=== PATIENT | female | born 1945 | race Hispanic/Latino ===

== ENCOUNTER 2017-10-29 15:15 | Outpatient (CLI) | payer OTHER ==
--- NOTE | 2017-10-29 18:57 | ULT ---
CAROTID ARTERIAL DOPPLER ULTRASOUND: Date: 10-29-17 Comparison: None. History: Disorder of carotid artery. Assess for carotid artery stenosis. Technique: Multiplanar grayscale sonographic imaging of the arterial structures of the neck obtained with color flow and spectral analysis. FINDINGS: There is essentric plaque within the distal right CCA. There is antegrade blood flow within the carot id and vertebral system on the right. There is essentric plaque within the proximal mid and distal left common carotid artery. There is ant egrade blood flow within the carotid and vertebral system on the left. There is partially calcified p laque within the proximal and mid left internal carotid artery as well as the proximal left external carotid artery. Incidental note is made of a heterogeneously hypoechoic nodule within the right lobe of the thyroid g land measuring 1.2 cm. VESSEL PSV (cm/sec) EDV (cm/sec) Right CCA 79 20 Right ICA 85 23 Right ECA 95 7 Left CCA 106 22 Left ICA 90 21 Left ECA 98 8 ICA/CCA ratio is 1.1 on the right and 0.9 on the left. IMPRESSION: 1. Bilateral atherosclerotic plaque within the carotid system, left greater than right. No hemodynami muriel significant stenosis on the basis of sonographic velocity criteria. 2. Hypodense nodule within the right thyroid lobe, incompletely assessed on this exam. Recommend dedi cated thyroid ultrasound. POS: [facility]
== END 2017-10-29 15:16 | disposition home or self-care (01) ==
LOC: ULT 15:15
PROVIDERS: ATTEND Family Medicine
DX: I77.9 Disorder of arteries and arterioles, unspecified (principal); I65.23 Occlusion and stenosis of bilateral carotid arteries; E04.1 Nontoxic single thyroid nodule
CPT/HCPCS: 93880

== ENCOUNTER 2017-12-20 16:58 | Inpatient (IN) | payer OTHER, SELFPAY ==
[2017-12-20 17:50] LABS: Bilirubin Negative (Negative); Blood, Urine Large (Negative); Clarity TURBID (Clear); Glucose, Urine (Dipstick) Negative (Negative); Leukocyte Large (Negative); Nitrite Negative (Negative); Protein, Urine (Dipstick) 100 mg/dL (Neg-Trace); Specific Gravity, Urine 1.016 (1.002-1.036); Urobilinogen 0.2 mg/dL (0.2-1.0); pH, Urine 5.5 (5.0-9.0)
[2017-12-20 17:52] LABS: Bacteria/HPF 4+ HPF (None Seen); RBC/HPF 21-50 HPF (0-3)
[2017-12-20 17:52] LABS: #Lymphocytes 0.6 thou/uL (1.20-3.40); #Monocytes 0.7 thou/uL (0.11-0.59); #Neutrophils 14.6 thou/uL (1.40-6.50); %Eosinophils 0.2 % (0.0-10.0); %Lymphocytes 3.6 % (21.0-51.0); %Monocytes 4.4 % (0.0-10.0); %Neutrophils 91.8 % (42.0-75.0); Hemoglobin 8.9 g/dL (12.0-16.0); Mean Corpuscular HGB CONC 34.3 g/dL (32.0-36.0); Mean Corpuscular Hemoglobin 35.8 pg (27.0-31.0); Mean Platelet Volume 6.1 fL (7.4-10.4); Platelet Count 267 thou/uL (130-400); RBC Distribution Width 10.8 % (11.5-14.5); Red Blood Cell (RBC) Count 2.48 mill/uL (4.20-5.40)
[2017-12-20 17:53] LABS: Pathc Cast-AUWi Flag 117.51 (0-2.49)
[2017-12-20 18:00] LABS: Hyaline Casts/LPF NONE SEEN LPF (0-3 Hyaline); Other Casts/LPF None Seen LPF (0-3 Hyaline)
[2017-12-20 18:07] LABS: ALT (SGPT) 49 U/L (8-55); AST (SGOT) 38 U/L (5-34); Albumin 3.1 g/dL (3.4-4.8); Alkaline Phosphatase 348 U/L (40-150); Anion Gap 17 mmol/L (10-20); BUN (Urea Nitrogen) 69 mg/dL (9.8-20.1); Bilirubin, Total 0.6 mg/dL (0.2-1.2); Calc. Creatinine Clearance 0 mL/min (70-130); Calcium 8.7 mg/dL (7.8-10.44); Carbon Dioxide 14 mmol/L (23-31); Chloride 93 mmol/L (98-107); Estimated GFR-MDRD 16; Glucose 227 mg/dL (80-115); Potassium 4.9 mmol/L (3.5-5.1); Protein, Total 7.1 g/dL (6.0-8.3)
[2017-12-20 18:11] LABS: Sodium 119 mmol/L (136-145)
[2017-12-20] MEDS ORDERED: Ondansetron HCl/PF 4 MG/2 ML Vial ONE (18:54)
[2017-12-20] MEDS ORDERED: cefTRIAXone\\ROCEPHIN 2 GM in Sodium Chloride 0.9% 100 ML IVPB SCH (19:00)
--- NOTE | 2017-12-20 19:06 | RAD ---
PORTABLE CHEST: 12/20/17 HISTORY: Mental status change. Fever. The lungs are well aerated. Interstitial markings are prominent in the right upper lung, probably ch ronic. No evidence of vascular congestion, effusion or focal infiltrate. IMPRESSION: No focal infiltrate identified. POS: [facility]
--- NOTE | 2017-12-20 19:44 | RAD ---
RIGHT HIP: 12/20/17 Two views. HISTORY: Fall with injury to right hip. Hip pain. FINDINGS/IMPRESSION: There is a right hip prosthesis in place with an intramedullary component in the proximal femur. The mid femur has been previously fixated with plate and screws. Components appear in adequate position and alignment. No acute fracture identified. POS: [facility]
--- NOTE | 2017-12-20 19:46 | RAD ---
RIGHT ANKLE: 12/20/17 Three views. HISTORY: Fall with injury to ankle with pain. Bones are osteopenic. There is a fracture of the distal tibia along its medial cortex just above the medial malleolus. No s ignificant displacement. Distal fibula and lateral malleolus appear intact. IMPRESSION: Fracture distal tibia. POS: [facility]
[2017-12-20] MEDS ORDERED: Ondansetron ODT 4 MG TAB PO PRN (22:59)
[2017-12-20] MEDS ORDERED: Dextrose 50% Abboject 50 ML SYRINGE SLOW IVP PRN (22:59)
[2017-12-20] MEDS ORDERED: Dextrose 5% in Water 1,000 ML IV PRN (22:59)
[2017-12-20 23:15] LABS: Osmolality, Urine 287 mOsm/kg (300-900)
[2017-12-20] MEDS ORDERED: Polyethylene Glycol 3350 17 GM Packet PO PRN (23:18)
[2017-12-20] MEDS ORDERED: Bisacodyl 10 MG SUPP PR PRN (23:18)
[2017-12-20 23:27] LABS: Sodium, Urine 32 mmol/L (Not Available)
[2017-12-20] MEDS ORDERED: Polyethylene Glycol 3350 17 GM Packet PO SCH (23:30)
[2017-12-21] MEDS: Sodium Chloride 0.9% 1,000 ML IV SCH ×3 (00:11→23:27)
[2017-12-21] MEDS: Acetaminophen 325 MG TAB PO PRN ×2 (02:29→21:46)
--- NOTE | 2017-12-21 04:21 | HP-2 ---
CODE STATUS: FULL. PRIMARY CARE PHYSICIAN: Dr. Vigil at [facility]. ATTENDING: Pravin Carpio M.D. RESIDENT: Jarrett Paiz M.D. CHIEF COMPLAINT: Fever. HISTORY OF PRESENT ILLNESS: A 72-year-old female presents with 4-day history of nausea, vomiting, fe geoff, poor oral intake and poor urine output. She states she has not had any sick contacts recently. Her family states that she does not drink very much water at baseline, but it has been noticeably wo rse over the last 4 days. The patient's family also states she has been more weak as of recent and h ad a fall this week most recently 2 days ago at her eye doctor's appointment. The patient denies any abdominal pain or any chest pain. The patient also denies any cough or congestion or shortness of b reath. She does not feel well and she feels weak. She also notes that she has not had a bowel movem ent in roughly 4 days as well. PAST MEDICAL HISTORY: Diabetes mellitus type 2, hypertension, chronic kidney disease 3. PAST SURGICAL HISTORY: She has had a hip replacement, knee and shoulder surgery. ALLERGIES: No known drug allergies. MEDICATIONS: 1. She takes lisinopril/hydrochlorothiazide 20/25 mg b.i.d. 2. Atorvastatin 40 mg at bedtime. 3. Aspirin 81 mg daily. FAMILY HISTORY: Noncontributory. SOCIAL HISTORY: No tobacco, alcohol or drug use. REVIEW OF SYSTEMS: Twelve-point review of systems was otherwise negative unless stated above in the HPI. PHYSICAL EXAMINATION: VITAL SIGNS: Blood pressure was 153/59, pulse 78, respiration 16, temperature max 98.8, pulse ox 100 % on room air, and current weight is 73 kilos. GENERAL: Alert and oriented x4. Appropriately interactive. 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 ENT: Tympanic membranes pearly gee without bulging or erythema. Nasal mucosa and oropharynx within normal limits, but she does have poor dentition present on exam. NECK: Supple, no lymphadenopathy, no thyromegaly. CARDIOVASCULAR: Regular rate and rhythm, 4/6 systolic murmur present on exam. Radial and pedal puls es equal bilaterally. RESPIRATORY: Normal effort, no retractions. Lungs clear to auscultation bilaterally. SKIN: Warm and dry. ABDOMEN: Soft, nontender to palpation. Bowel sounds present x4. No mass or distention. EXTREMITIES: No clubbing, cyanosis or edema. MUSCULOSKELETAL: Structure, tone, muscle strength and range of motion within normal limits. NEUROLOGIC: No focal neurologic deficits. Sensation within normal limits. Cranial nerves II-XII gr ossly intact. GCS of 15. PSYCHIATRIC: Appropriate. LABORATORY DATA: White blood cell count 16.0, platelet count 267, hemoglobin 8.9, hematocrit 25.9, M CV was 104.0, percent neutrophils 91.8. Had a sodium of 119, corrected to 122; potassium 4.9; chlori de 93; bicarbonate 14; BUN 69; creatinine 2.89; glucose was 227. Calcium was 8.7, total protein 7.1, albumin 3.1, total bilirubin 0.6, AST 38, ALT 49, alkaline phosphatase 348, lactate was 1.5. Her ur inalysis showed a large amount of blood, 100% of protein, large amount of leukocyte esterase, 21 to 5 0 rbc's, too numerous to count white blood cells and 4+ urine bacteria. ASSESSMENT AND PLAN: A 72-year-old female. 1. Hyponatremia, likely hypovolemic. We will give her IV fluids and track for the BMP. 2. Urinary tract infection. We will give her antibiotics and IV fluids to help with that. 3. Acute on chronic kidney injury. IV fluids. Track for the BMP. 4. Hyperglycemia and diabetes mellitus type 2, is currently untreated at home. She obviously needs to be put her on insulin or some sort of a diabetic regimen as an outpatient, but for now we will giv e her insulin and Accu-Cheks. 5. Leukocytosis, likely secondary to urinary tract infection. 6. Elevated alkaline phosphatase secondary to the fracture to her newly found fracture. 7. Medial malleolus fracture is nondisplaced. A splint is in place. We will give PT and OT evaluat ion and treatment to determine if she will be safe for placement or she needs to go to a rehab facili ty. 8. Microcytic anemia. We will get B12 and folate studies are pending to work that up further. DISPOSITION AND LENGTH OF HOSPITAL STAY: Will be inpatient in 2. Symptomatic medication will be provided. History and physical exam as well as management have been discussed with Dr. Carpio.
[2017-12-21 04:49] LABS: Anion Gap 15 mmol/L (10-20); BUN (Urea Nitrogen) 64 mg/dL (9.8-20.1); Calc. Creatinine Clearance 0 mL/min (70-130); Calcium 8.5 mg/dL (7.8-10.44); Carbon Dioxide 13 mmol/L (23-31); Chloride 99 mmol/L (98-107); Estimated GFR-MDRD 19; Glucose 185 mg/dL (80-115); Potassium 5.3 mmol/L (3.5-5.1); Sodium 122 mmol/L (136-145)
[2017-12-21 05:11] LABS: Band 6 % (5-11); Hemoglobin 8.6 g/dL (12.0-16.0); Lymphocytes 8 % (21-51); MDiff Complete? YES; Macrocytosis SLIGHT = 6-15 cells (100X) (0-5/hpf); Mean Corpuscular HGB CONC 34.7 g/dL (32.0-36.0); Mean Corpuscular Hemoglobin 36.3 pg (27.0-31.0); Mean Platelet Volume 6.9 fL (7.4-10.4); Monocytes 2 % (0-10); Neutrophil 84 % (42-75); PLT Morphology Comment Appears Adequate; Platelet Count 233 thou/uL (130-400); RBC Distribution Width 10.9 % (11.5-14.5); Red Blood Cell (RBC) Count 2.38 mill/uL (4.20-5.40)
[2017-12-21 06:26] VITALS: BMI 25.7
[2017-12-21 07:53] LABS: HBSAB Concentration 1.04 mIU/mL; HBSAg Index 0.28 S/CO (0-0.99); Hep B Surf AB Non-Reactive (NonReactive); Hep B Surf Ag Non-Reactive S/CO (NonReactive)
--- NOTE | 2017-12-21 08:04 | PDOC.FM ---
- Subjective Subjective: Patient doing well this AM. Denies any pain. Endorses several day history of pain with urination. No significant overnight events. Patient has not had a bowel movement in 4 days, although she does state that she has not eaten much since then due to N/V. Patient lives at home with daughter. She has been ill since Sunday, but is otherwise healthy. Patient denies any history of liver problems. - Objective MAR Reviewed: Yes Vital Signs & Weight: Vital Signs (12 hours) Temp Pulse Resp BP Pulse Ox 12/21/17 04:04 99.8 F H 12/21/17 02:55 98.4 F 93 18 96 12/21/17 02:35 101.1 F H 109 H 18 158/79 H 98 12/20/17 22:25 98.4 F 93 18 120/62 96 Weight Weight 63.866 kg I&O: 12/20/17 12/21/17 12/22/17 06:59 06:59 06:59 Intake Total 1500 Output Total 1200 Balance 300 Result Diagrams: 12/21/17 03:05 12/21/17 03:05 EKG Reviewed by me: Yes Radiology Reviewed by me: Yes <Melonie Fong - Last Filed: 12/21/17 09:15> - Objective Vital Signs & Weight: Vital Signs (12 hours) Temp Pulse Resp BP Pulse Ox 12/21/17 08:21 98.5 F 88 16 133/79 100 12/21/17 08:00 98.5 F 88 16 97 12/21/17 04:04 99.8 F H 12/21/17 02:55 98.4 F 93 18 96 12/21/17 02:35 101.1 F H 109 H 18 158/79 H 98 Weight Admit Weight 63.866 kg Weight 63.866 kg I&O: 12/20/17 12/21/17 12/22/17 06:59 06:59 06:59 Intake Total 1500 240 Output Total 1200 Balance 300 240 Result Diagrams: 12/21/17 03:05 12/21/17 10:12 <Magnus Tubbs - Last Filed: 12/21/17 11:32> Phys Exam - Physical Examination Constitutional: NAD HEENT: moist MMs Neck: supple Respiratory: no wheezing, clear to auscultation bilateral Cardiovascular: RRR 3/6 systolic murmur Gastrointestinal: soft, no distention, positive bowel sounds Musculoskeletal: no edema, pulses present Neurological: non-focal Psychiatric: A&O x 3 Deviation from normal: Ecchymosis on UE's <Melonie Fong - Last Filed: 12/21/17 09:15> Dx/Plan (1) Hyponatremia Code(s): E87.1 - HYPO-OSMOLALITY AND HYPONATREMIA Status: Acute (2) Urinary tract infection Status: Acute (3) Hyperglycemia Code(s): R73.9 - HYPERGLYCEMIA, UNSPECIFIED Status: Acute (4) Right tibial fracture Code(s): S82.201A - UNSP FRACTURE OF SHAFT OF RIGHT TIBIA, INIT FOR CLOS FX Status: Acute QualifierTitle: Encounter type: subsequent encounter (5) Macrocytic anemia Code(s): D53.9 - NUTRITIONAL ANEMIA, UNSPECIFIED Status: Chronic (6) Elevated alkaline phosphatase level Status: Acute - Plan Plan: 1. Hypovolemic hyponatremia - 119 on admission; improved to 122 this AM - NS @ 100 ml/hr - Continue to trend BMP - Likely 2/2 N/V, decreased PO intake over last several days - Salt tablets PRN - Stop HCTZ as potential cause of hyponatremia - Does not appear to be SIADH based on urine studies - Q4H BMP; do not want Na to go up by more than 12 mEq in 24 hours 2. UTI - LE's with 4+ bacteria - Treatment with rocephin - Fever to 101.1 last night; may be source of fever - Endorses dysuria 3. Hyperglycemia - Had a diagnosis of DM II previously - Is not currently on any medications - Repeat HgA1c - Mild SSI - ACHS accuchecks 4. Elevated alkaline phosphatase - Elevated to 348 - Likely intrahepatic as GGT was 245 - Right upper quadrant U/S pending at this time - Hep A, B, C pending 5. Medial tibial fracture - Stable - Diagnosed 2 days ago and currently in splint 6. Macrocytic anemia - Chronic - RBC folate pending - B12 >1999 7. Fever - Blood cultures pending - Blood cx right arm grew gram negative rods <Melonie Fong - Last Filed: 12/21/17 09:15> Attending Addendum - Attending Addendum I personally evaluated the patient and discussed the management with Dr. Zhao. I agree with the History, Examination, Assessment and Plan documented above with any addition or exceptions noted below. Received initial blood culture results of e.coli 1/2 cultures. Plan to continue rocephin and increase fluid resuscitation. Noted UTI on arrival. Also noted elevated alk phos and GGT, pending Hep panel and RUQ u/s. Hyponatremia is correctly slowly, continue BMP checks. Hctz will need to be discontinued on discharge, have held here. Regarding macrocytic anemia, folate pending, B12 high, colonoscopy in 2016 was normal recommended 10 yr follow up. Medial malleolar fracture splinted--Ortho consult. <Magnus Tubbs - Last Filed: 12/21/17 11:32>
[2017-12-21] MEDS: Lisinopril 20 MG TAB PO SCH (08:33)
[2017-12-21] MEDS: Heparin 5,000 UNITS/ML VIAL SC SCH ×3 (08:34→21:46)
[2017-12-21] MEDS: Atorvastatin Calcium 40 MG TAB PO SCH (08:34)
[2017-12-21] MEDS ORDERED: Aspirin 81 mg Enteric Coated Tablet PO SCH (09:00)
[2017-12-21] MEDS ORDERED: Lisinopril/Hydrochlorothiazide 20/25 mg Tablet PO SCH (09:00)
--- NOTE | 2017-12-21 09:07 | RAD ---
ABDOMEN 1 VIEW: Date: 12/21/17 HISTORY: Abdominal pain. FINDINGS: Gas and stool are apparent throughout the colon and rectum, somewhat increased. There are no differen tial air fluid levels or evidence of free subdiaphragmatic gas. There is calcification over the arter ial structures. Right hip prosthesis is partially visualized. IMPRESSION: 1. Constipation. 2. Atherosclerosis. POS: [facility]
--- NOTE | 2017-12-21 09:32 | ULT ---
RIGHT UPPER QUADRANT ULTRASOUND: Date: 12/21/17 HISTORY: Elevated alkaline phosphatase, abnormal LFTs. FINDINGS: The liver demonstrates homogeneous echotexture without focal mass or intrahepatic ductal dilatation. Multiple mobile shadowing gallstones are present with gallbladder wall measuring about 3.0 mm in thic kness. No pericholecystic fluid is seen. The common duct measures 5.0 mm in diameter. Gallbladder is distended. The pancreas is not well visualized due to overlying bowel gas. The right kidney is unrema rkable. No free fluid is seen in Morison's pouch. IMPRESSION: Cholelithiasis with distended gallbladder. POS: [facility]
[2017-12-21 09:36] LABS: Hemoglobin A1c 5.7 % (4.0-6.0)
[2017-12-21 10:52] LABS: Anion Gap 13 mmol/L (10-20); BUN (Urea Nitrogen) 62 mg/dL (9.8-20.1); Calc. Creatinine Clearance 20 mL/min (70-130); Calcium 8.3 mg/dL (7.8-10.44); Carbon Dioxide 14 mmol/L (23-31); Chloride 103 mmol/L (98-107); Estimated GFR-MDRD 18; Glucose 186 mg/dL (80-115); Potassium 4.5 mmol/L (3.5-5.1); Sodium 125 mmol/L (136-145)
[2017-12-21 14:27] LABS: INR-International Normal Ratio 1.3; PTT 43.8 SEC (22.9-36.1)
[2017-12-21 14:45] LABS: Anion Gap 17 mmol/L (10-20); BUN (Urea Nitrogen) 60 mg/dL (9.8-20.1); Calc. Creatinine Clearance 21 mL/min (70-130); Calcium 7.5 mg/dL (7.8-10.44); Carbon Dioxide 13 mmol/L (23-31); Chloride 102 mmol/L (98-107); Estimated GFR-MDRD 19; Glucose 223 mg/dL (80-115); Potassium 4.6 mmol/L (3.5-5.1); Sodium 127 mmol/L (136-145)
[2017-12-21] MEDS: HumaLOG 300 UNITS/3 ML VIAL SC PRN (16:53)
[2017-12-21] MEDS ORDERED: cefTRIAXone\\ROCEPHIN 1 GM in Syringe 10 ML SLOW IVP SCH (20:00)
[2017-12-21] MEDS: Aspirin 81 mg Enteric Coated Tablet PO SCH (21:46)
[2017-12-22 06:15] LABS: Hepatitis A IgM ABS Negative (Negative); Hepatitis A Total ABS Positive (Negative)
[2017-12-22 06:33] LABS: Anion Gap 12 mmol/L (10-20); BUN (Urea Nitrogen) 57 mg/dL (9.8-20.1); Calc. Creatinine Clearance 23 mL/min (70-130); Calcium 7.9 mg/dL (7.8-10.44); Carbon Dioxide 17 mmol/L (23-31); Chloride 105 mmol/L (98-107); Estimated GFR-MDRD 21; Glucose 127 mg/dL (80-115); Potassium 3.8 mmol/L (3.5-5.1); Sodium 130 mmol/L (136-145)
--- NOTE | 2017-12-22 09:16 | PDOC.FM ---
- Subjective Subjective: Patient doing well this AM. No significant overnight events. Patient has no complaints at this time. It was explained that she has bacteremia secondary to E. coli UTI. She will need to be on IV antibiotics for a few more days. She was transitioned from rocephin to zosyn due to resistance. Will transition to oral abx in a few days. - Objective MAR Reviewed: Yes Vital Signs & Weight: Vital Signs (12 hours) Temp Pulse Resp BP Pulse Ox 12/22/17 08:56 98.6 F 92 16 165/67 H 97 12/22/17 04:00 98.3 F 12/21/17 23:45 98.5 F Weight Admit Weight 63.866 kg Weight 63.866 kg I&O: 12/21/17 12/22/17 12/23/17 06:59 06:59 06:59 Intake Total 8910 621 9725 Output Total 1200 2200 Balance 300 -1480 1200 Result Diagrams: 12/21/17 03:05 12/22/17 04:48 EKG Reviewed by me: Yes Radiology Reviewed by me: Yes <Melonie Fong - Last Filed: 12/22/17 12:00> - Objective Vital Signs & Weight: Vital Signs (12 hours) Temp Pulse Pulse Resp BP BP Pulse Ox 12/22/17 20:00 99.0 F 90 16 150/69 H 95 12/22/17 16:00 98.4 F 12/22/17 11:00 92 156/72 H Weight Admit Weight 63.866 kg Weight 63.866 kg I&O: 12/21/17 12/22/17 12/23/17 06:59 06:59 06:59 Intake Total 7750 808 4787 Output Total 1200 2200 1450 Balance 300 -1480 1852 Result Diagrams: 12/21/17 03:05 12/22/17 04:48 <Theresa Mcrae - Last Filed: 12/22/17 22:27> Phys Exam - Physical Examination Constitutional: NAD HEENT: moist MMs, sclera anicteric Neck: supple Respiratory: no wheezing, clear to auscultation bilateral Cardiovascular: RRR 3/6 systolic murmur Gastrointestinal: soft, non-tender, no distention, positive bowel sounds Musculoskeletal: no edema, pulses present Right leg in splint Neurological: non-focal Psychiatric: A&O x 3 Skin: no rash, cap refill <2 seconds <Melonie Fong - Last Filed: 12/22/17 12:00> Dx/Plan (1) Hyponatremia Code(s): E87.1 - HYPO-OSMOLALITY AND HYPONATREMIA Status: Acute (2) Urinary tract infection Status: Acute (3) Hyperglycemia Code(s): R73.9 - HYPERGLYCEMIA, UNSPECIFIED Status: Acute (4) Right tibial fracture Code(s): S82.201A - UNSP FRACTURE OF SHAFT OF RIGHT TIBIA, INIT FOR CLOS FX Status: Acute QualifierTitle: Encounter type: subsequent encounter (5) Macrocytic anemia Code(s): D53.9 - NUTRITIONAL ANEMIA, UNSPECIFIED Status: Chronic (6) Elevated alkaline phosphatase level Status: Acute - Plan Plan: 1. Hypovolemic hyponatremia - 119 on admission; improved to 130 - NS @ 100 ml/hr; consider d/c'ing today - Continue to trend BMP - Likely 2/2 N/V, decreased PO intake over last several days - Stop HCTZ as potential cause of hyponatremia 2. UTI - LE's with 4+ bacteria - E. coli resistant to rocephin, will switch to zosyn 3. Hyperglycemia - Had a diagnosis of DM II previously - Is not currently on any medications - Repeat HgA1c - Mild SSI - ACHS accuchecks 4. Elevated alkaline phosphatase - Elevated to 348 - Likely intrahepatic as GGT was 245 - Right upper quadrant U/S pending at this time - Hep B, C negative - History of Hep A 5. Medial tibial fracture - Stable - Splinted - Ortho consulted; appreciate recs - Non-weight bearing x2 weeks 6. Macrocytic anemia - Chronic - RBC folate pending - B12 >1999 7. E. coli bacteremia - Blood cultures positive - Resistant to rocephin - Patient started on zosyn 8. Cholelithiasis with distended gallbladder - Not symptomatic - Observe at this time Dispo: Stable. Continue on IV antibiotics today. Will reevaluate tomorrow. <Melonie Fong - Last Filed: 12/22/17 12:00> Attending Addendum - Attending Addendum I personally evaluated the patient and discussed the management with Dr. Fong at 1045. I agree with the History, Examination, Assessment and Plan documented above with any addition or exceptions noted below. E coli UTI and bacteremia- on Zosyn. Continue IV abx. Acute on CKD- renal u/s ordered. Continue IVF and daily bmp. T2DM- cont ssi. <Theresa Mcrae - Last Filed: 12/22/17 22:27>
[2017-12-22] MEDS: Atorvastatin Calcium 40 MG TAB PO SCH (09:20)
[2017-12-22] MEDS: Lisinopril 20 MG TAB PO SCH (09:20)
[2017-12-22] MEDS: Piperacillin/Tazobactam 2.25 GM in Sodium Chloride 0.9% 100 ML IVPB SCH ×3 (09:21→21:54)
[2017-12-22] MEDS: Heparin 5,000 UNITS/ML VIAL SC SCH ×3 (09:23→21:54)
[2017-12-22] MEDS: Sodium Chloride 0.9% 1,000 ML IV SCH ×2 (09:29→21:54)
[2017-12-22] MEDS: HumaLOG 300 UNITS/3 ML VIAL SC PRN (12:12)
--- NOTE | 2017-12-22 16:20 | ULT ---
RENAL SONOGRAM 12/22/17 HISTORY: Worsening chronic kidney disease, bacteremia. FINDINGS: Right kidney is asymmetrically smaller in size compared to the left kidney measuring 7.9 cm x 4.2 cm, and left kidney measures 9.6 cm x 4.5 cm. There is an echogenic focus seen in the central portion of the right kidney measuring 0.8 cm. This does not demonstrate shadowing and may represent either a pr ominent vessel or nonshadowing calculus. There are areas of mild cortical thinning involving the righ t kidney compared to the left. No mass or hydronephrosis is seen bilaterally. A 0.7 cm echogenic focus is seen within the inferior p ole left kidney with question of posterior shadowing, this may represent a renal calculus. IMPRESSION: 1. Small size of the right kidney with areas of cortical thinning. There is no hydronephrosis. 2. Suggestion of nonobstructing bilateral renal calculi. POS: [facility]
[2017-12-22] MEDS: Aspirin 81 mg Enteric Coated Tablet PO SCH (21:54)
[2017-12-23] MEDS: Piperacillin/Tazobactam 2.25 GM in Sodium Chloride 0.9% 100 ML IVPB SCH ×4 (03:34→20:32)
[2017-12-23 06:00] LABS: #Eosinphils 0.2 thou/uL (0.0-0.7); #Lymphocytes 1.4 thou/uL (1.20-3.40); #Neutrophils 6.9 thou/uL (1.40-6.50); %Basophils 0.2 % (0.0-1.0); %Eosinophils 2.4 % (0.0-10.0); %Lymphocytes 14.6 % (21.0-51.0); %Monocytes 10.4 % (0.0-10.0); %Neutrophils 72.4 % (42.0-75.0); Hemoglobin 6.5 g/dL (12.0-16.0); Mean Corpuscular HGB CONC 33.6 g/dL (32.0-36.0); Mean Corpuscular Hemoglobin 35.3 pg (27.0-31.0); Mean Platelet Volume 6.5 fL (7.4-10.4); Platelet Count 197 thou/uL (130-400); RBC Distribution Width 11.1 % (11.5-14.5); Red Blood Cell (RBC) Count 1.83 mill/uL (4.20-5.40); White Blood Cell (WBC) Count 9.5 thou/uL (4.8-10.8)
[2017-12-23 06:24] LABS: ALT (SGPT) 27 U/L (8-55); AST (SGOT) 27 U/L (5-34); Albumin 2.1 g/dL (3.4-4.8); Alkaline Phosphatase 294 U/L (40-150); Anion Gap 12 mmol/L (10-20); BUN (Urea Nitrogen) 50 mg/dL (9.8-20.1); Bilirubin, Total 0.4 mg/dL (0.2-1.2); Calc. Creatinine Clearance 24 mL/min (70-130); Calcium 7.7 mg/dL (7.8-10.44); Carbon Dioxide 16 mmol/L (23-31); Chloride 108 mmol/L (98-107); Estimated GFR-MDRD 23; Globulin 3.2 g/dL (2.4-3.5); Glucose 118 mg/dL (80-115); Potassium 3.5 mmol/L (3.5-5.1); Protein, Total 5.3 g/dL (6.0-8.3); Sodium 132 mmol/L (136-145)
[2017-12-23] MEDS: Sodium Chloride 0.9% 1,000 ML IV SCH (07:08)
--- NOTE | 2017-12-23 07:18 | PDOC.FM ---
- Subjective Subjective: Patient doing well this AM. No significant overnight events. No complaints at this time. Will continue IV medications. - Objective MAR Reviewed: Yes Vital Signs & Weight: Vital Signs (12 hours) Temp Pulse Resp BP Pulse Ox 12/23/17 00:00 98.2 F 12/22/17 20:00 99.0 F 90 16 150/69 H 95 Weight Admit Weight 63.866 kg Weight 63.866 kg I&O: 12/22/17 12/23/17 12/24/17 06:59 06:59 06:59 Intake Total 720 3302 Output Total 2200 1450 Balance -1480 1852 Result Diagrams: 12/23/17 04:41 12/23/17 04:41 EKG Reviewed by me: Yes Radiology Reviewed by me: Yes <Melonie Fong - Last Filed: 12/23/17 08:03> - Objective Vital Signs & Weight: Vital Signs (12 hours) Temp 12/23/17 00:00 98.2 F Weight Admit Weight 63.866 kg Weight 63.866 kg I&O: 12/22/17 12/23/17 12/24/17 06:59 06:59 06:59 Intake Total 720 3302 Output Total 2200 1450 Balance -1480 1852 Result Diagrams: 12/23/17 04:41 12/23/17 04:41 <Magnus Tubbs - Last Filed: 12/23/17 08:43> Phys Exam - Physical Examination Constitutional: NAD HEENT: moist MMs Neck: supple Respiratory: no wheezing, clear to auscultation bilateral Cardiovascular: RRR 3/6 systolic murmur Gastrointestinal: soft, non-tender, positive bowel sounds Musculoskeletal: no edema, pulses present Neurological: non-focal, moves all 4 limbs Psychiatric: A&O x 3 Skin: no rash, cap refill <2 seconds <Melonie Fong - Last Filed: 12/23/17 08:03> Dx/Plan (1) Hyponatremia Code(s): E87.1 - HYPO-OSMOLALITY AND HYPONATREMIA Status: Acute (2) Urinary tract infection Status: Acute (3) Hyperglycemia Code(s): R73.9 - HYPERGLYCEMIA, UNSPECIFIED Status: Acute (4) Right tibial fracture Code(s): S82.201A - UNSP FRACTURE OF SHAFT OF RIGHT TIBIA, INIT FOR CLOS FX Status: Acute QualifierTitle: Encounter type: subsequent encounter (5) Macrocytic anemia Code(s): D53.9 - NUTRITIONAL ANEMIA, UNSPECIFIED Status: Chronic (6) Elevated alkaline phosphatase level Status: Acute - Plan Plan: 1. Hypovolemic hyponatremia - 119 on admission; improved to 132 - NS @ 100 ml/hr; consider d/c'ing today - Continue to trend BMP - Likely 2/2 N/V, decreased PO intake over last several days - Stop HCTZ as potential cause of hyponatremia 2. UTI - LE's with 4+ bacteria - E. coli resistant to rocephin, will switch to zosyn 3. Hyperglycemia - Had a diagnosis of DM II previously - Is not currently on any medications - Repeat HgA1c - Mild SSI - ACHS accuchecks 4. Elevated alkaline phosphatase - Elevated to 348, down to 294 - Likely intrahepatic as GGT was 245 - Right upper quadrant U/S shows cholelithiasis with distended gallbladder; patient asymptomatic - Hep B, C negative - History of Hep A 5. Medial tibial fracture - Stable - Splinted - Ortho consulted; appreciate recs - Non-weight bearing x2 weeks 6. Macrocytic anemia - Chronic - RBC folate pending - B12 >2000 - Hg this AM 6.5; likely dilutional, but will consider transfusing unit of pRBC 7. E. coli bacteremia - Blood cultures positive - Resistant to rocephin - Patient started on zosyn 8. Cholelithiasis with distended gallbladder - Not symptomatic - Observe at this time 9. LUIS on CKD - Cr improved to 2.16 this AM - Baseline Cr 1.6 - Renal u/s showed small right kidney with cortical thinning and possible bilateral nonobstructing renal calculi Dispo: Stable. Continue on IV antibiotics today. Will reevaluate tomorrow. <Melonie Fong - Last Filed: 12/23/17 08:03> Attending Addendum - Attending Addendum I personally evaluated the patient and discussed the management with Dr. Fong. I agree with the History, Examination, Assessment and Plan documented above with any addition or exceptions noted below. Will check orthostatic vitals and plan for transfusion of 1 u pRBC if symptomatic. Continue Zosyn. <Tubbs,Magnus A - Last Filed: 12/23/17 08:43>
[2017-12-23] MEDS: Lisinopril 20 MG TAB PO SCH (08:55)
[2017-12-23] MEDS: Atorvastatin Calcium 40 MG TAB PO SCH (08:55)
[2017-12-23] MEDS: Heparin 5,000 UNITS/ML VIAL SC SCH ×3 (08:56→20:32)
[2017-12-23] MEDS ORDERED: Docusate 100 MG CAP PO PRN (11:44)
[2017-12-23] MEDS: HumaLOG 300 UNITS/3 ML VIAL SC PRN ×2 (12:59→18:24)
[2017-12-23 14:33] LABS: Iron 49 ug/dL (50-170); Iron Binding Capacity, Total 91 mcg/dL (265-497)
[2017-12-23] MEDS: Aspirin 81 mg Enteric Coated Tablet PO SCH (20:32)
[2017-12-24] MEDS: Piperacillin/Tazobactam 2.25 GM in Sodium Chloride 0.9% 100 ML IVPB SCH ×4 (02:34→20:22)
[2017-12-24 04:56] LABS: Platelet Count 200 thou/uL (130-400)
--- NOTE | 2017-12-24 07:00 | PDOC.FM ---
- Subjective Subjective: No acute events overnight. Pt does endorse dysuria with urination. Denies other symptoms. - Objective MAR Reviewed: Yes Vital Signs & Weight: Vital Signs (12 hours) Temp Pulse Pulse Resp BP BP Pulse Ox 12/24/17 04:58 98.1 F 76 17 168/71 H 97 12/24/17 00:55 98.8 F 72 18 179/80 H 12/23/17 21:44 98.1 F 73 18 175/71 H 12/23/17 20:30 98.1 F 73 18 98 12/23/17 20:10 98.1 F 73 73 17 175/85 H 175/85 H 98 Weight Admit Weight 63.866 kg Weight 63.866 kg I&O: 12/22/17 12/23/17 12/24/17 06:59 06:59 06:59 Intake Total 720 3302 2900 Output Total 2200 1450 1600 Balance -1480 1852 1300 Result Diagrams: 12/24/17 04:49 12/24/17 04:49 <Allison Cano - Last Filed: 12/24/17 09:11> - Objective Vital Signs & Weight: Vital Signs (12 hours) Temp Pulse Pulse Resp BP BP BP 12/24/17 09:33 191/91 H 12/24/17 04:58 98.1 F 76 17 168/71 H 12/24/17 00:55 98.8 F 72 18 179/80 H Pulse Ox 12/24/17 09:33 12/24/17 04:58 97 12/24/17 00:55 Weight Admit Weight 63.866 kg Weight 63.866 kg I&O: 12/23/17 12/24/17 12/25/17 06:59 06:59 06:59 Intake Total 3302 3650 Output Total 1450 2800 Balance 1852 850 Result Diagrams: 12/24/17 04:49 12/24/17 04:49 <Kd Balbuena - Last Filed: 12/24/17 13:00> Phys Exam - Physical Examination HEENT: PERRLA dry mm Respiratory: no wheezing, no rales Cardiovascular: RRR 2/6 systolic ejection murmur Gastrointestinal: soft, non-tender Musculoskeletal: no edema Neurological: non-focal Psychiatric: normal affect, A&O x 3 Skin: no rash Deviation from normal: increased capillary refill <JeromeAllison - Last Filed: 12/24/17 09:11> Dx/Plan (1) Bacteremia Code(s): R78.81 - BACTEREMIA Status: Acute (2) Urinary tract infection Status: Acute (3) Elevated alkaline phosphatase level Status: Acute (4) Hyperglycemia Code(s): R73.9 - HYPERGLYCEMIA, UNSPECIFIED Status: Acute (5) Hyponatremia Code(s): E87.1 - HYPO-OSMOLALITY AND HYPONATREMIA Status: Acute (6) Right tibial fracture Code(s): S82.201A - UNSP FRACTURE OF SHAFT OF RIGHT TIBIA, INIT FOR CLOS FX Status: Acute QualifierTitle: Encounter type: subsequent encounter (7) Macrocytic anemia Code(s): D53.9 - NUTRITIONAL ANEMIA, UNSPECIFIED Status: Chronic - Plan Plan: Plan: 1. E. coli bacteremia 2/2 UTI - Blood cultures positive - Resistant to rocephin - Patient started on zosyn -Transistion to Bactrim today -Possible DC today 2. UTI - LE's with 4+ bacteria - Transition to Bactrim today 3. Hyperglycemia - Had a diagnosis of DM II previously - Is not currently on any medications - Repeat HgA1c -will restart metformen 1000mg BID - Mild SSI - ACHS accuchecks 4. Elevated alkaline phosphatase - Elevated to 348, down to 294 - Likely intrahepatic as GGT was 245 - Right upper quadrant U/S shows cholelithiasis with distended gallbladder; patient asymptomatic - Hep B, C negative - History of Hep A 1. Hypovolemic hyponatremia- patient appears dry - 119 on admission; improved to 132 - NS @ 100 ml/hr-continue today - Continue to trend BMP - Likely 2/2 N/V, decreased PO intake over last several days - Stop HCTZ as potential cause of hyponatremia 6. Anemia, mixed - Anemia chronic disease - RBC folate pending - B12 >1999 5. Medial tibial fracture - Stable - Splinted - Ortho consulted; appreciate recs - Non-weight bearing x2 weeks 8. Cholelithiasis with distended gallbladder - Not symptomatic - Observe at this time 9. LUIS on CKD - Cr improved to 2.16 this AM - Baseline Cr 1.6 - Renal u/s showed small right kidney with cortical thinning and possible bilateral nonobstructing renal calculi -continue fluids Dispo: Stable. Continue on antibiotics today. Consider DC this afternoon. <Allison Cano - Last Filed: 12/24/17 09:11> Attending Addendum - Attending Addendum I personally evaluated the patient and discussed the management with Dr. Keisha Monzon. I agree with the History, Examination, Assessment and Plan documented above with any addition or exceptions noted below. Patient here with 4 active issues. The first is her UTI and bacteremia with a moderately resistant E.coli. Sensitivities show sensitivity to Zosyn which she has now been on for 2 days. There are no good oral alternatives at this time for bacteremia. Consultation with Pharmacy reveals she will likely have issues clearing this infection due to the presence of non obstructing renal stones that likely have biofilm. Will continue Zosyn at this time and consult ID for senior living abx suggestions. She has a macrocytic anemia that has been stable after transfusion of 2U PRBCs. Will continue to trend. Overall stable, and seems to point to anemia of chronic disease. Her BP are elevated and will need augmentation of medical therapy to get BP under better control. Finally, she has had decline in renal function that is somewhat improved, with a coexisting hyperchloremic metabolic acidosis. Corrected AG is 17.5, so she likely has a gap non gap acidosis. Likely suspect would be RTA at this time, and will obtain UA for cast evaluation as well as VBG to evaluate acid/base status. Starting on PO bicarb and will consult Nephrology as she has CKD as has never been evaluated by them. <Kd Balbuena - Last Filed: 12/24/17 13:00>
[2017-12-24 07:35] LABS: ALT (SGPT) 26 U/L (8-55); AST (SGOT) 25 U/L (5-34); Albumin 2.3 g/dL (3.4-4.8); Alkaline Phosphatase 274 U/L (40-150); Anion Gap 16 mmol/L (10-20); BUN (Urea Nitrogen) 47 mg/dL (9.8-20.1); Bilirubin, Total 0.7 mg/dL (0.2-1.2); Calc. Creatinine Clearance 25 mL/min (70-130); Calcium 8.2 mg/dL (7.8-10.44); Carbon Dioxide 12 mmol/L (23-31); Chloride 110 mmol/L (98-107); Estimated GFR-MDRD 24; Globulin 3.5 g/dL (2.4-3.5); Glucose 65 mg/dL (80-115); Potassium 4.3 mmol/L (3.5-5.1); Protein, Total 5.8 g/dL (6.0-8.3); Sodium 134 mmol/L (136-145)
[2017-12-24] MEDS: Lisinopril 20 MG TAB PO SCH (09:33)
[2017-12-24] MEDS: Atorvastatin Calcium 40 MG TAB PO SCH (09:36)
[2017-12-24] MEDS: Heparin 5,000 UNITS/ML VIAL SC SCH ×3 (09:37→20:30)
[2017-12-24] MEDS: Sodium Chloride 0.9% 1,000 ML IV SCH ×2 (09:39→20:27)
[2017-12-24 09:56] LABS: Hemoglobin A1c 5.8 % (4.0-6.0)
--- NOTE | 2017-12-24 10:05 | PQF ---
CLINICAL DOCUMENTATION IMPROVEMENT CLARIFICATION FORM: ICD-10 Updated PLEASE DO AN ADDENDUM TO THE PROGRESS NOTE WITH ANY DOCUMENTATION UPDATES OR ADDITIONS AND CARRY THROUGH TO DC SUMMARY. THANK YOU. DATE: 12/24 ATTN: DR. YAKELIN EISENBERG/ DR. MASSIEL GORDON Please exercise your independent, professional judgment in responding to the clarification form. Clinical indicators are provided on the bottom of this form for your review. Please check appropriate box(es): [ x ] Sepsis due to: (Pna, UTI, gangrenous gall bladder, etc.) ESBL Bacteremia [ ] Severe sepsis with acute organ dysfunction of: (Examples: respiratory failure, encephalopathy, acute kidney failure, other) [ ] Localized infection without sepsis [ ] Other diagnosis [ ] Unable to determine For continuity of documentation, please document condition throughout progress notes and discharge summary. Thank You. CLINICAL INDICATORS - SIGNS / SYMPTOMS / LABS ER PHYSICIAN DOCUMENTATION 12/20: FAMILY STATES FEVER X1 WEEK, CHILLS, LETHARGY , REPORTS WEAKNESS WBC: 16.0 ADMIT VS: T: 101.1 HR: 109 POSITIVE BLOOD CULTURES 2 OF 2: E COLI; POSITIVE URINE CX: E COLI, KLEBSIELLA SPECIES ATTENDING PN DATED 12/22 & 11: PLAN: 7. E COLI BACTEREMIA; BLOOD CULTURES POSITIVE ATTENDING PN DATED 12/24: PLAN: 1. E COLI BACTEREMIA; BLOOD CULTURES POSITIVE RISK FACTORS: ACUTE KIDNEY INJURY UTI (E COLI, KLEBSIELLA SPECIES) FEVER (101.1) POSITIVE BLOOD CULTURES 2 OF 2 (E COLI) TREATMENTS: IV ANTIBIOTICS (ZOSYN 12/22 - PRESENT; ROCEPHIN 12/20 -) IVF (NS 12/20 - PRESENT) BLOOD CULTURES URINE CULTURE THANK YOU! Leila (This form is maintained as a part of the permanent medical record) 2014 [employer]. All Rights Reserved Leila Anaya RN, BSN [email or web address] Office: [phone] [facility]
[2017-12-24 10:09] LABS: Lactic Acid 1.1 mmol/L (0.5-2.2)
[2017-12-24] MEDS ORDERED: Amlodipine 5 MG TAB PO SCH (12:30)
--- NOTE | 2017-12-24 12:40 | CON ---
DATE OF CONSULTATION: 12/24/2017 REASON FOR CONSULTATION: Elevated creatinine and metabolic acidosis. HISTORY OF PRESENT ILLNESS: This is a 72-year-old female who presented to the hospital with a 4-day history of nausea, vomiting, and diarrhea, and poor p.o. intake with poor urine output. Her creatinine had increased to 2.6 after hydration and has decreased to 2.0. The patient denies nausea , vomiting or chest pain. She is having bowel movements at this time. PAST MEDICAL HISTORY: Diabetes mellitus type 2, hypertension, chronic kidney disease. PAST SURGICAL HISTORY: History of hip replacement, knee and shoulder surgery. ALLERGIES: Reviewed. HOME MEDICATIONS: List reviewed. REVIEW OF SYSTEMS: A 15-point review of systems was performed and negative except positives noted ab ove. GENERAL: Weakness-. HEAD: Headache-. NECK: No swelling or lumps. NOSE: No epistaxis or discharge. EYES: No diplopia or pain. RESPIRATORY: Dyspnea-. CARDIOVASCULAR: Chest pain-. GASTROINTESTINAL: Nausea-. /PRIVATE CLIENT ADVISOR: Hematuria-. MUSCULOSKELETAL: No joint pain. NEUROPSYCHIATIC SYSTEMS: No suicidal ideation. No ideation. SKIN: Denies any rash or ulcer. CONSTITUTIONAL: No fever or chills. PHYSICAL EXAMINATION: GENERAL: Patient is awake, alert. VITAL SIGNS: Afebrile, pulse 73, breathing at 16, blood pressure was 190/80. GENERAL APPEARANCE AND MENTAL STATUS: Fair. HEAD/NECK: Normocephalic, atraumatic. EYES: EOMI. No deformity. EARS: Clear. No ulcers. NOSE: Intact. No lesions. MOUTH: Clear. No discharge. THROAT: Clear. No exudate. LUNGS: Clear. No crackles. CARDIAC: S1, S2. No rub. ABDOMEN: Benign. BS+. GENITALIA/RECTUM: Eason absent. BACK/EXTREMITIES: Edema 0+ Ulcer-. NEUROLOGICAL: Alert and motor intact. SKIN: Rash- Bruise- LYMPHATICS: Edema- Ulcer- ASSESSMENT AND RECOMMENDATIONS: 1. Acute kidney injury with chronic kidney disease, most likely due to decreased effective arterial blood volume. Renal function is improved. Patient is nonoliguric. Renal failure is causing metabol ic acidosis. I agree with the sodium bicarbonate replacement. 2. Hypertension. Stop lisinopril and change it to amlodipine, also start low dose Coreg 3.125 q.12 hours. 3. Anemia, stable. 4. Medications based on glomerular filtration rate are appropriate. No urgent indication for renal replacement therapy at this time. I will order renal imaging to look at renal shape, size, and symme try. All the above findings were discussed with the patient and all questions were answered.
[2017-12-24 13:25] LABS: White Blood Cell (WBC) Count 8.7 thou/uL (4.8-10.8)
[2017-12-24] MEDS: Sodium Bicarbonate Tab 325 MG TAB PO SCH ×2 (14:20→20:22)
[2017-12-24 14:31] LABS: #Eosinphils 0.2 thou/uL (0.0-0.7); #Lymphocytes 1.2 thou/uL (1.20-3.40); #Monocytes 0.8 thou/uL (0.11-0.59); #Neutrophils 6.5 thou/uL (1.40-6.50); %Basophils 0.4 % (0.0-1.0); %Eosinophils 1.9 % (0.0-10.0); %Lymphocytes 13.6 % (21.0-51.0); %Monocytes 9.1 % (0.0-10.0); %Neutrophils 74.9 % (42.0-75.0); Hemoglobin 10.9 g/dL (12.0-16.0); Mean Corpuscular HGB CONC 33.8 g/dL (32.0-36.0); Mean Platelet Volume 6.2 fL (7.4-10.4); Platelet Count 226 thou/uL (130-400); RBC Distribution Width 13.2 % (11.5-14.5); Red Blood Cell (RBC) Count 3.19 mill/uL (4.20-5.40); White Blood Cell (WBC) Count 8.7 thou/uL (4.8-10.8)
[2017-12-24 15:08] LABS: Actual Bicarbonate (HCO3v) 14 mEq/L (22-26); Base Excess -10.3 mEq/L (0 (+/- 2.5)); Hematocrit-VBG 32.7 % (35-47); pH (venous) 7.35 (7.35-7.45)
[2017-12-24 15:09] LABS: Calcium, Ionized 1.12 mmol/L (1.16-1.32); Chloride (ABG LAB) 103 mmol/L (98-106); Hemoglobin (Hb) 10.3 g/dL (11.7-16.1); Potassium - ABG Lab 3.9 mmol/L (3.70-5.30); Sodium 134.9 mmol/L (133-146)
--- NOTE | 2017-12-24 16:47 | CON ---
DATE OF CONSULTATION: 12/24/2017 REASON FOR CONSULTATION: Bacteremia. HISTORY OF PRESENT ILLNESS: A 72-year-old patient with history of type 2 diabetes mellitus, hypertension, renal insufficiency stage 3, who for the past week has suffered from chills and fever, decreased oral intake, some vomiting. No headaches, no change in visual symptoms. No sore throat, odynophagia, or dysphagia. No respiratory symptoms. No abdominal pain. She denies repeatedly any urinary tract symptoms. She has had a fracture with hip replacement on the right side and anyway she was brought in finally on 12/20/2017 and initial findings with a blood pressure 150/59, pulse 78, respirations 16, temperature 98.8, pulse ox 100. Neck was supple. She had regular rate and rhythm with a loud systolic murmur at precordial region. Abdomen is soft and nontender. White cell count 16,000, platelets 267 with a hemoglobin 8.9 and 91% neutrophils. Sodium 119, bicarbonate 14, creatinine 2.89. Had 2 sets of blood cultures positive for E. coli with ESBL phenotype except for susceptibility to trimethoprim sulfamethoxazole. Currently, she is awake and appears in no distress. Nausea has improved. REVIEW OF SYSTEMS: A 10-point review of systems as above and again she denies any urinary symptoms. PAST MEDICAL HISTORY: Type 2 diabetes, hypertension, and renal insufficiency 3. PAST SURGICAL HISTORY: Right hip replacement. ALLERGIES: None. MEDICATIONS: Lisinopril/hydrochlorothiazide, atorvastatin, and aspirin. FAMILY HISTORY: Noncontributory. SOCIAL HISTORY: Never a smoker. She lives in town with family. PHYSICAL EXAMINATION: VITAL SIGNS: T-max 100. She has been afebrile since. BP 190/82, pulse 81, respirations 16, O2 sat 97%. SKIN: No areas of skin breakdown. Voiding spontaneously. No lymphadenopathy. HEENT: Ocular movements are conjugate. Oral cavity with numerous teeth in marked decay and gum disease. NECK: Supple. LUNGS: Symmetric. Clear breath sounds and loud 2-3/6 murmur at precordial area to the left of the sternal border. No S3. ABDOMEN: Soft, not distended or tender. No ascites. No bladder distention. EXTREMITIES: She is able to move her extremities. She has a splint in the right leg which was not placed here in the hospital, was placed somewhere else. There are no notes in reference to this except for the x-ray which shows nondisplaced fracture in the right ankle area. LABORATORY DATA: White cell count is down from 16 to 8.7, hemoglobin stable at 8.9 up to 10.9, MCV 101, platelets 226 which is stable, and differential shows 91% neutrophils on arrival and now down to 74. INR 1.3. Venous gas with pH 7.35, pCO2 of 25, pO2 of 64. Glucose 173, creatinine is down to 2.8 with a GFR of 24 estimated, carbon dioxide 12, ALT 26, alkaline phosphatase 274, albumin 2.3. Urinalysis with greater than 50 wbc's and had 2/2 sets of blood cultures positive for an ESBL E. coli as noted above. ASSESSMENT: Chronic renal insufficiency, diabetes mellitus type 2, and urinary infection with invasive features of bacteremia. She also has cholelithiasis with a distended gallbladder, but no clinical findings otherwise to suggest acute cholecystitis. She did have vomiting, but that is probably secondary to the bacteremia from urinary tract infection. We will need to do post-void residual, check if it has not been done yet. PICC line placement and treat with Invanz for another 12 days. The patient will need a C. difficile stool test in view of diarrhea. If she has an elevated post-void residual, then we will have to address that. ANA
[2017-12-24 17:12] LABS: Folate,Hemolysate 427.1 ng/mL (Not Estab.); Hematocrit 20.2 % (34.0-46.6); RBC Folate Test Component 2114 ng/mL (>498)
[2017-12-24] MEDS: Meropenem 500 MG, Admixture Fee 1 EACH in Sterile Water 10 ML SLOW IVP SCH (17:56)
[2017-12-24] MEDS: Carvedilol 3.125 MG TAB PO SCH (17:57)
[2017-12-24 18:37] LABS: Bilirubin Negative (Negative); Blood, Urine Trace (Negative); Clarity CLEAR (Clear); Glucose, Urine (Dipstick) Negative (Negative); Leukocyte Small (Negative); Nitrite Negative (Negative); Protein, Urine (Dipstick) 100 mg/dL (Neg-Trace)
[2017-12-24 18:39] LABS: Bacteria/HPF None Seen HPF (None Seen); Hyaline Casts/LPF 4-6 HYALINE CAST LPF (0-3 Hyaline); Pathc Cast-AUWi Flag 1.35 (0-2.49); Squamous Epithelial 0-3 HPF (0-3)
[2017-12-24] MEDS: Aspirin 81 mg Enteric Coated Tablet PO SCH (20:22)
[2017-12-25] MEDS: Piperacillin/Tazobactam 2.25 GM in Sodium Chloride 0.9% 100 ML IVPB SCH ×2 (02:55→10:50)
[2017-12-25] MEDS: Meropenem 500 MG, Admixture Fee 1 EACH in Sterile Water 10 ML SLOW IVP SCH ×2 (05:35→18:30)
[2017-12-25 07:23] LABS: #Eosinphils 0.4 thou/uL (0.0-0.7); #Lymphocytes 1.4 thou/uL (1.20-3.40); #Monocytes 0.9 thou/uL (0.11-0.59); #Neutrophils 6.4 thou/uL (1.40-6.50); %Basophils 0.5 % (0.0-1.0); %Eosinophils 3.9 % (0.0-10.0); %Lymphocytes 15.4 % (21.0-51.0); %Monocytes 10.1 % (0.0-10.0); %Neutrophils 70.2 % (42.0-75.0); Mean Corpuscular Hemoglobin 33.8 pg (27.0-31.0); Mean Corpuscular Volume 99.3 fl (81.0-99.0); Mean Platelet Volume 5.9 fL (7.4-10.4); Platelet Count 201 thou/uL (130-400); RBC Distribution Width 13.2 % (11.5-14.5); Red Blood Cell (RBC) Count 2.97 mill/uL (4.20-5.40); White Blood Cell (WBC) Count 9.2 thou/uL (4.8-10.8)
[2017-12-25 07:49] LABS: ALT (SGPT) 21 U/L (8-55); AST (SGOT) 18 U/L (5-34); Albumin 2.2 g/dL (3.4-4.8); Alkaline Phosphatase 233 U/L (40-150); Anion Gap 11 mmol/L (10-20); BUN (Urea Nitrogen) 40 mg/dL (9.8-20.1); Bilirubin, Total 0.6 mg/dL (0.2-1.2); Calc. Creatinine Clearance 25 mL/min (70-130); Carbon Dioxide 16 mmol/L (23-31); Chloride 110 mmol/L (98-107); Estimated GFR-MDRD 23; Globulin 3.4 g/dL (2.4-3.5); Glucose 117 mg/dL (80-115); Potassium 3.9 mmol/L (3.5-5.1); Protein, Total 5.6 g/dL (6.0-8.3); Sodium 133 mmol/L (136-145)
[2017-12-25] MEDS ORDERED: Amlodipine 5 MG TAB PO SCH (09:00)
--- NOTE | 2017-12-25 09:32 | PDOC.FM ---
- Subjective Subjective: No complaints this am. No acute events overnight other than slightly elevated bp this am of 161/71. - Objective MAR Reviewed: Yes Vital Signs & Weight: Vital Signs (12 hours) Temp Pulse Resp BP BP Pulse Ox 12/25/17 07:34 98.4 F 76 16 164/76 H 97 12/25/17 05:15 98.2 F 73 16 161/71 H 95 12/25/17 00:35 98.5 F 78 17 155/73 H 96 Weight Admit Weight 63.866 kg Weight 63.866 kg I&O: 12/24/17 12/25/17 12/26/17 06:59 06:59 06:59 Intake Total 3650 1380 Output Total 2800 900 Balance 850 480 Result Diagrams: 12/25/17 07:12 12/25/17 07:12 <Allison Cano - Last Filed: 12/25/17 12:20> - Objective Vital Signs & Weight: Vital Signs (12 hours) Temp Pulse Resp BP BP BP Pulse Ox 12/25/17 10:45 76 164/76 H 12/25/17 08:00 98.4 F 76 16 97 12/25/17 07:34 98.4 F 76 16 164/76 H 97 12/25/17 05:15 98.2 F 73 16 161/71 H 95 12/25/17 00:35 98.5 F 78 17 155/73 H 96 Weight Admit Weight 63.866 kg Weight 63.866 kg I&O: 12/24/17 12/25/17 12/26/17 06:59 06:59 06:59 Intake Total 3650 1380 Output Total 2800 900 Balance 850 480 Result Diagrams: 12/25/17 07:12 12/25/17 07:12 <Kd Balbuena - Last Filed: 12/25/17 12:33> Phys Exam - Physical Examination Constitutional: NAD HEENT: PERRLA, moist MMs Respiratory: no wheezing, no rales, clear to auscultation bilateral 2/6 sytolic ejection murmur Gastrointestinal: soft, non-tender, no distention Musculoskeletal: no edema Neurological: non-focal Psychiatric: normal affect, A&O x 3 Skin: no rash <Allison Cano - Last Filed: 02/13/18 12:20> Dx/Plan (1) Bacteremia Code(s): R78.81 - BACTEREMIA Status: Acute (2) Urinary tract infection Status: Acute (3) Elevated alkaline phosphatase level Status: Acute (4) Hyperglycemia Code(s): R73.9 - HYPERGLYCEMIA, UNSPECIFIED Status: Acute (5) Hyponatremia Code(s): E87.1 - HYPO-OSMOLALITY AND HYPONATREMIA Status: Acute (6) Right tibial fracture Code(s): S82.201A - UNSP FRACTURE OF SHAFT OF RIGHT TIBIA, INIT FOR CLOS FX Status: Acute QualifierTitle: Encounter type: subsequent encounter (7) Macrocytic anemia Code(s): D53.9 - NUTRITIONAL ANEMIA, UNSPECIFIED Status: Chronic - Plan Plan: 72 yo f who initially presented with fever, n/v/d found to have E. coli bacteremia. Plan: 1. Sepsis 2/2 to E. coli bacteremia likely d/t UTI, improved. - Blood cultures positive - Resistant to rocephin - Patient switched to meropenem per Dr. Gogo kyle - Will dc zosyn today 2. Anion vs non anion gap metabolic acidosis-gap corrected for albumin ~15 today. Started on bicarb TID yesterday. Consulted Dr. Lyons yesterday who recommended bicarb TID, the renal US, and a 24 hr urine citrate and calcium. Will continue bicarb at this time and recheck a bmp in the am. Renal US showed nonobstructing bilateral renal calculi. 3. LUIS on CKD - Cr improved to 2.12 this AM - Baseline Cr 1.6 - Renal u/s showed small right kidney with cortical thinning and possible bilateral nonobstructing renal calculi; pt is currently doing a 24 hour urine calcium and citrate -continue fluids 4. Hypertension, improved. -started on coreg yesterday -will add amlodipine today for additional control. 4. Hyperglycemia, improved - Holding metformin at this time - Mild SSI - ACHS accuchecks 5. Hypovolemic hyponatremia- patient appears dry - 119 on admission; improved to 135 - NS @ 75ml/hr-continue today - Continue to trend BMP - Likely 2/2 N/V, decreased PO intake over last several days 6. Elevated alkaline phosphatase - Elevated to 348, down to 294 - Likely intrahepatic as GGT was 245 - Right upper quadrant U/S shows cholelithiasis with distended gallbladder; patient asymptomatic - Hep B, C negative - History of Hep A 6. Anemia, mixed - Anemia chronic disease and macrocytic - RBC folate pending - B12 >1999 5. Medial tibial fracture - Stable - Splinted - Ortho consulted; appreciate recs - Non-weight bearing x2 weeks -tylenol, morphine prn pain Dispo: Stable. Continue on antibiotics today. Consider DC this afternoon. <Allison Cano - Last Filed: 12/25/17 12:20> Attending Addendum - Attending Addendum I personally evaluated the patient and discussed the management with Dr. Keisha Monzon. I agree with the History, Examination, Assessment and Plan documented above with any addition or exceptions noted below. Patient is back from PICC line placement where she will continue on Meropenem for her near ESBL E. coli bacteremia. She has heart murmur and we will obtain Echo to further characterize. Her WBC is stable and has been afebrile. Her postvoid residual was negative for urinary retention. Renal function stable, and bicarb increased. Continue bicarb PO therapy for possible RTA. Continues to make adequate urine. <Kd Balbuena - Last Filed: 12/25/17 12:33>
[2017-12-25] MEDS: Atorvastatin Calcium 40 MG TAB PO SCH (10:49)
[2017-12-25] MEDS: Carvedilol 3.125 MG TAB PO SCH ×2 (10:50→16:47)
[2017-12-25] MEDS: Sodium Bicarbonate Tab 325 MG TAB PO SCH ×3 (10:50→22:18)
[2017-12-25] MEDS: Heparin 5,000 UNITS/ML VIAL SC SCH ×3 (10:51→22:19)
[2017-12-25] MEDS: Sodium Chloride 0.9% 1,000 ML IV SCH (10:53)
--- NOTE | 2017-12-25 12:15 | SPC ---
FLUOROSCOPIC AND ULTRASOUND GUIDED PICC PLACEMENT: COMPARISON: None. TECHNIQUE: The patient was brought to the fluoroscopy suite. All questions were answered. The patient's left arm was prepped and draped in the normal sterile fashion. The basilic vein was ac cess with a micropuncture set. Over a wire and through a peel-away sheath, a 45 cm PICC was placed, with the tip in the inferior SVC, in good position. The patient tolerated the procedure well without complication. IMPRESSION: Technically successful fluoroscopic and ultrasound guided single lumen peripherally inserted central catheter placement. FLUOROSCOPIC TIME: 0.3 minutes. DOSE: 1972 mGy per cm2. POS: [facility]
[2017-12-25] MEDS: hydrALAZINE 20 MG/ML VIAL SLOW IVP PRN (16:45)
--- NOTE | 2017-12-25 20:01 | PRG ---
DATE OF SERVICE: 12/25/2017 SUBJECTIVE: This is a 72-year-old female being seen for acute kidney injury. The patient denies any nausea, vomiting, or chest pain. PHYSICAL EXAMINATION: GENERAL: The patient is awake, alert. VITAL SIGNS: Afebrile, pulse 72, breathing at 16, blood pressure 183/70. HEAD/NECK: Normocephalic. Atraumatic. EYES: EOMI. No deformity. EARS: Clear. No ulcers. NOSE: Intact. No lesions. MOUTH: Clear. No discharge. THROAT: Clear. No exudate. LUNGS: Clear. No crackles. CARDIAC: S1, S2. No rub. ABDOMEN: Benign. BS+. GENITALIA/RECTUM: Eason absent. BACK/EXTREMITIES: Edema 0+ Ulcer- NEUROLOGICAL: Alert and motor intact. SKIN: Rash- Bruise- LYMPHATICS: Edema- Ulcer- LABORATORY DATA: Show hemoglobin 10, creatinine 2.1. ASSESSMENT AND RECOMMENDATIONS: 1. Chronic kidney disease stage 4, stable. 2. Hypertension. Would recommend increasing amlodipine to 5 mg. 3. Anemia, stable. 4. Medications based on glomerular filtration rate are appropriate. 5. Metabolic acidosis. Continue sodium bicarbonate. We will follow renal function closely. No ind ication for dialysis. The patient likely has chronic kidney disease which appears to be progressive. 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
[2017-12-25] MEDS: Aspirin 81 mg Enteric Coated Tablet PO SCH (22:19)
[2017-12-26 02:29] LABS: Collection Duration 24 hrs; Urine Total Volume 1400 mL (250-2400)
[2017-12-26] MEDS: Sodium Chloride 0.9% 1,000 ML IV SCH ×2 (03:30→14:31)
[2017-12-26] MEDS: Meropenem 500 MG, Admixture Fee 1 EACH in Sterile Water 10 ML SLOW IVP SCH ×2 (06:44→18:07)
[2017-12-26 07:28] LABS: #Basophils 0.1 thou/uL (0.0-0.2); #Eosinphils 0.4 thou/uL (0.0-0.7); #Lymphocytes 1.3 thou/uL (1.20-3.40); #Monocytes 0.8 thou/uL (0.11-0.59); #Neutrophils 5.8 thou/uL (1.40-6.50); %Basophils 0.7 % (0.0-1.0); %Eosinophils 4.5 % (0.0-10.0); %Lymphocytes 15.4 % (21.0-51.0); %Neutrophils 70.4 % (42.0-75.0); Hemoglobin 10.3 g/dL (12.0-16.0); Mean Corpuscular HGB CONC 33.9 g/dL (32.0-36.0); Mean Corpuscular Hemoglobin 34.3 pg (27.0-31.0); Platelet Count 248 thou/uL (130-400); RBC Distribution Width 13.3 % (11.5-14.5); White Blood Cell (WBC) Count 8.3 thou/uL (4.8-10.8)
[2017-12-26 07:59] LABS: Anion Gap 13 mmol/L (10-20); BUN (Urea Nitrogen) 34 mg/dL (9.8-20.1); Calc. Creatinine Clearance 25 mL/min (70-130); Carbon Dioxide 13 mmol/L (23-31); Chloride 111 mmol/L (98-107); Estimated GFR-MDRD 23; Glucose 98 mg/dL (80-115); Potassium 4.1 mmol/L (3.5-5.1); Sodium 133 mmol/L (136-145)
[2017-12-26] MEDS: Atorvastatin Calcium 40 MG TAB PO SCH (08:06)
[2017-12-26] MEDS: Carvedilol 3.125 MG TAB PO SCH (08:06)
[2017-12-26] MEDS: Heparin 5,000 UNITS/ML VIAL SC SCH ×3 (08:07→22:43)
[2017-12-26] MEDS: Sodium Bicarbonate Tab 325 MG TAB PO SCH ×4 (08:07→22:43)
[2017-12-26] MEDS ORDERED: Amlodipine 5 MG TAB PO SCH (09:00)
--- NOTE | 2017-12-26 10:41 | PRG ---
DATE OF SERVICE: 12/26/2017 SUBJECTIVE: This is a 72-year-old female being seen for acute kidney injury. The patient denies any nausea, vomiting, or chest pain. PHYSICAL EXAMINATION: GENERAL: Patient is awake, alert. VITAL SIGNS: Afebrile, pulse 75, respirations 16, blood pressure 186/80. OBJECTIVE: See above. Awake, alert, in no acute distress. GENERAL APPEARANCE AND MENTAL STATUS: Fair. HEAD/NECK: Normocephalic. Atraumatic. EYES: EOMI. No deformity. EARS: Clear. No ulcers. NOSE: Intact. No lesions. MOUTH: Clear. No discharge. THROAT: Clear. No exudate. LUNGS: Clear. No crackles. CARDIAC: S1, S2. No rub. ABDOMEN: Benign. BS+. GENITALIA/RECTUM: Eason absent. BACK/EXTREMITIES: Edema 0+ Ulcer- NEUROLOGICAL: Alert and motor intact. SKIN: Rash- Bruise- LYMPHATICS: Edema- Ulcer- LABORATORY: Hemoglobin 10.3, creatinine 2.8. ASSESSMENT AND RECOMMENDATIONS: 1. Acute kidney injury with chronic kidney disease stage 4. Creatinine has plateaued, that is her b aseline. 2. Metabolic acidosis. Increase sodium bicarbonate to 975 t.i.d. 3. Hypertension. Would recommend increasing the Coreg to 6.25 b.i.d. The patient can be discharged and followed up in the CKD Clinic within 1-2 weeks.
--- NOTE | 2017-12-26 12:03 | PDOC.FM ---
- Objective Vital Signs & Weight: Vital Signs (12 hours) Temp Pulse Resp BP BP BP BP 12/26/17 10:49 98.2 F 71 18 163/72 H 12/26/17 10:07 173/81 H 12/26/17 08:06 82 186/80 H 12/26/17 08:00 98.5 F 82 18 12/26/17 07:49 98.5 F 82 18 186/80 H Pulse Ox 12/26/17 10:49 97 12/26/17 10:07 12/26/17 08:06 12/26/17 08:00 98 12/26/17 07:49 98 Weight Admit Weight 63.866 kg Weight 63.866 kg I&O: 12/25/17 12/26/17 12/27/17 06:59 06:59 06:59 Intake Total 1380 1190 Output Total 900 776 Balance 480 414 Result Diagrams: 12/26/17 07:16 12/26/17 07:16 <Allison Cano - Last Filed: 12/26/17 11:54> - Objective Vital Signs & Weight: Vital Signs (12 hours) Temp Pulse Resp BP BP BP BP 12/26/17 10:49 98.2 F 71 18 163/72 H 12/26/17 10:07 173/81 H 12/26/17 08:06 82 186/80 H 12/26/17 08:00 98.5 F 82 18 12/26/17 07:49 98.5 F 82 18 186/80 H Pulse Ox 12/26/17 10:49 97 12/26/17 10:07 12/26/17 08:06 12/26/17 08:00 98 12/26/17 07:49 98 Weight Admit Weight 63.866 kg Weight 63.866 kg I&O: 12/25/17 12/26/17 12/27/17 06:59 06:59 06:59 Intake Total 1380 1190 Output Total 900 776 Balance 480 414 Result Diagrams: 12/26/17 07:16 12/26/17 07:16 <Kd Balbuena - Last Filed: 12/26/17 13:02> Dx/Plan (1) Bacteremia Code(s): R78.81 - BACTEREMIA Status: Acute (2) Urinary tract infection Status: Acute (3) Elevated alkaline phosphatase level Status: Acute (4) Hyperglycemia Code(s): R73.9 - HYPERGLYCEMIA, UNSPECIFIED Status: Acute (5) Hyponatremia Code(s): E87.1 - HYPO-OSMOLALITY AND HYPONATREMIA Status: Acute (6) Right tibial fracture Code(s): S82.201A - UNSP FRACTURE OF SHAFT OF RIGHT TIBIA, INIT FOR CLOS FX Status: Acute QualifierTitle: Encounter type: subsequent encounter (7) Macrocytic anemia Code(s): D53.9 - NUTRITIONAL ANEMIA, UNSPECIFIED Status: Chronic - Plan Plan: 72 yo f who initially presented with fever, n/v/d found to have E. coli bacteremia. Plan: 1. Sepsis 12/14 to E. coli bacteremia likely d/t UTI, improved. - Blood cultures positive - Resistant to rocephin - Patient switched per Dr. Bowens recs to Invanse 500mg IV daily until 01/07 2. Non anion gap metabolic acidosis. -Gap 9. Started on bicarb TID yesterday, which was increased today d/t a decrease in patient's bicarb. -Will continue bicarb at this time and recheck a bmp in the am. Renal US showed nonobstructing bilateral renal calculi. -Pt will need follow-up with Dr. Davis within a week to further assess for RTA. 3. LUIS on CKD - Cr improved this AM - Baseline Cr 1.6 - Renal u/s showed small right kidney with cortical thinning and possible bilateral nonobstructing renal calculi - Continue fluids 4. Hypertension, improved but still uncontrolled. -Increased amlodipine and coreg -d/c'd fluids 4. Hyperglycemia, improved - Holding metformin at this time - Mild SSI - ACHS accuchecks 5. Hypovolemic hyponatremia- resolved. -pt tolerating po. 6. Elevated alkaline phosphatase - Elevated to 348, down to 294 - Likely intrahepatic as GGT was 245 - Right upper quadrant U/S shows cholelithiasis with distended gallbladder; patient asymptomatic - Hep B, C negative - History of Hep A -recommend outpatient general surgery apt to further assess. 6. Anemia, mixed - Anemia chronic disease and macrocytic - RBC folate wnl - B12 >2000 5. Medial tibial fracture - Stable - Splinted - Ortho consulted; appreciate recs -pt will need outpatient follow up with ortho - Non-weight bearing x2 weeks -tylenol, morphine prn pain Dispo: Stable. Continue on antibiotics today. Consider DC this afternoon. <Allison Cano - Last Filed: 12/26/17 11:54> Attending Addendum - Attending Addendum I personally evaluated the patient and discussed the management with Dr. Keisha Monzon. I agree with the History, Examination, Assessment and Plan documented above with any addition or exceptions noted below. Patient feeling well today. Denies complaints. She has been set up for outpatient Invanz therapy that she will need daily. Her renal function is stable and has been cleared by Nephro for discharge on oral Bicarb therapy with outpatient follow up. Will work to discharge today. <Kd Balbuena - Last Filed: 12/26/17 13:02>
[2017-12-26] MEDS: Carvedilol 6.25 MG TAB PO SCH (18:02)
[2017-12-26] MEDS: Aspirin 81 mg Enteric Coated Tablet PO SCH (22:43)
[2017-12-27] MEDS: Sodium Chloride 0.9% 1,000 ML IV SCH ×3 (02:07→21:33)
[2017-12-27] MEDS: hydrALAZINE 20 MG/ML VIAL SLOW IVP PRN (03:41)
[2017-12-27] MEDS: Meropenem 500 MG, Admixture Fee 1 EACH in Sterile Water 10 ML SLOW IVP SCH (06:04)
--- NOTE | 2017-12-27 06:30 | PDOC.FM ---
- Subjective Subjective: No acute events overnight. No complaints this am. - Objective MAR Reviewed: Yes Vital Signs & Weight: Vital Signs (12 hours) Temp Pulse Resp BP BP BP Pulse Ox 12/27/17 03:41 70 184/82 H 12/27/17 03:35 98.1 F 70 18 184/82 H 97 12/26/17 20:00 98.3 F 67 18 155/72 H 98 Weight Admit Weight 63.866 kg Weight 63.866 kg I&O: 12/25/17 12/26/17 12/27/17 06:59 06:59 06:59 Intake Total 1380 1190 300 Output Total 900 776 500 Balance 480 414 -200 Result Diagrams: 12/27/17 07:03 12/27/17 07:03 <Allison Cano - Last Filed: 12/27/17 09:15> - Objective Vital Signs & Weight: Vital Signs (12 hours) Temp Pulse Resp BP BP Pulse Ox 12/27/17 09:26 83 12/27/17 08:00 98.2 F 83 18 153/71 H 96 12/27/17 03:41 70 184/82 H 12/27/17 03:35 98.1 F 70 18 184/82 H 97 Weight Admit Weight 63.866 kg Weight 63.866 kg I&O: 12/26/17 12/27/17 12/28/17 06:59 06:59 06:59 Intake Total 1190 300 240 Output Total 776 500 300 Balance 414 -200 -60 Result Diagrams: 12/27/17 07:03 12/27/17 07:03 <Kd Balbuena - Last Filed: 12/27/17 11:53> Phys Exam - Physical Examination Constitutional: NAD HEENT: PERRLA, moist MMs Respiratory: no wheezing, no rales, clear to auscultation bilateral 3/6 systolic ejection murmur Gastrointestinal: soft, non-tender Musculoskeletal: no edema Neurological: non-focal, normal sensation Psychiatric: normal affect, A&O x 3 Skin: no rash <Allison Cano - Last Filed: 12/27/17 09:15> Dx/Plan (1) Bacteremia Code(s): R78.81 - BACTEREMIA Status: Acute (2) Urinary tract infection Status: Acute (3) Elevated alkaline phosphatase level Status: Acute (4) Hyperglycemia Code(s): R73.9 - HYPERGLYCEMIA, UNSPECIFIED Status: Acute (5) Hyponatremia Code(s): E87.1 - HYPO-OSMOLALITY AND HYPONATREMIA Status: Acute (6) Right tibial fracture Code(s): S82.201A - UNSP FRACTURE OF SHAFT OF RIGHT TIBIA, INIT FOR CLOS FX Status: Acute QualifierTitle: Encounter type: subsequent encounter (7) Macrocytic anemia Code(s): D53.9 - NUTRITIONAL ANEMIA, UNSPECIFIED Status: Chronic - Plan Plan: 72 yo f who initially presented with fever, n/v/d found to have E. coli bacteremia. Plan: 1. Sepsis 12/14 to E. coli bacteremia likely d/t UTI, improved. - Patient is currently on meropenem in the hospital but will be switched per Dr. Gogo kyle to Invanse 500mg IV daily until 01/07 upon discharge. 2. Systolic ejection murmur 01/15-echo completed yesterday, found to have severe aortic stenosis with possible vegetations. Will consult cards today for a SAUYMA. 3. Non anion gap metabolic acidosis. -Will continue bicarb at this time and recheck a bmp in the am. 4. LUIS on CKD 5. Hypertension, improved but still uncontrolled. -Increased amlodipine today to 10mg daily. 6. Hyperglycemia, improved - Holding metformin at this time - Mild SSI - ACHS accuchecks 7. Elevated alkaline phosphatase - Elevated to 348, down to 294 - Likely intrahepatic as GGT was 245 - Right upper quadrant U/S shows cholelithiasis with distended gallbladder; patient asymptomatic - Hep B, C negative - History of Hep A -recommend outpatient general surgery apt to further assess. 8. Anemia, mixed - Anemia chronic disease and macrocytic - RBC folate wnl - B12 >2000 9. Medial tibial fracture - Stable - Splinted - Ortho consulted; appreciate recs -pt will need outpatient follow up with ortho - Non-weight bearing x2 weeks -tylenol, morphine prn pain 10. Hypovolemic hyponatremia- resolved. -pt tolerating po. Dispo: Stable. Continue on antibiotics today. Consider dc if echo is clear of vegetations. <Allison Cano - Last Filed: 12/27/17 09:15> Attending Addendum - Attending Addendum I personally evaluated the patient and discussed the management with Dr. Keisha Monzon. I agree with the History, Examination, Assessment and Plan documented above with any addition or exceptions noted below. Patient feels well. Her echo showed possible vegetations that in the setting of bacteremia could represent endocarditis. She continues on Meropenem for her bacteremia. Will discuss case with ID to see if patient needs SAUMYA based on echo report of if we should just treat empirically. Her renal function is stable and she is to follow outpatient for that issue. <Kd Balbuena - Last Filed: 12/27/17 11:53>
[2017-12-27 07:35] LABS: ALT (SGPT) 19 U/L (8-55); AST (SGOT) 18 U/L (5-34); Albumin 2.4 g/dL (3.4-4.8); Alkaline Phosphatase 208 U/L (40-150); Anion Gap 12 mmol/L (10-20); BUN (Urea Nitrogen) 33 mg/dL (9.8-20.1); Bilirubin, Total 0.5 mg/dL (0.2-1.2); Calc. Creatinine Clearance 27 mL/min (70-130); Calcium 8.3 mg/dL (7.8-10.44); Carbon Dioxide 16 mmol/L (23-31); Chloride 109 mmol/L (98-107); Estimated GFR-MDRD 26; Globulin 3.5 g/dL (2.4-3.5); Glucose 83 mg/dL (80-115); Potassium 4.1 mmol/L (3.5-5.1); Protein, Total 5.9 g/dL (6.0-8.3); Sodium 133 mmol/L (136-145)
[2017-12-27 07:38] LABS: #Eosinphils 0.4 thou/uL (0.0-0.7); #Lymphocytes 1.4 thou/uL (1.20-3.40); #Monocytes 0.6 thou/uL (0.11-0.59); #Neutrophils 6.1 thou/uL (1.40-6.50); %Basophils 0.5 % (0.0-1.0); %Eosinophils 4.4 % (0.0-10.0); %Lymphocytes 16.8 % (21.0-51.0); %Monocytes 7.4 % (0.0-10.0); %Neutrophils 70.9 % (42.0-75.0); Hemoglobin 10.2 g/dL (12.0-16.0); Mean Corpuscular HGB CONC 33.8 g/dL (32.0-36.0); Mean Corpuscular Hemoglobin 33.9 pg (27.0-31.0); Mean Platelet Volume 6.5 fL (7.4-10.4); Platelet Count 259 thou/uL (130-400); Red Blood Cell (RBC) Count 2.99 mill/uL (4.20-5.40); White Blood Cell (WBC) Count 8.6 thou/uL (4.8-10.8)
[2017-12-27] MEDS: Sodium Bicarbonate Tab 325 MG TAB PO SCH ×3 (09:24→21:34)
[2017-12-27] MEDS: Atorvastatin Calcium 40 MG TAB PO SCH (09:24)
[2017-12-27] MEDS: Heparin 5,000 UNITS/ML VIAL SC SCH ×3 (09:25→21:39)
[2017-12-27] MEDS: Amlodipine 10 MG TAB PO SCH (09:26)
[2017-12-27] MEDS: Carvedilol 6.25 MG TAB PO SCH ×2 (10:08→16:03)
[2017-12-27] MEDS ORDERED: Meropenem 1 GM in Sterile Water 20 ML SLOW IVP SCH (18:00)
[2017-12-27] MEDS: Meropenem 1 GM in Sterile Water 20 ML SLOW IVP SCH (19:34)
[2017-12-27] MEDS ORDERED: Meropenem 1 GM in Sodium Chloride 0.9% 100 ML IVPB SCH (21:00)
[2017-12-27] MEDS: Aspirin 81 mg Enteric Coated Tablet PO SCH (21:35)
--- NOTE | 2017-12-27 21:53 | PRG ---
DATE OF SERVICE: 12/27/2017 SUBJECTIVE: This is a 72-year-old female being seen for acute kidney injury. The patient denies any nausea, vomiting, or chest pain. PHYSICAL EXAMINATION: GENERAL: Patient is awake, alert. VITAL SIGNS: Afebrile, pulse 96, breathing at 60, blood pressure 119/63. HEAD/NECK: Normocephalic. Atraumatic. EYES: EOMI. No deformity. EARS: Clear. No ulcers. NOSE: Intact. No lesions. MOUTH: Clear. No discharge. THROAT: Clear. No exudate. LUNGS: Clear. No crackles. CARDIAC: S1, S2. No rub. ABDOMEN: Benign. BS+. GENITALIA/RECTUM: Eason absent. BACK/EXTREMITIES: Edema 0+ Ulcer- NEUROLOGICAL: Alert and motor intact. SKIN: Rash- Bruise- LYMPHATICS: Edema- Ulcer- LABORATORY DATA: Hemoglobin 10.2, potassium 4.1, creatinine . ASSESSMENT AND PLAN: 1. Chronic kidney disease, stage 4, stable. 2. Hypertension, stable. 3. Anemia, stable. 4. Medications based on glomerular filtration rate are appropriate.
--- NOTE | 2017-12-28 06:07 | PDOC.FM ---
- Subjective Subjective: No acute events overnight. Feels good this am. VSS. - Objective MAR Reviewed: Yes Vital Signs & Weight: Vital Signs (12 hours) Temp Pulse Resp BP Pulse Ox 12/28/17 08:52 74 12/28/17 08:00 97.4 F L 74 18 145/77 H 96 Weight Admit Weight 63.866 kg Weight 63.866 kg I&O: 12/27/17 12/28/17 12/29/17 06:59 06:59 06:59 Intake Total 300 1520 Output Total 500 600 Balance -200 920 Result Diagrams: 12/28/17 07:17 12/28/17 07:17 <Avinash Pérez - Last Filed: 12/28/17 10:39> - Subjective Subjective: No acute events overnight. Feels good this am. VSS. - Objective MAR Reviewed: Yes Vital Signs & Weight: Vital Signs (12 hours) Temp Pulse Resp BP Pulse Ox 12/27/17 20:00 98.3 F 69 20 116/64 96 Weight Admit Weight 63.866 kg Weight 63.866 kg I&O: 12/26/17 12/27/17 12/28/17 06:59 06:59 06:59 Intake Total 1190 300 600 Output Total 776 500 600 Balance 414 -200 0 Result Diagrams: 12/28/17 07:17 12/28/17 07:17 <Allison Cano - Last Filed: 12/28/17 10:56> - Objective Vital Signs & Weight: Vital Signs (12 hours) Temp Pulse Resp BP BP Pulse Ox 12/28/17 17:04 98.6 F 86 16 177/86 H 99 12/28/17 16:44 177/85 H 12/28/17 11:01 119/63 Weight Admit Weight 63.866 kg Weight 63.866 kg I&O: 12/27/17 12/28/17 12/29/17 06:59 06:59 06:59 Intake Total 300 1520 Output Total 500 600 Balance -200 920 Result Diagrams: 12/28/17 07:17 12/28/17 07:17 <Lizette Contreras - Last Filed: 12/28/17 22:58> Phys Exam - Physical Examination Constitutional: NAD HEENT: PERRLA, moist MMs Respiratory: no wheezing, no rales, clear to auscultation bilateral 3/6 systolic ejection murmur Gastrointestinal: soft, non-tender, no distention Musculoskeletal: no edema, pulses present Neurological: non-focal Psychiatric: normal affect, A&O x 3 Skin: no rash <Avinash Pérez - Last Filed: 12/28/17 10:39> - Physical Examination Constitutional: NAD HEENT: PERRLA, moist MMs Respiratory: no wheezing, no rales, clear to auscultation bilateral 3/6 syst ejection murmur Gastrointestinal: soft, non-tender, no distention Musculoskeletal: no edema, pulses present <Allison aCno - Last Filed: 12/28/17 10:56> Dx/Plan (1) Bacteremia Code(s): R78.81 - BACTEREMIA Status: Acute (2) Urinary tract infection Status: Acute (3) Elevated alkaline phosphatase level Status: Acute (4) Hyperglycemia Code(s): R73.9 - HYPERGLYCEMIA, UNSPECIFIED Status: Acute (5) Hyponatremia Code(s): E87.1 - HYPO-OSMOLALITY AND HYPONATREMIA Status: Acute (6) Right tibial fracture Code(s): S82.201A - UNSP FRACTURE OF SHAFT OF RIGHT TIBIA, INIT FOR CLOS FX Status: Acute QualifierTitle: Encounter type: subsequent encounter (7) Macrocytic anemia Code(s): D53.9 - NUTRITIONAL ANEMIA, UNSPECIFIED Status: Chronic - Plan Plan: 72 yo f who initially presented with fever, n/v/d found to have E. coli bacteremia. 1. Sepsis 2/2 to E. coli bacteremia likely d/t UTI, improved. - Improved. afebrile. VSS. - Patient is currently on meropenem in the hospital but will be switched per Dr. Bowens recs to Invanse 500mg IV daily until 01/07 upon discharge. 2. Systolic ejection murmur /-echo completed yesterday, found to have severe aortic stenosis with possible vegetations. Planning for SAUMYA today. If no vegetations pt can go home today. 3. Non anion gap metabolic acidosis. -Will continue bicarb at this time and recheck a bmp in the am. 4. LUIS on CKD stage 4-LUIS resolving. Dr. Lyons consulted. Appreciate recs. Continue amlodipine 10mg daily for hypertension and sodium bicarb TID for NAGMA. 5. Hypertension, improved but still uncontrolled. -Continue amlodipine 10mg daily. 6. DM, type 2 controlled. - Holding metformin at this time - Mild SSI - ACHS accuchecks 7. Elevated alkaline phosphatase - Elevated to 348, down to 294 - Likely intrahepatic as GGT was 245 - Right upper quadrant U/S shows cholelithiasis with distended gallbladder; patient asymptomatic - Hep B, C negative - History of Hep A -recommend outpatient general surgery apt to further assess. 8. Anemia, mixed - Anemia chronic disease and macrocytic - RBC folate wnl - B12 >1999 9. Medial tibial fracture - Stable - Splinted - Ortho consulted; appreciate recs -pt will need outpatient follow up with ortho - Non-weight bearing x2 weeks -tylenol, morphine prn pain 10. Hypovolemic hyponatremia- resolved. -pt tolerating po. Dispo: Stable. Continue on antibiotics today. Consider dc if echo is clear of vegetations. <Allison Cano - Last Filed: 12/28/17 10:56> Attending Addendum - Attending Addendum I personally evaluated the patient and discussed the management with Dr. Monzon. I agree with the History, Examination, Assessment and Plan documented above with any addition or exceptions noted below.- Pateint without complaints. Denies any pain and tolerating diet. Afebrile VSS A/P: 1) E. coli bacteremia and UTI- SAUMYA negative; no vegetations; will need IV abx till 01/07. Arrangements via case management; plan to d/c home today. 2) DM- stable; continue current meds. <Lizette Contreras - Last Filed: 12/28/17 22:58>
[2017-12-28 07:54] LABS: Hemoglobin 9.8 g/dL (12.0-16.0); Mean Corpuscular HGB CONC 34.2 g/dL (32.0-36.0); Mean Corpuscular Hemoglobin 34.5 pg (27.0-31.0); Mean Platelet Volume 6.6 fL (7.4-10.4); Platelet Count 263 thou/uL (130-400); Red Blood Cell (RBC) Count 2.83 mill/uL (4.20-5.40); White Blood Cell (WBC) Count 6.9 thou/uL (4.8-10.8)
[2017-12-28 07:55] LABS: #Eosinphils 0.3 thou/uL (0.0-0.7); #Lymphocytes 1.3 thou/uL (1.20-3.40); #Monocytes 0.7 thou/uL (0.11-0.59); #Neutrophils 4.6 thou/uL (1.40-6.50); %Basophils 0.6 % (0.0-1.0); %Eosinophils 4.3 % (0.0-10.0); %Lymphocytes 18.6 % (21.0-51.0); %Monocytes 10.5 % (0.0-10.0); %Neutrophils 65.9 % (42.0-75.0)
[2017-12-28 08:10] LABS: Anion Gap 11 mmol/L (10-20); BUN (Urea Nitrogen) 32 mg/dL (9.8-20.1); Calc. Creatinine Clearance 29 mL/min (70-130); Calcium 7.9 mg/dL (7.8-10.44); Carbon Dioxide 16 mmol/L (23-31); Chloride 108 mmol/L (98-107); Estimated GFR-MDRD 27; Glucose 90 mg/dL (80-115); Sodium 131 mmol/L (136-145)
[2017-12-28] MEDS: Sodium Chloride 0.9% 1,000 ML IV SCH (08:26)
[2017-12-28] MEDS: Heparin 5,000 UNITS/ML VIAL SC SCH ×2 (08:52→14:19)
[2017-12-28] MEDS: Sodium Bicarbonate Tab 325 MG TAB PO SCH ×2 (08:52→14:20)
[2017-12-28] MEDS: Amlodipine 10 MG TAB PO SCH (08:52)
[2017-12-28] MEDS: Atorvastatin Calcium 40 MG TAB PO SCH (08:52)
--- NOTE | 2017-12-28 09:48 | PRG ---
DATE OF SERVICE: 12/28/2017 SUBJECTIVE: This is a 72-year-old female being seen for acute kidney injury. The patient denies any nausea, vomiting, or chest pain. OBJECTIVE: GENERAL: Patient is awake, alert. VITAL SIGNS: Afebrile, pulse 75, breathing 16, blood pressure 145/77. GENERAL APPEARANCE AND MENTAL STATUS: Fair. HEAD/NECK: Normocephalic. Atraumatic. EYES: EOMI. No deformity. EARS: Clear. No ulcers. NOSE: Intact. No lesions. MOUTH: Clear. No discharge. THROAT: Clear. No exudate. LUNGS: Clear. No crackles. CARDIAC: S1, S2. No rub. ABDOMEN: Benign. BS+. GENITALIA/RECTUM: Eason absent. BACK/EXTREMITIES: Edema 0+ Ulcer- NEUROLOGICAL: Alert and motor intact. SKIN: Rash- Bruise- LYMPHATICS: Edema- Ulcer- LABORATORY: Lab show hemoglobin 9.8, creatinine 1.8. RECOMMENDATIONS: 1. Chronic kidney disease stage 4, stable. 2. Hypertension, stable. 3. Anemia, stable. 4. Metabolic acidosis, stable.
[2017-12-28] MEDS: Carvedilol 6.25 MG TAB PO SCH ×2 (11:01→16:44)
[2017-12-28] MEDS: Meropenem 1 GM in Sterile Water 20 ML SLOW IVP SCH (11:01)
--- NOTE | 2017-12-28 15:23 | ECHO ---
TRANSESOPHAGEAL ECHOCARDIOGRAM: DATE OF PROCEDURE: 12/28/17 INDICATION: 72-year-old woman with sepsis. DESCRIPTION OF PROCEDURE: The patient was taken to the PACU. The patient was sedated by anesthesiology. A transesophageal probe was placed in the distal esophagus and stomach. Echocardiographic images were obtained. The transesophageal probe was removed. FINDINGS: 1. Aortic valve leaflets are heavily calcified with reduced leaflet excursion. 2. Moderate aortic stenosis. 3. Mild aortic regurgitation. 4. Normal mitral valve. 5. Mild mitral regurgitation. 6. Mild tricuspid regurgitation. 7. No vegetations were noted on aortic, mitral, or tricuspid valves. 8. Atherosclerotic debris in the descending aorta. IMPRESSION: Thickened aortic valve leaflets with moderate aortic stenosis and no vegetations noted on the cardiac valves.
[2017-12-28] MEDS ORDERED: Lidocaine 1% PF 5 ML VIAL ONE (16:41)
[2017-12-28] MEDS ORDERED: PROPOFOL 200 MG/20 ML VIAL ONE (16:41)
[2017-12-28 17:05] VITALS: BP 177/86; TEMP 98.6
[2017-12-29 01:11] LABS: Citric Acid-Ur 15 mg/L (Undefined)
[2017-12-29] MEDS ORDERED: Tamsulosin HCl 0.4 MG CAP PO SCH (09:00)
--- NOTE | 2018-01-01 12:02 | DIS-2 ---
DATE OF ADMISSION: 12/20/2017 DATE OF DISCHARGE: 12/28/2017 ADMITTING RESIDENT: Jarrett Paiz M.D. ADMITTING ATTENDING: Pravin Carpio M.D. DISCHARGE RESIDENT: Allison Monzon M.D. DISCHARGE ATTENDING: Kd Balbuena M.D. CONSULTATIONS: 1. Cardiology, Dr. Miranda. 2. Dr. Delong, Infectious Disease. 3. Nephrology, Dr. Lyons. PROCEDURES: 1. Chest x-ray no focal infiltrate identified. 2. Ankle x-ray fracture of the distal tibia of the right leg. 3. Hip x-ray, there is a right hip prosthesis in place with an intramedullary component in the proximal femur of the mid femur has been previously fixated with plate and screws. Components appear in adequate position and alignment. No acute fracture identified. 4. Echocardiogram, showed ejection fraction of 60-65%, normal right ventricular size and function, left atrium normal size, normal right atrium and size, mild mitral regurgitation, mitral annular calcification, aortic valve leaflets somewhat thickened and calcified, mild to moderate aortic regurgitation , difficult to clearly see the leaflets and to rule out small vegetation, severe aortic stenosis, mild tricuspid regurgitation, mild pulmonic regurgitation. 5. Abdominal ultrasound cholelithiasis with distended gallbladder. 6. Abdominal x-ray, constipation, atherosclerosis. 7. SAUMYA: a. Aortic valve leaflets heavily calcified with reduced leaflet excursion. b. Moderate aortic stenosis. c. Mild aortic regurgitation. d. Normal mitral valve. e. Mild mitral regurgitation. f. Mild tricuspid regurgitation. g. No vegetations were noted on aortic, mitral or tricuspid valve. h. Atherosclerotic debris in the descending aorta. i. Impression: Thickened aortic valve leaflets with moderate aortic stenosis and no vegetations noted on the cardiac valve. DIAGNOSES: 1. Sepsis secondary to Escherichia coli bacteremia. 2. Escherichia coli bacteremia secondary to urinary tract infection. 3. Urinary tract infection. 4. Moderate aortic stenosis. 5. Non-anion gap metabolic acidosis. 6. Acute kidney injury on chronic kidney disease stage 4. 7. Hypertension. 8. Diabetes type 2. 9. Elevated alkaline phosphatase. 10. Anemia of chronic disease. 11. Macrocytic anemia. 12. Medial tibial fracture. 13. Hypovolemic hyponatremia. DISCHARGE MEDICATIONS: 1. Carvedilol 6.25 mg oral twice daily. 2. Sodium bicarbonate 975 orally 3 times a day. 3. Amlodipine 10 mg oral daily. 4. Lipitor 40 mg oral at bedtime. 5. Aspirin 81 mg oral at bedtime. DISCONTINUED MEDICATIONS: Lisinopril/HCTZ 20/25 mg oral at bedtime. HISTORY OF PRESENT ILLNESS AND HOSPITAL COURSE: This is a pleasant 72-year-old female, who initially presented with a 4-day history of nausea, vomiting, fever , poor oral intake and poor urine output. On admission, she had an elevated blood pressure 152/59. Pulse, respirations, temperature, and pulse ox were all normal. Her cardiovascular exam revealed a 4-6 systolic murmur. Lungs are clear to auscultation bilaterally. Abdomen was soft, nontender to palpation. Her labs on admission total leukocytosis of 16, anemia with hemoglobin of 8.9, hematocrit 25.9 with an MCV of 104. She had 91.8% neutrophils. She was hyponatremic at 119, which was corrected to 122, chloride was 93, bicarbonate 14 , BUN 69, creatinine is 2.89, glucose was 227, elevated alkaline phosphatase, AST and ALT. AST and ALT were 38 and 49. Alkaline phosphatase was 348. Her UA showed a large amount of blood, large amount of leukocyte esterase, 21-50 RBCs, too numerous to count white blood cells and 4+ bacteria. She was admitted for sepsis secondary to urinary tract infection as well as hyponatremia , likely hypovolemic etiology. She also had an acute kidney injury and chronic kidney disease stage 4 and was found to have medial malleolus fracture. 1. Sepsis secondary to Escherichia coli bacteremia likely due to urinary tract infection. The patient actually remained afebrile throughout her hospital course with stable vital signs. She had blood and urine cultures completed, which urine culture grew out E. coli and then the blood culture also was found to have E. coli. She initially before the blood cultures were back was placed on Rocephin and then E. coli in the urine was found to be resistant to Rocephin and so she was switched to Zosyn. Then once the blood culture grew out E. coli, she was placed on meropenem. Dr. Delong was consulted and he recommended that upon discharge, she will be switched to Invanz and be set up in his clinic to receive treatment until 01/07/2018. In regard to her systolic ejection murmur heard on exam. The TTE was done which suggested severe aortic stenosis and it could not rule out vegetations, so then a SAUMYA was completed after we had consulted Dr. Miranda with Cardiology, who did the SAUMYA and stated that she had moderate aortic stenosis, but no signs of vegetation. It was recommended that she repeat the echo in 1 year. He did not recommend any acute intervention since she was asymptomatic and did not have endocarditis. The recommended duration of treatment was by Dr. Delong was to receive Invanz until 01/07/2018 through a PICC line daily at his clinic at the hospital. 2. Aortic stenosis. As mentioned above, the patient was found to have moderate to severe aortic stenosis. Cardiology was consulted and performed TTE first and SAUMYA and since she is asymptomatic, no acute interventions were recommended. A repeat echo was recommended in 1 year. 3. Non-anion gap metabolic acidosis. Dr. Lyons was consulted who recommended bicarbonate daily. There was some concern for renal tubular acidosis. He recommended further outpatient workup. Her non-anion gap metabolic acidosis was improving upon discharge. 4. Acute kidney injury on chronic kidney disease stage 4 with fluids. Her HCTZ and lisinopril since she had an acute kidney injury were stopped and she was started on amlodipine 10 mg daily for hypertension. LUIS resolved. 5. Hypertension. She was switched from HCTZ, lisinopril combination pill to amlodipine 10 mg daily, and blood pressures were controlled during her the hospitalization. 6. Diabetes type 2. Metformin was held during her hospitalization. She was provided with mild SSRI and before meal at bedtime Accu-Chek. Blood sugars were controlled. Hemoglobin A1c was 5.8. 7. Hypovolemic hyponatremia. This resolved during hospitalization with low repletion of maintenance fluids and normal saline. 8. Elevated alkaline phosphatase, which was elevated in the mid 300s, it did downtrend. Her GGT was also elevated. A right upper quadrant revealed cholelithiasis with a distended gallbladder, but she is asymptomatic. Hepatitis B and C were negative, did have a history of hepatitis A. We recommended that she follow with outpatient General Surgery for further assessment. 9. Anemia of chronic disease, likely due to her kidney disease. 10. Macrocytic anemia. Her RBC folate was normal. A B12 was elevated, but her MCV was over 100. 11. Medial tibial fracture. She was found to have fracture on initial admission. Ortho was consulted. States that she would need outpatient followup and will be needed to be nonweightbearing for 2 weeks. We provided Tylenol and morphine p.r.n. for pain. Pain was well controlled upon discharge. DISPOSITION: Stable. DISCHARGE INSTRUCTIONS: 1. Location: Home. We discussed with the patient placement as she has many medical conditions requiring multiple followup appointments; however, she refused. States that she lives with her daughter and the daughter will be able to bring her to appointments after work. The daughter runs a daycare and usually gets home from work around 3-4. 2. Diet: Heart healthy and diabetic diet. ACTIVITY: As tolerated. FOLLOWUP: It is recommended that she follow up with her primary care physician within 1 week. Also, recommend that she follow up with Ortho within 1-2 weeks for her fracture. It is recommended that she follow up with General Surgery for further evaluation of cholelithiasis and we recommend that she follow up with Cardiology as the patient has moderate to severe aortic stenosis, currently asymptomatic, but will likely need a valve replacement at a later date. It is recommended that she follow with Dr. Delong daily for Invanz daily treatments for her E. coli bacteremia until 01/07/2018. ANA
== END 2017-12-28 17:21 | disposition home or self-care (01) | DRG 872 ==
LOC: ERS 16:58 → T4-B 21:10
PROVIDERS: ADMIT Family Medicine; ATTEND Family Medicine
PROC: 30233N1 Transfusion of Nonautologous Red Blood Cells into Peripheral Vein, Percutaneous Approach (ICD-10-PCS; 2017-12-23)
PROC: 02HV33Z Insertion of Infusion Device into Superior Vena Cava, Percutaneous Approach (ICD-10-PCS; principal; 2017-12-25)
DX: A41.51 Sepsis due to Escherichia coli [E. coli] (principal); E87.2 Acidosis; N17.9 Acute kidney failure, unspecified; N18.4 Chronic kidney disease, stage 4 (severe); E11.22 Type 2 diabetes mellitus with diabetic chronic kidney disease; E87.1 Hypo-osmolality and hyponatremia; E11.65 Type 2 diabetes mellitus with hyperglycemia; D53.9 Nutritional anemia, unspecified; S82.54XA Nondisplaced fracture of medial malleolus of right tibia, initial encounter for closed fracture; N39.0 Urinary tract infection, site not specified; I12.9 Hypertensive chronic kidney disease with stage 1 through stage 4 chronic kidney disease, or unspecified chronic kidney disease; K80.20 Calculus of gallbladder without cholecystitis without obstruction; I35.0 Nonrheumatic aortic (valve) stenosis; B96.1 Klebsiella pneumoniae [K. pneumoniae] as the cause of diseases classified elsewhere; Z79.82 Long term (current) use of aspirin; Z79.899 Other long term (current) drug therapy; Z96.641 Presence of right artificial hip joint; W19.XXXA Unspecified fall, initial encounter
CPT/HCPCS: 29515; 36415; 36416; 36430; 36569; 71045; 74018; 76705; 76770; 80048; 80053; 81001; 81003; 81015; 82274; 82340; 82507; 82570; 82607; 82728; 82746; 82747; 82805; 82977; 83036; 83540; 83550; 83605; 83930; 83935; 83970; 84134; 84156; 84300; 84550; 85025; 85048; 85610; 85730; 86706; 86709; 86850; 86900; 86901; 87040; 87077; 87086; 87149; 87186; 87324; 87340; 87449; 87521; 87804; 93306; 93312; 96361; 96365; 96375; A4216; C1751; G8978-GP-CM; G8979-GP-CJ; G8987-GO-CM; G8988-GO-CJ; J0360; J0696; J1644; J2001; J2185; J2270; J2405; J2543; J2704; J7050; P9016

== ENCOUNTER 2018-01-01 15:16 | Emergency (ER) | payer OTHER, SELFPAY ==
[2018-01-01 16:14] LABS: #Eosinphils 0.2 thou/uL (0.0-0.7); #Lymphocytes 1.4 thou/uL (1.20-3.40); #Monocytes 0.6 thou/uL (0.11-0.59); #Neutrophils 3.7 thou/uL (1.40-6.50); %Basophils 0.6 % (0.0-1.0); %Eosinophils 4.1 % (0.0-10.0); %Lymphocytes 23.4 % (21.0-51.0); %Monocytes 10.5 % (0.0-10.0); %Neutrophils 61.5 % (42.0-75.0); Mean Corpuscular HGB CONC 33.3 g/dL (32.0-36.0); Mean Platelet Volume 6.5 fL (7.4-10.4); Platelet Count 313 thou/uL (130-400); RBC Distribution Width 13.1 % (11.5-14.5); Red Blood Cell (RBC) Count 2.94 mill/uL (4.20-5.40); White Blood Cell (WBC) Count 6.1 thou/uL (4.8-10.8)
[2018-01-01 16:36] LABS: ALT (SGPT) 14 U/L (8-55); AST (SGOT) 26 U/L (5-34); Albumin 2.8 g/dL (3.4-4.8); Alkaline Phosphatase 195 U/L (40-150); Anion Gap 12 mmol/L (10-20); BUN (Urea Nitrogen) 32 mg/dL (9.8-20.1); Bilirubin, Total 0.4 mg/dL (0.2-1.2); Calc. Creatinine Clearance 0 mL/min (70-130); Carbon Dioxide 16 mmol/L (23-31); Chloride 100 mmol/L (98-107); Estimated GFR-MDRD 25; Globulin 3.9 g/dL (2.4-3.5); Glucose 140 mg/dL (80-115); Potassium 4.4 mmol/L (3.5-5.1); Protein, Total 6.7 g/dL (6.0-8.3); Sodium 124 mmol/L (136-145)
--- NOTE | 2018-01-01 17:22 | ULT ---
RIGHT UPPER EXTREMITY VENOUS DOPPLER ULTRASOUND 01/01/18 COMPARISON: None. HISTORY: Edema, swelling and pain, assess for DVT. TECHNIQUE: Multiplanar gee scale sonographic imaging of the venous structures of the right upper extremity obta ined with color flow and spectral analysis. FINDINGS: Right internal jugular vein, subclavian vein, axillary vein, cephalic vein, basilic vein, brachial ve in, radial vein, and ulnar vein demonstrate patency. There is normal blood flow, augmentation and com pression within the deep venous system of the right upper extremity with no evidence for right upper extremity DVT. IMPRESSION: No evidence for right upper extremity DVT. POS: [facility]
== END 2018-01-01 18:52 | disposition home or self-care (01) ==
LOC: ERS 15:16
DX: R60.0 Localized edema (principal); E11.9 Type 2 diabetes mellitus without complications; I10 Essential (primary) hypertension
CPT/HCPCS: 36416; 80053; 83880; 85025

== ENCOUNTER 2018-01-10 08:15 | Inpatient (IN) | payer OTHER, SELFPAY ==
[2018-01-10 08:58] LABS: #Eosinphils 0.4 thou/uL (0.0-0.7); #Lymphocytes 1.7 thou/uL (1.20-3.40); #Monocytes 0.6 thou/uL (0.11-0.59); #Neutrophils 3.2 thou/uL (1.40-6.50); %Basophils 0.6 % (0.0-1.0); %Eosinophils 7.1 % (0.0-10.0); %Lymphocytes 28.3 % (21.0-51.0); %Monocytes 10.6 % (0.0-10.0); %Neutrophils 53.5 % (42.0-75.0); Hemoglobin 9.3 g/dL (12.0-16.0); Mean Corpuscular HGB CONC 34.5 g/dL (32.0-36.0); Mean Corpuscular Hemoglobin 34.2 pg (27.0-31.0); Mean Corpuscular Volume 99.4 fl (81.0-99.0); Mean Platelet Volume 6.8 fL (7.4-10.4); Platelet Count 271 thou/uL (130-400); RBC Distribution Width 13.5 % (11.5-14.5)
[2018-01-10 09:21] LABS: ALT (SGPT) 9 U/L (8-55); AST (SGOT) 23 U/L (5-34); Albumin 3.1 g/dL (3.4-4.8); Alkaline Phosphatase 198 U/L (40-150); Anion Gap 16 mmol/L (10-20); BUN (Urea Nitrogen) 48 mg/dL (9.8-20.1); Bilirubin, Total 0.4 mg/dL (0.2-1.2); CK (CPK) 57 U/L (29-168); Calc. Creatinine Clearance 0 mL/min (70-130); Calcium 8.3 mg/dL (7.8-10.44); Carbon Dioxide 16 mmol/L (23-31); Chloride 94 mmol/L (98-107); Estimated GFR-MDRD 23; Globulin 3.8 g/dL (2.4-3.5); Glucose 66 mg/dL (80-115); Potassium 5.5 mmol/L (3.5-5.1); Protein, Total 6.9 g/dL (6.0-8.3); Sodium 120 mmol/L (136-145)
[2018-01-10 09:25] LABS: CKMB 2.8 ng/mL (0-6.6); Troponin I Less than 0.010 ng/mL (< 0.028)
--- NOTE | 2018-01-10 09:57 | RAD ---
FRONTAL VIEW CHEST: Comparison: 12-20-17 FINDINGS: There is prominence of the right perihilar region. Bilateral perihilar patchy and interstitial opacit ies are seen. Mild hazy density at the inferior hemithoraces may relate to overlying body wall soft t issues and/or component of mild pleural fluid. There is vascular congestion. Cardiac silhouette is ac centuated by portable technique. IMPRESSION: Findings which favor decompensated CHF. Recommend follow up with dedicated two view chest to confirm resolution. POS: [facility]
--- NOTE | 2018-01-10 10:31 | ULT ---
ULTRASOUND WITH DOPPLER DUPLEX VENOUS LOWER EXTREMITY BILATERAL CPT: 41547 ICD-10-PCS: B54D HISTORY: Edema. TECHNIQUE: Color flow Doppler, spectral waveform analysis of pulsed Doppler, and gee-scale imaging with jae neelam and augmentation, were used to evaluate the bilateral common femoral, femoral, popliteal, sales performance analyst ior tibial, and superficial femoral, veins; and the proximal portions of the profunda femoral and gre ater saphenous, veins. FINDINGS: Appropriate compressibility and flow within the imaged deep venous system of each lower extremity. IMPRESSION: 1. No DVT. 2. Soft tissue edema. Correlate clinically. POS: [facility]
[2018-01-10 11:17] LABS: Bilirubin Negative (Negative); Blood, Urine Small (Negative); Clarity TURBID (Clear); Glucose, Urine (Dipstick) Negative (Negative); Leukocyte Large (Negative); Nitrite Negative (Negative); Protein, Urine (Dipstick) 30 mg/dL (Neg-Trace); Specific Gravity, Urine 1.012 (1.002-1.036); Urobilinogen 0.2 mg/dL (0.2-1.0)
[2018-01-10] MEDS ORDERED: Furosemide 40 MG/4 ML VIAL ONE (11:18)
[2018-01-10 11:23] LABS: Hyaline Casts/LPF 0-3 HYALINE CAST LPF (0-3 Hyaline); Pathc Cast-AUWi Flag 0.27 (0-2.49); Squamous Epithelial 0-3 HPF (0-3)
[2018-01-10 11:41] LABS: Bacteria/HPF 3+ HPF (None Seen)
[2018-01-10 12:24] LABS: Troponin I 0.011 ng/mL (< 0.028)
--- NOTE | 2018-01-10 13:21 | PDOC.FPRHP ---
- History of Present Illness Chief Complaint: Swelling, shortness of breath History of Present Illness: This 72 yo F with 2 admissions in the last month returns to the ED because of worsening shortness of breath for the last 4 days. She denies cough. She states her legs have been swelling much more than usual and this is of concern to her. She denies fevers or sweats. She does endorse occasional chills. She says she does get more short of breath when she lays down. She states she has not been walking since she broke her ankle one month ago. She denies any issues with urination. No diarrhea, constipation, or blood in the stool. Upper level addendum: 72 year old female presents for swelling x 3 days and orthopnea for 1 day. She was discharged from this hospital earlier this month after being treated for an ESBL E. coli UTI. She finished a course of ertapenem on Sunday. She reports diffuse swelling including her legs, abdomen, and arms. She reports associated chills, PND, orthopnea, polyuria, headache. Denies fever, cough, dysuria, nausea, vomiting, and diarrhea. ED Course: Seen by Dr. Cooper. Given 40 mg Lasix iv and a DuoNeb treatment - Allergies/Adverse Reactions Allergies Allergy/AdvReac Type Severity Reaction Status Date / Time No Known Allergies Allergy Unverified 06/18/17 14:04 - Home Medications Medication Instructions Recorded Confirmed Type Atorvastatin Calcium [Lipitor] 40 mg PO HS 06/18/17 12/20/17 History Aspirin [Ecotrin Low Strength] 81 mg PO HS 12/20/17 12/20/17 History Carvedilol [Coreg] 6.25 mg PO BID-WM #60 tab 12/26/17 01/10/18 Rx Sodium Bicarbonate [Bicarbonate, 975 mg PO TID #90 tab 12/26/17 Rx Sodium] Amlodipine [Norvasc] 10 mg PO DAILY #30 tab 12/28/17 01/10/18 Rx - History PMHx: venous stasis ulcer, , bacteremia, CKD IV, ESBL infection, HTN, DM2 PSHx: hip replacement, knee and shoulder surgeries FHx: non-contributory Social: denies alcohol, tobacco, or drug use - Review of Systems General: reports: fever/chills (Chills, no fever). denies: night sweats, fatigue Eyes: denies: eye pain, vision changes ENT: denies: nasal congestion, rhinorrhea Respiratory: reports: shortness of breath. denies: cough Cardiovascular: reports: edema, paroxysmal nocturnal dyspnea, orthopnea. denies : chest pain, palpitation Gastrointestinal: denies: nausea, vomiting, diarrhea, constipation, abdominal pain, GI bleeding Genitourinary: reports: polyuria. denies: dysuria Skin: reports: rashes (Right arm red) Musculoskeletal: reports: swelling. denies: pain, tenderness, stiffness Neurological: denies: numbness, syncope, seizure, weakness Psychological: denies: anxiety, depression - Vital signs BP: 86/68 (114/45 on arrival) HR: 73 RR: 18 Tmax: 97.6 Pox: 96 % on Room air Wt : 90.7 kg - Physical Exam Constitutional: NAD, awake, alert and oriented, well developed HEENT: normocephalic and atraumatic, PERRLA, EOMI, no scleral icterus, grossly normal vision, TM's clear and intact, grossly normal hearing, MMM, oropharynx clear Neck: supple, FROM, trachea midline, no LAD, no JVD, no thyromegaly, no bruits Chest: no-tender to palpation, no lesions Heart: RRR, other (Grade 3/6 systolic murmur at right 2nd intercostal space) Lungs: no respiratory distress, good air movement, no wheezing, no retractions, other (Faint bibasilar rales) Abdomen: soft, non-tender, bowel sounds present, no masses/distention, no hernias Musculoskeletal: normal tone, ROM grossly normal -Musculoskeletal: Left first great toe amputated. Right leg wrapped in dressing. Right arm markedly swollen with red discoloration Neurological: no focal deficit, CN II-XII intact, normal sensation, DTRs 2+ Skin: good turgor, capillary refill <2 seconds, no jaundice Heme/Lymphatic: no purpura, no petechia -Heme/Lymphatic: Blood filled bulla on left lateral calf Psychiatric: normal mood and affect, intact recent and remote memory FMR H&P: Results - Labs Result Diagrams: 01/10/18 08:37 01/10/18 08:37 Lab results: WBC 6.0 thou/uL (4.8-10.8) 01/10/18 08:37 Hgb 9.3 g/dL (12.0-16.0) L 01/10/18 08:37 Hct 26.9 % (36.0-47.0) L 01/10/18 08:37 MCV 99.4 fl (81.0-99.0) H 01/10/18 08:37 Plt Count 271 thou/uL (130-400) 01/10/18 08:37 Neutrophils % 53.5 % (42.0-75.0) 01/10/18 08:37 Sodium 120 mmol/L (136-145) L 01/10/18 08:37 Potassium 5.5 mmol/L (3.5-5.1) H 01/10/18 08:37 Chloride 94 mmol/L (98-107) L 01/10/18 08:37 Carbon Dioxide 16 mmol/L (23-31) L 01/10/18 08:37 BUN 48 mg/dL (9.8-20.1) H 01/10/18 08:37 Creatinine 2.11 mg/dL (0.6-1.1) H 01/10/18 08:37 Glucose 66 mg/dL (80-115) L 01/10/18 08:37 Lactic Acid 0.6 mmol/L (0.5-2.2) 01/10/18 08:37 Calcium 8.3 mg/dL (7.8-10.44) 01/10/18 08:37 Total Bilirubin 0.4 mg/dL (0.2-1.2) 01/10/18 08:37 AST 23 U/L (5-34) 01/10/18 08:37 ALT 9 U/L (8-55) 01/10/18 08:37 Alkaline Phosphatase 198 U/L (40-150) H 01/10/18 08:37 Creatine Kinase 57 U/L (29-168) 01/10/18 08:37 CK-MB (CK-2) 2.8 ng/mL (0-6.6) 01/10/18 08:37 B-Natriuretic Peptide 973.3 pg/mL (0-100) H 01/10/18 08:37 Serum Total Protein 6.9 g/dL (6.0-8.3) 01/10/18 08:37 Albumin 3.1 g/dL (3.4-4.8) L 01/10/18 08:37 Urine Ketones Negative mg/dL (Negative) 01/10/18 10:46 Urine Blood Small (Negative) H 01/10/18 10:46 Urine Nitrite Negative (Negative) 01/10/18 10:46 Ur Leukocyte Esterase Large (Negative) H 01/10/18 10:46 Urine RBC 4-6 HPF (0-3) 01/10/18 10:46 Urine WBC Greater Than 50-TNTC HPF (0-3) H 01/10/18 10:46 Ur Squamous Epith Cells 0-3 HPF (0-3) 01/10/18 10:46 Urine Bacteria 3+ HPF (None Seen) H 01/10/18 10:46 - EKG Interpretation EKG: NSR. No ischemic changes FMR H&P: A/P - Problem List (1) Acute CHF Current Visit: Yes Status: Acute Code(s): I50.9 - HEART FAILURE, UNSPECIFIED (2) Hyperkalemia Current Visit: Yes Status: Acute Code(s): E87.5 - HYPERKALEMIA (3) Hyponatremia Current Visit: No Status: Acute Code(s): E87.1 - HYPO-OSMOLALITY AND HYPONATREMIA (4) Urinary tract infection Current Visit: No Status: Acute (5) Macrocytic anemia Current Visit: Yes Status: Acute Code(s): D53.9 - NUTRITIONAL ANEMIA, UNSPECIFIED (6) HTN (hypertension) Current Visit: Yes Status: Acute Code(s): I10 - ESSENTIAL (PRIMARY) HYPERTENSION (7) DM2 (diabetes mellitus, type 2) Current Visit: Yes Status: Acute (8) Aortic stenosis Current Visit: Yes Status: Acute Code(s): I35.0 - NONRHEUMATIC AORTIC (VALVE ) STENOSIS (9) Fracture of distal end of tibia Current Visit: Yes Status: Acute Code(s): S82.309A - UNSP FRACTURE OF LOWER END OF UNSP TIBIA, INIT FOR CLOS FX - Plan # CHF exacerbation - Lasix 40mg BID oral - gentle diuresis 2/2 CKD, , hypotension - re-check echo - re-check BMP tonight - Fluid restriction - BNP # Asymptomatic pyuria - urine culture # Hyponatremia - fluid restriction, recheck BMP # Hyperkalemia - lasix, monitor # DM2 - SSI # HTN - hold meds for now 2/2 hypotension in the ED # Recent ESBL infection - afebrile - will monitor closely for signs of infection - blood culture # R forearm skin lesion - US to r/o DVT # Aortic Stenosis - monitor BP closley # Fractured rt distal tibia - manage pain appropriately FMR H&P: Upper Level - Pertinent history 72 year old female presents for swelling x 3 days and orthopnea for 1 day. She was discharged from this hospital earlier this month after being treated for an ESBL E. coli UTI. She finished a course of ertapenem on Sunday. She reports diffuse swelling including her legs, abdomen, and arms. She reports associated chills, PND, orthopnea, polyuria, headache. Denies fever, cough, dysuria, nausea, vomiting, and diarrhea. [facility] was originally contacted about admission but I was notified by Dr. Godinez at approximately 12:30 p.m. that this patient was our patient and we accepted the admission. I spoke with Dr. Robles to get checkout on patient shortly thereafter. - Pertinent findings Pertinent exam findings include - Plan Date/Time: 01/10/18 4118 I, [], have evaluated this patient and agree with findings/plan as outlined by paid internship resident. Pertinent changes/additions are listed here.
[2018-01-10] MEDS ORDERED: Ondansetron ODT 4 MG TAB PO PRN (14:30)
[2018-01-10] MEDS ORDERED: Dextrose 50% Abboject 50 ML SYRINGE SLOW IVP PRN (14:30)
[2018-01-10] MEDS ORDERED: Dextrose 5% in Water 1,000 ML IV PRN (14:30)
[2018-01-10] MEDS ORDERED: Enoxaparin Sodium 30 MG/0.3 ML SYRINGE SC SCH (15:15)
[2018-01-10 15:39] LABS: Anion Gap 14 mmol/L (10-20); BUN (Urea Nitrogen) 48 mg/dL (9.8-20.1); Calc. Creatinine Clearance 0 mL/min (70-130); Calcium 8.4 mg/dL (7.8-10.44); Carbon Dioxide 18 mmol/L (23-31); Chloride 94 mmol/L (98-107); Estimated GFR-MDRD 23; Glucose 103 mg/dL (80-115); Potassium 5.4 mmol/L (3.5-5.1); Sodium 121 mmol/L (136-145)
--- NOTE | 2018-01-10 17:05 | RAD ---
THREE VIEW RIGHT ANKLE SERIES: 01/10/18 INDICATION: Fracture, followup. COMPARISON: 12/20/17 FINDINGS: Redemonstration of focal cortical irregularity at the proximal aspect of the medial malleolus. There is overlying casting material which does limit assessment. Osseous structures are demineralized. IMPRESSION: Casted distal tibial fracture. Suggestion of slight interval callus formation. Fracture lucency does persist. Continued followup is recommended. POS: [facility]
--- NOTE | 2018-01-10 17:38 | ULT ---
VENOUS DUPLEX SONOGRAM RIGHT UPPER EXTREMITY 01/10/18 HISTORY: Right arm pain and edema. FINDINGS: The right internal jugular and subclavian veins are evaluated along with the axillary, brachial, ceph alic, and basilic veins. Good color and spectral doppler flow and compression are apparent. IMPRESSION: No sonographic evidence of DVT within the right upper extremity. POS: [facility]
[2018-01-10] MEDS: Docusate 100 MG CAP PO SCH (20:57)
[2018-01-10] MEDS ORDERED: Carvedilol 6.25 MG TAB PO SCH (21:00)
--- NOTE | 2018-01-10 23:46 | PDOC.EVN ---
Event Note - Event Note Event Note: Attending note. Agree with H&P, A&P as described in residents note. I repeated the H&P. NAD, resting in bed RRR, prominent RYAN, pitting edema Crackles bilateral bases, audible wheezes BS+, NTTP Right LE in splint, CR < 3 s, BLE edema Erythema of entire RUE, NTTP, no change in warmth or induration, mild pitting Ecchymosis over left lower leg Labs and imaging reviewed 1. Acute heart failure exacerbation -lasix for diuresis, strict I&Os, Na/fluid restriction, continue home meds -negative TnI, no suspicion for ACS, 2. Wheezing -trial of nebs, possible cardiac etiology 3. CKD -monitor 4. Erythema RUE -negative doppler, will monitor 5. Fracture -may discuss with ortho in AM 6. Heel pain -will get Xray if not already performed DVT ppx with lovenox
[2018-01-11 05:47] LABS: Anion Gap 12 mmol/L (10-20); BUN (Urea Nitrogen) 52 mg/dL (9.8-20.1); Calc. Creatinine Clearance 28 mL/min (70-130); Calcium 8.2 mg/dL (7.8-10.44); Carbon Dioxide 19 mmol/L (23-31); Chloride 94 mmol/L (98-107); Estimated GFR-MDRD 22; Potassium 5.4 mmol/L (3.5-5.1); Sodium 120 mmol/L (136-145)
[2018-01-11 05:51] LABS: #Basophils 0.1 thou/uL (0.0-0.2); #Eosinphils 0.3 thou/uL (0.0-0.7); #Lymphocytes 1.5 thou/uL (1.20-3.40); #Monocytes 0.7 thou/uL (0.11-0.59); #Neutrophils 2.7 thou/uL (1.40-6.50); %Eosinophils 6.3 % (0.0-10.0); %Monocytes 13.1 % (0.0-10.0); %Neutrophils 51.6 % (42.0-75.0); Glucose 57 mg/dL (80-115); Hemoglobin 8.4 g/dL (12.0-16.0); Mean Corpuscular HGB CONC 34.2 g/dL (32.0-36.0); Mean Corpuscular Hemoglobin 33.8 pg (27.0-31.0); Mean Corpuscular Volume 98.9 fl (81.0-99.0); Mean Platelet Volume 7.2 fL (7.4-10.4); Platelet Count 241 thou/uL (130-400); RBC Distribution Width 13.3 % (11.5-14.5); Red Blood Cell (RBC) Count 2.48 mill/uL (4.20-5.40); White Blood Cell (WBC) Count 5.3 thou/uL (4.8-10.8)
[2018-01-11] MEDS ORDERED: Furosemide 40 MG/4 ML VIAL SLOW IVP SCH (06:00)
--- NOTE | 2018-01-11 08:14 | RAD ---
THREE VIEWS OF THE LEFT FOOT: DATE: 01/11/18. COMPARISON: None. HISTORY: Heel pain. FINDINGS: The bones are demineralized. There is prominent enthesophyte formation at the origin of the plantar aponeurosis. There is atherosclerotic calcification within the distal calf and foot. Old fractures of the 4th and 3rd metatarsals noted distally. The patient is status post amputation o f the first digit at the level of the first metatarsal phalangeal joint. No acute fracture or disloc ation. IMPRESSION: Osteopenia. Prominent calcaneal spurring. No fracture or dislocation. POS: [facility]
[2018-01-11] MEDS: Aspirin 325 MG TAB PO SCH (08:37)
[2018-01-11] MEDS: Docusate 100 MG CAP PO SCH ×2 (08:37→20:54)
[2018-01-11] MEDS: Amlodipine 10 MG TAB PO SCH (08:38)
[2018-01-11] MEDS ORDERED: Spironolactone 25 MG TAB PO SCH (09:00)
[2018-01-11] MEDS ORDERED: Furosemide 40 MG TAB PO SCH (09:00)
[2018-01-11] MEDS ORDERED: Prevnar 13-Val Conj/PF 0.5 ML SYRINGE IM ONE (09:00)
--- NOTE | 2018-01-11 11:37 | PDOC.FM ---
- Subjective Subjective: Pt seen at bedside in NAD. PORTILLO overnight. Pt notes she feels well, denies CP, SOB, abd pain, NVD. - Objective MAR Reviewed: Yes Vital Signs & Weight: Vital Signs (12 hours) Temp Pulse Pulse Pulse Resp BP BP 01/11/18 10:30 73 18 01/11/18 10:27 75 80 127/58 L 138/63 01/11/18 10:22 135/66 01/11/18 08:38 75 01/11/18 08:00 97.9 F 75 16 01/11/18 03:41 98.3 F 78 20 01/11/18 02:13 77 16 01/11/18 00:00 98.4 F 77 18 BP Pulse Ox Pulse Ox Pulse Ox 01/11/18 10:30 9 L 01/11/18 10:27 96 96 01/11/18 10:22 01/11/18 08:38 01/11/18 08:00 127/60 94 L 01/11/18 03:41 116/56 L 95 01/11/18 02:13 93 L 01/11/18 00:00 130/63 95 Weight Admit Weight 74.298 kg Weight 74.843 kg I&O: 01/10/18 01/11/18 01/12/18 06:59 06:59 06:59 Intake Total 120 260 Balance 120 260 Result Diagrams: 01/11/18 04:55 01/11/18 04:55 <Poli Vigil - Last Filed: 01/11/18 11:34> - Objective Vital Signs & Weight: Vital Signs (12 hours) Temp Pulse Pulse Pulse Resp BP BP 01/11/18 14:23 70 18 01/11/18 12:00 97.7 F 78 16 01/11/18 10:35 72 18 01/11/18 10:27 75 80 127/58 L 138/63 01/11/18 10:22 135/66 01/11/18 08:38 75 01/11/18 08:00 97.9 F 75 16 BP Pulse Ox Pulse Ox Pulse Ox 01/11/18 14:23 96 01/11/18 12:00 121/57 L 96 01/11/18 10:35 96 01/11/18 10:27 96 96 01/11/18 10:22 01/11/18 08:38 03/02/18 08:00 127/60 94 L Weight Admit Weight 74.298 kg Weight 74.843 kg I&O: 01/10/18 01/11/18 01/12/18 06:59 06:59 06:59 Intake Total 120 260 Balance 120 260 Result Diagrams: 01/11/18 04:55 01/11/18 04:55 <Theresa Mcrae - Last Filed: 01/11/18 15:47> Phys Exam - Physical Examination Constitutional: NAD HEENT: sclera anicteric Respiratory: no wheezing mild crackles at bases Cardiovascular: RRR 3/6 holosystolic murmur Gastrointestinal: soft, non-tender Musculoskeletal: pulses present trace to 1+ edema in all extremities, greatly improved Neurological: moves all 4 limbs Psychiatric: normal affect, A&O x 3 Skin: cap refill <2 seconds Deviation from normal: right arm shows well demarcated erythematous rash resembling erysipelas <Poli Vigil - Last Filed: 01/11/18 11:34> Dx/Plan (1) Acute CHF Code(s): I50.9 - HEART FAILURE, UNSPECIFIED Status: Acute QualifierTitle: Heart failure type: unspecified Qualified Code(s): I50.9 - Heart failure, unspecified Plan: -pt presented with signs/symptoms of decompensated CHF -repeat TTE ordered -IV lasix -continue to monitor on telemetry (2) Hyperkalemia Code(s): E87.5 - HYPERKALEMIA Status: Acute Plan: -continue to monitor with lasix (3) Aortic stenosis Code(s): I35.0 - NONRHEUMATIC AORTIC (VALVE) STENOSIS Status: Acute QualifierTitle: Cardiac valve disease etiology: etiology unspecified Qualified Code(s): I35.0 - Nonrheumatic aortic (valve) stenosis (4) Fracture of distal end of tibia Code(s): S82.309A - UNSP FRACTURE OF LOWER END OF UNSP TIBIA, INIT FOR CLOS FX Status: Acute QualifierTitle: Encounter type: subsequent encounter Fracture type: closed Fracture alignment: nondisplaced Laterality: right Plan: -f/u with ortho outpatient (5) HTN (hypertension) Code(s): I10 - ESSENTIAL (PRIMARY) HYPERTENSION Status: Acute QualifierTitle: Hypertension type: unspecified Qualified Code(s): I10 - Essential (primary) hypertension Plan: -continue to monitor (6) Hyponatremia Code(s): E87.1 - HYPO-OSMOLALITY AND HYPONATREMIA Status: Chronic - Plan Plan: disposition: Pt stable. Await TTE results and continue with gentle diuresis. Pt has hx of recent ESBL bacteremia and recently completed course of Ertapenem. Pt' s right arm appears to be erysipelas, will investigate need for abx treatment. Wound care and PT assistance greatly appreciated. <Poli Vigil - Last Filed: 01/11/18 11:34> Attending Addendum - Attending Addendum Date/Time: 01/11/18 1010 I personally evaluated the patient and discussed the management with Dr. Vigil I agree with the History, Examination, Assessment and Plan documented above with any addition or exceptions noted below. CHF Exac- diuresis, await ECHO results. Fluid restriction Hyponatremia- fluid restricition and trend Group A strep UTI- will need treatment with either clindamycin or pcn. Probable erysiples in RUE- abx as above. Appreciate Dr. Sindi kyle and patient with recent bacteremia and history of EBSL. <Theresa Mcrae - Last Filed: 01/11/18 15:47>
[2018-01-11] MEDS: Furosemide 20 MG/2 ML VIAL SLOW IVP SCH (13:24)
--- NOTE | 2018-01-11 20:28 | CON ---
DATE OF CONSULTATION: 01/11/2018 REASON FOR CONSULTATION: Right upper extremity changes. HISTORY OF PRESENT ILLNESS: A 72-year-old patient with a history of type 2 diabetes mellitus, stage 4 renal insufficiency, hypertension, and cardiomyopathy , who I had seen in 12/24/2007 when she presented with invasive urinary tract infection with ESBL E. coli. The patient had a PICC line inserted in the left upper extremity for the treatment, has completed the treatment a few weeks ago and she is readmitted with clinical findings consistent with congestive heart failure with swelling in the extremities, worsening dyspnea, generalized weakness. No headaches, visual symptoms, sore throat, odynophagia, or dysphagia. No fever or chills. No chest pain. Some cough, but no sputum production. No abdominal pain. Voiding without difficulty. No diarrhea, no bleeding. PAST MEDICAL HISTORY: Hypertension, type 2 diabetes, cardiomyopathy, and stage 3-4 renal insufficiency. PAST SURGICAL HISTORY: Includes right hip, right knee arthroscopy and she had a right shoulder surgery. It is not clear what type, it was done somewhere else in [place]. ALLERGIES: None. CURRENT MEDICATIONS: DuoNeb, Norvasc, aspirin, dextrose, Colace, Lasix, glucagon, Zofran. SOCIAL HISTORY: Never a smoker. Lives in town with family members. FAMILY HISTORY: Diabetes type 2. PHYSICAL EXAMINATION: VITAL SIGNS: T-max 98.4, pulse 70, respirations 18, O2 sat 96% on room air. The patient has a nebulizer in place, peripheral IV access, Eason catheter. There is no lymphadenopathy noted. HEENT: Ocular movements conjugate. Oral cavity with no significant findings. NECK: With positive jugular vein distention. CARDIOVASCULAR: S1, S2 with a soft aortic murmur. [place] impulse is normal. LUNGS: With bibasilar inspiratory crackles with no wheezing. ABDOMEN: Soft. No ascites. No bladder distention. No hepatosplenomegaly. EXTREMITIES: I could not feel the humerus or the right shoulder joint as if it had been resected. There is an incision from the previous shoulder surgery in the past. The right upper extremity is markedly swollen, mostly edematous, pitting edema, very faint erythema. No areas of wound drainage. Olecranon area is normal. 1+ edema in the lower extremities. NEUROLOGIC: Plantar responses were flexor. No clonus. She is awake, oriented , follows commands. A little bit of difficulty with recollection. LABORATORY DATA: Sodium 121. Creatinine 2.16, which is close to her baseline. Transaminases normal, alkaline phosphatase 198. CK 57, albumin 3.1. Urinalysis with 30 protein, greater than 50 wbc's. Two sets of blood cultures negative. Urine culture with alpha-hemolytic streptococcus. Transesophageal echocardiogram from 12/28/2017, which showed a thickened aortic valve leaflet with moderate aortic stenosis, but no vegetations. Ejection fraction 60%. ASSESSMENT: Type 2 diabetes; renal insufficiency, stage 4; cardiomyopathy with volume overload and evidence of congestive heart failure; and the right upper extremity swelling. DISCUSSION: The right upper extremity swelling is due to volume overload. There is no evidence of thrombosis. Sometimes venous duplex ultrasound will miss thrombus in the central veins in the chest. In that case, a venous contrast administration or venogram is necessary, but I believe the technical quality of the duplex ultrasound is such that would not require performance of an additional test to rule out DVT. I think that is effectively ruled out at this point in time. Likely reason for the edema is probably related to fluid shifts associated with volume overload and may be some underlying lymphatic drainage problems, which might be associated with prior right shoulder surgery. It looks like she had a resection of the right shoulder. The imobility of R U extremity might have contributed to the fluid shift to that extremity compared with the L side where mobility is preserved. I would advise against administration of antimicrobial therapy for this finding. Management will include either compression sleeve for the right upper extremity and positional changes, maybe passive elevation of R U extremity if possible. [facility]
[2018-01-12] MEDS: Furosemide 20 MG/2 ML VIAL SLOW IVP SCH (06:13)
--- NOTE | 2018-01-12 06:15 | PDOC.FM ---
- Subjective Subjective: Patient is dozing in and out of conversation this morning and reports this is acute. She also has been more confused at night. She denies any SOB although has audible wheezing and increased work of breathing. Patient's only complaint is feeling very weak. No acute events overnight. - Objective MAR Reviewed: Yes Vital Signs & Weight: Vital Signs (12 hours) Temp Pulse Resp BP Pulse Ox 01/12/18 04:00 98.0 F 76 20 126/56 L 95 01/12/18 01:48 75 16 95 01/11/18 21:41 77 16 96 01/11/18 20:50 98.5 F 79 18 113/56 L 96 01/11/18 18:26 76 16 97 Weight Admit Weight 74.298 kg Weight 74.843 kg I&O: 01/10/18 01/11/18 01/12/18 06:59 06:59 06:59 Intake Total 120 260 Output Total 1150 Balance 120 -890 Result Diagrams: 01/12/18 07:07 01/12/18 07:07 <Janeth Zhao - Last Filed: 01/12/18 10:49> - Objective Vital Signs & Weight: Vital Signs (12 hours) Temp Pulse Resp BP BP Pulse Ox 01/12/18 10:26 75 15 95 01/12/18 09:51 84 129/57 L 01/12/18 08:45 97.5 F L 22 H 99 01/12/18 07:13 78 18 95 01/12/18 04:00 98.0 F 76 20 126/56 L 95 01/12/18 01:48 75 16 95 Weight Admit Weight 74.298 kg Weight 72.802 kg I&O: 01/11/18 01/12/18 01/13/18 06:59 06:59 06:59 Intake Total 120 640 Output Total 1700 Balance 120 -1060 Result Diagrams: 01/12/18 07:07 01/12/18 07:07 <Kd Balbuena - Last Filed: 01/12/18 11:12> Phys Exam - Physical Examination Increased work of breathing HEENT: PERRLA, moist MMs audible wheezing, otherwise clear Cardiovascular: RRR 4/6 systolic murmur Gastrointestinal: soft, non-tender, no distention, positive bowel sounds Musculoskeletal: pulses present RUE edema, no edema in LE or LUE Neurological: non-focal, moves all 4 limbs Deviation from normal: Drifting in and out of conversation but orientatedx3 Skin: cap refill <2 seconds <Janeth Zhao - Last Filed: 01/12/18 10:49> Dx/Plan (1) Acute CHF Code(s): I50.9 - HEART FAILURE, UNSPECIFIED Status: Acute QualifierTitle: Heart failure type: unspecified Qualified Code(s): I50.9 - Heart failure, unspecified (2) Aortic stenosis Code(s): I35.0 - NONRHEUMATIC AORTIC (VALVE) STENOSIS Status: Acute QualifierTitle: Cardiac valve disease etiology: etiology unspecified Qualified Code(s): I35.0 - Nonrheumatic aortic (valve) stenosis (3) DM2 (diabetes mellitus, type 2) Status: Acute (4) Fracture of distal end of tibia Code(s): S82.309A - UNSP FRACTURE OF LOWER END OF UNSP TIBIA, INIT FOR CLOS FX Status: Acute QualifierTitle: Encounter type: subsequent encounter Fracture type: closed Fracture alignment: nondisplaced Laterality: right (5) HTN (hypertension) Code(s): I10 - ESSENTIAL (PRIMARY) HYPERTENSION Status: Acute QualifierTitle: Hypertension type: unspecified Qualified Code(s): I10 - Essential (primary) hypertension (6) Hyperkalemia Code(s): E87.5 - HYPERKALEMIA Status: Acute (7) Hyponatremia Code(s): E87.1 - HYPO-OSMOLALITY AND HYPONATREMIA Status: Chronic - Plan Plan: Hypoglycemia - Likely the cause of somnolence this morning. Improved after orange juice. Encourage good PO intake and continue to monitor. Acute CHF -pt presented with signs/symptoms of decompensated CHF -repeat TTE with EF 55-60% and mod-severe aortic stenosis. Although no comment on diastolic, clinically volume overloaded and likely due to diastolic heart failure, continue diuresing -increase IV lasix to 40 BID to improve diuresis -monitor I&O's Hyperkalemia -Stable, 5.3 today -continue Lasix and monitor Aortic Stenosis -Moderate to severe in nature. Not clinically significant at this point for surgical intervention -Preload dependent, careful diuresis Distal Tibial Fx -f/u with ortho outpatient HTN -no longer hypertensive Hyponatremia - chronic in nature, patient asymptomatic - last hospital stay, baseline was - patient has been given lasix so osmolality would not be accurate in determining cause, but likely due to volume overload - continue diureses and monitor for improvement. - fluid restriction in place Hx of ESBL bacteremia - UA and urine cx pending with new somnolence to rule out possible cause although not likely. disposition: Patient continues to be fluid overloaded. Likely discharge when euvolemic. <Janeth Zhao - Last Filed: 01/12/18 10:49> Attending Addendum - Attending Addendum Date/Time: 01/12/18 1111 I personally evaluated the patient and discussed the management with Dr. Zhao. I agree with the History, Examination, Assessment and Plan documented above with any addition or exceptions noted below. Patient with continued edema in the RUE, now thought to be due to her fluid overload and poor venous drainage. Her sats are well on room air and she has good air movement. Was somnolent this morning but improved currently, likely 2/ 2 hypoglycemia. If she becomes altered again, will consider ABG. We will increase her diuresis for today and monitor I/O. She is still profoundly hyponatremic that I suspect will improve somewhat with continued diuresis. <Kd Balbuena - Last Filed: 01/12/18 11:12>
[2018-01-12 07:20] LABS: #Basophils 0.1 thou/uL (0.0-0.2); #Eosinphils 0.5 thou/uL (0.0-0.7); #Lymphocytes 1.9 thou/uL (1.20-3.40); %Basophils 0.8 % (0.0-1.0); %Eosinophils 6.4 % (0.0-10.0); %Lymphocytes 25.6 % (21.0-51.0); %Monocytes 13.6 % (0.0-10.0); %Neutrophils 53.6 % (42.0-75.0); Hemoglobin 8.3 g/dL (12.0-16.0); Mean Corpuscular HGB CONC 34.4 g/dL (32.0-36.0); Mean Corpuscular Hemoglobin 34.1 pg (27.0-31.0); Mean Corpuscular Volume 99.2 fl (81.0-99.0); Mean Platelet Volume 6.7 fL (7.4-10.4); Platelet Count 226 thou/uL (130-400); RBC Distribution Width 13.2 % (11.5-14.5); Red Blood Cell (RBC) Count 2.43 mill/uL (4.20-5.40); White Blood Cell (WBC) Count 7.4 thou/uL (4.8-10.8)
[2018-01-12 07:46] LABS: Anion Gap 14 mmol/L (10-20); BUN (Urea Nitrogen) 53 mg/dL (9.8-20.1); Calc. Creatinine Clearance 28 mL/min (70-130); Calcium 8.3 mg/dL (7.8-10.44); Carbon Dioxide 18 mmol/L (23-31); Chloride 93 mmol/L (98-107); Estimated GFR-MDRD 22; Potassium 5.3 mmol/L (3.5-5.1); Sodium 120 mmol/L (136-145)
[2018-01-12 08:09] LABS: Actual Bicarbonate (HCO3v) 20 mEq/L (22-26); Calcium, Ionized 1.06 mmol/L (1.16-1.32); Chloride (ABG LAB) 90 mmol/L (98-106); Hematocrit-VBG 31.2 % (35-47); Hemoglobin (Hb) 8.1 g/dL (11.7-16.1); Potassium - ABG Lab 5.1 mmol/L (3.70-5.30); Sodium 121.1 mmol/L (133-146); pH (venous) 7.39 (7.35-7.45)
[2018-01-12 08:10] LABS: Glucose 58 mg/dL (80-115)
[2018-01-12] MEDS: Aspirin 325 MG TAB PO SCH (09:51)
[2018-01-12] MEDS: Amlodipine 10 MG TAB PO SCH (09:51)
[2018-01-12] MEDS: Docusate 100 MG CAP PO SCH ×2 (09:51→22:09)
[2018-01-12 11:18] LABS: Bilirubin Negative (Negative); Blood, Urine Moderate (Negative); Clarity CLEAR (Clear); Glucose, Urine (Dipstick) Negative (Negative); Leukocyte Large (Negative); Nitrite Negative (Negative); Protein, Urine (Dipstick) 30 mg/dL (Neg-Trace); Specific Gravity, Urine 1.009 (1.002-1.036); Urobilinogen 0.2 mg/dL (0.2-1.0)
[2018-01-12 11:23] LABS: Bacteria/HPF None Seen HPF (None Seen); Hyaline Casts/LPF 0-3 HYALINE CAST LPF (0-3 Hyaline); Pathc Cast-AUWi Flag 0.81 (0-2.49); Squamous Epithelial None Seen HPF (0-3); WBC/HPF 21-50 HPF (0-3)
[2018-01-12] MEDS: Furosemide 40 MG/4 ML VIAL SLOW IVP SCH (13:56)
--- NOTE | 2018-01-12 15:48 | RAD ---
RADIOGRAPH CHEST 1 VIEW: Date: 01/12/18. Time: 3:11 p.m. HISTORY: A 72-year-old female with congestive heart failure and abnormal breath sounds; wheezing. COMPARISON: 01/10/18. FINDINGS: The current study is apical lordotic in positioning, making comparison less accurate. There is thick ening of the lower lateral pleural stripes bilaterally, an apparently new finding since the prior simone dy. No cardiomegaly. Ectasia and tortuosity of the thoracic aorta. Diffuse mild bilateral intersti tial densities appear worse than previously, perhaps representing mild interstitial edema. IMPRESSION: 1. Probable small bilateral pleural effusions. 2. Questionable pulmonary interstitial edema. 3. Ectasia and tortuosity of the thoracic aorta. OTTONIEL [] POS: MACO
[2018-01-13 05:38] LABS: #Eosinphils 0.4 thou/uL (0.0-0.7); #Lymphocytes 1.4 thou/uL (1.20-3.40); #Monocytes 0.8 thou/uL (0.11-0.59); #Neutrophils 4.6 thou/uL (1.40-6.50); %Basophils 0.5 % (0.0-1.0); %Lymphocytes 19.8 % (21.0-51.0); %Monocytes 11.5 % (0.0-10.0); %Neutrophils 63.2 % (42.0-75.0); Hemoglobin 8.5 g/dL (12.0-16.0); Mean Corpuscular Hemoglobin 33.7 pg (27.0-31.0); Mean Corpuscular Volume 99.2 fl (81.0-99.0); Platelet Count 227 thou/uL (130-400); RBC Distribution Width 13.4 % (11.5-14.5); Red Blood Cell (RBC) Count 2.51 mill/uL (4.20-5.40); White Blood Cell (WBC) Count 7.3 thou/uL (4.8-10.8)
[2018-01-13 05:50] LABS: Anion Gap 14 mmol/L (10-20); BUN (Urea Nitrogen) 50 mg/dL (9.8-20.1); Calc. Creatinine Clearance 27 mL/min (70-130); Calcium 8.5 mg/dL (7.8-10.44); Carbon Dioxide 18 mmol/L (23-31); Chloride 94 mmol/L (98-107); Estimated GFR-MDRD 22; Glucose 68 mg/dL (80-115); Sodium 121 mmol/L (136-145)
--- NOTE | 2018-01-13 06:03 | PDOC.FM ---
- Objective Vital Signs & Weight: Vital Signs (12 hours) Temp Pulse Resp BP Pulse Ox 01/13/18 06:36 83 16 95 01/13/18 03:32 98.5 F 85 14 123/59 L 93 L 01/13/18 01:13 73 16 93 L 01/12/18 22:37 71 16 93 L Weight Admit Weight 74.298 kg Weight 71.078 kg I&O: 01/12/18 01/13/18 01/14/18 06:59 06:59 06:59 Intake Total 640 1206 Output Total 1700 3094 Balance -1060 -2728 Result Diagrams: 01/13/18 04:10 01/13/18 04:10 <Holly Luis - Last Filed: 01/13/18 09:39> - Subjective Subjective: Patient is reporting she feels well this morning, although family is concerned because she remains confused. Upon further questioning, family reports confusion started about 4 days prior to arrival at the hospital. Patient does endorse dysuria upon further questioning. No acute events overnight. - Objective MAR Reviewed: Yes Vital Signs & Weight: Vital Signs (12 hours) Temp Pulse Resp BP Pulse Ox 01/13/18 03:32 98.5 F 85 14 123/59 L 93 L 01/13/18 01:13 73 16 93 L 01/12/18 22:37 71 16 93 L 01/12/18 21:10 98.6 F 78 18 117/56 L 100 01/12/18 18:40 75 18 95 Weight Admit Weight 74.298 kg Weight 71.078 kg I&O: 01/11/18 01/12/18 01/13/18 06:59 06:59 06:59 Intake Total 120 640 846 Output Total 1700 2244 Balance 120 1060 -6004 Result Diagrams: 01/13/18 04:10 01/13/18 04:10 <Janeth Zhao - Last Filed: 01/13/18 10:43> - Objective Vital Signs & Weight: Vital Signs (12 hours) Temp Pulse Resp BP Pulse Ox 01/13/18 10:36 87 16 96 01/13/18 10:34 83 01/13/18 06:36 83 16 95 01/13/18 03:32 98.5 F 85 14 123/59 L 93 L 01/13/18 01:13 73 16 93 L Weight Admit Weight 74.298 kg Weight 71.078 kg I&O: 01/12/18 01/13/18 01/14/18 06:59 06:59 06:59 Intake Total 640 1206 Output Total 1700 3094 Balance -1250 -2864 Result Diagrams: 01/13/18 04:10 01/13/18 04:10 <Kd Balbuena - Last Filed: 01/13/18 11:14> Phys Exam - Physical Examination Constitutional: NAD HEENT: moist MMs Respiratory: no wheezing, no rales, clear to auscultation bilateral Cardiovascular: RRR 4/6 systolic murmur Gastrointestinal: soft, non-tender, no distention, positive bowel sounds trace edema in RUE Neurological: non-focal, moves all 4 limbs Deviation from normal: Confused, AOx2 Skin: cap refill <2 seconds <Janeth Zhao - Last Filed: 01/13/18 10:43> Dx/Plan (1) Acute CHF Code(s): I50.9 - HEART FAILURE, UNSPECIFIED Status: Acute QualifierTitle: Heart failure type: unspecified Qualified Code(s): I50.9 - Heart failure, unspecified (2) Aortic stenosis Code(s): I35.0 - NONRHEUMATIC AORTIC (VALVE) STENOSIS Status: Acute QualifierTitle: Cardiac valve disease etiology: etiology unspecified Qualified Code(s): I35.0 - Nonrheumatic aortic (valve) stenosis (3) DM2 (diabetes mellitus, type 2) Status: Acute (4) Fracture of distal end of tibia Code(s): S82.309A - UNSP FRACTURE OF LOWER END OF UNSP TIBIA, INIT FOR CLOS FX Status: Acute QualifierTitle: Encounter type: subsequent encounter Fracture type: closed Fracture alignment: nondisplaced Laterality: right (5) HTN (hypertension) Code(s): I10 - ESSENTIAL (PRIMARY) HYPERTENSION Status: Acute QualifierTitle: Hypertension type: unspecified Qualified Code(s): I10 - Essential (primary) hypertension (6) Hyperkalemia Code(s): E87.5 - HYPERKALEMIA Status: Acute (7) Hyponatremia Code(s): E87.1 - HYPO-OSMOLALITY AND HYPONATREMIA Status: Chronic (8) UTI (urinary tract infection) Status: Acute - Plan Plan: Hx of ESBL bacteremia with new UTI - Initially patient denying sx and UA showing possible infection. Was not started on tx because thought to be asymptomatic bacteruria. Today reports sx and family reports worsening confusion. - initial urine cx growing alpha hemolytic strep - Start Rocephin Acute CHF -pt presented with signs/symptoms of decompensated CHF -repeat TTE with EF 55-60% and mod-severe aortic stenosis. Although no comment on diastolic, clinically volume overloaded and likely due to diastolic heart failure, continue diuresing -IV lasix 40 BID with improvement of diuresis, will switch to 40mg PO BID -monitor I&O's Hypoglycemia - Again low this morning, but not critical. Patient asymptomatic. Encourage paper tester breakfast. LUIS -Cr 2.19 today from baseline of 1.88 -Likely due to lasix -Continue to monitor Hyperkalemia -Improved, 5.0 today -continue Lasix and monitor Aortic Stenosis -Moderate to severe in nature. Not clinically significant at this point for surgical intervention -Preload dependent, careful diuresis Distal Tibial Fx -f/u with ortho outpatient HTN -no longer hypertensive Hyponatremia - chronic in nature, improved to 121 today - last hospital stay, baseline was around 126 most recently - patient has been given lasix so osmolality would not be accurate in determining cause, but likely due to volume overload - continue diureses and monitor for improvement. - fluid restriction in place disposition: Patient fluid status improving. Now with UTI. Discharge pending treatment of UTI. <Janeth Zhao - Last Filed: 01/13/18 10:43> Attending Addendum - Attending Addendum Date/Time: 01/13/18 1113 I personally evaluated the patient and discussed the management with Dr. Zhao. I agree with the History, Examination, Assessment and Plan documented above with any addition or exceptions noted below. Patient reports symptomatic improvement. Breathing easier, and edema somewhat improved. Will change diuresis to PO meds but continue with elevated diuresis. Sodium level continues to be profoundly low but somewhat improved and asymptomatic. Her urine culture is growing a-hemolytic strep, will start on Rocephin due to her intermittent confusion. <Kd Balbuena - Last Filed: 01/13/18 11:14>
[2018-01-13] MEDS: Furosemide 40 MG/4 ML VIAL SLOW IVP SCH (06:13)
[2018-01-13] MEDS ORDERED: Vancomycin HCl 750 MG in Sodium Chloride 0.9% 250 ML 250 ML IVPB SCH (09:00)
[2018-01-13] MEDS ORDERED: cefTRIAXone\\ROCEPHIN 1 GM in Sodium Chloride 0.9% 100 ML IVPB SCH (09:30)
[2018-01-13] MEDS ORDERED: CEFAZOLIN 1 GM, Syringe 2.5 ML in Sterile Water 7.5 ML SLOW IVP SCH (10:00)
[2018-01-13] MEDS: Amlodipine 10 MG TAB PO SCH (10:34)
[2018-01-13] MEDS: Furosemide 20 MG TAB PO SCH ×2 (10:34→14:46)
[2018-01-13] MEDS: Aspirin 325 MG TAB PO SCH (10:35)
[2018-01-13] MEDS: Docusate 100 MG CAP PO SCH ×2 (10:35→21:12)
[2018-01-13] MEDS: cefTRIAXone\\ROCEPHIN 1 GM, Syringe 0.4 ML in Sterile Water 9.6 ML SLOW IVP SCH (10:37)
[2018-01-14 05:33] LABS: #Eosinphils 0.4 thou/uL (0.0-0.7); #Lymphocytes 1.1 thou/uL (1.20-3.40); #Monocytes 0.7 thou/uL (0.11-0.59); #Neutrophils 4.5 thou/uL (1.40-6.50); %Basophils 0.5 % (0.0-1.0); %Eosinophils 6.3 % (0.0-10.0); %Lymphocytes 16.1 % (21.0-51.0); %Monocytes 10.4 % (0.0-10.0); %Neutrophils 66.7 % (42.0-75.0); Hemoglobin 8.2 g/dL (12.0-16.0); Mean Corpuscular HGB CONC 33.6 g/dL (32.0-36.0); Mean Corpuscular Hemoglobin 33.3 pg (27.0-31.0); Mean Corpuscular Volume 99.3 fl (81.0-99.0); Mean Platelet Volume 6.8 fL (7.4-10.4); Platelet Count 230 thou/uL (130-400); RBC Distribution Width 13.2 % (11.5-14.5); Red Blood Cell (RBC) Count 2.46 mill/uL (4.20-5.40); White Blood Cell (WBC) Count 6.7 thou/uL (4.8-10.8)
[2018-01-14 06:06] LABS: Anion Gap 13 mmol/L (10-20); BUN (Urea Nitrogen) 46 mg/dL (9.8-20.1); Calc. Creatinine Clearance 26 mL/min (70-130); Calcium 8.2 mg/dL (7.8-10.44); Carbon Dioxide 20 mmol/L (23-31); Chloride 93 mmol/L (98-107); Estimated GFR-MDRD 21; Glucose 62 mg/dL (80-115); Potassium 4.5 mmol/L (3.5-5.1); Sodium 121 mmol/L (136-145)
--- NOTE | 2018-01-14 06:55 | PDOC.FM ---
- Subjective Subjective: Pt seen at bedside in NAD. LINDSEY overnight. Family in room at bedside. Pt notes she has tolerated PO intake well and is glad her swelling has improved. Pt denies CP, SOB, abd pain, NVD. - Objective MAR Reviewed: Yes Vital Signs & Weight: Vital Signs (12 hours) Temp Pulse Resp BP Pulse Ox 01/14/18 03:50 98.4 F 90 17 120/56 L 95 01/14/18 01:52 82 18 98 01/13/18 21:03 77 16 94 L 01/13/18 19:56 98.0 F 80 18 129/60 97 Weight Admit Weight 74.298 kg Weight 71.305 kg I&O: 01/12/18 01/13/18 01/14/18 06:59 06:59 06:59 Intake Total 640 1206 1857 Output Total 1700 3094 3550 [employer]3294 -[phone] -8581 Result Diagrams: 01/14/18 04:47 01/14/18 04:47 <Poli Vigil - Last Filed: 01/14/18 11:06> - Objective Vital Signs & Weight: Vital Signs (12 hours) Temp Pulse Resp BP Pulse Ox 01/14/18 09:15 97.9 F 87 16 118/59 L 93 L 01/14/18 07:40 78 16 96 01/14/18 03:50 98.4 F 90 17 120/56 L 95 01/14/18 01:52 82 18 98 Weight Admit Weight 74.298 kg Weight 71.305 kg I&O: 01/13/18 01/14/18 01/15/18 06:59 06:59 06:59 Intake Total 1206 1857 Output Total 3094 3550 [employer] -0197 -9286 Result Diagrams: 01/14/18 04:47 01/14/18 04:47 <Kd Balbuena - Last Filed: 01/14/18 11:21> Phys Exam - Physical Examination Constitutional: NAD HEENT: moist MMs Respiratory: no wheezing, clear to auscultation bilateral Cardiovascular: RRR 4/6 systolic murmur LSB Gastrointestinal: soft, positive bowel sounds Musculoskeletal: edema present trace edema with some erythema (improved) RUE Neurological: moves all 4 limbs limited ROM right shoulder Psychiatric: normal affect, A&O x 3 <Poli Vigil - Last Filed: 01/14/18 11:06> Dx/Plan (1) Acute CHF Code(s): I50.9 - HEART FAILURE, UNSPECIFIED Status: Acute QualifierTitle: Heart failure type: diastolic Qualified Code(s): I50.31 - Acute diastolic (congestive) heart failure Plan: -pt presented with signs/symptoms of decompensated CHF -repeat TTE shows evidence of some diastolic dysfunction -pt has responded extremely well to lasix and was transitioned to PO lasix -continue to monitor on telemetry (2) VRE (vancomycin-resistant Enterococci) infection Code(s): A49.1 - STREPTOCOCCAL INFECTION, UNSPECIFIED SITE; Z16.21 - RESISTANCE TO VANCOMYCIN Status: Acute Plan: -urine culture has shown VRE x2 -ID already consulted and recommended 3 days of linezolid (3) Hyponatremia Code(s): E87.1 - HYPO-OSMOLALITY AND HYPONATREMIA Status: Chronic Plan: -suspected chronic hypoNa and initial presentation thought to be 2/2 hypervolemia -has not responded to diuresis as expected, 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 -Na 121 this AM, no altered mental status this morning -will consult nephrology, recs greatly appreciated -pt may benefit from vaptan vs hypertonic saline -continue to monitor (4) Hyperkalemia Code(s): E87.5 - HYPERKALEMIA Status: Resolved Plan: -continue to monitor with lasix (5) Aortic stenosis Code(s): I35.0 - NONRHEUMATIC AORTIC (VALVE) STENOSIS Status: Acute QualifierTitle: Cardiac valve disease etiology: etiology unspecified Qualified Code(s): I35.0 - Nonrheumatic aortic (valve) stenosis (6) Fracture of distal end of tibia Code(s): S82.309A - UNSP FRACTURE OF LOWER END OF UNSP TIBIA, INIT FOR CLOS FX Status: Acute QualifierTitle: Encounter type: subsequent encounter Fracture type: closed Fracture alignment: nondisplaced Laterality: right Plan: -f/u with ortho outpatient (7) HTN (hypertension) Code(s): I10 - ESSENTIAL (PRIMARY) HYPERTENSION Status: Acute QualifierTitle: Hypertension type: unspecified Qualified Code(s): I10 - Essential (primary) hypertension Plan: -continue to monitor - Plan Plan: disposition: Pt stable. Swelling has greatly improved with diuresis but hyponatermia continues. Nephrology recs greatly appreciated. Will also consult CM for possibility of placement and discharge planning. Continue to monitor. <Poli Vigil - Last Filed: 01/14/18 11:06> Attending Addendum - Attending Addendum Date/Time: 01/14/18 1118 I personally evaluated the patient and discussed the management with Dr. Vigil. I agree with the History, Examination, Assessment and Plan documented above with any addition or exceptions noted below. Patient with subjective and objective improvement in her fluid balance with continued diuresis. She is not requiring supplemental O2 and has no complaints of dyspnea. Her Hgb is stable. Beginning treatment with Zyvox for VRE UTI per ID recs. Her renal function is overall stable. Will decrease her diuresis to her home regimen. 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 Will discuss with Nephro and see if she is candidate for vaptan medication or other therapeutic. She is asymptomatic from this severe but chronic hyponatremia. Placement is an important factor in this patients future prognosis, but is unfunded. Discuss with CM. <Kd Balbuena - Last Filed: 01/14/18 11:21>
[2018-01-14] MEDS: Furosemide 20 MG TAB PO SCH ×2 (09:20→14:45)
[2018-01-14] MEDS: Docusate 100 MG CAP PO SCH ×2 (09:20→20:45)
[2018-01-14] MEDS: Aspirin 325 MG TAB PO SCH (09:20)
[2018-01-14] MEDS: Amlodipine 10 MG TAB PO SCH (09:20)
[2018-01-14] MEDS: cefTRIAXone\\ROCEPHIN 1 GM, Syringe 0.4 ML in Sterile Water 9.6 ML SLOW IVP SCH (09:20)
[2018-01-14] MEDS ORDERED: Conivaptan 20 MG in Premix Bag 1 BAG IVPB SCH ×2 (17:30→18:00)
[2018-01-14 19:12] LABS: Osmolality, Urine 262 mOsm/kg (300-900)
[2018-01-14 19:13] LABS: Sodium, Urine 42 mmol/L (Not Available)
[2018-01-14] MEDS: Conivaptan 20 MG in Premix Bag 1 BAG IVPB SCH (19:40)
[2018-01-14] MEDS: Linezolid 600 MG TAB PO SCH (20:45)
[2018-01-14] MEDS ORDERED: Linezolid 600 MG TAB PO SCH (21:00)
[2018-01-15 05:25] LABS: #Eosinphils 0.2 thou/uL (0.0-0.7); #Lymphocytes 1.2 thou/uL (1.20-3.40); #Monocytes 0.7 thou/uL (0.11-0.59); #Neutrophils 5.3 thou/uL (1.40-6.50); %Basophils 0.6 % (0.0-1.0); %Eosinophils 2.5 % (0.0-10.0); %Lymphocytes 15.8 % (21.0-51.0); %Monocytes 9.3 % (0.0-10.0); %Neutrophils 71.8 % (42.0-75.0); Hemoglobin 8.5 g/dL (12.0-16.0); Mean Corpuscular HGB CONC 34.3 g/dL (32.0-36.0); Mean Corpuscular Hemoglobin 34.2 pg (27.0-31.0); Mean Corpuscular Volume 99.7 fl (81.0-99.0); Mean Platelet Volume 6.7 fL (7.4-10.4); Platelet Count 221 thou/uL (130-400); RBC Distribution Width 13.1 % (11.5-14.5); Red Blood Cell (RBC) Count 2.47 mill/uL (4.20-5.40); White Blood Cell (WBC) Count 7.4 thou/uL (4.8-10.8)
[2018-01-15 05:49] LABS: Anion Gap 13 mmol/L (10-20); BUN (Urea Nitrogen) 46 mg/dL (9.8-20.1); Calc. Creatinine Clearance 24 mL/min (70-130); Calcium 8.3 mg/dL (7.8-10.44); Carbon Dioxide 20 mmol/L (23-31); Chloride 94 mmol/L (98-107); Estimated GFR-MDRD 20; Glucose 99 mg/dL (80-115); Magnesium 1.9 mg/dL (1.6-2.6); Phosphorus 5.5 mg/dL (2.3-4.7); Potassium 4.3 mmol/L (3.5-5.1); Sodium 123 mmol/L (136-145)
[2018-01-15 06:06] LABS: Thyroid Stimulating Hormone 1.6534 uIU/mL (0.35-4.94)
--- NOTE | 2018-01-15 06:46 | PDOC.FM ---
- Subjective Subjective: Pt seen at bedside in NAD. LINDSEY overnight. Family in room at bedside. Pt notes she has tolerated PO intake well and is glad her swelling has improved. Pt denies CP, SOB, abd pain, NVD. - Objective MAR Reviewed: Yes Vital Signs & Weight: Vital Signs (12 hours) Temp Pulse Resp BP Pulse Ox 01/15/18 04:00 98.0 F 80 16 103/55 L 93 L 01/15/18 01:51 73 16 93 L 01/15/18 00:00 98.9 F 81 20 100/53 L 94 L 01/14/18 22:23 74 16 92 L 01/14/18 20:00 98.7 F 81 20 91/51 L 94 L 01/14/18 18:48 81 16 94 L Weight Admit Weight 74.298 kg Weight 67.177 kg I&O: 01/13/18 01/14/18 01/15/18 06:59 06:59 06:59 Intake Total 1206 1857 842.5 Output Total 3094 3550 3500 Balance -9064 -7562 -8107.5 Result Diagrams: 01/15/18 04:55 01/15/18 04:55 <Poli Vigil - Last Filed: 01/15/18 10:34> - Objective Vital Signs & Weight: Vital Signs (12 hours) Temp Pulse Resp BP Pulse Ox 01/15/18 10:34 80 16 97 01/15/18 09:13 80 01/15/18 09:05 98.2 F 87 16 94 L 01/15/18 08:00 98.2 F 87 94 H 108/53 L 94 L 01/15/18 07:28 80 18 97 01/15/18 04:00 98.0 F 80 16 103/55 L 93 L 01/15/18 01:51 73 16 93 L 01/15/18 00:00 98.9 F 81 20 100/53 L 94 L Weight Admit Weight 74.298 kg Weight 67.177 kg I&O: 01/14/18 01/15/18 01/16/18 06:59 06:59 06:59 Intake Total 1857 842.5 Output Total 3550 3500 Balance -1694 -5877.5 Result Diagrams: 01/15/18 04:55 01/15/18 04:55 <Kd Balbuena - Last Filed: 01/15/18 11:20> Phys Exam - Physical Examination Constitutional: NAD HEENT: moist MMs Respiratory: no wheezing, clear to auscultation bilateral Cardiovascular: RRR 4/6 systolic murmur LSB Gastrointestinal: soft, positive bowel sounds Musculoskeletal: edema present improving RUE limited ROM right shoulder Neurological: moves all 4 limbs Psychiatric: normal affect, A&O x 3 <Poli Vigil - Last Filed: 01/15/18 10:34> Dx/Plan (1) Acute CHF Code(s): I50.9 - HEART FAILURE, UNSPECIFIED Status: Acute QualifierTitle: Heart failure type: diastolic Qualified Code(s): I50.31 - Acute diastolic (congestive) heart failure Plan: -pt presented with signs/symptoms of decompensated CHF -repeat TTE shows evidence of some diastolic dysfunction -pt has responded extremely well to lasix and was transitioned to PO lasix -continue to monitor on telemetry (2) VRE (vancomycin-resistant Enterococci) infection Code(s): A49.1 - STREPTOCOCCAL INFECTION, UNSPECIFIED SITE; Z16.21 - RESISTANCE TO VANCOMYCIN Status: Acute Plan: -urine culture has shown VRE x2 -ID already consulted and recommended 3 days of linezolid (3) Hyponatremia Code(s): E87.1 - HYPO-OSMOLALITY AND HYPONATREMIA Status: Chronic Plan: -suspected chronic hypoNa and initial presentation thought to be 2/2 hypervolemia -has not responded to diuresis as expected, 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 -Na 121 this AM, no altered mental status this morning -will consult nephrology, recs greatly appreciated -pt may benefit from vaptan vs hypertonic saline -recent studies show normal TSH and cortisol, ruling out severe hypothyroidism and glucocorticoid deficiency -supports likely component of SIADH complicating hypervolemic hypoNa -continue to monitor closely with conivaptan (4) Hyperkalemia Code(s): E87.5 - HYPERKALEMIA Status: Resolved Plan: -continue to monitor with lasix (5) Aortic stenosis Code(s): I35.0 - NONRHEUMATIC AORTIC (VALVE) STENOSIS Status: Acute QualifierTitle: Cardiac valve disease etiology: etiology unspecified Qualified Code(s): I35.0 - Nonrheumatic aortic (valve) stenosis (6) Fracture of distal end of tibia Code(s): S82.309A - UNSP FRACTURE OF LOWER END OF UNSP TIBIA, INIT FOR CLOS FX Status: Acute QualifierTitle: Encounter type: subsequent encounter Fracture type: closed Fracture alignment: nondisplaced Laterality: right Plan: -f/u with ortho outpatient (7) HTN (hypertension) Code(s): I10 - ESSENTIAL (PRIMARY) HYPERTENSION Status: Acute QualifierTitle: Hypertension type: unspecified Qualified Code(s): I10 - Essential (primary) hypertension Plan: -continue to monitor - Plan Plan: disposition: Pt stable. Continue to monitor UOP and response to vaptan for hyponatremia. Nephrology recs greatly appreciated. Day 2 of linezolid for VRE UTI. Continue to monitor closely. <Poli Vigil - Last Filed: 01/15/18 10:34> Attending Addendum - Attending Addendum Date/Time: 01/15/18 1118 I personally evaluated the patient and discussed the management with Dr. Vigil. I agree with the History, Examination, Assessment and Plan documented above with any addition or exceptions noted below. Patient doing well. Reports no shortness of breath. Nephro consulted for continued hyponatremia. Placed on vaptan and has some improvement today. Patient with no complaints. Continue abx for VRE UTI. Placement not an option as non funded. <Kd Balbuena - Last Filed: 01/15/18 11:20>
[2018-01-15] MEDS ORDERED: Conivaptan 20 MG in Premix Bag 1 BAG IVPB SCH (09:00)
--- NOTE | 2018-01-15 09:02 | CON ---
DATE OF CONSULTATION: 01/14/2018 REFERRING PHYSICIAN: Dr. Balbuena REASON FOR CONSULTATION: Hyponatremia. REASON FOR ADMISSION: Swelling and weakness. HISTORY OF PRESENT ILLNESS: This is a 72-year-old female with history of diabetes, hyperten neelam, bacteremia who came to the hospital with the above complaints and found to have hyponatremia, n ot correcting with the Lasix. She was initially thought to have CHF exacerbation. Nephrology is cur rently consulted to rule out syndrome of inappropriate antidiuretic hormone secretion. She is not on any medication. No nausea or vomiting. She has been drinking well. PAST MEDICAL HISTORY: Positive for diabetes, hypertension, sepsis, bacteremia. PAST SURGICAL HISTORY: Right knee surgery, hip surgery and toe surgery. HOME MEDICATIONS: Amlodipine, carvedilol, furosemide. ALLERGIES: No known drug allergies. SOCIAL HISTORY: No smoking, alcohol, drugs. FAMILY HISTORY: Noncontributory. REVIEW OF SYSTEMS: The following complete review of systems was negative, unless otherwise mentioned in the HPI or below: Constitutional: Weight loss or gain, ability to conduct usual activities. Skin: Rash, itching. Eyes: Double vision, pain. ENT/Mouth: Nose bleeding, neck stiffness, pain, tenderness. Cardiovascular: Palpitations, dyspnea on exertion, orthopnea. Respiratory: Shortness of breath, wheezing, cough, hemoptysis, fever or night sweats. Gastrointestinal: Poor appetite, abdominal pain, heartburn, nausea, vomiting, constipation, or diarrhea. Genitourinary: Urgency, frequency, dysuria, nocturia. Musculoskeletal: Pain, swelling. Neurologic/Psychiatric: Anxiety, depression. Allergy/Immunologic: Skin rash, bleeding tendency. PHYSICAL EXAMINATION: GENERAL: This is a well-built female in no apparent distress. VITAL SIGNS: Temperature 98.7, pulse 80, respirations 16, blood pressure 99/53. HEENT: Atraumatic, normocephalic. Oral mucosa is moist. NECK: Supple. CARDIOVASCULAR: S1, S2 heard. Rate and rhythm regular. RESPIRATORY: Clear. MUSCULOSKELETAL: 1+ edema. DERMATOLOGIC: No rash. NEUROLOGIC: Alert, awake. PSYCHIATRIC: Mood and affect normal. LABS: Hemoglobin is 8.5. Potassium is 4.3, BUN 46, creatinine is 2.4. ASSESSMENT AND PLAN: 1. Hyponatremia, most likely euvolemic possibly syndrome of inappropriate antidiuretic hormone. We will check urine studies, serum osmolality. We will check TSH and cortisol level in the morning. 2. Hypochloremia. 3. Acidosis, mild. 4. Chronic kidney disease stage 4. We will monitor. 5. Mild hypophosphatemia. Plan is to check cortisol and plan is to start Vaptan for hyponatremia. Limit fluid intake. We will follow. Thank you for the consult.
[2018-01-15] MEDS: Docusate 100 MG CAP PO SCH ×2 (09:12→20:53)
[2018-01-15] MEDS: Aspirin 325 MG TAB PO SCH (09:12)
[2018-01-15] MEDS: Linezolid 600 MG TAB PO SCH ×2 (09:12→20:53)
[2018-01-15] MEDS: Amlodipine 10 MG TAB PO SCH (09:13)
[2018-01-15] MEDS: Furosemide 20 MG TAB PO SCH ×2 (09:13→14:37)
--- NOTE | 2018-01-15 10:58 | PQF ---
DATE: ATTN: DR. ANITA COTO Please exercise your independent, professional judgment in responding to the clarification form. Clinical indicators are provided on the bottom of this form for your review Please check appropriate box(s): [ ] Encephalopathy: Type: [ ] Acute [ ] Subacute [ ] Chronic Etiology: [ ] Metabolic [ ] Toxic [ ] Transient Alteration of Awareness [ ] Other diagnosis [ x ] Unable to determine In addition, please specify: Present on Admission (POA): [ ] Yes [ x ] No [ ] Unable to determine For continuity of documentation, please document condition throughout progress notes and discharge summary. Thank You. CLINICAL INDICATORS - SIGNS / SYMPTOMS / LABS ER DOCUMENTATION: WEAKNESS PROGRESS NOTE 01-12-18: HAS BEEN MORE CONFUSED AT NIGHT. PROGRESS NOTE 01-13-18: PATIENT IS REPORTING SHE FEELS WELL THIS MORNING, ALTHOUGH FAMILY IS CONCERNED BECAUSE SHE REMAINS CONFUSED. UPON FURTHER QUESTIONING , FAMILY REPORTS CONFUSION STARTED ABOUT 4 DAYS PRIOR TO ARRIVAL AT HOSPITAL RISK FACTORS: ER DIAGNOSIS: CHF, HYPONATREMIA/ SIADH PN DR. JETT 01-15-18: ACUTE VRE INFECTION IN URINE CULTURE TREATMENTS: (MAR) LASIX, ZYVOX, VAPRISOL (This form is maintained as a part of the permanent medical record) 2014 [employer] All Rights Reserved TANYA [email or web address] Office: [phone] ANA
[2018-01-15] MEDS ORDERED: Clopidogrel Bisulfate 75 MG TAB ONE (11:14)
[2018-01-15 13:37] LABS: Anion Gap 14 mmol/L (10-20); BUN (Urea Nitrogen) 46 mg/dL (9.8-20.1); Calc. Creatinine Clearance 22 mL/min (70-130); Calcium 8.2 mg/dL (7.8-10.44); Carbon Dioxide 20 mmol/L (23-31); Chloride 95 mmol/L (98-107); Estimated GFR-MDRD 19; Glucose 106 mg/dL (80-115); Potassium 4.1 mmol/L (3.5-5.1); Sodium 125 mmol/L (136-145)
--- NOTE | 2018-01-15 17:16 | PRG ---
DATE OF SERVICE: 01/15/2018 SUBJECTIVE: Patient was seen and examined at bedside and overnight events noted. Patient denies any shortness of breath or chest pain or palpitation. No history of nausea or vomiting or diarrhea or f ever or chills or cramps. OBJECTIVE: GENERAL: This is a well-built female, in no apparent distress. VITAL SIGNS: Temperature 98.1, pulse 87, respirations 16, blood pressure 102/53. HEENT: Atraumatic, normocephalic. Oral mucosa is moist. NECK: Supple. CARDIOVASCULAR: S1, S2 heard. Rate and rhythm regular. RESPIRATORY: Clear to auscultation. GASTROINTESTINAL: Abdomen is soft. MUSCULOSKELETAL: No tenderness, no edema. DERMATOLOGIC: No skin rash. NEUROLOGIC: Alert and awake and oriented x3. No focal neurologic deficits. Moving all the extremit ies. PSYCHIATRIC: Mood and affect normal. LABORATORY DATA: Sodium is 125, potassium is 4.1, BUN is 46, creatinine is 2.5. ASSESSMENT AND PLAN: 1. Hyponatremia, most likely syndrome of inappropriate antidiuretic hormone secretion. She is respo nding to vaptans. Continue fluid restriction. 2. Acute kidney injury on chronic kidney disease stage IV. We will monitor. 3. Edema, controlled. 4. Hypochloremia. 5. TSH and cortisol level is normal. 6. Continue on vaptan for 48 hours. Limit fluid intake. We will monitor sodium. We will follow.
[2018-01-15] MEDS: Conivaptan 20 MG in Premix Bag 1 BAG IVPB SCH (18:30)
[2018-01-16 05:26] LABS: #Eosinphils 0.3 thou/uL (0.0-0.7); #Lymphocytes 1.3 thou/uL (1.20-3.40); #Monocytes 0.7 thou/uL (0.11-0.59); #Neutrophils 4.9 thou/uL (1.40-6.50); %Basophils 0.7 % (0.0-1.0); %Eosinophils 4.4 % (0.0-10.0); %Lymphocytes 18.3 % (21.0-51.0); %Monocytes 9.7 % (0.0-10.0); %Neutrophils 66.9 % (42.0-75.0); Hemoglobin 7.6 g/dL (12.0-16.0); Mean Corpuscular HGB CONC 34.2 g/dL (32.0-36.0); Mean Corpuscular Volume 99.5 fl (81.0-99.0); Mean Platelet Volume 6.6 fL (7.4-10.4); Platelet Count 229 thou/uL (130-400); RBC Distribution Width 13.1 % (11.5-14.5); Red Blood Cell (RBC) Count 2.24 mill/uL (4.20-5.40); White Blood Cell (WBC) Count 7.3 thou/uL (4.8-10.8)
[2018-01-16 05:44] LABS: Anion Gap 14 mmol/L (10-20); BUN (Urea Nitrogen) 46 mg/dL (9.8-20.1); Calc. Creatinine Clearance 22 mL/min (70-130); Calcium 8.2 mg/dL (7.8-10.44); Carbon Dioxide 21 mmol/L (23-31); Chloride 98 mmol/L (98-107); Estimated GFR-MDRD 19; Glucose 103 mg/dL (80-115); Potassium 4.1 mmol/L (3.5-5.1); Sodium 129 mmol/L (136-145)
--- NOTE | 2018-01-16 06:32 | PDOC.FM ---
- Subjective Subjective: Pt seen at bedside in NAD. LINDSEY overnight. Family in room at bedside. Pt denies CP, SOB, abd pain, NVD. - Objective MAR Reviewed: Yes Vital Signs & Weight: Vital Signs (12 hours) Temp Pulse Resp BP Pulse Ox 01/16/18 03:16 98.5 F 92 20 110/54 L 93 L 01/16/18 02:45 86 16 94 L 01/16/18 00:00 98.8 F 89 18 108/55 L 98 01/15/18 22:14 85 16 93 L 01/15/18 20:00 98.5 F 89 20 109/53 L 94 L 01/15/18 18:45 84 16 98 Weight Admit Weight 74.298 kg Weight 65.317 kg I&O: 01/14/18 01/15/18 01/16/18 06:59 06:59 06:59 Intake Total 1857 842.5 1053.9 Output Total 3550 3500 1525 Balance -8543 -4027.5 -471.1 Result Diagrams: 01/16/18 04:19 01/16/18 04:19 <Poli Vigil M - Last Filed: 01/16/18 08:53> - Objective Vital Signs & Weight: Vital Signs (12 hours) Temp Pulse Resp BP Pulse Ox 01/16/18 10:59 88 16 95 01/16/18 08:50 98.8 F 95 18 01/16/18 08:40 98.8 F 95 18 109/53 L 95 01/16/18 07:44 86 16 95 01/16/18 03:16 98.5 F 92 20 110/54 L 93 L 01/16/18 02:45 86 16 94 L Weight Admit Weight 74.298 kg Weight 65.317 kg I&O: 01/15/18 01/16/18 01/17/18 06:59 06:59 06:59 Intake Total 842.5 1053.9 Output Total 3500 1525 Balance -9877.5 -471.1 Result Diagrams: 01/16/18 04:19 01/16/18 04:19 <Kd Balbuena R - Last Filed: 01/16/18 12:29> Phys Exam - Physical Examination Constitutional: NAD HEENT: moist MMs Respiratory: no wheezing, clear to auscultation bilateral Cardiovascular: RRR 4/6 systolic murmur LSB Gastrointestinal: soft, positive bowel sounds Musculoskeletal: edema present trace RUE edema, limited ROM RUE Neurological: moves all 4 limbs Psychiatric: normal affect, A&O x 3 <MusaPoli osborne - Last Filed: 01/16/18 08:53> Dx/Plan (1) Acute CHF Code(s): I50.9 - HEART FAILURE, UNSPECIFIED Status: Acute QualifierTitle: Heart failure type: diastolic Qualified Code(s): I50.31 - Acute diastolic (congestive) heart failure Plan: -pt presented with signs/symptoms of decompensated CHF -repeat TTE shows evidence of some diastolic dysfunction -pt has responded extremely well to lasix and was transitioned to PO lasix (2) VRE (vancomycin-resistant Enterococci) infection Code(s): A49.1 - STREPTOCOCCAL INFECTION, UNSPECIFIED SITE; Z16.21 - RESISTANCE TO VANCOMYCIN Status: Acute Plan: -urine culture has shown VRE x2 -ID already consulted and recommended 3 days of linezolid -pt has had trouble with urinary retention and required replacement of hall -will attempt to remove prior to discharge to limit nidus for infection (3) Hyponatremia Code(s): E87.1 - HYPO-OSMOLALITY AND HYPONATREMIA Status: Chronic Plan: -suspected chronic hypoNa and initial presentation thought to be 2/2 hypervolemia -has not responded to diuresis as expected, 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 -Na improving with vaptan, 48 hrs of vaptan will end tonight -nephrology recs greatly appreciated -recent studies show normal TSH and cortisol, ruling out severe hypothyroidism and glucocorticoid deficiency -supports likely component of SIADH complicating hypervolemic hypoNa -continue to monitor closely with conivaptan (4) Hyperkalemia Code(s): E87.5 - HYPERKALEMIA Status: Resolved Plan: -continue to monitor with lasix (5) Aortic stenosis Code(s): I35.0 - NONRHEUMATIC AORTIC (VALVE) STENOSIS Status: Acute QualifierTitle: Cardiac valve disease etiology: etiology unspecified Qualified Code(s): I35.0 - Nonrheumatic aortic (valve) stenosis (6) Fracture of distal end of tibia Code(s): S82.309A - UNSP FRACTURE OF LOWER END OF UNSP TIBIA, INIT FOR CLOS FX Status: Acute QualifierTitle: Encounter type: subsequent encounter Fracture type: closed Fracture alignment: nondisplaced Laterality: right Plan: -f/u with ortho outpatient (7) HTN (hypertension) Code(s): I10 - ESSENTIAL (PRIMARY) HYPERTENSION Status: Acute QualifierTitle: Hypertension type: unspecified Qualified Code(s): I10 - Essential (primary) hypertension Plan: -continue to monitor - Plan Plan: disposition: Pt stable. Continue to monitor UOP and hyponatremia. Will attempt to d/c hall prior to discharge to prevent nidus for additional infection but pt may need temporary indwelling hall placement and outpt f/u. <Poli Vigil - Last Filed: 01/16/18 08:53> Attending Addendum - Attending Addendum Date/Time: 01/16/18 1227 I personally evaluated the patient and discussed the management with Dr. Vigil. I agree with the History, Examination, Assessment and Plan documented above with any addition or exceptions noted below. Patient denies complaints. Continue conivaptan per Nephro for her SIADH mediated hyponatremia that was not responsive to diuresis. Will back off on diuresis as it has been adequate and patient appears euvolemic with mild bump in baseline Creatinine. She is on day 2/3 of Zyvox for her VRE UTI. Will need one more day of treatment. She continues to have urinary retention and therefore Hall was replaced. 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 <Kd Balbuena - Last Filed: 01/16/18 12:29>
[2018-01-16 08:46] VITALS: BMI 26.3
[2018-01-16] MEDS ORDERED: Tamsulosin HCl 0.4 MG CAP PO SCH (09:00)
[2018-01-16] MEDS: Aspirin 325 MG TAB PO SCH (09:17)
[2018-01-16] MEDS: Furosemide 20 MG TAB PO SCH (09:17)
[2018-01-16] MEDS: Linezolid 600 MG TAB PO SCH ×2 (09:17→20:26)
[2018-01-16] MEDS: Docusate 100 MG CAP PO SCH ×2 (09:18→20:26)
[2018-01-16] MEDS: Amlodipine 10 MG TAB PO SCH (09:18)
--- NOTE | 2018-01-16 09:59 | PRG ---
DATE OF SERVICE: 01/16/2018 SUBJECTIVE: Patient was seen and examined at bedside and overnight events noted. Patient denies any shortness of breath or chest pain or palpitation. No history of nausea or vomiting or diarrhea or f ever or chills or cramps. OBJECTIVE: GENERAL: This is a well-built female in no apparent distress. VITAL SIGNS: Temperature 98.5, pulse 92, respiratory rate 18, blood pressure 110/54. HEENT: Atraumatic, normocephalic. Oral mucosa is moist. NECK: Supple. CARDIOVASCULAR: S1, S2 heard. Rate and rhythm regular. RESPIRATORY: Clear to auscultation. GASTROINTESTINAL: Abdomen is soft. MUSCULOSKELETAL: No tenderness. No edema. DERMATOLOGIC: No skin rash. NEUROLOGIC: Alert and awake and oriented x3. No focal neurologic deficits. Moving all the extremiti es. PSYCHIATRIC: Mood and affect normal. LABORATORY DATA: Potassium is 4.1, sodium is 129, BUN is 46, and creatinine is 2.5. ASSESSMENT AND PLAN: 1. 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 Sodium with good improvement on Vaptan. Continue on Vaptan for continued fluid restric tion. 2. Acute kidney injury on chronic kidney disease stage 4. Creatinine getting elevated with fluid re moval, most likely from dilutional affect or concentration affect. 3. Edema, controlled. 4. Hypochloremia. 5. Continue on fluid restriction. Continue on Vaptan and recommend Lasix at home b.i.d. We will fo renetta.
[2018-01-16 16:22] LABS: Potassium 4.1 mmol/L (3.5-5.1)
[2018-01-16] MEDS ORDERED: Bisacodyl 10 MG SUPP PR PRN (18:33)
[2018-01-16] MEDS ORDERED: Fleet Enema 133 ML BOT PR SCH (19:00)
--- NOTE | 2018-01-16 22:03 | CT ---
CT STONE PROTOCOL ABDOMEN AND PELVIC CT WITHOUT CONTRAST 01/16/18 HISTORY: Urinary tract infections. Pain. COMPARISON: None. FINDINGS: There are large bilateral layering pleural effusions. Small pericardial effusion. Punctate nonobstructing interpolar left renal calculus. Punctate right sided renal calculi. Moderate vascular calcifications of the arcuate renal arteries. No hydronephrosis. There is mild anasarca third spacing. There is a well defined fluid collection along the right hip, l ikely a seroma. There is a right hip arthroplasty in situ. Moderate degenerative disc space narrowing L4-5 with end plate sclerosis. No dilated loops of large o r small bowel. No free intraperitoneal gas or fluid. Mild presacral edema likely due to third spacing . Moderate vascular calcifications of the solid organs. Right sided iliopsoas muscle atrophy likely due to sequela of right hip arthroplasty. Cholelithiasis is present. No definite pericholecystic inflammation. IMPRESSION: 1. Large bilateral layering pleural effusions as well as third spacing and anasarca. 2. Ill-defined fluid collection on the right hip likely postoperative seroma. 3. Atrophy right iliopsoas musculature likely sequela of right hip arthroplasty. 4. Punctate nonobstructive left sided renal calculi. 5. Mild atrophy of the right kidney. 6. Cholelithiasis without evidence of cholecystitis. 7. Atrophy of the right piriformis muscle also likely sequela of patient's arthroplasty. POS: [facility]O
[2018-01-17 05:35] LABS: #Eosinphils 0.4 thou/uL (0.0-0.7); #Lymphocytes 1.3 thou/uL (1.20-3.40); #Monocytes 0.8 thou/uL (0.11-0.59); #Neutrophils 4.2 thou/uL (1.40-6.50); %Basophils 0.7 % (0.0-1.0); %Lymphocytes 19.6 % (21.0-51.0); %Monocytes 11.5 % (0.0-10.0); %Neutrophils 62.3 % (42.0-75.0); Hemoglobin 7.7 g/dL (12.0-16.0); Mean Corpuscular HGB CONC 34.2 g/dL (32.0-36.0); Mean Corpuscular Hemoglobin 34.3 pg (27.0-31.0); Mean Platelet Volume 6.5 fL (7.4-10.4); Platelet Count 228 thou/uL (130-400); Red Blood Cell (RBC) Count 2.24 mill/uL (4.20-5.40); White Blood Cell (WBC) Count 6.7 thou/uL (4.8-10.8)
[2018-01-17 05:50] LABS: Anion Gap 13 mmol/L (10-20); BUN (Urea Nitrogen) 48 mg/dL (9.8-20.1); Calc. Creatinine Clearance 19 mL/min (70-130); Calcium 8.3 mg/dL (7.8-10.44); Carbon Dioxide 22 mmol/L (23-31); Chloride 99 mmol/L (98-107); Estimated GFR-MDRD 17; Glucose 136 mg/dL (80-115); Potassium 4.3 mmol/L (3.5-5.1); Sodium 130 mmol/L (136-145)
[2018-01-17] MEDS: Amlodipine 10 MG TAB PO SCH (08:53)
[2018-01-17] MEDS: Aspirin 325 MG TAB PO SCH (08:53)
[2018-01-17] MEDS: Linezolid 600 MG TAB PO SCH (08:54)
[2018-01-17] MEDS: Docusate 100 MG CAP PO SCH ×2 (08:55→20:35)
--- NOTE | 2018-01-17 08:57 | PDOC.FM ---
- Subjective Subjective: Pt seen at bedside in NAD. LINDSEY overnight. Family in room at bedside. Pt denies CP, SOB, abd pain, NVD. - Objective MAR Reviewed: Yes Vital Signs & Weight: Vital Signs (12 hours) Temp Pulse Resp BP BP Pulse Ox 01/17/18 08:53 89 98/52 L 01/17/18 08:00 97.4 F L 89 19 98/52 L 93 L 01/17/18 07:58 91 16 94 L 01/17/18 04:00 97.8 F 89 18 97/51 L 95 01/17/18 02:21 85 16 96 01/17/18 00:16 98.0 F 95 20 99/53 L 98 01/16/18 22:15 86 14 97 Weight Admit Weight 74.298 kg Weight 66.338 kg I&O: 01/16/18 01/17/18 01/18/18 06:59 06:59 06:59 Intake Total 1053.9 1287 Output Total 1525 1570 Balance -471.1 -283 Result Diagrams: 01/17/18 04:20 01/17/18 04:20 <Poli Vigil M - Last Filed: 01/17/18 08:56> - Objective Vital Signs & Weight: Vital Signs (12 hours) Temp Pulse Resp BP BP Pulse Ox 01/17/18 10:40 95 16 01/17/18 08:53 89 98/52 L 01/17/18 08:00 97.4 F L 89 19 98/52 L 93 L 01/17/18 07:58 91 16 94 L 01/17/18 04:00 97.8 F 89 18 97/51 L 95 01/17/18 02:21 85 16 96 01/17/18 00:16 98.0 F 95 20 99/53 L 98 Weight Admit Weight 74.298 kg Weight 66.338 kg I&O: 01/16/18 01/17/18 01/18/18 06:59 06:59 06:59 Intake Total 1053.9 1287 Output Total 1525 1570 Balance -471.1 -283 Result Diagrams: 01/17/18 04:20 01/17/18 04:20 <Kd Balbuena R - Last Filed: 01/17/18 11:33> Phys Exam - Physical Examination Constitutional: NAD HEENT: moist MMs Respiratory: no wheezing, clear to auscultation bilateral Cardiovascular: RRR 4/6 systolic murmur LSB Gastrointestinal: soft, positive bowel sounds Musculoskeletal: edema present limited ROM RUE Neurological: moves all 4 limbs Psychiatric: normal affect, A&O x 3 <Poli Vigil - Last Filed: 01/17/18 08:56> Dx/Plan (1) Acute CHF Code(s): I50.9 - HEART FAILURE, UNSPECIFIED Status: Acute QualifierTitle: Heart failure type: diastolic Qualified Code(s): I50.31 - Acute diastolic (congestive) heart failure Plan: -pt presented with signs/symptoms of decompensated CHF -repeat TTE shows evidence of some diastolic dysfunction -pt has responded extremely well to lasix and was transitioned to PO lasix (2) VRE (vancomycin-resistant Enterococci) infection Code(s): A49.1 - STREPTOCOCCAL INFECTION, UNSPECIFIED SITE; Z16.21 - RESISTANCE TO VANCOMYCIN Status: Acute Plan: -urine culture has shown VRE x2 -ID already consulted and recommended 3 days of linezolid -pt has had trouble with urinary retention and required replacement of hall -will attempt to remove prior to discharge to limit nidus for infection (3) Hyponatremia Code(s): E87.1 - HYPO-OSMOLALITY AND HYPONATREMIA Status: Chronic Plan: -suspected chronic hypoNa and initial presentation thought to be 2/2 hypervolemia -has not responded to diuresis as expected, 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 -Na improving with vaptan, 48 hrs of vaptan ended 01/16 -nephrology recs greatly appreciated -recent studies show normal TSH and cortisol, ruling out severe hypothyroidism and glucocorticoid deficiency -supports likely component of SIADH complicating hypervolemic hypoNa -continue to monitor closely (4) Urinary retention with incomplete bladder emptying Code(s): R33.9 - RETENTION OF URINE, UNSPECIFIED Status: Acute Plan: -indwelling hall discontinued and pt unable to void despite bladder training -hall replaced -urology consulted to further evaluate, recommendations greatly appreciated (5) Hyperkalemia Code(s): E87.5 - HYPERKALEMIA Status: Resolved Plan: -continue to monitor with lasix (6) Aortic stenosis Code(s): I35.0 - NONRHEUMATIC AORTIC (VALVE) STENOSIS Status: Acute QualifierTitle: Cardiac valve disease etiology: etiology unspecified Qualified Code(s): I35.0 - Nonrheumatic aortic (valve) stenosis (7) Fracture of distal end of tibia Code(s): S82.309A - UNSP FRACTURE OF LOWER END OF UNSP TIBIA, INIT FOR CLOS FX Status: Acute QualifierTitle: Encounter type: subsequent encounter Fracture type: closed Fracture alignment: nondisplaced Laterality: right Plan: -f/u with ortho outpatient (8) HTN (hypertension) Code(s): I10 - ESSENTIAL (PRIMARY) HYPERTENSION Status: Acute QualifierTitle: Hypertension type: unspecified Qualified Code(s): I10 - Essential (primary) hypertension Plan: -continue to monitor - Plan Plan: disposition: Pt stable. Hyponatremia greatly improved, nephrology recs greatly appreciated. Urology consulted for further evaluation of urinary retention, will attempt to coordinate care. <Poli Vigil - Last Filed: 01/17/18 08:56> Attending Addendum - Attending Addendum Date/Time: 01/17/18 1131 I personally evaluated the patient and discussed the management with Dr. Vigil. I agree with the History, Examination, Assessment and Plan documented above with any addition or exceptions noted below. Patient denies complaints. Fluid status improved and have backed off her diuresis. Cr trending up but Nephro on board and aware. Sodium greatly improved with vaptan therapy. Await further renal recs but likely stable for discharge from fluid balance, hyponatremia, and renal standpoint. Awaiting recs from Urology regarding outpatient mgmt of her urinary retention, CT did not show evidence of obstruction. Her UTI has been sufficiently treated with Zyvox per ID. Possible discharge today. <Kd Balbuena - Last Filed: 01/17/18 11:33>
[2018-01-17] MEDS ORDERED: Furosemide 20 MG TAB PO SCH (09:00)
[2018-01-17] MEDS ORDERED: Tamsulosin HCl 0.4 MG CAP PO SCH (09:00)
[2018-01-17] MEDS: Furosemide 20 MG TAB PO SCH ×2 (09:25→20:35)
--- NOTE | 2018-01-17 09:49 | PRG ---
Patient Name: GOLD ASHTON Date of service: 01/17/2018 Subjective: Patient was seen and examined at bedside and overnight events noted. Patient denies any shortness of breath or chest pain or palpitation. No history of nausea or vomiting or diarrhea or fever or chills or cramps. Objective: General: This is a well-built female in no apparent distress. Vital signs: Temperature 98.7, pulse 80, respirations 19, blood pressure 98/52. HEENT: Atraumatic, normocephalic. Oral mucosa is moist. Neck: Supple. Cardiovascular: S1 S2 heard. Rate and rhythm regular. Respiratory: Clear to auscultation. Gastrointestinal: Abdomen is soft. Musculoskeletal: No tenderness. No edema. Dermatologic: No skin rash. Neurologic: Alert and awake and oriented X3. No focal neurologic deficits. Moving all the extremit ies. Psychiatric: Mood and affect normal. LABORATORY DATA: Potassium is 4.3, BUN 48, creatinine is 2.8. ASSESSMENT AND PLAN: 1. Hyponatremia. Sodium level is better 130. 2. Acute kidney injury on chronic kidney disease. Creatinine in the range, slightly up most likely from diuresis. Okay to discharge home from Nephrology standpoint. 3. Edema, better. 4. Hypochloremia. Limit fluid intake. Currently, limit fluid intake. Follow up with the clinic in 1-2 weeks.
--- NOTE | 2018-01-17 11:10 | PRG ---
DATE OF SERVICE: 01/17/2018 SUBJECTIVE: Overnight, the patient has done well. She is currently receiving a breathing treatment. Reviewed the CAT scan, which showed no concern for any significant renal calcifications as these are all likely vascular as opposed to any in the collecting system. I had written for Colace, Dulcolax suppositories and Fleet Enema. I am not sure if she got those. She does not report having any bowel movement overnight. Today, we reviewed position changes, Crede maneuver was excellent as well as urinary tract prevention. She needs to shower at least 3 times a week, if not daily. She needs to be ambulating as her right LE will allow. PT should be working on this already. OBJECTIVE: VITAL SIGNS: Have been stable overnight. LABORATORY DATA: Her anemia is stable and her creatinine is elevated at 2.83. Her urine output has been 1570 for the last 12 hours. ASSESSMENT AND PLAN: We have a 72-year-old female with multiple comorbidities with multidrug-resistant urinary tract infection as well as incomplete emptying , if not retention, and constipation. We need to ensure that her bowels are moving appropriately. Continue the tamsulosin and continue the Eason until her diuresis is completed and then attempt a voiding trial. At this point, I would also leave the Eason in as her creatinine is rising to rule out any contributing component of obstructive injury to the kidney. Once it's stabilized and her diuresis is complete, then we'll remove it and attempt a voiding trial. [facility]AMPUSAntonio
--- NOTE | 2018-01-17 15:53 | CON ---
DATE OF CONSULTATION: 01/16/2018 REASON FOR CONSULTATION: Urinary retention and UTIs. HISTORY OF PRESENT ILLNESS: The patient was admitted on 01/10/2018 with exacerbation of CHF. She al so has hyponatremia and during her stay has been aggressively diuresed. She has had a Eason catheter off and on and been straight cathed for residuals of 500 and currently has an indwelling placed agai n. She has frequency q.3h. and nocturia x3. She wears 3 pads a day for urinary leakage. She denies any history of gross hematuria or stones. She does not have a significant history of urinary tract infe ctions up until the more recent past. PAST MEDICAL HISTORY: Diabetes for 30 years, anemia, renal insufficiency, hypertension, aortic steno sis. PAST SURGICAL HISTORY: Significant for toe amputation, right hip replacement, right knee arthroscopy , right shoulder surgery. MEDICATIONS: Albuterol, amlodipine, aspirin, Lasix. SOCIAL HISTORY: She does not smoke, drink or use drugs. REVIEW OF SYSTEMS: Revealed no blood in her stool. No diarrhea. I am not sure whether she has had a colonoscopy. She has no chest pain currently. She does have intermittent shortness of breath. Laura dooley has multiple skin wounds. She has not had a bowel movement for 6 days. FAMILY HISTORY: Significant for dad dying at 88 of old age. Mother at 43 diabetes complication s. PHYSICAL EXAMINATION: VITAL SIGNS: The patient has been afebrile at 98.8, blood pressure 127/59, heart rate 91, satting 98 % on room air. Eason in the last shift put out 1500 and she has been putting up between 3 and 5 lite rs in 24 hour shift. GENERAL: She is comfortable in the bed and in no distress. NECK: JVD is difficult to assess. HEENT: She has no scleral icterus. CARDIOVASCULAR: Regular rate and rhythm with an obvious systolic ejection murmur. LUNGS: Lungs were relatively clear to auscultation, but decreased breath sounds bilaterally. ABDOMEN: Soft, nondistended, nontender. Normoactive bowel sounds. : Her vulva was hyperemic with cream noted in the folds and a Eason catheter inserted. There was no obvious prolapse of the bladder. EXTREMITIES: Her right lower extremity had a cast on it and her left had significant bandage and scr apes. LABORATORY DATA: Revealed an anemia of 7.6 and 22.3. BUN and creatinine are 46 and 2.55. She came in with with values 2.11, which the creatinine is only rising. Urinalysis from 01/10/2018 reve aled too numerous to count WBCs, 4-6 RBCs, 3+ bacteria and 0-3 squamous cells with a culture showing Enterococcus and less than 10 K of yeast, which is a multi- resistant drug only sensitive to gentamic in and Linezolid, the latter of which she is currently on. Repeat urinalysis from 01/12/2018 showed decreased inflammation without any bacteria present and grew less Enterococcus and less yeast. A renal scan from 12/22/2017 reviewed personally reveals small right kidney with question of a renal pelvic stone on the right and a lower pole stone on the left. ASSESSMENT AND PLAN: We have a 72-year-old female with multiple comorbidities who has incomplete emp tying, if not actual retention, but also has significant constipation and urinary tract infections th at are multidrug resistant. For this reason, I would ask for Infectious Disease to be on board and pia catese their commentary. From my standpoint, I would get a plain CAT scan to rule out that there is any obstructing or contributing stone to this infection that might need to be addressed and I would work on her bowels, as this is not helping her emptying. I would start tamsulosin to aid in this and eli ve the catheter until her diuresis is completed. Ultimately, she may benefit from cystoscopy dependi ng on what the CT findings are, but given the lack of smoking history, I am not too concerned about a bladder mass. We will await these other findings and I follow with you for now.
--- NOTE | 2018-01-17 16:51 | PRG ---
DATE OF SERVICE: 01/16/2018 SUBJECTIVE: Reviewing my recent consultation, she has history of type 2 diabetes, renal insufficienc y stage 4, cardiomyopathy with volume overload, and CHF and was admitted with right upper extremity s welling. We were asked to evaluate and rule out cellulitis. At that time, we felt that it was proba lyndon related to fluid shifts associated with positional changes and the fact that she is unable to mo ve the right upper extremity due to having had the right shoulder resected in the past. Did not carmelo mmend antimicrobial therapy at that time. Now, apparently, she has developed colonization of the uri nary tract with VRE and she also has Ines. The Eason catheter has been just removed and I believe she was given Zyvox for a period of time. She is currently receiving furosemide, aspirin, Norvasc, but no antimicrobial therapy. Ms. Jovany Jennings is awake. She denies any dysuria. She has not been able to void since the Fo izabela was removed, but this has been just two hours ago. No dyspnea. No abdominal pain. No back pain . PHYSICAL EXAMINATION: VITAL SIGNS: Normal temperature, BP 113/54, pulse 88, respirations 16, O2 sats are 100 on room air. GENERAL: No distress. Awake and oriented. The right upper extremity swelling has markedly diminish ed. LUNGS: With basilar inspiratory crackles. CARDIOVASCULAR: S1, S2 regular rate. ABDOMEN: Soft without tenderness. No evidence of bladder distention. Eason catheter has been remov ed. EXTREMITIES: No edema in lower extremities. LABORATORY DATA: White cell count 6.7, hemoglobin 7.7, platelets 228. Chemistry with a creatinine 2 .83, which is a little bit higher than previously, probably from diuretics. Last urinalysis with 21- 50 wbc's. ASSESSMENT AND DISCUSSION: Type 2 diabetes; renal insufficiency, stage 3-4; cardiomyopathy with volu me overload with improvement. Eason catheterization now with colonization of the urinary tract by VR E and yeast. At this point in time, she does not have symptoms and no evidence of invasive infection . I would recommend withholding antimicrobial therapy. Follow up her post-catheter removal voiding trial and follow up in the next few days and I will track her progress and repeat a urinalysis. May be she will be able to clear this on her own.
[2018-01-17 22:24] VITALS: BP 115/56; TEMP 98.3
--- NOTE | 2018-01-18 18:40 | DIS-2 ---
DATE OF ADMISSION: 01/10/2018 DATE OF DISCHARGE: 01/17/2018 RESIDENT: Dr. Poli Vigil. ADMITTING ATTENDING: Dr. Magnus Tubbs. DISCHARGE ATTENDING: Dr. Kd Balbuena. CONSULTATIONS: 1. Nephrology, Dr. Kiara Glover. 2. Infectious Disease, Dr. Nilo Delong. 3. Urology, Dr. Rajani Suarez. 4. Heart Failure Clinic. 5. PT and OT. 6. Wound Care. PROCEDURES: 1. Right ankle x-ray performed on 01/10/2018 shows a cast with distal tibial fracture with slight callus formation with continued follow up recommended. 2. Chest x-ray performed on 01/10/2018 showed decompensated congestive heart failure. 3. Bilateral lower extremity venous Doppler revealed no DVT. 4. Echocardiogram performed on 01/11/2018 shows normal ejection fraction of 55% -60% with moderate severe aortic stenosis and possible diastolic dysfunction. 5. Right upper extremity venous Doppler showed no DVT. 6. Repeat chest x-ray performed on 01/12/2018 showed small bilateral pleural effusions. 7. CT of the abdomen and pelvis performed on 01/16/2018 showed cholelithiasis without evidence of cholecystitis and a nonobstructive left-sided renal calculi with multiple muscle atrophies. PRIMARY DIAGNOSES: 1. Acute decompensated diastolic congestive heart failure, resolved. 2. Chronic hyponatremia likely secondary to syndrome of inappropriate antidiuretic hormone secretion, resolving. 3. Vancomycin-resistant enterococcal urinary tract infection status post antibiotic treatment. 4. Urinary retention status post indwelling Eason catheter placement. 5. Hyperkalemia, resolved. SECONDARY DIAGNOSES: 1. Recent ESBL bacteremia. 2. Right distal tibial fracture. 3. Macrocytic anemia. 4. Diabetes mellitus type 2. 5. Chronic kidney disease stage 4. 6. Moderate to severe aortic stenosis. DISCHARGE MEDICATIONS: 1. Amlodipine 10 mg p.o. daily. 2. Furosemide 20 mg p.o. b.i.d. 3. Tamsulosin 0.4 mg p.o. daily. DISCONTINUED MEDICATIONS: Carvedilol 6.25 mg p.o. b.i.d. with meals. HISTORY OF PRESENT ILLNESS AND HOSPITAL COURSE: The patient is a very pleasant 72-year-old female who initially presented with complaints of swelling and was found to have a clinical picture suggestive of a decompensated heart failure. The patient was treated as such with strict intake and output measured , fluid restriction, and diuresis. The patient continued to respond well to the above treatment and ultimately was transitioned to oral Lasix diuresis and continued to do well. Regarding the patient's hyponatremia, this was noted to be a chronic issue; however, on discharge from previous hospitalization, the patient was noted to have a sodium level of 126. On presentation, the patient had a sodium of 120. With little improvement with her Lasix dosing, Nephrology was consulted at this point and suggested usage of conivaptan for likely syndrome of inappropriate antidiuretic hormone secretion. The patient responded extremely well to a 48- hour course with a sodium on the day of discharge of 130. The patient was noted to have per baseline chronic kidney disease stage 4 with a creatinine of 2.83 and GFR of 17 at the time of discharge. A urine culture did show a VRE UTI, and with her recent ESBL bacteremia, Infectious Disease was reconsulted in order for evaluation and recommendations. The patient was given a 3-day course of linezolid and was noted to likely have a chronic bacterial colonization. Regarding the patient's urinary retention, this was noted to be a new problem and the patient was unable to void without a Eason and had a postvoid residual of greater than 300 mL on multiple attempts of discontinuing Eason. Urology was consulted at this time to further evaluate. A CT was ordered to rule out any obstructive process as outlined above and the patient was started on tamsulosin. Multiple discussions were had with specialists in order to decrease any possible nidus for infection ; however, due to the patient's continued urinary retention symptoms, the patient was discharged with an indwelling Eason catheter with instructions to follow up in the outpatient setting for trial of discontinuing. The patient's hospital course was otherwise uncomplicated. DISPOSITION: Guarded. DISCHARGE INSTRUCTIONS: 1. Location: Home. 2. Diet: Consistent carbohydrates with fluid restriction. 3. Activity: As tolerated. 4. Followup: The patient instructed to follow up with primary care physician, Dr. Poli Vigil within the next week. The patient was also instructed to follow up with Orthopedic Surgery within 1-2 weeks for her distal tibial fracture. The patient also has an appointment with Nephrology within 1 week to follow up on her hyponatremia and chronic kidney disease. The patient is also to follow up with Urology in the outpatient setting for continued evaluation of urinary retention. Greater than 30 minutes was spent preparing and coordinating this discharge. ANA
== END 2018-01-17 22:03 | disposition home or self-care (01) | DRG 291 ==
LOC: ERS 08:15 → OBSVTOIN 11:31 → ERHOLD 11:31 → 2SW 13:13 → ERHOLD 14:42 → 2NO 17:01
PROVIDERS: ADMIT Internal Medicine; ATTEND Internal Medicine
DX: I13.0 Hypertensive heart and chronic kidney disease with heart failure and stage 1 through stage 4 chronic kidney disease, or unspecified chronic kidney disease (principal); I50.33 Acute on chronic diastolic (congestive) heart failure; G93.40 Encephalopathy, unspecified; N18.4 Chronic kidney disease, stage 4 (severe); E22.2 Syndrome of inappropriate secretion of antidiuretic hormone; E87.2 Acidosis; N17.9 Acute kidney failure, unspecified; N39.0 Urinary tract infection, site not specified; E11.22 Type 2 diabetes mellitus with diabetic chronic kidney disease; D53.9 Nutritional anemia, unspecified; S82.301A Unspecified fracture of lower end of right tibia, initial encounter for closed fracture; E87.5 Hyperkalemia; R33.9 Retention of urine, unspecified; K59.00 Constipation, unspecified; I35.0 Nonrheumatic aortic (valve) stenosis; I42.9 Cardiomyopathy, unspecified; E11.649 Type 2 diabetes mellitus with hypoglycemia without coma; E83.39 Other disorders of phosphorus metabolism; Z16.21 Resistance to vancomycin; Z89.412 Acquired absence of left great toe; Z79.82 Long term (current) use of aspirin; Z79.899 Other long term (current) drug therapy; Z96.641 Presence of right artificial hip joint; X58.XXXA Exposure to other specified factors, initial encounter
CPT/HCPCS: 36415; 36416; 71045; 74176; 80048; 80053; 81003; 81015; 82533; 82550; 82553; 82805; 83605; 83735; 83880; 83930; 83935; 84100; 84300; 84443; 84484; 85025; 87040; 87077; 87086; 87186; 93005; 93306; 93798; 93970; 94640; 94760; 96374; A4216; A4353; G8978-GP-CN; G8979-GP-CL; G8987-GO-CL; G8988-GO-CJ; J0690; J0696; J1650; J1940; J3370; J7050; J7620

== ENCOUNTER 2018-01-31 11:18 | Inpatient (IN) | payer OTHER, SELFPAY ==
[2018-01-31] MEDS ORDERED: Albuterol Sulfate 2.5 mg/3 ml Neb ONE (11:37)
[2018-01-31] MEDS ORDERED: Magnesium Sulfate 2 GM/100 ML BAG ONE (11:50)
[2018-01-31] MEDS ORDERED: Dexamethasone 4 mg/ml Vial ONE (11:50)
[2018-01-31 11:54] LABS: #Basophils 0.1 thou/uL (0.0-0.2); #Eosinphils 0.1 thou/uL (0.0-0.7); #Lymphocytes 1.4 thou/uL (1.20-3.40); #Monocytes 0.6 thou/uL (0.11-0.59); #Neutrophils 3.4 thou/uL (1.40-6.50); %Basophils 1.1 % (0.0-1.0); %Eosinophils 2.3 % (0.0-10.0); %Lymphocytes 24.8 % (21.0-51.0); %Monocytes 10.4 % (0.0-10.0); %Neutrophils 61.4 % (42.0-75.0); Hemoglobin 8.4 g/dL (12.0-16.0); Mean Corpuscular HGB CONC 33.9 g/dL (32.0-36.0); Mean Corpuscular Hemoglobin 34.7 pg (27.0-31.0); Mean Platelet Volume 6.2 fL (7.4-10.4); Platelet Count 365 thou/uL (130-400); RBC Distribution Width 13.6 % (11.5-14.5); Red Blood Cell (RBC) Count 2.43 mill/uL (4.20-5.40); White Blood Cell (WBC) Count 5.6 thou/uL (4.8-10.8)
[2018-01-31 12:14] LABS: Actual Bicarbonate (HCO3a) 19.3 mEq/L (22-26); Analyzer IN Cardio ER; Base Excess (BEa) -5.5 mEq/L (0 (+/-) 2.5); CO2 Tension 29.3 mmHg (35.0-45.0); Calcium, Ionized 1.1 mmol/L (1.12-1.30); Hematocrit-ABG 27.3 % (36.0-47.0); Hemoglobin (Hb) 6.4 g/dL (12.0-16.0); O2 Tension (PaO2) 55.2 mmHg (80.0-100.0); Puncture Site LRA; pH, Arterial 7.44 (7.35-7.45)
[2018-01-31 12:15] LABS: ALV-art Gradient 56.855 (0-20)
[2018-01-31 12:18] LABS: ALT (SGPT) 12 U/L (8-55); AST (SGOT) 21 U/L (5-34); Albumin 3.3 g/dL (3.4-4.8); Alkaline Phosphatase 132 U/L (40-150); Anion Gap 15 mmol/L (10-20); BUN (Urea Nitrogen) 47 mg/dL (9.8-20.1); Bilirubin, Total 0.4 mg/dL (0.2-1.2); CK (CPK) 57 U/L (29-168); Calc. Creatinine Clearance 0 mL/min (70-130); Calcium 8.4 mg/dL (7.8-10.44); Carbon Dioxide 19 mmol/L (23-31); Chloride 98 mmol/L (98-107); Estimated GFR-MDRD 20; Globulin 3.7 g/dL (2.4-3.5); Glucose 133 mg/dL (80-115); Lipase 22 U/L (8-78); Potassium 4.2 mmol/L (3.5-5.1); Sodium 128 mmol/L (136-145)
[2018-01-31 12:22] LABS: CKMB 2.2 ng/mL (0-6.6); Troponin I Less than 0.010 ng/mL (< 0.028)
--- NOTE | 2018-01-31 12:40 | PDOC.FPRHP ---
- History of Present Illness Chief Complaint: SOB History of Present Illness: Code Status: Full Date and Time: 1430 01/31/18 Patient is a 72 yo F with PMH of CHF, ESBL E. coli UTI in 12/2017, aortic stenosis, CKD, and DM2 recently admitted on 01/10/18- 01/18/18 for CHF exacerbation and UTI. Today she presents with SOB, fever, chills and vomiting x2 which began yesterday. She is also reporting MERLOS, and back/shoulder pain. Patient has an indwelling catheter last changed 2.5 wks ago. Initially, patient had O2 saturation of 80% on RA. Patient was placed on BIPAP and O2 saturations improved to 96%- 99%. Patient was seen in the clinic 3-4 days ago and had no complaints of SOB at that time with normal lung exam. Patient is seen in the ED , providing information because patient is on BIPAP. reports patient feeling well until 2 days ago where she began to have a nonproductive cough and SOB at home. He denies fever at home and new ill contacts. Denies nasal congestion. PCP: Poli Vigil MD Specialists: Dr. Suarez, Urology Orthopedic Surgery ED Course: She was given Vancomycin 1g IV, Levaquin 750mg IV, Decadron, Albuterol nebs x1, Duonebs x1, Magnesium Sulfate, and 1L NS. - Allergies/Adverse Reactions Allergies Allergy/AdvReac Type Severity Reaction Status Date / Time No Known Allergies Allergy Verified 01/11/18 03:57 - Home Medications Medication Instructions Recorded Confirmed Type Amlodipine [Norvasc] 10 mg PO DAILY #30 tab 12/28/17 01/31/18 Rx Furosemide [Lasix] 20 mg PO BID #60 tab 01/17/18 01/31/18 Rx Tamsulosin HCl [Flomax] 0.4 mg PO DAILY #30 cap 01/17/18 01/31/18 Rx - History PMHx: T2DM Mod-Sev Aortic Stenosis(ECHO 01/2018) dCHF Chronic Hyponatremia Urinary retention Recent hx of R Distal Tibial Fx CKD stage 4 PSHx: Hip Replacement Knee surgery Shoulder surgery Foot surgery x3 FHx: Non-contributory Social: Denies alcohol, tobacco, or drug use - Review of Systems General: reports: night sweats. denies: fever/chills, weight/appetite/sleep changes Eyes: denies: eye pain, vision changes ENT: denies: nasal congestion, rhinorrhea Respiratory: reports: cough, congestion, shortness of breath, exercise intolerance Cardiovascular: denies: chest pain, palpitation, edema, orthopnea Gastrointestinal: reports: nausea. denies: vomiting, diarrhea, constipation, abdominal pain Genitourinary: reports: other (hall in place). denies: dysuria Skin: denies: rashes Musculoskeletal: reports: arthritis/arthralgias. denies: pain, tenderness Neurological: denies: syncope, seizure Psychological: denies: anxiety, depression - Vital signs BP: 106/45 HR: 85 RR: 20 Tmax: 97.9 Pox: 96% on BIPAP Wt: 90.7kg - Physical Exam Constitutional: awake, alert and oriented -Constitutional: On BIPAP HEENT: EOMI, grossly normal vision, grossly normal hearing, normal nasal mucosa , MMM, oropharynx clear -HEENT: R pupil is not circular Neck: supple, FROM, trachea midline -Neck: anterior cervical and submental LAD Chest: no-tender to palpation -Heart: Systolic murmur, not heard well due to breath sounds -Lungs: expiratory wheezes throughout, worse in the upper lung simpson on the R. rhonchi of bilateral bases. Abdomen: soft, non-tender, bowel sounds present Musculoskeletal: normal structure, normal tone Neurological: no focal deficit, normal sensation Skin: no rash/lesions, no jaundice Psychiatric: normal mood and affect, intact recent and remote memory FMR H&P: Results - Labs Result Diagrams: 01/31/18 11:49 01/31/18 11:49 Lab results: WBC 5.6 thou/uL (4.8-10.8) 01/31/18 11:49 Hgb 8.4 g/dL (12.0-16.0) L 01/31/18 11:49 Hct 24.8 % (36.0-47.0) L 01/31/18 11:49 MCV 102.0 fl (81.0-99.0) H 01/31/18 11:49 Plt Count 365 thou/uL (130-400) 01/31/18 11:49 Neutrophils % 61.4 % (42.0-75.0) 01/31/18 11:49 ABG pH 7.44 (7.35-7.45) 01/31/18 11:54 ABG pCO2 29.3 mmHg (35.0-45.0) L 01/31/18 11:54 ABG pO2 55.2 mmHg (80.0-100.0) L 01/31/18 11:54 Sodium 128 mmol/L (136-145) L 01/31/18 11:49 Potassium 4.2 mmol/L (3.5-5.1) 01/31/18 11:49 Chloride 98 mmol/L (98-107) 01/31/18 11:49 Carbon Dioxide 19 mmol/L (23-31) L 01/31/18 11:49 BUN 47 mg/dL (9.8-20.1) H 01/31/18 11:49 Creatinine 2.37 mg/dL (0.6-1.1) H 01/31/18 11:49 Glucose 133 mg/dL (80-115) H 01/31/18 11:49 Lactic Acid 1.2 mmol/L (0.5-2.2) 01/31/18 11:49 Calcium 8.4 mg/dL (7.8-10.44) 01/31/18 11:49 Total Bilirubin 0.4 mg/dL (0.2-1.2) 01/31/18 11:49 AST 21 U/L (5-34) 01/31/18 11:49 ALT 12 U/L (8-55) 01/31/18 11:49 Alkaline Phosphatase 132 U/L (40-150) 01/31/18 11:49 Creatine Kinase 57 U/L (29-168) 01/31/18 11:49 CK-MB (CK-2) 2.2 ng/mL (0-6.6) 01/31/18 11:49 B-Natriuretic Peptide 1537.0 pg/mL (0-100) H 01/31/18 11:49 Serum Total Protein 7.0 g/dL (6.0-8.3) 01/31/18 11:49 Albumin 3.3 g/dL (3.4-4.8) L 01/31/18 11:49 Lipase 22 U/L (8-78) 01/31/18 11:49 - Radiology Interpretation Chest x-ray Status: image reviewed by me, pending (report pending) Additional comment: Findings worriesome for multifocal PNA with bilateral pleural effusions R>L FMR H&P: A/P - Problem List (1) Acute respiratory failure with hypoxia Current Visit: Yes Status: Acute Code(s): J96.01 - ACUTE RESPIRATORY FAILURE WITH HYPOXIA (2) Hospital acquired PNA Current Visit: Yes Status: Suspected Code(s): J18.9 - PNEUMONIA, UNSPECIFIED ORGANISM (3) Aortic stenosis Current Visit: No Status: Chronic Code(s): I35.0 - NONRHEUMATIC AORTIC ( VALVE) STENOSIS Qualifiers: Cardiac valve disease etiology: etiology unspecified Qualified Code(s): I35.0 - Nonrheumatic aortic (valve) stenosis (4) DM2 (diabetes mellitus, type 2) Current Visit: No Status: Chronic (5) Fracture of distal end of tibia Current Visit: No Status: Chronic Code(s): S82.309A - UNSP FRACTURE OF LOWER END OF UNSP TIBIA, INIT FOR CLOS FX Qualifiers: Encounter type: subsequent encounter Fracture type: closed Fracture alignment: nondisplaced Laterality: right (6) HTN (hypertension) Current Visit: No Status: Chronic Code(s): I10 - ESSENTIAL (PRIMARY) HYPERTENSION Qualifiers: Hypertension type: unspecified Qualified Code(s): I10 - Essential (primary ) hypertension (7) Urinary retention with incomplete bladder emptying Current Visit: No Status: Chronic Code(s): R33.9 - RETENTION OF URINE, UNSPECIFIED (8) VRE (vancomycin-resistant Enterococci) infection Current Visit: No Status: Chronic Code(s): A49.1 - STREPTOCOCCAL INFECTION, UNSPECIFIED SITE; Z16.21 - RESISTANCE TO VANCOMYCIN Comment: History of VRE infection (9) Hyponatremia Current Visit: No Status: Chronic Code(s): E87.1 - HYPO-OSMOLALITY AND HYPONATREMIA (10) Right tibial fracture Current Visit: No Status: Acute Code(s): S82.201A - UNSP FRACTURE OF SHAFT OF RIGHT TIBIA, INIT FOR CLOS FX Qualifiers: Encounter type: subsequent encounter (11) Macrocytic anemia Current Visit: No Status: Acute Code(s): D53.9 - NUTRITIONAL ANEMIA, UNSPECIFIED - Plan Acute Hypoxic Respiratory Failure Likely 2/2 HAP - patient recently d/c'd from hospital on 01/18 with dCHF exacerbation. No fever at home or elevated WBC. Lactic acid wnl. CXR concerning for multifocal PNA with pleural effusions. dCHF vs. PNA. Does not clinically appear fluid overloaded at this time. Will treat for PNA and repeat CXR tomorrow. - Place in IMCU for BIPAP and wean as tolerated to NC. - Continue Vancomycin, Levaquin, and Meropenem for HAP coverage, renally dosed - Does not meet sepsis criteria at this time. Continue to monitor. - Blood cultures pending - Strep pneumo urinary antigen pending, Legionella urinary antigen, and RSV pending - s/p 2L IVF in ED, will hold off on IVF right now due to dCHF and possible fluid overload. dCHF - Does not appear fluid overloaded in extremities. Does have pleural effusions on CXR, likely would benefit from added diureses although BP 100's/50's right now and will not tolerate diureses. Patient is preload dependent with Mod- Severe Aortic Stenosis. Will treat infection and diurese slowly. Plan to give 20mg IV Lasix when blood pressure can tolerate. - continue home Lasix 20mg PO daily - daily wt - strict IOs Moderate-Severe Aortic Stenosis - Patient preload dependent. Will give gentle diuresis when tolerable. DM2 - not on any home medications at this time - ACHS accuchecks and if normal, transition to daily accucheck - continue to monitor. R Tibial Fx - Patient currently in cast. States she is supposed to see orthopedic surgery this week but unsure of who she is to follow up with. - Consider consulting Ortho if patient to stay in the hospital for multiple days for evaluation. Hx of VRE UTI - Patient with chronic urine bacterial colonization. Asymptomatic at this time. - UA without bacteria - Urine culture pending, likely to be positive with VRE, plan to treat only if patient becomes symptomatic. 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 Glover. - Today Na is 128 - continue to monitor with daily BMPs Chronic Macrocytic Anemia - stable - B12 and folate normal on last admission - Further evaluate with peripheral smear HTN - Hypotensive right now, will hold home Amlodipine Urinary Retention - hall in place - continue Tamsulosin VTE PPx: Heparin Code Status: Full Disposition/LOS: Likely will spend 2 overnight days in the hospital with d/c home after PNA resolved and patient not requiring O2. FMR H&P: Upper Level - Pertinent history Patient was unreliable historian. History taken with post office manager assistance. 72F with history CHF, ESBL e. coli UTI, aortic stenosis, CKD IV and DM2 diet controlled was admitted for admitted for increasing SOB starting one day ago, associated with MERLOS, fever, chills, nausea and vomiting x2. At admission 2 week prior, she had a CHF exacerbation and had a hall placed for urinary retention, which she still has. She was seen Sunday this week and had no complaint of SOB at that time. There was no sick contact at home. In the ER, was started on vancomycin 1 g, Levaquin 750 mg, decadron, albuterol, duoneb, mag sulfate, and 2 L NS. PMHx T2DM Mod-sev aortic stenosis 01/2018 Chronic hyponatremia possibly from SIADH Urinary retention Recent hx of R distal tibial fx CKD stage 4 PSHx: Hip replacement Knee sx Shoulder sx Foot sx x3 Fhx: Non-contributory Social Denies alcohol, drug, tobacco - Pertinent findings Gen: In bed on bipap, no in acute distress. HEENT: Clear sclera, normocephalic, poor dentition, moist mucosal membrane Resp: Crackles and wheezing heard on both lung bilaterally, comfortable off of bipap, now on 3L NC CV: RRR with systolic murmur at RU sternal murmur GI: Normoactive, not tender, no guarding Derm: Sacral ulcer, mild bruising on right arm. Trace edema in odonnell Neruo: Moves all limbs, follow commands, no gross weakness or deficit. - Plan Date/Time: 01/31/18 1240 I, [Doug Ly], have evaluated this patient and agree with findings/plan as outlined by media intern resident. Pertinent changes/additions are listed here. 1. Hypoxic Resp Failure - Dx includes CHF with preserved EF due to elevated BNP, healthcare pneumonia based on CXR and hospitalization. Unlikely ACS with normal trops, no obvious pneumothorax - Plan to continue with NC and titrate downward, gentle lasix as pt's BP is low at this time. Stop IV fluid. Cover pneumonia with levaquin and meropenem for double pseudomonas coverage and vanc for MRSA, narrow abx as culture return. 2. Urinary Retention - UA shows aseptic pyruia. No bacteria seen. Will be covered with abx for problem 1. Continue hall at this time as patient was to have it pulled next month with urology. Continue flomax. 3. Chronic Hyponatremia, possibly from SIADH - Asymptomatic at this time. At this time, will monitor, resume with home lasix. Will fluid restrict if NA drops. Currently it is at her baseline. 4. Macrocytic anemia - Stable. Will obtain retic count and peripheral smear. She had work up in past for folate and B12. 5. DM2 - Last A1c was earlier this month, it was well controlled. She does not have any DM medication. Will place her on SSI 6. CKD IV - On going issue. At this time, BUN/CR at baseline. Will resume home lasix and cautiously add lasix as needed 7. Moderate to severe aortic stenosis - Echo was taken earlier this month, finding aortic stenosis and increased pulmonary pressure. - At this time, she is not complaining about continuous SOB at home. Plan to resolve her current symptom, consult card if she has continual symptoms. 8. HTN - Will hold amlodipine at this time due to BP, will resume medication when BP is more stable. 9. Right tibial fx - Currently has cast on. She has referral to outpatient ortho for removal of the cast. She has no neurological deficit in her right leg. With good capi refill. Plan to have patient follow up as outpatient for removal 10. PPX - Due to CKD IV, will renally dose anticoagulation. PT/OT consult. Attending Addendum - Attending Addendum Date/Time: 01/31/182004 I personally evaluated the patient and discussed the management with Dr. Zhao and Dr. Arriola I agree with the History, Examination, Assessment and Plan documented above with any addition or exceptions noted below. 72 yo female with history of multiple medical problems admitted for HAP. Has been given non renally dosed antibx. Will need to monitor renal function closely. Discuss antibx choice with Dr. Delong due to recent history of UTI with VRE. Mild symptoms of overload. Gentle lasix dosing due also to preload dependance for . Now off BiPAP. Strict fluid restriction due to SIADH and low sodium. Swetha
[2018-01-31 13:01] LABS: Bilirubin Negative (Negative); Blood, Urine Large (Negative); Clarity CLOUDY (Clear); Glucose, Urine (Dipstick) Negative (Negative); Leukocyte Large (Negative); Nitrite Negative (Negative); Protein, Urine (Dipstick) 30 mg/dL (Neg-Trace); Specific Gravity, Urine 1.014 (1.002-1.036); Urobilinogen 0.2 mg/dL (0.2-1.0); pH, Urine 5.5 (5.0-9.0)
[2018-01-31 13:04] LABS: Bacteria/HPF None Seen HPF (None Seen); Hyaline Casts/LPF 4-6 HYALINE CAST LPF (0-3 Hyaline); Pathc Cast-AUWi Flag 0.72 (0-2.49); RBC/HPF 0-3 HPF (0-3); Squamous Epithelial None Seen HPF (0-3)
[2018-01-31] MEDS ORDERED: Meropenem 1 GM in Sterile Water 20 ML SLOW IVP SCH (13:30)
--- NOTE | 2018-01-31 13:55 | RAD ---
PORTABLE AP CHEST: Date: 01/31/18 HISTORY: Dyspnea, fever, chills. COMPARISON: 01/12/18. FINDINGS: There has been interval development of parenchymal opacity in the right upper lobe, as well as parenc hymal opacity in the right mid lung zone. Findings are worrisome for pneumonia. There are small bilat eral pleural effusions, larger in size on the right, with associated bibasilar atelectasis. There is minimal patchy density seen within the left upper lobe. Cardiac silhouette is magnified by projection . The right cardiac border is partially obscured due to the right pleural effusion. Pulmonary vascula ture is within normal limits. Right glenohumeral prosthesis is noted. IMPRESSION: Findings worrisome for multifocal pneumonia with bilateral pleural effusions, greater on the right. Follow-up to complete resolution is recommended. POS: [facility]
[2018-01-31] MEDS ORDERED: Ondansetron ODT 4 MG TAB SL PRN (14:49)
[2018-01-31] MEDS ORDERED: Ondansetron HCl/PF 4 MG/2 ML Vial IVP PRN (14:49)
[2018-01-31] MEDS ORDERED: Sodium Chloride 0.9% 1,000 ML IV SCH (14:49)
[2018-01-31] MEDS ORDERED: Docusate 100 MG CAP PO PRN (15:00)
[2018-01-31] MEDS ORDERED: Ondansetron ODT 4 MG TAB PO PRN (15:00)
[2018-01-31] MEDS ORDERED: Bisacodyl 5 MG TAB PO PRN (15:00)
[2018-01-31] MEDS ORDERED: Dextrose 50% Abboject 50 ML SYRINGE SLOW IVP PRN ×2 (15:00→15:10)
[2018-01-31] MEDS ORDERED: Dextrose 5% in Water 1,000 ML IV PRN ×3 (15:00→21:28)
[2018-01-31] MEDS ORDERED: Nystatin Powder 15 GM BOT TOP PRN (15:19)
[2018-01-31] MEDS ORDERED: Furosemide 20 MG/2 ML VIAL SLOW IVP SCH (15:30)
[2018-01-31 16:04] LABS: Legionella Urinary Ag Negative (Negative); Strep pneumo Urine Ag NEGATIVE (NEGATIVE)
[2018-01-31] MEDS: Furosemide 20 MG TAB PO SCH (20:30)
[2018-01-31] MEDS: Acetaminophen 325 MG TAB PO PRN (20:38)
[2018-01-31] MEDS ORDERED: Heparin 5,000 UNITS/ML VIAL SC SCH ×2 (21:00)
[2018-01-31] MEDS ORDERED: Dextrose 50% Abboject 50 ML SYRINGE IVP PRN (21:28)
[2018-01-31] MEDS ORDERED: HumaLOG 300 UNITS/3 ML VIAL SC PRN (21:28)
[2018-02-01] MEDS ORDERED: Meropenem 500 MG in Sodium Chloride 0.9% 100 ML IVPB SCH (02:00)
[2018-02-01] MEDS: Meropenem 500 MG, Admixture Fee 1 EACH in Sterile Water 10 ML SLOW IVP SCH ×2 (02:10→14:29)
[2018-02-01] MEDS: Ondansetron HCl/PF 4 MG/2 ML Vial IVP PRN (04:09)
[2018-02-01 04:28] LABS: #Lymphocytes 0.4 thou/uL (1.20-3.40); #Monocytes 0.1 thou/uL (0.11-0.59); #Neutrophils 2.9 thou/uL (1.40-6.50); %Eosinophils 0.3 % (0.0-10.0); %Lymphocytes 11.2 % (21.0-51.0); %Monocytes 2.6 % (0.0-10.0); %Neutrophils 85.9 % (42.0-75.0); Hemoglobin 7.5 g/dL (12.0-16.0); Mean Corpuscular HGB CONC 34.1 g/dL (32.0-36.0); Mean Corpuscular Hemoglobin 34.1 pg (27.0-31.0); Mean Platelet Volume 6.1 fL (7.4-10.4); Platelet Count 315 thou/uL (130-400); RBC Distribution Width 13.7 % (11.5-14.5); White Blood Cell (WBC) Count 3.4 thou/uL (4.8-10.8)
[2018-02-01 04:33] LABS: Reticulocyte Count 2.8 % (0.5-1.5)
[2018-02-01 04:38] LABS: Anion Gap 16 mmol/L (10-20); BUN (Urea Nitrogen) 49 mg/dL (9.8-20.1); Calc. Creatinine Clearance 22 mL/min (70-130); Carbon Dioxide 15 mmol/L (23-31); Chloride 102 mmol/L (98-107); Estimated GFR-MDRD 20; Glucose 247 mg/dL (80-115); Sodium 129 mmol/L (136-145)
[2018-02-01 04:42] LABS: Band 6 % (5-11); Burr Cells SLIGHT = 2-5 cells (100X) (0-1/hpf); Hemoglobin 7.4 g/dL (12.0-16.0); Lymphocytes 8 % (21-51); MDiff Complete? YES; Mean Corpuscular HGB CONC 33.3 g/dL (32.0-36.0); Mean Corpuscular Hemoglobin 33.3 pg (27.0-31.0); Mean Platelet Volume 6.1 fL (7.4-10.4); Monocytes 2 % (0-10); Neutrophil 84 % (42-75); PLT Morphology Comment Appears Adequate; Platelet Count 329 thou/uL (130-400); RBC Distribution Width 13.5 % (11.5-14.5); Red Blood Cell (RBC) Count 2.21 mill/uL (4.20-5.40); White Blood Cell (WBC) Count 3.5 thou/uL (4.8-10.8)
[2018-02-01] MEDS: HumaLOG 300 UNITS/3 ML VIAL SC PRN ×2 (06:09→17:04)
[2018-02-01] MEDS: Furosemide 20 MG TAB PO SCH (08:48)
[2018-02-01] MEDS: Enoxaparin Sodium 30 MG/0.3 ML SYRINGE SC SCH (08:48)
[2018-02-01] MEDS: Tamsulosin HCl 0.4 MG CAP PO SCH (08:48)
[2018-02-01] MEDS ORDERED: Enoxaparin Sodium 30 MG/0.3 ML SYRINGE SC SCH (09:00)
[2018-02-01] MEDS ORDERED: Furosemide 20 MG/2 ML VIAL SLOW IVP SCH (09:00)
--- NOTE | 2018-02-01 09:51 | PDOC.FM ---
- Subjective Subjective: Patient today is feeling SOB, had nausea lasst night with food. Zofran did not help. She is currently at 88% on 3 L by LA. - Objective MAR Reviewed: Yes Vital Signs & Weight: Vital Signs (12 hours) Temp Pulse Resp BP Pulse Ox 02/01/18 08:57 99.6 F 95 23 H 89 L 02/01/18 08:46 99.6 F 95 23 H 102/48 L 92 L 02/01/18 05:00 97.5 F L 20 112/55 L 93 L 02/01/18 02:11 93 20 93/40 L 93 L 02/01/18 00:08 98.9 F 96 20 101/48 L 92 L 01/31/18 22:42 86 16 93 L 01/31/18 22:10 85 20 122/55 L 93 L Weight Weight 68.577 kg I&O: 01/31/18 02/01/18 02/02/18 06:59 06:59 06:59 Intake Total 2500 Output Total 375 Balance 2124 Result Diagrams: 02/01/18 03:40 02/01/18 03:40 <Doug Arriola M - Last Filed: 02/01/18 09:50> - Objective Vital Signs & Weight: Vital Signs (12 hours) Temp Pulse Resp BP Pulse Ox 02/01/18 14:36 95 02/01/18 14:34 95 22 H 99 02/01/18 12:00 98.7 F 02/01/18 10:54 99.8 F H 98 23 H 02/01/18 10:15 94 26 H 96 02/01/18 10:04 95 02/01/18 08:57 99.6 F 95 23 H 89 L 02/01/18 08:46 99.6 F 95 23 H 102/48 L 92 L 02/01/18 05:00 97.5 F L 20 112/55 L 93 L Weight Admit Weight 66.134 kg Weight 68.577 kg Most Recent Monitor Data Heart Rate from ECG 99 NIBP 104/47 NIBP BP-Mean 60 Respiration from ECG 22 SpO2 100 I&O: 01/31/18 02/01/18 02/02/18 06:59 06:59 06:59 Intake Total 2500 0 Output Total 375 207 Balance 2124 - Result Diagrams: 02/01/18 03:40 02/01/18 03:40 <Yolanda Newton - Last Filed: 02/01/18 16:27> Phys Exam - Physical Examination Constitutional: NAD HEENT: moist MMs Neck: no nodes Wheezing in both lung field, increased work of breathing Cardiovascular: RRR RU stenralsystolic murmur Gastrointestinal: soft, non-tender Musculoskeletal: no edema Neurological: non-focal, moves all 4 limbs Lymphatic: no nodes <Doug Arriola - Last Filed: 02/01/18 09:50> Dx/Plan (1) Acute respiratory failure with hypoxia Code(s): J96.01 - ACUTE RESPIRATORY FAILURE WITH HYPOXIA Status: Acute Plan: Patient having increased work of breathing. On broad spectrum abx pending culture Receiving duoneb for possible COPD Will obtain xray, abg for patient's acute SOB. Consider Bipap (2) Hospital acquired PNA Code(s): J18.9 - PNEUMONIA, UNSPECIFIED ORGANISM Status: Suspected Plan: Likely based on cxr and patient's history. Patient's afebrile last night Plan is to cover empirically until culture and sensitivity returns. (3) Aortic stenosis Code(s): I35.0 - NONRHEUMATIC AORTIC (VALVE) STENOSIS Status: Chronic QualifierTitle: Cardiac valve disease etiology: etiology unspecified Qualified Code(s): I35.0 - Nonrheumatic aortic (valve) stenosis (4) DM2 (diabetes mellitus, type 2) Status: Chronic Plan: Chronic issue, will cover with insulin at this time, adjust based on daily insulin use. (5) Fracture of distal end of tibia Code(s): S82.309A - UNSP FRACTURE OF LOWER END OF UNSP TIBIA, INIT FOR CLOS FX Status: Chronic QualifierTitle: Encounter type: subsequent encounter Fracture type: closed Fracture alignment: nondisplaced Laterality: right Plan: Chronic issue, patient had prior to admission. Patient has cast on, she is due to see orthdo to have it removed. (6) HTN (hypertension) Code(s): I10 - ESSENTIAL (PRIMARY) HYPERTENSION Status: Chronic QualifierTitle: Hypertension type: unspecified Qualified Code(s): I10 - Essential (primary) hypertension Plan: No HTN episodes last night. At this time, her BP are being held. (7) Urinary retention with incomplete bladder emptying Code(s): R33.9 - RETENTION OF URINE, UNSPECIFIED Status: Chronic Plan: Placed last hospitalization. She still has hall in, with a scheduled outpatient - Urine has grown out e. coli. Will await sensitivty and culture. She has history of VRE in past. (8) Hyponatremia Code(s): E87.1 - HYPO-OSMOLALITY AND HYPONATREMIA Status: Chronic Plan: From prior admission, appear to be crhonic , thought to be SIADH in nature At this time, her Na is at her usual baseline. (9) Macrocytic anemia Code(s): D53.9 - NUTRITIONAL ANEMIA, UNSPECIFIED Status: Acute Plan: Retic count came back elevated <Doug Arriola - Last Filed: 02/01/18 09:50> Attending Addendum - Attending Addendum Date/Time: 02/01/18 [id number] I personally evaluated the patient and discussed the management with Dr. Arriola. I agree with the History, Examination, Assessment and Plan documented above with any addition or exceptions noted below. Upon my evaluation this morning patient was noted to have increased work of breathing with retractions and use of accessory muscles for respiration. O2 sats on 3 L NC were in the 80's. Stat CXR and abg were obtained. Pt given additional IV lasix as effusions had worsened. Decision was made to transfer patient to ICU and she was placed on BIPAP. Dr. Schulte evaluated the patient and we appreciated his recommendations. There is concern that the patient's aortic stenosis may have worsened. Cardiology is being consulted. <Yolanda Newton - Last Filed: 02/01/18 16:27>
--- NOTE | 2018-02-01 10:14 | RAD ---
RADIOGRAPH CHEST 1 VIEW: Date: 02-01-18 Time: 9:00 a.m. HISTORY: 72-year-old female with aortic stenosis. COMPARISON: 01-31-18 at 11:48 a.m. FINDINGS: There are bilateral pleural effusions, moderate to large on the right and small to moderate on the le ft. Both have increased in volume. Airspace densities in the right upper lobe, right perihilar region , and especially right lower lobe and right middle lobe have worsened. New or worsening airspace dens ities (less severe than on the right), at the left upper lobe and especially left lower lobe. No pneu mothorax is identified. IMPRESSION: 1. Bilateral pleural effusions, right greater than left, have worsened. 2. Multiple bilateral airspace densities, right worse than left, which could represent pneumonia, hav e also worsened. OTTONIEL POS: [facility]
--- NOTE | 2018-02-01 11:45 | RAD ---
TWO VIEWS OF THE LEFT TIBIA AND FIBULA: Date: 02-01-18 Comparison: Right ankle series, 01-10-18. History: Trauma, pain. FINDINGS: Detailed assessment is limited secondary to cast in place. The bones are markedly demineralized. Ther e is a knee arthroplasty on the right. Incompletely imaged post-operative hardware overlies the right distal femur. There is a fracture involving the medial malleolus, not significantly change. Limited assessment of t he calcaneus, particularly on the lateral view. IMPRESSION: No interval change in casted medial malleolar fracture. POS: [facility]
--- NOTE | 2018-02-01 12:18 | PRG ---
DATE OF SERVICE: 02/01/2018 SUBJECTIVE: She is more short of breath today. She was move out of the Critical Care Unit. She was placed on BiPAP and looks much more comfortable on BiPAP. OBJECTIVE: VITAL SIGNS: Heart rates in the 90s, respiratory rate in the 20s. Oximetry is now 96 on BiPAP. Blo od pressure 102/48. LUNGS: Remarkable for coarse breath sounds bilaterally. She has decreased breath sounds at her righ t base. HEART: Regular rhythm. She has a grade 2/6 systolic murmur. ABDOMEN: Soft and nontender. EXTREMITIES: Without asymmetry. LABORATORY DATA: White count 3.5, hemoglobin 7.4, platelets 329, MCV is 100. Sodium 129, potassium 4, chloride 102, bicarb 15, BUN 49, and creatinine 2.44. Chest radiograph reviewed by me shows an increase in the right effusion. She also has a patchy infil trate in right upper lobe. IMPRESSION: 1. Pneumonia. 2. Coexistent diastolic heart failure with aortic stenosis. 3. Metabolic acidosis, most likely associated with renal insufficiency. She would benefit from a bl ood gas just to reevaluate her acid base status today. 4. Chronic kidney disease. Caution with aggressive diuresis would be appropriate. Her renal functi on stable between yesterday and today, but tenuous in my opinion. 5. Diabetes. 6. Obesity. Cardiology has been consulted. She will continue with BiPAP for now. Clinically she d oes need to be intubated. She does need to be in the Critical Care Unit. Critical care time was 30 minutes.
--- NOTE | 2018-02-01 12:58 | CON ---
DATE OF CONSULTATION: 02/01/2018 CARDIOLOGY CONSULTATION REASON FOR CONSULTATION: Heart failure and aortic stenosis. HISTORY OF PRESENT ILLNESS: Mrs. Jovany Araiza is a pleasant 72-year-old female, Swedish speaking mostly, who comes to the hospital for shortness of breath. She was in the hospital recently for urinary tract infection earlier this month. She went home and had to come back as yesterday she developed fever, chills, and started vomiting yesterday. She also had a headache, back, and shoulder pain. She was placed on BiPAP as her O2 saturations were in the 80s and felt much better, started diuresing and Cardiology is being consulted after evaluating the severity of her aortic stenosis as being the possible cause of her heart failure. Currently, she continues to be on BiPAP, but she feels better on it and has diuresed well. PAST MEDICAL HISTORY: 1. Type 2 diabetes. 2. Aortic stenosis, moderate on last echo, moderate on transesophageal echo. 3. Severe on echo before all this. 4. Diastolic heart failure. 5. Chronic hyponatremia. 6. Urinary retention. 7. Right distal tibial fracture recently. 8. Chronic kidney disease stage 4. PAST SURGICAL HISTORY: 1. Hip replacement. 2. Knee surgery. 3. Shoulder surgery. 4. Foot surgery x3. FAMILY HISTORY: Noncontributory. SOCIAL HISTORY: No alcohol, tobacco or drugs. OUTPATIENT MEDICATIONS: Include, 1. Lasix 20 mg b.i.d. 2. Amlodipine 10 mg a daily. 3. Tamsulosin 0.5 mg a day. This is secondary to her urinary retention. ALLERGIES: No known drug allergies. REVIEW OF SYSTEMS: A 12 point review of systems was done and it is negative except as stated in the history of present illness. PHYSICAL EXAMINATION: VITAL SIGNS: Temperature 99.6, pulse 95, respiratory rate 23, satting 89% on 2 liters nasal cannula, blood pressure 102/48. GENERAL: Awake, alert, oriented x3, in no distress. HEENT: Normocephalic, atraumatic. NECK: Supple. LUNGS: Have crackles at bilateral bases. CARDIOVASCULAR: S1, S2. There is a grade 3/6 systolic murmur at right upper sternal border related to the rest of the precordium. ABDOMEN: Soft, positive bowel sounds. EXTREMITIES: No edema. Right foot cast. SKIN: Warm and dry. LABORATORY DATA AND IMAGING DATA: White count of 3.5, hemoglobin 7.5, hematocrit 22, platelet count of 329. ABG unremarkable. Chemistry was reviewed. BUN of 49, creatinine of 2.44, GFR of 20. Sodium was 129. BNP was 1537. UA showed large amount of blood and leukocyte esterase, greater than 50 white cells, but negative nitrites. Urine strep and legionella antigens were both negative. Chest x-ray showed bilateral pleural effusions with possibly right upper lobe pneumonia. Recent ultrasounds were all reviewed. ASSESSMENT AND PLAN: 1. Acute on chronic diastolic heart failure. 2. Aortic stenosis: Moderate per recent echocardiogram and transesophageal echo. 3. Possible right upper lobe pneumonia. 4. Acute hypoxic respiratory insufficiency. PLAN: 1. We will switch her Lasix to IV at 40 mg twice a day. 2. I would not repeat an echocardiogram at this time. She had been just a couple weeks ago that showed diastolic dysfunction and moderate aortic stenosis. 3. She may as well have more severe aortic stenosis than what is evident on the echo as she has had higher velocities in the past. We will need right and left heart catheterization once she is over her acute issues. 4. Antibiotics per primary team. Thank you for letting us to participate in the care of your patient. We will follow. ANA
[2018-02-01] MEDS: Furosemide 40 MG/4 ML VIAL SLOW IVP SCH (14:29)
--- NOTE | 2018-02-01 15:29 | CON ---
DATE OF CONSULTATION: 02/01/2018 ORTHOPEDIC CONSULTATION BRIEF HISTORY OF PRESENT ILLNESS: Patient is a 72-year-old [place] speaking female who was accompanie d at bedside by her . She has a past medical history of congestive heart failure, aortic sten osis, and diabetes. She presented to the emergency room on 01/31/2018 with shortness of breath, feve rs, chills, and vomiting. The patient was found to have O2 saturations in the 80% range on room air. She was placed on BiPAP. The patient is now being worked up for her aortic stenosis and acute resp iratory failure. Upon admission, patient was found to have a short leg splint on her right leg and a s such, orthopedic consultation requested. An x-ray was obtained that showed a minimally displaced m edial malleolar fracture. Upon review of past medical history on the [employer] computer, patient had an admission on 12/20/2017 with a similar history of present illness with fevers, chills, and general ized illness. The patient had fallen 2 days prior to this admission and on workup was found to have an acutely painful ankle with x-rays demonstrating a nondisplaced medial malleolar fracture. At that time, she was placed in a splint; however, I do not find any followup care since 12/20/2017. Given that the splint has been on for approximately 6 weeks, the splint was removed by nursing and patient was found to have a grade I ulceration at the heel. This was padded with Mepilex and a new splint ap plied. The patient is able to wiggle her toes and does not report dramatic pain. PAST MEDICAL HISTORY: Includes type 2 diabetes, severe aortic stenosis, congestive heart failure, ch ronic hyponatremia, urinary retention, and history of right medial malleolus fracture. PAST SURGICAL HISTORY: Includes hip replacement, knee surgery, shoulder surgery and foot surgery. FAMILY HISTORY: Noncontributory. SOCIAL HISTORY: Denies alcohol, tobacco or drug use. REVIEW OF SYSTEMS: Does have a recent history of some fevers and chills. She does have chronic shor tness of breath, although denies chest pain. She is able to wiggle her toes and just has a stocking distribution dysesthesia. PHYSICAL EXAMINATION: VITAL SIGNS: The patient has temperature of 98.7, heart rate of 95, respiratory rate of 22, and bloo d pressure 102/48. GENERAL: The patient is examined in the intensive care unit. She is found to be awake and alert, bu t is on BiPAP machine. MUSCULOSKELETAL: Gross inspection shows bilateral upper extremities are atraumatic. Pelvis is stabl e and nontender. Left lower extremity which is atraumatic. Right lower extremity with atraumatic hi p and knee. Her ankle is remarkable for minimal swelling. Calf is soft and nontender. There is no pain with passive stretch of the toes. She has mild discomfort to palpation along the medial malleol us. She is nontender to palpation laterally. LABORATORY DATA AND IMAGING DATA: She was found to have a white count of 3.5, hematocrit of 22.1 and 329,000 platelets. X-ray on two view right tib-fib x-ray reveals a total knee arthroplasty with jasiel g stem and the tibia. This is a constrained rotating platform with evidence of a periprosthetic plat e at the distal femur. The distal tibia remarkable for a vertical shear type fracture of the medial malleolus with joint surface relatively well preserved what appears to be some early bridging callus along the proximal anteromedial cortex of this fracture. ASSESSMENT: A 72-year-old lady with aortic stenosis and severe congestive heart failure with now sub acute medial malleolus fracture. PLAN: Given the patient has had a recent splint change with Mepilex applied to the pressure area, we will continue with this splint for now. Upon discharge from the hospital, we would like to see her in the fracture clinic or she should see her orthopedic surgeon of choice as soon as possible for ree valuation and anticipated conversion to a walker boot and follow up x-ray without splint in place. A t this time, patient's fracture is healing. I would not place her in a boot at this time as I believ e it would apply more pressure to the foot and given that this dressing was just changed, I believe t hat her best prevention of ongoing pressure on the skin is with the current splint in place. She jason uld be nonweightbearing on this leg. We will follow patient distantly while in the hospital and eloina whitaker follow up should be arranged for her as soon as she is discharged home.
[2018-02-02] MEDS: Meropenem 500 MG, Admixture Fee 1 EACH in Sterile Water 10 ML SLOW IVP SCH ×2 (02:02→15:17)
[2018-02-02 04:46] LABS: Anion Gap 15 mmol/L (10-20); BUN (Urea Nitrogen) 58 mg/dL (9.8-20.1); Calc. Creatinine Clearance 22 mL/min (70-130); Calcium 8.4 mg/dL (7.8-10.44); Carbon Dioxide 18 mmol/L (23-31); Chloride 102 mmol/L (98-107); Estimated GFR-MDRD 18; Glucose 126 mg/dL (80-115); Potassium 4.5 mmol/L (3.5-5.1); Sodium 130 mmol/L (136-145)
[2018-02-02 04:51] LABS: #Lymphocytes 0.7 thou/uL (1.20-3.40); #Monocytes 0.5 thou/uL (0.11-0.59); #Neutrophils 6.2 thou/uL (1.40-6.50); %Basophils 0.3 % (0.0-1.0); %Eosinophils 0.2 % (0.0-10.0); %Lymphocytes 9.2 % (21.0-51.0); %Monocytes 6.4 % (0.0-10.0); %Neutrophils 83.9 % (42.0-75.0); Hemoglobin 7.5 g/dL (12.0-16.0); Mean Corpuscular HGB CONC 34.3 g/dL (32.0-36.0); Mean Corpuscular Hemoglobin 34.3 pg (27.0-31.0); Platelet Count 322 thou/uL (130-400); RBC Distribution Width 13.7 % (11.5-14.5); Red Blood Cell (RBC) Count 2.19 mill/uL (4.20-5.40); White Blood Cell (WBC) Count 7.4 thou/uL (4.8-10.8)
[2018-02-02] MEDS: Furosemide 40 MG/4 ML VIAL SLOW IVP SCH ×3 (05:57→13:30)
--- NOTE | 2018-02-02 07:29 | PDOC.FM ---
- Subjective Subjective: This morning patient reports that she is still having shortness of breath and cough at rest. She is wearing BIPAP at the time of examination. She denies any pain this morning. She denies any N/V/D but is still feeling weak overall. - Objective Vital Signs & Weight: Vital Signs (12 hours) Temp Pulse Resp Pulse Ox 02/02/18 07:00 96.5 F L 02/02/18 06:29 100 02/02/18 04:00 98.7 F 02/02/18 02:49 99 28 H 97 02/02/18 00:00 98.8 F 02/01/18 22:23 96 02/01/18 20:00 99.1 F 101 H 25 H 99 Weight Admit Weight 66.134 kg Weight 67.3 kg Most Recent Monitor Data Heart Rate from ECG 107 NIBP 120/53 NIBP BP-Mean 72 Respiration from ECG 23 SpO2 98 I&O: 02/01/18 02/02/18 02/03/18 06:59 06:59 06:59 Intake Total 2500 214 40 Output Total 375 849 45 Balance 2125 -635 -5 Result Diagrams: 02/02/18 04:17 02/02/18 04:18 <Elgin Londono - Last Filed: 02/02/18 07:41> - Objective Vital Signs & Weight: Vital Signs (12 hours) Temp Pulse Resp 02/02/18 20:00 98.9 F 02/02/18 19:52 75 02/02/18 19:51 73 16 02/02/18 18:00 16 02/02/18 16:00 98.3 F 16 02/02/18 14:45 83 02/02/18 14:00 16 02/02/18 12:00 100.7 F H 02/02/18 10:28 107 H Weight Admit Weight 66.134 kg Weight 67.3 kg Most Recent Monitor Data Heart Rate from ECG 77 NIBP 124/43 NIBP BP-Mean 73 Respiration from ECG 16 SpO2 98 I&O: 02/01/18 02/02/18 02/03/18 06:59 06:59 06:59 Intake Total 2500 214 492 Output Total 452 563 3067 Balance 2125 -635 -568 Result Diagrams: 02/02/18 04:17 02/02/18 04:18 <Yolanda Newton - Last Filed: 02/02/18 22:10> Phys Exam - Physical Examination Constitutional: NAD HEENT: PERRLA, moist MMs Neck: no nodes, full ROM inspiratory and expiratory wheezes throughout crackles at bases, mild rhonchi throughout Cardiovascular: RRR 2/6 systolic murmur Gastrointestinal: soft, non-tender, no distention, positive bowel sounds Musculoskeletal: no edema, pulses present Neurological: non-focal, moves all 4 limbs Psychiatric: normal affect, A&O x 3 Skin: no rash, cap refill <2 seconds <Elgin Londono - Last Filed: 02/02/18 07:41> Dx/Plan (1) Acute respiratory failure with hypoxia Code(s): J96.01 - ACUTE RESPIRATORY FAILURE WITH HYPOXIA Status: Acute (2) Hospital acquired PNA Code(s): J18.9 - PNEUMONIA, UNSPECIFIED ORGANISM Status: Suspected (3) Acute CHF Code(s): I50.9 - HEART FAILURE, UNSPECIFIED Status: Acute QualifierTitle: Heart failure type: diastolic Qualified Code(s): I50.31 - Acute diastolic (congestive) heart failure (4) Hyperglycemia Code(s): R73.9 - HYPERGLYCEMIA, UNSPECIFIED Status: Acute (5) Macrocytic anemia Code(s): D53.9 - NUTRITIONAL ANEMIA, UNSPECIFIED Status: Acute (6) Right tibial fracture Code(s): S82.201A - UNSP FRACTURE OF SHAFT OF RIGHT TIBIA, INIT FOR CLOS FX Status: Acute QualifierTitle: Encounter type: subsequent encounter (7) UTI (urinary tract infection) Status: Acute (8) Aortic stenosis Code(s): I35.0 - NONRHEUMATIC AORTIC (VALVE) STENOSIS Status: Chronic QualifierTitle: Cardiac valve disease etiology: etiology unspecified Qualified Code(s): I35.0 - Nonrheumatic aortic (valve) stenosis (9) DM2 (diabetes mellitus, type 2) Status: Chronic (10) HTN (hypertension) Code(s): I10 - ESSENTIAL (PRIMARY) HYPERTENSION Status: Chronic QualifierTitle: Hypertension type: unspecified Qualified Code(s): I10 - Essential (primary) hypertension (11) Hyponatremia Code(s): E87.1 - HYPO-OSMOLALITY AND HYPONATREMIA Status: Chronic - Plan Plan: Acute Hypoxic Respiratory Failure Likely 2/2 HAP - persistent crackles and rhonchi - Duonebs - Bcx NGTD - patient recently d/c'd from hospital on 01/18 with dCHF exacerbation. - Place in IMCU for BIPAP and wean as tolerated to NC. - Continue Vancomycin, Levaquin, and Meropenem for HAP coverage, renally dosed - s/p 2L IVF in ED, will hold off on IVF now 2/2 likely fluid overload dCHF - Does not appear fluid overloaded in extremities. Does have pleural effusions on CXR, likely would benefit from added diureses although BP 100's/50's right now and will not tolerate diureses. Patient is preload dependent with Mod- Severe Aortic Stenosis. - started on Lasix 40 mg IV BID yesterday per Cardiology - Cr trending up, still with crackles on lungs, will consult Nephro for assistance in fluid management - daily wt - strict IOs - Cardiology consulted, recs appreciated - rec outpt. cath once clinically improved as "may be worse than evidenced on echo" LUIS on CKD - baseline creatinine around 2.2 - Cr trending up 2.37 -> 2.44 -> 2.5 - will consult nephro for fluid management recs Moderate-Severe Aortic Stenosis - Patient preload dependent. - Cardiology recs no repeat echo necessary DM2 - not on any home medications at this time - Accuchecks R Tibial Fx - Patient currently in cast - Orhto consulted, recs appreciated -rec close f/u when ready for d/c Hx of VRE UTI - Patient with chronic urine bacterial colonization. Asymptomatic at this time. - UA without bacteria - Urine culture shows e. coli, awaiting sensitivities, likely to be positive with VRE, plan to treat only if patient becomes symptomatic. 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 Glover. - Today Na is 128 - continue to monitor with daily BMPs Chronic Macrocytic Anemia - stable - B12 and folate normal on last admission - Further evaluate with peripheral smear HTN - will hold home amlodipine for now Urinary Retention - hall in place - continue Tamsulosin VTE PPx: Heparin Code Status: Full <Elgin Londono - Last Filed: 02/02/18 07:41> Attending Addendum - Attending Addendum Date/Time: 02/02/18 0730 I personally evaluated the patient and discussed the management with Dr. Londono at 0730. I agree with the History, Examination, Assessment and Plan documented above with any addition or exceptions noted below. The patient was off bipap when I saw her but she was not maintaining o2 sats and Bipap was being restarted. Creatinine increased likely 2/2 lasix though patient needs additional diuresis. Nephrology is being consulted. Antibiotics will continue until cultures finalize. <Yolanda Newton - Last Filed: 02/02/18 22:10>
[2018-02-02] MEDS: Tamsulosin HCl 0.4 MG CAP PO SCH (09:59)
[2018-02-02] MEDS: Enoxaparin Sodium 30 MG/0.3 ML SYRINGE SC SCH (09:59)
[2018-02-02] MEDS: Ondansetron HCl/PF 4 MG/2 ML Vial IVP PRN (12:02)
[2018-02-02] MEDS ORDERED: Vancomycin HCl 500 MG in Sodium Chloride 0.9% 100 ML IVPB SCH (13:00)
[2018-02-02] MEDS ORDERED: guaiFENesin/DM ER PO SCH ×3 (13:00→21:00)
[2018-02-02] MEDS: Acetaminophen 325 MG TAB PO PRN (13:04)
[2018-02-02] MEDS ORDERED: Midazolam HCl 2 mg/2 ml Vial ONE (13:48)
[2018-02-02] MEDS ORDERED: Propofol 1,000 MG/100 ML VIAL IV ONE (14:00)
[2018-02-02] MEDS ORDERED: Succinylcholine Chloride 200 MG/10 ML VIAL IVP SCH ×2 (14:00→15:15)
[2018-02-02] MEDS ORDERED: Midazolam HCl 2 mg/2 ml Vial SLOW IVP SCH (14:00)
[2018-02-02] MEDS ORDERED: Sedation Protocol FS ONE ×2 (14:01→14:22)
[2018-02-02] MEDS ORDERED: DISCONTINUE PREVIOUS NARCOTIC PAIN MEDICATIONS AND BENZODIAZEPINES FS SCH ×2 (14:04)
[2018-02-02] MEDS ORDERED: Fentanyl BOLUS 250 ML IVPB PRN ×2 (14:04)
--- NOTE | 2018-02-02 14:25 | PDOC.EVN ---
Event Note - Event Note Event Note: INDICATION: Increased work of breathing, failure of BIPAP PROCEDURE ENGRAVING SUPERVISOR: Dr. Elgin Londono ATTENDING PHYSICIAN: Dr. Cormier CONSENT: Consent was obtained from patient and family prior to the procedure. Indications , risks, and benefits were explained at length. PROCEDURE SUMMARY: A time out was performed. Gloves were worn throughout the procedure. The patient was placed on a registered nurse cardiac including continuous pulse oximetry. Rapid Sequence Intubation was conducted. The patient received 2mg of Versed for induction and 100mg of Succinylcholine for adequate paralysis. Cricoid pressure was maintained from time induction agent was given to time of cuff balloon inflation. Using a T3 [place] scope and a size 7.0 endotracheal tube with stylet, the patient was intubated on the 2nd attempt by Dr. Cormier. The stylet was removed and cuff balloon was inflated. Appropriate endotracheal tube position was confirmed by direct visualization of vocal cord passage, fogging of the tube , CO2 colometric indicator and symmetric breath sounds. The tube was secured at 24 cm at the lips. Post intubation chest x-ray is pending at this time.
[2018-02-02 14:31] LABS: Actual Bicarbonate (HCO3a) 19.5 mEq/L (22-26); Base Excess (BEa) -7.9 mEq/L (0 (+/-) 2.5); CO2 Tension 50.9 mmHg (35.0-45.0); Hematocrit-ABG 27.1 % (36.0-47.0); Hemoglobin (Hb) 7.1 g/dL (12.0-16.0)
[2018-02-02 14:32] LABS: Calcium, Ionized 1.1 mmol/L (1.12-1.30)
[2018-02-02 14:33] LABS: Puncture Site RBA
[2018-02-02] MEDS: Lorazepam 2 MG/ML VIAL SLOW IVP PRN (15:01)
[2018-02-02] MEDS: Sodium Chloride 0.9% 1,000 ML IV SCH (15:19)
--- NOTE | 2018-02-02 15:41 | RAD ---
PORTABLE CHEST: Date: 02/02/18 PROVIDED CLINICAL HISTORY: Respiratory distress. FINDINGS: Comparison made with study performed 02/01/18. Interval intubation and placement of enteric catheter. Endotracheal tube tip projects slightly below the thoracic inlet and above the jignesh. Enteric catheter tip is not visualized, but below the diaphr agm. Persistent bilateral air space disease and findings suggesting bilateral pleural fluid. Supine n ature of the examination limits sensitivity for detection of pneumothorax, without gross evidence for such. IMPRESSION: Interval intubation and placement of enteric catheter. POS: MACO
--- NOTE | 2018-02-02 15:41 | PRG ---
DATE OF SERVICE: 02/02/2018 PULMONARY AND CRITICAL CARE PROGRESS NOTE Thirty-five minutes critical care time. SUBJECTIVE: The patient remains on mechanical ventilation through BiPAP. She desaturates very quick ly when she is moved only. PHYSICAL EXAMINATION: VITAL SIGNS: Temperature is 96.5, pulse 107, blood pressure 120/53, 24-hour intake 214, output 849. HEENT: Unremarkable. NECK: No adenopathy or JVD. LUNGS: Coarse rhonchi bilaterally. CARDIOVASCULAR: S1 and S2 regular. ABDOMEN: Soft, nontender. EXTREMITIES: No clubbing, cyanosis, or edema. LABORATORY DATA: Her urine culture grew out E. coli which was resistant to many antibiotics, but it is sensitive to meropenem. White blood cell count 7.4, hemoglobin 7.5, hematocrit 21.9, and platelet count 322. Sodium 130, potassium 4.5, chloride 102, CO2 18, BUN 58, creatinine 2.6, glucose 126. ASSESSMENT: 1. Pneumonia. 2. Sepsis syndrome. 3. Urosepsis. 4. Coexistent diastolic heart failure with aortic stenosis. 5. Metabolic acidosis which is slightly improved. 6. Renal insufficiency. 7. Diabetes mellitus. 8. Obesity. PLAN: 1. Continue BiPAP as needed. 2. Antibiotic coverage seems reasonable. I would consider stopping vancomycin if 48-hour culture re sults are negative for Staph. 3. Could also consider stopping Levaquin. 4. Follow laboratory results. 5. Repeat chest x-ray tomorrow. 6. Continue BiPAP for the time being.
[2018-02-02] MEDS ORDERED: Succinylcholine Chloride 200 MG/10 ML VIAL ONE (15:48)
[2018-02-02 15:49] LABS: pH, Arterial 7.48 (7.35-7.45)
[2018-02-02 15:50] LABS: Actual Bicarbonate (HCO3a) 17.1 mEq/L (22-26); Base Excess (BEa) -5.9 mEq/L (0 (+/-) 2.5); CO2 Tension 23.6 mmHg (35.0-45.0); Hematocrit-ABG 23.9 % (36.0-47.0); Hemoglobin (Hb) 6.4 g/dL (12.0-16.0)
[2018-02-02 15:51] LABS: Calcium, Ionized 1.1 mmol/L (1.12-1.30); Puncture Site RBA
--- NOTE | 2018-02-02 16:33 | CON ---
DATE OF CONSULTATION: 02/02/2018 REASON FOR CONSULT: Acute kidney injury. REASON FOR ADMISSION: Shortness of breath. HISTORY OF PRESENT ILLNESS: A 72-year-old female with history of type 2 diabetes, CHF, aortic stenos is, chronic kidney disease stage 4, came to the hospital with shortness of breath and is being treate d for CHF exacerbation and possible pneumonia. Nephrology is consulted for acute kidney injury. The patient was recently seen in the hospital for hyponatremia and chronic kidney disease. Her baseline creatinine is around 2.1 to 2.3. This morning it was found to be 2.5 and she is on diuretics. She was actually intubated today, not able to give good history. No fever or chills, no nausea, vomiting , diarrhea reported. PAST MEDICAL HISTORY: Type 2 diabetes, aortic stenosis, CHF, hyponatremia and hypertension. PAST SURGICAL HISTORY: Hip replacement, knee surgery, shoulder surgery, foot surgery. ALLERGIES: No known drug allergies. HOME MEDICATIONS: Flomax, furosemide and Norvasc. SOCIAL HISTORY: No smoking or alcohol. FAMILY HISTORY: No history of kidney disease. REVIEW OF SYSTEMS: Could not be obtained as she is intubated. PHYSICAL EXAMINATION: GENERAL: This is a well-built female in no apparent distress. VITAL SIGNS: Temperature 96.5, pulse 84, respiratory 18, blood pressure 100/56. HEENT: Intubated. HEART: S1, S2 heard. Rate and rhythm regular. RESPIRATORY: Clear. ABDOMEN: Soft. MUSCULOSKELETAL: 1+ edema. DERMATOLOGIC: No skin rash. NEUROLOGIC: Intubated. LABORATORY AND X-RAY FINDINGS: Hemoglobin is 7.5, potassium 4.5, BUN 58, creatinine is 2.5. ASSESSMENT AND PLAN: 1. Acute kidney injury on chronic kidney stage 4. Renal function not much different from baseline. Continue supportive care. 2. Anemia, rule out acute bleed. 3. Hyponatremia. 4. Metabolic acidosis. Continue current management. No indication for dialysis, currently on Lasix. Continue antibiotics a nd will follow. Continue to trend renal function and monitor vancomycin level. Renally dose all the medicines and avoid nephrotoxins. Thank you for the consult.
[2018-02-02] MEDS: HumaLOG 300 UNITS/3 ML VIAL SC PRN (16:38)
--- NOTE | 2018-02-02 17:00 | PDOC.CTH ---
Cardiology Progress Note - Subjective This is a late entry, patient was seen at 10am. She is still SOB, coughing more. She has diuresed but has not noted any significant improvement in her breathing. - Objective Vital Signs Temp Pulse Resp Pulse Ox 02/02/18 16:00 98.3 F 16 02/02/18 14:45 83 02/02/18 14:00 16 02/02/18 12:00 100.7 F H 02/02/18 10:28 107 H 02/02/18 08:00 96.5 F L 113 H 27 H 98 02/02/18 07:00 96.5 F L 02/02/18 06:29 100 Admit Weight 145 lb 12.8 oz Weight 148 lb 5.938 oz 02/01/18 02/02/18 02/03/18 06:59 06:59 06:59 Intake Total 2500 214 360 Output Total 375 849 595 Balance 7268 -499 -188 - Physical Examination General/Neuro: alert & oriented x3 Neck: no JVD present Lungs: unlabored respirations, other: (coarse bilat) Heart: RRR Abdomen: NT/ND Extremities: other: (no edema.) - Telemetry Telemetry Rhythm: Sinus tach. - Labs Result Diagrams: 02/02/18 04:17 02/02/18 04:18 Troponin/CKMB CK-MB (CK-2) 2.2 ng/mL (0-6.6) 01/31/18 11:49 Troponin I Less than 0.010 ng/mL (< 0.028) 01/31/18 11:49 - Assessment/Plan 1. Acute hypoxic respiratory insufficiency. 2. Pneumonia 3. Diastolic heart failure 4. Moderate to severe aortic stenosis 5. Anemia 6. LUIS on CKD. 7. Hyponatremia likely due to fluid overload. PLAN: - Continue IV diuresis. - IV abx per pirmary team. - Since last seen she has been intubated due to respiratory insufficiency.
[2018-02-02] MEDS: Propofol 1,000 MG/100 ML VIAL IV PRN (20:29)
[2018-02-03] MEDS: Meropenem 500 MG, Admixture Fee 1 EACH in Sterile Water 10 ML SLOW IVP SCH ×2 (02:04→14:58)
[2018-02-03 04:22] LABS: #Lymphocytes 1.1 thou/uL (1.20-3.40); #Monocytes 0.4 thou/uL (0.11-0.59); #Neutrophils 4.6 thou/uL (1.40-6.50); %Basophils 0.3 % (0.0-1.0); %Eosinophils 0.2 % (0.0-10.0); %Lymphocytes 18.1 % (21.0-51.0); %Monocytes 5.7 % (0.0-10.0); %Neutrophils 75.7 % (42.0-75.0); Hemoglobin 7.8 g/dL (12.0-16.0); Mean Corpuscular HGB CONC 35.3 g/dL (32.0-36.0); Mean Corpuscular Hemoglobin 34.9 pg (27.0-31.0); Mean Corpuscular Volume 98.7 fl (81.0-99.0); Mean Platelet Volume 7.4 fL (7.4-10.4); Platelet Count 243 thou/uL (130-400); RBC Distribution Width 13.7 % (11.5-14.5); Red Blood Cell (RBC) Count 2.23 mill/uL (4.20-5.40); White Blood Cell (WBC) Count 6.1 thou/uL (4.8-10.8)
[2018-02-03 04:31] LABS: Anion Gap 16 mmol/L (10-20); BUN (Urea Nitrogen) 59 mg/dL (9.8-20.1); Calc. Creatinine Clearance 21 mL/min (70-130); Calcium 7.7 mg/dL (7.8-10.44); Carbon Dioxide 15 mmol/L (23-31); Chloride 104 mmol/L (98-107); Estimated GFR-MDRD 17; Glucose 85 mg/dL (80-115); Potassium 4.4 mmol/L (3.5-5.1); Sodium 131 mmol/L (136-145)
[2018-02-03] MEDS: Propofol 1,000 MG/100 ML VIAL IV PRN ×3 (05:00→17:50)
[2018-02-03] MEDS: Furosemide 40 MG/4 ML VIAL SLOW IVP SCH ×2 (05:01→12:31)
--- NOTE | 2018-02-03 06:43 | PDOC.FM ---
- Subjective Subjective: This morning patient is sedated and intubated. During sedation vacation she was able to follow commands. Was intubated 02/02 secondary to progressive respiratory distress. - Objective Vital Signs & Weight: Vital Signs (12 hours) Temp Pulse Resp Pulse Ox 02/03/18 06:00 16 02/03/18 04:00 98.4 F 16 02/03/18 02:22 77 16 100 02/03/18 02:00 16 02/03/18 00:00 98.6 F 16 02/02/18 22:32 78 02/02/18 22:31 75 16 99 02/02/18 22:00 16 02/02/18 20:00 98.9 F 73 16 98 02/02/18 19:52 75 02/02/18 19:51 73 16 Weight Admit Weight 66.134 kg Weight 64.5 kg Most Recent Monitor Data Heart Rate from ECG 77 NIBP 122/47 NIBP BP-Mean 70 Respiration from ECG 16 SpO2 100 I&O: 02/01/18 02/02/18 02/03/18 06:59 06:59 06:59 Intake Total 2500 214 924 Output Total 365 728 0012 Balance 2125 -635 -861 Result Diagrams: 02/03/18 04:05 02/03/18 04:05 Phys Exam - Physical Examination Constitutional: NAD HEENT: PERRLA, moist MMs Neck: no nodes, full ROM coarse rhonci bilaterally, expiratory wheeze intubated, no distress Cardiovascular: RRR 3/6 systolic murmur best appreciated RUSB Gastrointestinal: soft, non-tender, no distention, positive bowel sounds Musculoskeletal: no edema, pulses present Neurological: non-focal, moves all 4 limbs Skin: no rash, cap refill <2 seconds Deviation from normal: swelling of rt hand 2/2 midline placement Dx/Plan (1) Acute respiratory failure with hypoxia Code(s): J96.01 - ACUTE RESPIRATORY FAILURE WITH HYPOXIA Status: Acute (2) Hospital acquired PNA Code(s): J18.9 - PNEUMONIA, UNSPECIFIED ORGANISM Status: Suspected (3) Acute CHF Code(s): I50.9 - HEART FAILURE, UNSPECIFIED Status: Acute Qualifiers: Heart failure type: diastolic Qualified Code(s): I50.31 - Acute diastolic ( congestive) heart failure (4) Hyperglycemia Code(s): R73.9 - HYPERGLYCEMIA, UNSPECIFIED Status: Acute (5) Macrocytic anemia Code(s): D53.9 - NUTRITIONAL ANEMIA, UNSPECIFIED Status: Acute (6) Right tibial fracture Code(s): S82.201A - UNSP FRACTURE OF SHAFT OF RIGHT TIBIA, INIT FOR CLOS FX Status: Acute Qualifiers: Encounter type: subsequent encounter (7) UTI (urinary tract infection) Status: Acute (8) Aortic stenosis Code(s): I35.0 - NONRHEUMATIC AORTIC (VALVE) STENOSIS Status: Chronic Qualifiers: Cardiac valve disease etiology: etiology unspecified Qualified Code(s): I35.0 - Nonrheumatic aortic (valve) stenosis (9) DM2 (diabetes mellitus, type 2) Status: Chronic (10) HTN (hypertension) Code(s): I10 - ESSENTIAL (PRIMARY) HYPERTENSION Status: Chronic Qualifiers: Hypertension type: unspecified Qualified Code(s): I10 - Essential (primary ) hypertension (11) Hyponatremia Code(s): E87.1 - HYPO-OSMOLALITY AND HYPONATREMIA Status: Chronic - Plan Plan: Plan: Acute Hypoxic Respiratory Failure Likely 2/2 HAP - persistent crackles and rhonchi - Intubated 02/02 secondary to retractions on bipap and blood gas showing ph 7.2 , o2 60 - Bcx NGTD - patient recently d/c'd from hospital on 01/18 with dCHF exacerbation. - Continue Vancomycin, Levaquin, and Meropenem for HAP coverage, renally dosed - s/p 2L IVF in ED, will hold off on IVF now 2/2 likely fluid overload dCHF- mod-sev Aortic stenosis - Does not appear fluid overloaded in extremities. - started on Lasix 40 mg IV BID 02/01 per Cardiology - Cr trending up, Nephro consulted no changes for now - daily wt - strict IOs - Cardiology consulted, recs appreciated - rec outpt. cath once clinically improved as "may be worse than evidenced on echo" LUIS on CKD - baseline creatinine around 2.2 - Cr trending up 2.37 -> 2.44 -> 2.5 -> 2.69 - Nephro consulted, recs appreciated Moderate-Severe Aortic Stenosis - Patient preload dependent. - Cardiology recs no repeat echo necessary DM2 - not on any home medications at this time - Accuchecks R Tibial Fx - Patient currently in cast - Ortho consulted, recs appreciated -rec close f/u when ready for d/c - patient is due for cast off but has not been able to stay out of hospital long enough to get f/u outpt. 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 Asymptomatic at this time. - UA without bacteria - Urine culture shows ESBL e. 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 Glover. - Today Na is 131 which is above baseline - continue to monitor with daily BMPs Chronic Macrocytic Anemia - stable - B12 and folate normal on last admission HTN - will hold home amlodipine for now Urinary Retention - hall in place - continue Tamsulosin VTE PPx: Heparin Code Status: Full - discussed code status at length with patient and family before intubation, patient desires full code at this time
[2018-02-03 07:18] LABS: Actual Bicarbonate (HCO3a) 17.8 mEq/L (22-26); Base Excess (BEa) -5.3 mEq/L (0 (+/-) 2.5); CO2 Tension 25.7 mmHg (35.0-45.0); Hematocrit-ABG 26.2 % (36.0-47.0); Hemoglobin (Hb) 7.5 g/dL (12.0-16.0); O2 Tension (PaO2) 113.9 mmHg (80.0-100.0); pH, Arterial 7.46 (7.35-7.45)
[2018-02-03 07:19] LABS: ALV-art Gradient 139.175 (0-20); Calcium, Ionized 1.1 mmol/L (1.12-1.30); Puncture Site RBA
--- NOTE | 2018-02-03 09:22 | RAD ---
PORTABLE CHEST: Date: 02/03/18 PROVIDED CLINICAL HISTORY: Respiratory insufficiency. FINDINGS: Comparison with 02/02/18. Interval improvement in aeration involving the left suprahilar and lung base regions. Additional sign ificant interval change with respect to the prior examination is not apparent. IMPRESSION: As above. POS: DARRICK
[2018-02-03] MEDS: Tamsulosin HCl 0.4 MG CAP PO SCH (09:56)
[2018-02-03] MEDS: Enoxaparin Sodium 30 MG/0.3 ML SYRINGE SC SCH (09:56)
--- NOTE | 2018-02-03 10:09 | PRG ---
DATE OF SERVICE: 02/03/2018 SUBJECTIVE: The patient remains intubated in the CCU. She is currently sedated on propofol. PHYSICAL EXAMINATION: VITAL SIGNS: Temperature 97.7, pulse 83, blood pressure 126/44. A 24-hour intake 924, output 1785, weight 142 pounds. HEENT: Unremarkable. NECK: No JVD. LUNGS: Crackles at the bases bilaterally. CARDIOVASCULAR: S1, S2 regular with 2/6 systolic murmur. ABDOMEN: Soft, nontender. EXTREMITIES: No edema. LABORATORY DATA: Sodium 131, potassium 4.4, chloride 104, CO2 is 15, BUN 59, creatinine 2.7, glucose 85. White blood cell count 6.1, hemoglobin 7.8, hematocrit 22.0, platelet count 243. ABG, pH 7.46, pCO2 of 25, pO2 of 113 on SIMV rate 16, tidal volume 450, PEEP 9, pressure support 10, FIO2 40%. Ch est x-ray continues to show a predominantly right-sided infiltrate. ET tube is in good position. ASSESSMENT: 1. Acute on chronic respiratory failure requiring mechanical ventilation and endotracheal intubation yesterday. 2. Urosepsis. 3. Coexisting diastolic heart failure with aortic stenosis. 4. Metabolic acidosis. 5. Renal insufficiency. 6. Diabetes mellitus. PLAN: 1. The patient will continue on mechanical ventilation for the time being. I will adjust her settin gs. 2. Continue broad spectrum IV antibiotics to include meropenem. Apparently, she has a history of VR E in the past that is probably colonization and not active infection, but she will require isolation for that. 3. I spoke with family present at the bedside regarding the patient's condition.
[2018-02-03] MEDS: Lorazepam 2 MG/ML VIAL SLOW IVP PRN (12:32)
--- NOTE | 2018-02-03 14:22 | PRG ---
DATE OF SERVICE: 02/03/2018 SUBJECTIVE: The patient was seen and examined in ICU, got intubated, sedated on mechanical ventilation. No family members available. The patient is not able to communicate. OBJECTIVE: GENERAL: A thin-built female, intubated in ICU. VITAL SIGNS: Temperature 97.9, pulse 72, respiratory rate 18, blood pressure 132/42. HEENT: Intubated. CARDIOVASCULAR: S1, S2 heard. RESPIRATORY: coarse breath sounds GASTROINTESTINAL: Abdomen is soft. MUSCULOSKELETAL: 1+ edema. DERMATOLOGIC: No rash. NEUROLOGIC: Intubated. LABORATORY DATA: Potassium is 4.4, BUN is 59, creatinine is 2.6, bicarbonate is 15, and hemoglobin is 7.8. ASSESSMENT AND PLAN: 1. Acute kidney injury on chronic kidney disease stage 4. Renal function seems to be plateauing out. Good urine output yesterday on Lasix. 2. Metabolic acidosis. Consider bicarbonate, pH is 7.46 with alkalosis. Adjust the vent setting also. 3. Hyponatremia. 4. Anemia. Monitor and rule out any bleed. 5. Overall, renal function seems to be stable. Urine output is improving. Hopefully, we will see an improvement in renal parameters in the next 24-48 hours. We will continue close monitor. Avoid nephrotoxins, continue supportive care including antibiotics. 6. Urinary tract infection with sepsis. MTDD
--- NOTE | 2018-02-03 14:26 | PRG-2 ---
This is transfer care note for the benefit of the team taking over patient's care on 02/04/2018. DATE OF ADMISSION: 01/31/2018 DATE OF DISCHARGE: To be determined. RESIDENT: Dr. Elgin Londono. ADMITTING ATTENDING: Dr. Piper Jacques. DISCHARGE ATTENDING: To be determined. CONSULTATIONS: Nephrology, Pulmonology, Cardiology, and Orthopedics. PROCEDURES: Intubation, right midline. PRIMARY DIAGNOSIS: Acute hypoxic respiratory failure likely secondary to hospital acquired pneumonia . SECONDARY DIAGNOSES: Diastolic congestive heart failure, moderate to severe aortic stenosis, acute k idney injury on chronic kidney disease, type 2 diabetes mellitus, right tibial fracture, history of v ancomycin-resistant enterococci urinary tract infection, chronic hyponatremia, chronic macrocytic ane nic, hypertension, and urinary retention. DISCHARGE MEDICATIONS: To be determined. DISCONTINUED MEDICATIONS: To be determined. HISTORY OF PRESENT ILLNESS AND HOSPITAL COURSE: A 72-year-old female with extensive past medical his tory, who presented to the ED after recently being discharged on 01/18/2018 for CHF exacerbation and UTI. On presentation to the ED, she had shortness of breath, fever, chills, and vomiting for x2, whi ch began the day before admission. She was also complaining of headache. The patient has an indwell ing catheter that changed 5 weeks before admit. The patient was satting in the 80s on room air in e ER. She was placed on BiPAP and admitted to the IMCU. Chest x-ray showed extensive vascular conge stion versus pneumonia. The patient was initially treated with vancomycin, Levaquin, and meropenem for suspected hospital-acq uired pneumonia. The patient remained on BiPAP on 02/02/2018. Ultimately on 02/02/2018, her respira tory status had continued to progressively worsen. She was retracting extensively and an ABG showed an O2 of 60 as well as a pH of 7.2. Extensive discussion was had with the family regarding code stat us and their wishes. The patient and family decided that she wanted to remain a FULL CODE, and the p atient was intubated on 02/02/2018. As of 02/03/2018, the patient remained intubated. On 02/03/2018 , vancomycin and Levaquin were discontinued secondary to negative blood cultures and meropenem was co ntinued. Pulmonology has been following the case and attributes her respiratory failure to hospital- acquired pneumonia. As for her diastolic congestive heart failure, Cardiology has seen and evaluated the patient. They d o not believe that her respiratory failure is being caused by her CHF. They started Lasix 40 mg b.i. d. on 02/01/2018. They state that she does have moderate to severe aortic stenosis, but she did not need repeat echo and she has one recently. They stated that she should have a right heart catheteriz ation for further evaluation of ejection fraction and aortic stenosis when she is more stable. After starting the Lasix, the patient's creatinine continued to trend up and up to 2.69 on time of this di ctation. Nephrology was consulted. As of 02/02/2018, they had no further recommendations. We will follow the recommendations. As for the patient's right tibial fracture, she has been in the cast for some time and is due to have it off, but she has not been able to stay out of the hospital long enough to see Orthopedics outpati ent for them to take this cast off. It would be worth contacting them to ask if they can take the ca st off before she leaves the hospital as she has been a frequent bounce back patient. As for the VRE UTI, urine culture did grow back ESBL Escherichia coli. This is a chronic colonizatio n and does not need to be treated unless the patient is asymptomatic. As of 02/03/2018, the patient is not symptomatic and therefore we will not address this. She is on meropenem for the hospital-acqu ired pneumonia, and the UTI is sensitive to this. Chronic hyponatremia. The patient continues with sodiums in the low 130s. This is about her baselin e suspected secondary to chronic SIADH. DISPOSITION: Guarded as of 02/03/2018. DISCHARGE INSTRUCTIONS: 1. Location: To be determined. 2. Diet: To be determined. 3. Activity: To be determined. 4. Followup: Pulmonology, Cardiology, and Orthopedics.
[2018-02-03] MEDS: Sodium Chloride 0.9% 1,000 ML IV SCH (15:01)
--- NOTE | 2018-02-03 16:41 | PDOC.CTH ---
Cardiology Progress Note - Subjective She remains intubated and sedated. - Objective Vital Signs Temp Pulse Resp BP Pulse Ox 02/03/18 16:19 81 108/51 L 02/03/18 16:00 97.9 F 11 L 02/03/18 14:00 11 L 02/03/18 13:14 83 124/44 L 02/03/18 12:00 12 02/03/18 11:00 97.9 F 02/03/18 10:59 78 125/53 L 02/03/18 10:00 15 02/03/18 08:00 12 02/03/18 07:53 97.7 F 80 11 L 100 02/03/18 07:00 97.7 F 80 135/46 L 02/03/18 06:00 16 Admit Weight 145 lb 12.8 oz Weight 142 lb 3.17 oz 02/02/18 02/03/18 02/04/18 06:59 06:59 06:59 Intake Total 214 924 40 Output Total 849 1785 740 Balance -138 -824 -700 - Physical Examination General/Neuro: other: (Intubated ) Neck: no JVD present Lungs: CTA Heart: RRR Abdomen: NT/ND Extremities: + edema B (1+) - Telemetry Telemetry Rhythm: NSR - Labs Result Diagrams: 02/03/18 04:05 02/03/18 04:05 Troponin/CKMB CK-MB (CK-2) 2.2 ng/mL (0-6.6) 01/31/18 11:49 Troponin I Less than 0.010 ng/mL (< 0.028) 01/31/18 11:49 - Assessment/Plan 1. Acute hypoxic respiratory insufficiency. 2. UTI sepsis. 3. Diastolic heart failure 4. Moderate to severe aortic stenosis 5. Anemia 6. LUIS on CKD. 7. Hyponatremia. PLAN: - Creatinine continues to increase. Will hold diuresis for now. - IV abx per primary team. - Continue supportive care. - Will need right and left heart cath in the future to evaluate the extent of her valve disease but not until after she is more stable.
[2018-02-04] MEDS: Meropenem 500 MG, Admixture Fee 1 EACH in Sterile Water 10 ML SLOW IVP SCH ×2 (01:08→14:12)
[2018-02-04] MEDS: Propofol 1,000 MG/100 ML VIAL IV PRN ×4 (01:08→21:25)
[2018-02-04 03:54] LABS: #Eosinphils 0.1 thou/uL (0.0-0.7); #Lymphocytes 1.1 thou/uL (1.20-3.40); #Monocytes 0.4 thou/uL (0.11-0.59); #Neutrophils 3.9 thou/uL (1.40-6.50); %Basophils 0.2 % (0.0-1.0); %Eosinophils 2.6 % (0.0-10.0); %Lymphocytes 19.6 % (21.0-51.0); %Monocytes 6.5 % (0.0-10.0); %Neutrophils 71.2 % (42.0-75.0); Mean Corpuscular HGB CONC 33.9 g/dL (32.0-36.0); Mean Corpuscular Hemoglobin 33.7 pg (27.0-31.0); Mean Corpuscular Volume 99.3 fl (81.0-99.0); Mean Platelet Volume 6.2 fL (7.4-10.4); Platelet Count 289 thou/uL (130-400); RBC Distribution Width 13.5 % (11.5-14.5); Red Blood Cell (RBC) Count 2.38 mill/uL (4.20-5.40); White Blood Cell (WBC) Count 5.4 thou/uL (4.8-10.8)
[2018-02-04 04:09] LABS: Anion Gap 15 mmol/L (10-20); BUN (Urea Nitrogen) 60 mg/dL (9.8-20.1); Calc. Creatinine Clearance 20 mL/min (70-130); Calcium 7.8 mg/dL (7.8-10.44); Carbon Dioxide 19 mmol/L (23-31); Chloride 104 mmol/L (98-107); Estimated GFR-MDRD 17; Glucose 76 mg/dL (80-115); Potassium 3.6 mmol/L (3.5-5.1); Sodium 134 mmol/L (136-145)
[2018-02-04] MEDS: Furosemide 40 MG/4 ML VIAL SLOW IVP SCH ×2 (05:25→14:11)
[2018-02-04 07:03] LABS: Actual Bicarbonate (HCO3a) 18.6 mEq/L (22-26); Base Excess (BEa) -5.1 mEq/L (0 (+/-) 2.5); CO2 Tension 29.5 mmHg (35.0-45.0); O2 Tension (PaO2) 146.1 mmHg (80.0-100.0); pH, Arterial 7.42 (7.35-7.45)
[2018-02-04 07:04] LABS: ALV-art Gradient 102.225 (0-20); Calcium, Ionized 1.1 mmol/L (1.12-1.30); Hematocrit-ABG 25.8 % (36.0-47.0); Hemoglobin (Hb) 8.5 g/dL (12.0-16.0); Puncture Site RBA
--- NOTE | 2018-02-04 08:14 | PDOC.FM ---
- Subjective Subjective: Patient intubated and sedated this morning with stable vital signs. No acute events overnight. No issues per nursing. Family not in room at this time. Patient was coughing and following commands during sedation holiday. - Objective MAR Reviewed: Yes Vital Signs & Weight: Vital Signs (12 hours) Temp Pulse Resp BP Pulse Ox 02/04/18 07:00 98.3 F 02/04/18 06:35 83 108/50 L 02/04/18 06:25 84 11 L 99 02/04/18 06:00 12 02/04/18 04:00 98.1 F 12 02/04/18 02:56 86 15 100 02/04/18 02:00 15 02/04/18 00:00 20 02/03/18 22:18 88 19 100 02/03/18 22:00 11 L Weight Admit Weight 66.134 kg Weight 67.6 kg Most Recent Monitor Data Heart Rate from ECG 86 NIBP 104/48 NIBP BP-Mean 62 Respiration from ECG 18 SpO2 100 I&O: 02/03/18 02/04/18 02/05/18 06:59 06:59 06:59 Intake Total 924 1071 Output Total 4123 7140 100 Balance -861 -1074 -100 Result Diagrams: 02/04/18 03:42 02/04/18 03:30 Radiology Reviewed by me: Yes (Right sided infiltrate unchanged) <Francis Freeman - Last Filed: 02/04/18 08:12> - Objective Vital Signs & Weight: Vital Signs (12 hours) Temp Pulse Resp BP Pulse Ox 02/04/18 11:00 98.8 F 02/04/18 10:36 87 11 L 115/47 L 99 02/04/18 10:00 11 L 02/04/18 08:00 98.2 F 86 11 L 100 02/04/18 07:00 98.3 F 02/04/18 06:35 83 108/50 L 02/04/18 06:25 84 11 L 99 02/04/18 06:00 12 02/04/18 04:00 98.1 F 12 02/04/18 02:56 86 15 100 02/04/18 02:00 15 02/04/18 00:00 20 Weight Admit Weight 66.134 kg Weight 67.6 kg Most Recent Monitor Data Heart Rate from ECG 89 NIBP 107/47 NIBP BP-Mean 70 Respiration from ECG 16 SpO2 100 I&O: 02/03/18 02/04/18 02/05/18 06:59 06:59 06:59 Intake Total 924 1071 40 Output Total 1785 3395 375 [facility] -861 -1074 -335 Result Diagrams: 02/04/18 03:42 02/04/18 03:30 <Lior Simpson - Last Filed: 02/04/18 11:38> Phys Exam - Physical Examination intubated and sedated HEENT: moist MMs Neck: no JVD Respiratory: no wheezing bilateral crackles Cardiovascular: RRR 4/6 systolic murmur Gastrointestinal: soft, non-tender Musculoskeletal: no edema intubated and sedated Skin: no rash <Francis Freeman - Last Filed: 02/04/18 08:12> Dx/Plan (1) Acute respiratory failure with hypoxia Code(s): J96.01 - ACUTE RESPIRATORY FAILURE WITH HYPOXIA Status: Acute Plan: Intubated on 02/02 after increased work of breathing secondary to suspected HCAP CXR today shows unchanged right sided infiltrate- likely PNA with pleural effusion AB.42/30/146 Vent: SIMV, TV= 450, rate= 11, FiO2= 40%, PS= 10, PEEP= 9 Managed per pulm (2) Hospital acquired PNA Code(s): J18.9 - PNEUMONIA, UNSPECIFIED ORGANISM Status: Suspected Plan: Recent hospitalization with discharge on 01/18 Day #5 of Meropenem; Vanc and Levaquin have been discontinued s/p negative blood cultures (3) Acute on chronic kidney failure Code(s): N17.9 - ACUTE KIDNEY FAILURE, UNSPECIFIED; N18.9 - CHRONIC KIDNEY DISEASE, UNSPECIFIED Status: Acute QualifierTitle: Chronic kidney disease stage: stage 4 (severe) Plan: Underlying CKD stage 4, now with LUIS 2/2 diuresis Nephrology following and recommend discontinuation of nephrotoxic agents and close monitoing of renal function BUN and CR have plateaued (4) Acute CHF Code(s): I50.9 - HEART FAILURE, UNSPECIFIED Status: Acute QualifierTitle: Heart failure type: diastolic Qualified Code(s): I50.31 - Acute diastolic (congestive) heart failure Plan: BNP on admission of 1537 TTE done during last admission shows EF of 55-60% with mod to severe aortic stenosis Diuresis of 40IV Lasix over the last several days- held at this time 2/2 worsening renal function I/O: -861 mL total fluid balance from prior 24 hours Continue strict I/O's and daily weights (5) Aortic stenosis Code(s): I35.0 - NONRHEUMATIC AORTIC (VALVE) STENOSIS Status: Chronic QualifierTitle: Cardiac valve disease etiology: etiology unspecified Qualified Code(s): I35.0 - Nonrheumatic aortic (valve) stenosis Plan: See TTE from last admision for report Cardiology suggests OP right and left sided cath for further work-up (6) Right tibial fracture Code(s): S82.201A - UNSP FRACTURE OF SHAFT OF RIGHT TIBIA, INIT FOR CLOS FX Status: Chronic QualifierTitle: Encounter type: subsequent encounter Plan: Patient in cast Ortho consulted- suggest f/u OP for cast removal (7) Urinary retention with incomplete bladder emptying Code(s): R33.9 - RETENTION OF URINE, UNSPECIFIED Status: Chronic Plan: Patient has had an indwelling hall catheter since discharge on 01/18 She continues to make clear urine with 1785 mL total in last 24 hours Plan is to f/u OP with Urology for further recommendations (8) DM2 (diabetes mellitus, type 2) Status: Chronic Plan: Mild SSI BS low this AM, will give D5 if unable to extubate today (9) HTN (hypertension) Code(s): I10 - ESSENTIAL (PRIMARY) HYPERTENSION Status: Chronic QualifierTitle: Hypertension type: unspecified Qualified Code(s): I10 - Essential (primary) hypertension Plan: Patient taking amlodipine in OP setting, but pressures have been low 2/2 diuresis -hold for now (10) Hyponatremia Code(s): E87.1 - HYPO-OSMOLALITY AND HYPONATREMIA Status: Chronic Plan: History of chronic SIADH Treated with conivaptan earlier this month with success Na+ continues to climb: 134 this AM Continue to monitor (11) Macrocytic anemia Code(s): D53.9 - NUTRITIONAL ANEMIA, UNSPECIFIED Status: Chronic Plan: Stable from prior admissions Hg improving continue to monitor - Plan Plan: -possible extubation today depending on SBT, management per Pulm -continue Meropenem, this is day #5 -hold diuresis and monitor kidney function -appreciate Cardiology and Nephro recs <Francis Freeman - Last Filed: 02/04/18 08:12> Attending Addendum - Attending Addendum Date/Time: 02/04/18 1432 I personally evaluated the patient and discussed the management with Dr. Freeman. I agree with the History, Examination, Assessment and Plan documented above with any addition or exceptions noted below. Patient appears to be ready for evaluation for possible extubation. We appreciate Pulm care. May benefit from intermittent urinary catheterization instead of indwelling hall at discharge. I think Michelle will need inpt rehab before able to go home. <Lior Simpson - Last Filed: 02/04/18 11:38>
--- NOTE | 2018-02-04 08:32 | RAD ---
PORTABLE SEMIUPRIGHT FRONTAL CHEST RADIOGRAPH: 02/04/2018 HISTORY: Ventilated patient. Respiratory insufficiency. COMPARISON: 02/03/2018 FINDINGS: The nasogastric tube has been retracted since the prior examination, with the distal tip approaching the region of the diaphragmatic hiatus. Recommend advancing the nasogastric tube. No obvious pneumothorax. There is pulmonary vascular congestion with perihilar and bibasilar interst itial prominence. There is increased density in the right lung base, suggesting focal right lower lo be air space disease and right pleural fluid. There is suggestion of subtle nodularity throughout the left hemithorax, which appears new when tasha red to 01/10/2018. This could thus be artifactual in nature or associated with an inflammatory proce ss. IMPRESSION: Interstitial and alveolar opacities with questionable nodularity within the left hemithorax. Finding s may be on the basis of edema and/or infectious pneumonitis. Follow-up imaging following treatment to document resolution is advised. Of note, aeration within the right lung has improved markedly sin ce the 02/03/2018 exam. CODE T POS: MACO
[2018-02-04] MEDS: Tamsulosin HCl 0.4 MG CAP PO SCH (09:59)
[2018-02-04] MEDS: Enoxaparin Sodium 30 MG/0.3 ML SYRINGE SC SCH (10:00)
--- NOTE | 2018-02-04 11:57 | PRG ---
DATE OF SERVICE: 02/04/2018 SUBJECTIVE: This is a 72-year-old female being seen for acute kidney injury. The patient remains intubated. PHYSICAL EXAMINATION: GENERAL: Patient is resting. VITAL SIGNS: Afebrile, pulse 87, breathing 16, blood pressure 107/47. HEAD/NECK: Normocephalic. Atraumatic. EYES: EOMI. No deformity. EARS: Clear. No ulcers. NOSE: Intact. No lesions. MOUTH: Clear. No discharge. THROAT: Clear. No exudate. LUNGS: Clear. No crackles. CARDIAC: S1, S2. No rub. ABDOMEN: Benign. BS+. GENITALIA/RECTUM: Eason present. BACK/EXTREMITIES: Edema 0+ Ulcer- SKIN: Rash- Bruise- LYMPHATICS: Edema- Ulcer- LABORATORY DATA: Show hemoglobin 8, creatinine 2.7. ASSESSMENT AND PLAN: 1. Chronic kidney disease stage 4, stable. 2. Hypertension, stable. 3. Anemia, stable. 4. Hyponatremia, stable. No indication for dialysis. 5. Metabolic acidosis, improved. Overall, prognosis is poor. MTDD
[2018-02-04] MEDS ORDERED: Pancrelipase DR 12000 1 CAP FS PRN (13:18)
[2018-02-04] MEDS ORDERED: Sodium Bicarbonate Tab 325 MG TAB PER TUBE PRN (13:18)
[2018-02-04] MEDS ORDERED: Scopolamine 1.5 mg/72 hour Patch TOP SCH (13:30)
[2018-02-04] MEDS: Sodium Chloride 0.9% 1,000 ML IV SCH (14:17)
--- NOTE | 2018-02-04 14:40 | PDOC.CTH ---
Cardiology Progress Note - Subjective She remains intubated and sedated. - Objective Vital Signs Temp Pulse Resp BP Pulse Ox 02/04/18 14:00 11 L 02/04/18 12:00 11 L 02/04/18 11:00 98.8 F 02/04/18 10:36 87 11 L 115/47 L 99 02/04/18 10:00 11 L 02/04/18 08:00 98.2 F 86 11 L 100 02/04/18 07:00 98.3 F 02/04/18 06:35 83 108/50 L 02/04/18 06:25 84 11 L 99 02/04/18 06:00 12 02/04/18 04:00 98.1 F 12 02/04/18 02:56 86 15 100 Admit Weight 145 lb 12.8 oz Weight 149 lb 0.52 oz 02/03/18 02/04/18 02/05/18 06:59 06:59 06:59 Intake Total 924 1071 40 Output Total 1784 7545 1085 Balance -861 -1074 -1042 - Physical Examination General/Neuro: other: (sedated, intubated, ) Neck: no JVD present Lungs: CTA Heart: RRR Abdomen: NT/ND Extremities: + edema B (1+) - Telemetry Telemetry Rhythm: NSR - Labs Result Diagrams: 02/04/18 03:42 02/04/18 03:30 Troponin/CKMB CK-MB (CK-2) 2.2 ng/mL (0-6.6) 01/31/18 11:49 Troponin I Less than 0.010 ng/mL (< 0.028) 01/31/18 11:49 - Assessment/Plan 1. Acute hypoxic respiratory insufficiency. 2. UTI sepsis. 3. Diastolic heart failure 4. Moderate to severe aortic stenosis 5. Anemia 6. LUIS on CKD. 7. Hyponatremia. PLAN: - Lungs continue to improve, she did have IV lasix yesterday but has made her pulmonary edema better. Her creatinine continues to increase which would suggest her is worse than echo shows. Continue LV lasix for now. - IV abx per primary team. - Continue supportive care. - Will need right and left heart cath in the future once more stable.
[2018-02-04] MEDS: Famotidine 20 MG TAB PER TUBE SCH (21:25)
[2018-02-05] MEDS: Meropenem 500 MG, Admixture Fee 1 EACH in Sterile Water 10 ML SLOW IVP SCH (01:58)
[2018-02-05 04:32] LABS: #Eosinphils 0.7 thou/uL (0.0-0.7); #Lymphocytes 1.5 thou/uL (1.20-3.40); #Monocytes 0.4 thou/uL (0.11-0.59); #Neutrophils 3.8 thou/uL (1.40-6.50); %Basophils 0.2 % (0.0-1.0); %Eosinophils 11.1 % (0.0-10.0); %Lymphocytes 22.7 % (21.0-51.0); %Monocytes 6.3 % (0.0-10.0); %Neutrophils 59.7 % (42.0-75.0); Hemoglobin 7.8 g/dL (12.0-16.0); Mean Corpuscular HGB CONC 33.9 g/dL (32.0-36.0); Mean Corpuscular Hemoglobin 33.6 pg (27.0-31.0); Mean Corpuscular Volume 99.2 fl (81.0-99.0); Mean Platelet Volume 6.2 fL (7.4-10.4); Platelet Count 277 thou/uL (130-400); RBC Distribution Width 13.7 % (11.5-14.5); Red Blood Cell (RBC) Count 2.31 mill/uL (4.20-5.40); White Blood Cell (WBC) Count 6.4 thou/uL (4.8-10.8)
[2018-02-05 04:43] LABS: Anion Gap 13 mmol/L (10-20); BUN (Urea Nitrogen) 60 mg/dL (9.8-20.1); Calc. Creatinine Clearance 21 mL/min (70-130); Calcium 7.9 mg/dL (7.8-10.44); Carbon Dioxide 21 mmol/L (23-31); Chloride 106 mmol/L (98-107); Estimated GFR-MDRD 18; Glucose 86 mg/dL (80-115); Potassium 3.5 mmol/L (3.5-5.1); Sodium 136 mmol/L (136-145)
[2018-02-05] MEDS: Propofol 1,000 MG/100 ML VIAL IV PRN (05:18)
[2018-02-05] MEDS: Furosemide 40 MG/4 ML VIAL SLOW IVP SCH ×2 (05:18→15:08)
--- NOTE | 2018-02-05 07:07 | PDOC.FM ---
- Subjective Subjective: Patient intubated and sedated. Per nursing, the patient was following commands and moving all extremities during sedation holiday. However, she was very weak- to the point that she was unable to hold head up. Her secretions remain thick despite scopolamine patch. Otherwise, VSS and afebrile. - Objective MAR Reviewed: Yes Vital Signs & Weight: Vital Signs (12 hours) Temp Pulse Resp BP Pulse Ox 02/05/18 06:37 81 127/49 L 02/05/18 06:00 11 L 02/05/18 04:00 98.7 F 11 L 02/05/18 03:16 86 20 100 02/05/18 02:00 16 02/05/18 00:00 98.8 F 13 02/04/18 22:39 87 13 100 02/04/18 22:00 11 L 02/04/18 20:00 98.8 F 87 11 L 100 02/04/18 19:59 85 14 100 Weight Admit Weight 66.134 kg Weight 67.1 kg Most Recent Monitor Data Heart Rate from ECG 84 NIBP 127/49 NIBP BP-Mean 68 Respiration from ECG 15 SpO2 100 I&O: 02/04/18 02/05/18 02/06/18 06:59 06:59 06:59 Intake Total 1071 1313 Output Total 9987 6575 Balance -9181 -4812 Result Diagrams: 02/05/18 04:25 02/05/18 04:25 Radiology Reviewed by me: Yes (improving CXR) <Francis Freeman - Last Filed: 02/05/18 08:44> - Objective Vital Signs & Weight: Vital Signs (12 hours) Temp Pulse Resp BP Pulse Ox 02/05/18 08:00 11 L 02/05/18 07:00 98.5 F 02/05/18 06:37 81 127/49 L 02/05/18 06:00 11 L 02/05/18 04:00 98.7 F 11 L 02/05/18 03:16 86 20 100 02/05/18 02:00 16 02/05/18 00:00 98.8 F 13 02/04/18 22:39 87 13 100 02/04/18 22:00 11 L Weight Admit Weight 66.134 kg Weight 67.1 kg Most Recent Monitor Data Heart Rate from ECG 86 NIBP 114/53 NIBP BP-Mean 68 Respiration from ECG 15 SpO2 100 I&O: 02/04/18 02/05/18 02/06/18 06:59 06:59 06:59 Intake Total 1071 1313 Output Total 2148 9635 145 Balance -1074 -1402 -145 Result Diagrams: 02/05/18 04:25 02/05/18 04:25 <Lior Simpson - Last Filed: 02/05/18 09:10> Phys Exam - Physical Examination intubated and sedated on propofol and fentanyl HEENT: moist MMs Neck: no JVD global coarse rhonchi Cardiovascular: RRR Gastrointestinal: soft, non-tender Musculoskeletal: no edema sedated Skin: no rash, normal turgor <Francis Freeman - Last Filed: 02/05/18 08:44> Dx/Plan (1) Acute respiratory failure with hypoxia Code(s): J96.01 - ACUTE RESPIRATORY FAILURE WITH HYPOXIA Status: Acute Plan: Intubated on 02/02 after increased work of breathing secondary to suspected HCAP CXR today shows improving right sided infiltrate- likely PNA with pleural effusion ABG: pending today Vent: SIMV, TV= 450, rate= 11, FiO2= 40%, PS= 10, PEEP= 9 Managed per pulm s/p scopolamine patch placed on 02/04 in anticipation of possible extubation today (2) Hospital acquired PNA Code(s): J18.9 - PNEUMONIA, UNSPECIFIED ORGANISM Status: Suspected Plan: Recent hospitalization with discharge on 01/18 Day #6 of Meropenem; Vanc and Levaquin have been discontinued s/p negative blood cultures No fever or leukocytosis (3) Acute on chronic kidney failure Code(s): N17.9 - ACUTE KIDNEY FAILURE, UNSPECIFIED; N18.9 - CHRONIC KIDNEY DISEASE, UNSPECIFIED Status: Acute QualifierTitle: Chronic kidney disease stage: stage 4 (severe) Plan: Underlying CKD stage 4, now with LUIS 2/2 diuresis Nephrology following and recommend discontinuation of nephrotoxic agents and close monitoing of renal function BUN and CR have plateaued and are actually improving this morning We appreciate Nephrology recommendations (4) Acute CHF Code(s): I50.9 - HEART FAILURE, UNSPECIFIED Status: Acute QualifierTitle: Heart failure type: diastolic Qualified Code(s): I50.31 - Acute diastolic (congestive) heart failure Plan: BNP on admission of 1537 TTE done during last admission shows EF of 55-60% with mod to severe aortic stenosis Diuresis of 40 IV Lasix over the last several days -hall with 2 L output yesterday I/O: -1 L total fluid balance from prior 24 hours; dry weight is unchanged from yesterday Continue strict I/O's and daily weights (5) Aortic stenosis Code(s): I35.0 - NONRHEUMATIC AORTIC (VALVE) STENOSIS Status: Chronic QualifierTitle: Cardiac valve disease etiology: etiology unspecified Qualified Code(s): I35.0 - Nonrheumatic aortic (valve) stenosis Plan: See TTE from last admision for report Cardiology suggests OP right and left sided cath for further work-up (6) Right tibial fracture Code(s): S82.201A - UNSP FRACTURE OF SHAFT OF RIGHT TIBIA, INIT FOR CLOS FX Status: Chronic QualifierTitle: Encounter type: subsequent encounter Plan: Patient in cast Ortho consulted- suggest f/u OP for cast removal or possible removal on day of discharge (7) Urinary retention with incomplete bladder emptying Code(s): R33.9 - RETENTION OF URINE, UNSPECIFIED Status: Chronic Plan: Patient has had an indwelling hall catheter since discharge on 01/18 She continues to make clear urine with 2 L mL total in last 24 hours Plan is to f/u OP with Urology for further recommendations Ideally, patient would be a candidate for in and out self catheterization q6h to prevent further UTI's (8) DM2 (diabetes mellitus, type 2) Status: Chronic Plan: Mild SSI Tube feeds per Dietary (9) HTN (hypertension) Code(s): I10 - ESSENTIAL (PRIMARY) HYPERTENSION Status: Chronic QualifierTitle: Hypertension type: unspecified Qualified Code(s): I10 - Essential (primary) hypertension Plan: Patient taking amlodipine in OP setting, but pressures have been low 2/2 diuresis -hold for now (10) Hyponatremia Code(s): E87.1 - HYPO-OSMOLALITY AND HYPONATREMIA Status: Resolved Plan: History of chronic SIADH Treated with conivaptan earlier this month with success Na+ continues to climb: 136 this AM Continue to monitor (11) Macrocytic anemia Code(s): D53.9 - NUTRITIONAL ANEMIA, UNSPECIFIED Status: Chronic Plan: Stable from prior admissions H.8 improving continue to monitor - Plan Plan: -possible extubation today, managed per Pulm -continue antibiotics, tube feeds <Francis Freeman - Last Filed: 02/05/18 08:44> Attending Addendum - Attending Addendum Date/Time: 02/05/18 0908 I personally evaluated the patient and discussed the management with Dr. Freeman. I agree with the History, Examination, Assessment and Plan documented above with any addition or exceptions noted below. OG tube feeding intitiated. Patient has significant de-conditioning from illness. Will need rehab after extubation and hospitalization. overall individual medical problems are improving. <Lior Simpson - Last Filed: 02/05/18 09:10>
[2018-02-05 07:23] LABS: CO2 Tension 31.1 mmHg (35.0-45.0); O2 Tension (PaO2) 151.8 mmHg (80.0-100.0); pH, Arterial 7.42 (7.35-7.45)
[2018-02-05 07:24] LABS: Actual Bicarbonate (HCO3a) 19.9 mEq/L (22-26); Hemoglobin (Hb) 7.5 g/dL (12.0-16.0); Puncture Site LB
[2018-02-05 07:25] LABS: ALV-art Gradient 92.525 (0-20)
--- NOTE | 2018-02-05 08:06 | PRG ---
DATE OF SERVICE: 02/04/2018 SUBJECTIVE: Michelle Jennings was intubated over the weekend, events have all been reviewed. She is currently comfortable with sedation, on ventilator. I met with her family and answered all th eir questions. OBJECTIVE: VITAL SIGNS: Blood pressure currently 100/41, heart rates in the 90s, respiratory rate is 12. LUNGS: Clear. HEART: She still has her systolic murmur. ABDOMEN: Soft and nontender. EXTREMITIES: Without asymmetry. LABORATORY DATA: White count is 5.4, hemoglobin 8.0, platelets 289. Sodium 134, potassium 3.6, chlo ride 104, bicarb 19, BUN 60, creatinine 2.73. IMAGING: Chest radiographs have improved dramatically over the weekend. Intake and output is negative 1074. IMPRESSION AND PLAN: Cardiogenic pulmonary edema. Her dramatic improvement of her radiograph argues against this being predominantly in the infectious process. Hopefully, we can do a spontaneous pete thing trial in the morning and consider extubation. Her other problems include diastolic dysfunction , aortic stenosis, and acute on chronic kidney disease. Her renal function may be a limiting factor in trying to evaluate her aortic valve. I reviewed lab and the lowest creatinine I have seen was in December at 1.82 but all the rest of them this year have been over 2 and closer to 3, which is a stro ng argument that she has significant renal functional impairment that may not tolerate a dye load. T his will have to be discussed in detail with the family when the time comes. Critical care time was 30 minutes.
--- NOTE | 2018-02-05 08:57 | RAD ---
PORTABLE SEMI UPRIGHT FRONTAL CHEST RADIOGRAPH: Date: 02-05-18 Comparison: 02-04-18 History: Re-evaluate lung parenchyma. Ventilated patient, respiratory distress. FINDINGS: Stable endotracheal tube and nasogastric tube. There is hazy linear increased density in both the lung bases, right greater than left, suggesting va scular prominence and mild interstitial edema. Focal pleural and parenchymal opacity noted in the rig ht lung base, evidence of mild right basilar airspace disease and right pleural fluid, similar when c ompared to prior imaging. Overall, aeration has improved in the perihilar regions and throughout the left lung. IMPRESSION: Improving aeration within both lungs with persistent hazy pleural and parenchymal opacity in the righ t lung base. Continued follow up to resolution advised. POS: [facility]
[2018-02-05] MEDS: Tamsulosin HCl 0.4 MG CAP PO SCH (09:23)
[2018-02-05] MEDS: Enoxaparin Sodium 30 MG/0.3 ML SYRINGE SC SCH (09:23)
--- NOTE | 2018-02-05 11:38 | PRG ---
DATE OF SERVICE: 02/05/2018 SUBJECTIVE: This is a 72-year-old female being seen for acute kidney injury. The patient is resting and intubated. PHYSICAL EXAMINATION: GENERAL: Patient is resting. VITAL SIGNS: Afebrile, pulse 82, breathing 16, blood pressure 124/55. HEAD/NECK: Normocephalic. Atraumatic. EYES: EOMI. No deformity. EARS: Clear. No ulcers. NOSE: Intact. No lesions. MOUTH: Clear. No discharge. THROAT: Clear. No exudate. LUNGS: Clear. No crackles. CARDIAC: S1, S2. No rub. ABDOMEN: Benign. BS+. GENITALIA/RECTUM: Eason absent. BACK/EXTREMITIES: Edema 0+ Ulcer- NEUROLOGICAL: The patient is sedated and resting. SKIN: Rash- Bruise- LYMPHATICS: Edema- Ulcer- LABORATORY DATA: Show hemoglobin 7.8, creatinine 2.5, BUN 16, and potassium 3.5. ASSESSMENT AND RECOMMENDATIONS: 1. Chronic kidney disease stage 4 with acute kidney injury, nonoliguric, stable. No indication for dialysis. 2. Hypertension, stable. 3. Anemia, stable. 4. Medications based on glomerular filtration rate are appropriate. 5. Overall, prognosis is extremely poor.
[2018-02-05] MEDS: Meropenem 500 MG in Sodium Chloride 0.9% 100 ML IVPB SCH (15:08)
[2018-02-05] MEDS: Sodium Chloride 0.9% 1,000 ML IV SCH (15:17)
[2018-02-05] MEDS: Acetaminophen 325 MG TAB PO PRN (16:47)
--- NOTE | 2018-02-05 17:32 | PDOC.CTH ---
Cardiology Progress Note - Subjective Remains intubated. On a sedation holiday. - Objective Vital Signs Temp Pulse Pulse Pulse Resp BP BP 02/05/18 15:07 103 H 28 H 02/05/18 15:00 97.8 F 02/05/18 13:54 97 99 118/49 L 02/05/18 12:45 02/05/18 12:00 11 L 02/05/18 10:40 83 124/55 L 02/05/18 10:00 11 L 02/05/18 08:00 98.1 F 85 11 L 02/05/18 07:00 98.5 F 02/05/18 06:37 81 127/49 L 02/05/18 06:00 11 L BP Pulse Ox Pulse Ox Pulse Ox 02/05/18 15:07 100 02/05/18 15:00 02/05/18 13:54 129/55 L 99 100 02/05/18 12:45 97 02/05/18 12:00 02/05/18 10:40 02/05/18 10:00 02/05/18 08:00 100 02/05/18 07:00 02/05/18 06:37 02/05/18 06:00 Admit Weight 145 lb 12.8 oz Weight 147 lb 14.883 oz 02/04/18 02/05/18 02/06/18 06:59 06:59 06:59 Intake Total 1071 1313 158 Output Total 2145 2715 1130 Balance -2420 -5558 -022 - Physical Examination General/Neuro: other: (intubated. ) Neck: no JVD present Lungs: CTA Heart: RRR Abdomen: NT/ND Extremities: other: (no edema.) - Telemetry Telemetry Rhythm: NSR - Labs Result Diagrams: 02/05/18 04:25 02/05/18 04:25 Troponin/CKMB CK-MB (CK-2) 2.2 ng/mL (0-6.6) 01/31/18 11:49 Troponin I Less than 0.010 ng/mL (< 0.028) 01/31/18 11:49 - Assessment/Plan 1. Acute hypoxic respiratory insufficiency. 2. UTI sepsis. 3. Diastolic heart failure 4. Moderate to severe aortic stenosis 5. Anemia 6. LUIS on CKD. 7. Hyponatremia. PLAN: - CXR better today. - Continue IV lasix. Creatinine now improving. - IV abx per primary team. - Continue supportive care. - Will need right and left heart cath in the future once more stable.
--- NOTE | 2018-02-05 18:11 | PRG ---
DATE OF SERVICE: 02/05/2018 SUBJECTIVE: Ms. Jovany Jennings was examined multiple times today. She was doing well. Sedation was held this morning. She easily awakened. OBJECTIVE: VITAL SIGNS: Heart rate was 100, respiratory rate is 20, oximetry was 100%. Vital signs were stable overnight. Intake and output was negative 1402. Blood pressure 125/56 at noon. LUNGS: Clear anteriorly. HEART: Regular rhythm. S1 and S2 are normal. She still has murmur. ABDOMEN: Soft and nontender. EXTREMITIES: Without asymmetry. LABORATORY DATA: White count 6.4, hemoglobin 7.8, platelets 277,000. Sodium 136, potassium 3.5, chl oride 106, bicarb 21, BUN 60, creatinine 2.58. Surprisingly, she is tolerating diuresis from a renal function standpoint. Chest radiograph reviewed by me this is essentially clear except for evidence of a small right effusion. She passed a leak test. Her minute volume was 8 liters a minute. Her spontaneous tidal volumes on p ressure support, 5 and PEEP of 2 were about 300 mL. I felt she was a candidate for extubation. She subsequently was extubated and has done well post-extubation. IMPRESSION: 1. Cardiogenic pulmonary edema secondary to diastolic dysfunction and aortic stenosis. The rapid cl earing of her radiographic abnormalities that were suggestive of pneumonia argue against this being a n infectious process. 2. Escherichia coli cystitis, which is an incidental finding. I would say with certainty that she h as cystitis and she has a chronically indwelling Eason, so at a minimum, she is at least colonized an d probably as long as she has a functioning Eason, we do need to be culturing and treating what grows out of her urine. The timing of further cardiac workup will be decided by Cardiology. Critical care time 40 minutes.
[2018-02-05] MEDS: Morphine 4 MG/ML VIAL SLOW IVP PRN (20:49)
[2018-02-05] MEDS: Famotidine 20 MG TAB PER TUBE SCH (20:51)
[2018-02-06] MEDS: Meropenem 500 MG in Sodium Chloride 0.9% 100 ML IVPB SCH ×2 (01:54→15:44)
[2018-02-06 04:44] LABS: #Basophils 0.1 thou/uL (0.0-0.2); #Eosinphils 1.1 thou/uL (0.0-0.7); #Lymphocytes 2.2 thou/uL (1.20-3.40); #Monocytes 0.9 thou/uL (0.11-0.59); #Neutrophils 5.3 thou/uL (1.40-6.50); %Basophils 0.7 % (0.0-1.0); %Eosinophils 11.6 % (0.0-10.0); %Lymphocytes 23.4 % (21.0-51.0); %Monocytes 9.1 % (0.0-10.0); %Neutrophils 55.2 % (42.0-75.0); Hemoglobin 8.7 g/dL (12.0-16.0); Mean Platelet Volume 6.1 fL (7.4-10.4); Platelet Count 276 thou/uL (130-400); RBC Distribution Width 13.7 % (11.5-14.5); Red Blood Cell (RBC) Count 2.57 mill/uL (4.20-5.40); White Blood Cell (WBC) Count 9.5 thou/uL (4.8-10.8)
[2018-02-06 04:52] LABS: Anion Gap 15 mmol/L (10-20); BUN (Urea Nitrogen) 60 mg/dL (9.8-20.1); Calc. Creatinine Clearance 24 mL/min (70-130); Calcium 8.3 mg/dL (7.8-10.44); Carbon Dioxide 20 mmol/L (23-31); Chloride 108 mmol/L (98-107); Estimated GFR-MDRD 21; Glucose 109 mg/dL (80-115); Potassium 3.5 mmol/L (3.5-5.1); Sodium 139 mmol/L (136-145)
[2018-02-06] MEDS: Furosemide 40 MG/4 ML VIAL SLOW IVP SCH ×2 (06:00→15:44)
[2018-02-06] MEDS ORDERED: Chloraseptic Spray 180 ml Bottle PO PRN (07:03)
--- NOTE | 2018-02-06 07:16 | PDOC.FM ---
- Subjective Subjective: Patient awake and alert this morning s/p extubation yesterday at approximately 13:00. Doing well since that time, no concerns per nursing. Maintaining sats with minimal O2 support via nasal cannula. Patient has been in sinus tachycardia since extubation, but is asymptomatic. She is c/o throat discomfort this morning. - Objective MAR Reviewed: Yes Vital Signs & Weight: Vital Signs (12 hours) Temp Pulse Resp Pulse Ox 02/06/18 06:56 105 H 32 H 97 02/06/18 04:00 98.3 F 02/06/18 02:28 109 H 20 99 02/06/18 00:00 98.7 F 02/05/18 22:26 108 H 18 98 02/05/18 20:00 98.4 F 115 H 25 H 99 Weight Admit Weight 66.134 kg Weight 65.7 kg Most Recent Monitor Data Heart Rate from ECG 107 NIBP 152/63 NIBP BP-Mean 111 Respiration from ECG 27 SpO2 100 I&O: 02/05/18 02/06/18 02/07/18 06:59 06:59 06:59 Intake Total 1313 765.5 Output Total 2715 2370 Balance -1402 -1604.5 Result Diagrams: 02/06/18 04:21 02/06/18 04:21 Radiology Reviewed by me: Yes (improving R infiltrate likely pulm vasc congestion) <Francis Freeman - Last Filed: 02/06/18 10:53> - Objective Vital Signs & Weight: Vital Signs (12 hours) Temp Pulse Pulse Pulse Resp BP BP 02/06/18 16:00 97.9 F 02/06/18 14:35 107 H 27 H 02/06/18 11:00 98.0 F 02/06/18 10:54 109 H 21 H 02/06/18 10:35 109 H 111 H 137/53 L 134/52 L 02/06/18 08:00 98.2 F 109 H 22 H 02/06/18 07:00 98.2 F 02/06/18 06:56 105 H 32 H Pulse Ox Pulse Ox Pulse Ox 02/06/18 16:00 02/06/18 14:35 96 02/06/18 11:00 02/06/18 10:54 98 02/06/18 10:35 97 96 02/06/18 08:00 96 02/06/18 07:00 02/06/18 06:56 97 Weight Admit Weight 66.134 kg Weight 65.7 kg Most Recent Monitor Data Heart Rate from ECG 108 NIBP 132/50 NIBP BP-Mean 84 Respiration from ECG 19 SpO2 95 I&O: 02/05/18 02/06/18 02/07/18 06:59 06:59 06:59 Intake Total 1313 765.5 800 Output Total 2715 2370 1425 Balance -1402 -1604.5 -625 Result Diagrams: 02/06/18 04:21 02/06/18 04:21 <Lior Simpson - Last Filed: 02/06/18 17:39> Phys Exam - Physical Examination Constitutional: NAD HEENT: moist MMs Neck: no JVD, supple Respiratory: no wheezing faint rhonchi bilateraly Cardiovascular: RRR, no significant murmur Gastrointestinal: soft, non-tender cast to RLE Neurological: moves all 4 limbs <Francis Freeman - Last Filed: 02/06/18 10:53> Dx/Plan (1) Acute respiratory failure with hypoxia Code(s): J96.01 - ACUTE RESPIRATORY FAILURE WITH HYPOXIA Status: Acute Plan: Intubated on 02/02 after increased work of breathing secondary to suspected HCAP Extubated on 02/05 with no complications Intermittent NC at 3L for oxygen support CXR today shows improving right sided infiltrate -due to quick resolution of radiographic findings this suggests pulmonary edema 2/2 to dCHF and severe aortic stenosis Continue to monitor vitals with likely transfer out of unit today or tomorrow (2) Hospital acquired PNA Code(s): J18.9 - PNEUMONIA, UNSPECIFIED ORGANISM Status: Suspected Plan: Recent hospitalization with discharge on 01/18 Day #7 of Meropenem -Vanc and Levaquin have been discontinued s/p negative blood cultures No fever or leukocytosis noted (3) Acute on chronic kidney failure Code(s): N17.9 - ACUTE KIDNEY FAILURE, UNSPECIFIED; N18.9 - CHRONIC KIDNEY DISEASE, UNSPECIFIED Status: Acute QualifierTitle: Chronic kidney disease stage: stage 4 (severe) Plan: Underlying CKD stage 4, now with LUIS 2/2 diuresis Nephrology following and monitoing of renal function and need for dialysis BUN and Cr are improving this morning, even with Lasix BID We appreciate Nephrology recommendations (4) Acute CHF Code(s): I50.9 - HEART FAILURE, UNSPECIFIED Status: Acute QualifierTitle: Heart failure type: diastolic Qualified Code(s): I50.31 - Acute diastolic (congestive) heart failure Plan: BNP on admission of 1537 TTE done during last admission shows EF of 55-60% with mod to severe aortic stenosis Diuresis of 40 IV Lasix over the last several days -hall with 2.7 L output yesterday I/O: -1.4 L total fluid balance from prior 24 hours; dry weight is unchanged from yesterday Continue strict I/O's and daily weights (5) Aortic stenosis Code(s): I35.0 - NONRHEUMATIC AORTIC (VALVE) STENOSIS Status: Chronic QualifierTitle: Cardiac valve disease etiology: etiology unspecified Qualified Code(s): I35.0 - Nonrheumatic aortic (valve) stenosis Plan: See TTE from last admision for report Cardiology suggests OP right and left sided cath for further work-up (6) Right tibial fracture Code(s): S82.201A - UNSP FRACTURE OF SHAFT OF RIGHT TIBIA, INIT FOR CLOS FX Status: Chronic QualifierTitle: Encounter type: subsequent encounter Plan: Patient in cast Ortho consulted- suggest f/u OP for cast removal or possible removal on day of discharge (7) Urinary retention with incomplete bladder emptying Code(s): R33.9 - RETENTION OF URINE, UNSPECIFIED Status: Chronic Plan: Patient has had an indwelling hall catheter since discharge on 01/18 She continues to make clear urine with 2.7 L mL total in last 24 hours Plan is to f/u OP with Urology for further recommendations Ideally, patient would be a candidate for in and out self catheterization q6h to prevent further UTI's (8) DM2 (diabetes mellitus, type 2) Status: Chronic Plan: Mild SSI HH with low sodium diet (9) HTN (hypertension) Code(s): I10 - ESSENTIAL (PRIMARY) HYPERTENSION Status: Chronic QualifierTitle: Hypertension type: unspecified Qualified Code(s): I10 - Essential (primary) hypertension Plan: Patient taking amlodipine in OP setting, will resume at this time now that pressures are running high (10) Hyponatremia Code(s): E87.1 - HYPO-OSMOLALITY AND HYPONATREMIA Status: Resolved Plan: History of chronic SIADH Treated with conivaptan earlier this month with success Na+ continues to climb: 139 this AM Continue to monitor (11) Macrocytic anemia Code(s): D53.9 - NUTRITIONAL ANEMIA, UNSPECIFIED Status: Chronic Plan: Stable from prior admissions H.6 improving continue to monitor - Plan Plan: -continue PT/OT -possibly decrease Lasix today to QD dosing -restart home amlodipine -initial CM report that patient did not qualify for HH, SNF, rehab due to indigent status -f/u regarding placement options -continue abx today then discontinue <Francis Freeman - Last Filed: 02/06/18 10:53> Attending Addendum - Attending Addendum Date/Time: 02/06/18 3220 I personally evaluated the patient and discussed the management with Dr. Freeman. I agree with the History, Examination, Assessment and Plan documented above with any addition or exceptions noted below. <Lior Simpson - Last Filed: 02/06/18 17:39>
[2018-02-06] MEDS: Enoxaparin Sodium 30 MG/0.3 ML SYRINGE SC SCH (08:13)
[2018-02-06] MEDS: Tamsulosin HCl 0.4 MG CAP PO SCH (08:13)
--- NOTE | 2018-02-06 09:33 | RAD ---
CHEST ONE VIEW: History: Ventilated. Comparison: Prior day. FINDINGS: Patient has been extubated. Enteric tube has been removed. Layering right effusion is similar. Bibasi lar airspace opacities. No pneumothorax. IMPRESSION: 1. Interval extubation and removal of enteric tube without complication. 2. Layering right pleural effusion as well as bibasilar airspace opacities. POS: [facility]
--- NOTE | 2018-02-06 10:39 | PRG ---
DATE OF SERVICE: 02/06/2018 SUBJECTIVE: A 72-year-old female being seen for chronic kidney disease. The patient denies any naus ea, vomiting, or chest pain. The patient was extubated. PHYSICAL EXAMINATION: GENERAL: Patient is awake, alert. VITAL SIGNS: Afebrile, pulse 112, breathing 16, blood pressure 134/50. OBJECTIVE: See above. Awake, alert, in no acute distress. GENERAL APPEARANCE AND MENTAL STATUS: Fair. HEAD/NECK: Normocephalic. Atraumatic. EYES: EOMI. No deformity. EARS: Clear. No ulcers. NOSE: Intact. No lesions. MOUTH: Clear. No discharge. THROAT: Clear. No exudate. LUNGS: Clear. No crackles. CARDIAC: S1, S2. No rub. ABDOMEN: Benign. BS+. GENITALIA/RECTUM: Eason absent. BACK/EXTREMITIES: Edema 0+ Ulcer- NEUROLOGICAL: Alert and motor intact. SKIN: Rash- Bruise- LYMPHATICS: Edema- Ulcer- LABORATORY: Hemoglobin 8.7, creatinine 2.3. ASSESSMENT AND RECOMMENDATIONS: 1. Acute kidney injury, chronic kidney disease stage IV, improved. 2. Hypertension, stable. 3. Anemia, stable. 4. Medication based on glomerular filtration rate are appropriate. No indication for dialysis.
[2018-02-06] MEDS: HumaLOG 300 UNITS/3 ML VIAL SC PRN (11:05)
[2018-02-06] MEDS ORDERED: Milk Of Magnesia 30 ML UDCUP PO PRN (12:50)
[2018-02-06] MEDS: Sodium Chloride 0.9% 1,000 ML IV SCH (15:45)
--- NOTE | 2018-02-06 17:44 | PDOC.CTH ---
Cardiology Progress Note - Subjective She has been extubated and is doing well. She wants to know when she can go home. No chest pain, tightness ,pressure. - Objective Vital Signs Temp Pulse Pulse Pulse Resp BP BP 02/06/18 16:00 97.9 F 02/06/18 14:35 107 H 27 H 02/06/18 11:00 98.0 F 02/06/18 10:54 109 H 21 H 02/06/18 10:35 109 H 111 H 137/53 L 134/52 L 02/06/18 08:00 98.2 F 109 H 22 H 02/06/18 07:00 98.2 F 02/06/18 06:56 105 H 32 H Pulse Ox Pulse Ox Pulse Ox 02/06/18 16:00 02/06/18 14:35 96 02/06/18 11:00 02/06/18 10:54 98 02/06/18 10:35 97 96 02/06/18 08:00 96 02/06/18 07:00 02/06/18 06:56 97 Admit Weight 145 lb 12.8 oz Weight 144 lb 13.499 oz 02/05/18 02/06/18 02/07/18 06:59 06:59 06:59 Intake Total 1313 765.5 800 Output Total 2715 2370 1425 Balance -1402 -1604.5 -625 - Physical Examination General/Neuro: alert & oriented x3, NAD Neck: no JVD present Lungs: unlabored respirations Heart: RRR Abdomen: NT/ND Extremities: other: (no edema.) - Telemetry Telemetry Rhythm: NSR - Labs Result Diagrams: 02/06/18 04:21 02/06/18 04:21 Troponin/CKMB CK-MB (CK-2) 2.2 ng/mL (0-6.6) 01/31/18 11:49 Troponin I Less than 0.010 ng/mL (< 0.028) 01/31/18 11:49 - Assessment/Plan 1. Acute hypoxic respiratory insufficiency. 2. UTI sepsis. 3. Diastolic heart failure 4. Moderate to severe aortic stenosis 5. Anemia 6. LUIS on CKD. Improving with diuresis. 7. Hyponatremia. PLAN: - CXR better today. - Continue IV lasix. - IV abx per primary team. - Likely has severe , will need a right and left hear cath as an outpatient to confirm severity. She is too weak at this time and her creatinine would be prohibitive for C. Hopefully her creatinine will continue to improve.
[2018-02-06] MEDS: Famotidine 20 MG TAB PER TUBE SCH (21:06)
[2018-02-06] MEDS: Docusate 100 MG CAP PO SCH (21:06)
[2018-02-07] MEDS: Morphine 4 MG/ML VIAL SLOW IVP PRN (01:22)
[2018-02-07] MEDS: Meropenem 500 MG in Sodium Chloride 0.9% 100 ML IVPB SCH (01:23)
[2018-02-07 04:55] LABS: #Eosinphils 0.9 thou/uL (0.0-0.7); #Lymphocytes 2.7 thou/uL (1.20-3.40); #Monocytes 0.8 thou/uL (0.11-0.59); #Neutrophils 4.8 thou/uL (1.40-6.50); %Basophils 0.5 % (0.0-1.0); %Eosinophils 10.1 % (0.0-10.0); %Lymphocytes 28.9 % (21.0-51.0); %Monocytes 8.3 % (0.0-10.0); %Neutrophils 52.3 % (42.0-75.0); Hemoglobin 8.3 g/dL (12.0-16.0); Mean Corpuscular HGB CONC 33.7 g/dL (32.0-36.0); Mean Corpuscular Hemoglobin 33.4 pg (27.0-31.0); Mean Corpuscular Volume 99.3 fl (81.0-99.0); Platelet Count 268 thou/uL (130-400); RBC Distribution Width 13.8 % (11.5-14.5); Red Blood Cell (RBC) Count 2.47 mill/uL (4.20-5.40); White Blood Cell (WBC) Count 9.2 thou/uL (4.8-10.8)
[2018-02-07 05:11] LABS: Anion Gap 12 mmol/L (10-20); BUN (Urea Nitrogen) 59 mg/dL (9.8-20.1); Calc. Creatinine Clearance 26 mL/min (70-130); Calcium 8.4 mg/dL (7.8-10.44); Carbon Dioxide 27 mmol/L (23-31); Chloride 105 mmol/L (98-107); Estimated GFR-MDRD 24; Glucose 99 mg/dL (80-115); Potassium 3.4 mmol/L (3.5-5.1); Sodium 141 mmol/L (136-145)
[2018-02-07] MEDS: Furosemide 40 MG/4 ML VIAL SLOW IVP SCH (06:28)
[2018-02-07 06:38] VITALS: BMI 24.7
[2018-02-07 07:21] VITALS: BP 126/41
--- NOTE | 2018-02-07 08:19 | PRG ---
DATE OF SERVICE: 02/06/2018 SUBJECTIVE: She is feeling better. She is in no distress. She has had no respiratory difficulty si nce extubation. OBJECTIVE: VITAL SIGNS: Heart rates in the 70s. Blood pressure seems 123/50, respiratory rates in the teens, o ximetry is 100%. LUNGS: Clear. HEART: Regular rhythm. S1 and S2 are normal. She has a 3/6 systolic murmur. ABDOMEN: Soft and nontender. EXTREMITIES: Without asymmetry or edema. NEUROLOGIC: Nonfocal. LABORATORY DATA: White count is 9.5, hemoglobin 8.7, platelets 276,000. Sodium 139, potassium 3.5, chloride 108, bicarbonate 20, BUN 60, creatinine 2.3. IMPRESSION: Critical aortic stenosis with cardiogenic pulmonary edema. PLAN: Physical therapy and then eventual catheterization at some point.
[2018-02-07] MEDS: Docusate 100 MG CAP PO SCH (08:48)
[2018-02-07] MEDS: Tamsulosin HCl 0.4 MG CAP PO SCH (08:48)
[2018-02-07] MEDS: Enoxaparin Sodium 30 MG/0.3 ML SYRINGE SC SCH (08:49)
--- NOTE | 2018-02-07 08:59 | RAD ---
AP VIEW CHEST: Date: 02/07/18 INDICATION: Intubation. COMPARISON: Prior exam dated 02/06/18. FINDINGS: The right-sided pleural effusion is reduced. There is hazy opacity remaining within the right lower l obe, but improved from comparison exam and may reflect resolving edema or improved aeration from subs egmental volume loss. Left lung is clear. Mild cardiomegaly and mild pulmonary vascular congestion re main. IMPRESSION: 1. Improvement in right-sided pleural effusion and improved aeration in the right lung base. 2. Persistent cardiomegaly and mild pulmonary vascular congestion. POS: [facility]
--- NOTE | 2018-02-07 10:17 | PRG ---
DATE OF SERVICE: 02/07/2018 SUBJECTIVE: This is a 72-year-old female being seen for acute kidney injury with improving creatinin e. The patient denies nausea, vomiting or chest pain. PHYSICAL EXAMINATION: GENERAL: The patient was alert. VITAL SIGNS: Afebrile, pulse 79, breathing 16, blood pressure 146/60. OBJECTIVE: See above. Awake, alert, in no acute distress. GENERAL APPEARANCE AND MENTAL STATUS: Fair. HEAD/NECK: Normocephalic. Atraumatic. EYES: EOMI. No deformity. EARS: Clear. No ulcers. NOSE: Intact. No lesions. MOUTH: Clear. No discharge. THROAT: Clear. No exudate. LUNGS: Clear. No crackles. CARDIAC: S1, S2. No rub. ABDOMEN: Benign. BS+. GENITALIA/RECTUM: Eason absent. BACK/EXTREMITIES: Edema 0+ Ulcer- NEUROLOGICAL: Alert and motor intact. SKIN: Rash- Bruise- LYMPHATICS: Edema- Ulcer- LABORATORY: Hemoglobin 8.3, creatinine 2.07. ASSESSMENT AND RECOMMENDATIONS: 1. Acute kidney injury, chronic kidney disease stage 4, stable. 2. Hypertension, stable. 3. Anemia, stable. 4. Metabolic acidosis, stable. 5. Hypokalemia. Recommend high potassium diet. I will sign off on this patient. Please reconsult as needed.
[2018-02-07] MEDS: HumaLOG 300 UNITS/3 ML VIAL SC PRN (10:21)
--- NOTE | 2018-02-07 10:52 | PDOC.FM ---
- Subjective Subjective: Patient doing very well this morning. She has no complaints and is asking to go home. No acute events overnight per nursing. Vital signs stable, no longer requiring oxygen. - Objective MAR Reviewed: Yes Vital Signs & Weight: Vital Signs (12 hours) Temp Pulse Resp Pulse Ox 02/07/18 10:25 92 L 02/07/18 10:23 100 16 92 L 02/07/18 08:00 98.4 F 99 18 99 02/07/18 07:16 99 02/07/18 07:13 99 18 99 02/07/18 04:00 98.8 F 02/07/18 01:59 104 H 16 96 02/07/18 00:00 98.8 F Weight Admit Weight 66.134 kg Weight 65.7 kg Most Recent Monitor Data Heart Rate from ECG 103 NIBP 129/52 NIBP BP-Mean 84 Respiration from ECG 22 SpO2 95 I&O: 02/06/18 02/07/18 02/08/18 06:59 06:59 06:59 Intake Total 765.5 1374 240 Output Total 2370 3015 575 Balance -1604.5 -1641 -335 Result Diagrams: 02/07/18 04:30 02/07/18 04:30 Radiology Reviewed by me: Yes (R sided infiltrate resolved) <Francis Freeman - Last Filed: 02/07/18 10:50> - Objective Vital Signs & Weight: Weight Admit Weight 66.134 kg Weight 65.7 kg Most Recent Monitor Data Heart Rate from ECG 112 NIBP 115/38 NIBP BP-Mean 68 Respiration from ECG 21 SpO2 95 I&O: 02/07/18 02/08/18 02/09/18 06:59 06:59 06:59 Intake Total 1374 480 Output Total 3015 675 Balance -1641 -195 Result Diagrams: 02/07/18 04:30 02/07/18 04:30 <Lior Simpson - Last Filed: 02/08/18 07:51> Phys Exam - Physical Examination Constitutional: NAD HEENT: moist MMs Neck: no JVD Respiratory: no wheezing, no rales Cardiovascular: RRR Gastrointestinal: soft, non-tender, no distention Musculoskeletal: no edema Neurological: moves all 4 limbs Psychiatric: normal affect, A&O x 3 <Francis Freeman - Last Filed: 02/07/18 10:50> Dx/Plan (1) Acute respiratory failure with hypoxia Code(s): J96.01 - ACUTE RESPIRATORY FAILURE WITH HYPOXIA Status: Acute Plan: Intubated on 02/02 after increased work of breathing secondary to suspected HCAP vs cardiogenic pulmonary edema Extubated on 02/05 with no complications CXR today shows nearly resolved right sided infiltrate -due to quick resolution of radiographic findings this suggests pulmonary edema 2/2 to dCHF and severe aortic stenosis Continue to monitor vitals with likely d/c today (2) Hospital acquired PNA Code(s): J18.9 - PNEUMONIA, UNSPECIFIED ORGANISM Status: Resolved Plan: Recent hospitalization with discharge on 01/18 S/p 7 day of Meropenem No fever or leukocytosis (3) Acute on chronic kidney failure Code(s): N17.9 - ACUTE KIDNEY FAILURE, UNSPECIFIED; N18.9 - CHRONIC KIDNEY DISEASE, UNSPECIFIED Status: Acute QualifierTitle: Chronic kidney disease stage: stage 4 (severe) Plan: Underlying CKD stage 4, now with LUIS 2/2 diuresis Nephrology following and monitoing of renal function and need for dialysis BUN and Cr continue to improve We appreciate Nephrology recommendations (4) Acute CHF Code(s): I50.9 - HEART FAILURE, UNSPECIFIED Status: Acute QualifierTitle: Heart failure type: diastolic Qualified Code(s): I50.31 - Acute diastolic (congestive) heart failure Plan: BNP on admission of 1537 TTE done during last admission shows EF of 55-60% with mod to severe aortic stenosis Diuresis of 40 IV Lasix over the last several days -hall with adequate urine output I/O: dry weight is unchanged from yesterday (5) Aortic stenosis Code(s): I35.0 - NONRHEUMATIC AORTIC (VALVE) STENOSIS Status: Chronic QualifierTitle: Cardiac valve disease etiology: etiology unspecified Qualified Code(s): I35.0 - Nonrheumatic aortic (valve) stenosis Plan: See TTE from last admision for report Cardiology suggests OP right and left sided cath for further work-up (6) Right tibial fracture Code(s): S82.201A - UNSP FRACTURE OF SHAFT OF RIGHT TIBIA, INIT FOR CLOS FX Status: Chronic QualifierTitle: Encounter type: subsequent encounter Plan: Patient in cast Ortho consulted- suggest f/u OP for cast removal or possible removal on day of discharge (7) Urinary retention with incomplete bladder emptying Code(s): R33.9 - RETENTION OF URINE, UNSPECIFIED Status: Chronic Plan: Patient has had an indwelling hall catheter since discharge on 01/18 She continues to make clear urine Plan is to f/u OP with Urology for further recommendations Ideally, patient would be a candidate for in and out self catheterization q6h to prevent further UTI's (8) DM2 (diabetes mellitus, type 2) Status: Chronic Plan: Mild SSI HH with low sodium diet (9) HTN (hypertension) Code(s): I10 - ESSENTIAL (PRIMARY) HYPERTENSION Status: Chronic QualifierTitle: Hypertension type: unspecified Qualified Code(s): I10 - Essential (primary) hypertension Plan: Patient taking amlodipine in OP setting (10) Hyponatremia Code(s): E87.1 - HYPO-OSMOLALITY AND HYPONATREMIA Status: Resolved Plan: History of chronic SIADH Treated with conivaptan earlier this month with success; not needed during this admission Na+ continues to climb: 141 this AM Continue to monitor (11) Macrocytic anemia Code(s): D53.9 - NUTRITIONAL ANEMIA, UNSPECIFIED Status: Chronic Plan: Stable from prior admissions H.3 improving continue to monitor - Plan Plan: -speak with Ortho for possible cast removal, if not patient will need to see Dr. Soriano in outpatient setting for desired removal -patient will be discharged with indwelling catheter per urology, voiding trial to be done in outpatient clinic -likely d/c today pending pulm and card re <Francis Freeman C - Last Filed: 02/07/18 10:50> Attending Addendum - Attending Addendum Date/Time: 02/08/18 0751 I personally evaluated the patient and discussed the management with Dr. Freeman on 02/07/18. I agree with the History, Examination, Assessment and Plan documented above with any addition or exceptions noted below. <Lior Simpson - Last Filed: 02/08/18 07:51>
--- NOTE | 2018-02-07 10:57 | ADD-PRG ---
02/06/2018 ADDENDUM Meropenem was apparently started yesterday for an isolate from urine. With chronically indwelling Eason, this does not need to be treated. No isolate should be treated until there is a plan to remove her Eason catheter. Meropenem will be discontinued. MTDD
[2018-02-07 12:13] VITALS: TEMP 98.7
--- NOTE | 2018-02-08 14:54 | DIS-2 ---
DATE OF ADMISSION: 01/31/2018 DATE OF DISCHARGE: 02/07/2018 RESIDENT: Francis Freeman M.D. ADMITTING ATTENDING: Piper Jacques M.D. DISCHARGE ATTENDING: Lior Simpson M.D. CONSULTS: 1. Pulmonology. 2. Cardiology. 3. Nephrology. 4. Orthopedic Surgery. PROCEDURES: 1. Chest x-ray on admission showing findings worrisome for multifocal pneumonia with bilateral pleural effusions, greater on the right. 2. X-ray of the tibia and fibula showing no interval change in the casted medial malleolar fracture. 3. Rapid sequence intubation on 02/02/2018. 4. Extubation on 02/05/2018. PRIMARY DIAGNOSES: 1. Acute respiratory failure with hypoxia secondary to cardiogenic pulmonary edema. 2. Hospital-acquired pneumonia. 3. Acute on chronic kidney failure. 4. Acute diastolic congestive heart failure. 5. Severe aortic stenosis. SECONDARY DIAGNOSES: 1. Right tibial fracture. 2. Urinary retention with incomplete bladder emptying. 3. Diabetes mellitus, type 2. 4. Hypertension. 5. Hyponatremia. 6. Macrocytic anemia. DISCHARGE MEDICATIONS: 1. Amlodipine 10 mg p.o. daily. 2. Furosemide 20 mg p.o. b.i.d. 3. Tamsulosin 0.4 mg p.o. daily. DISCONTINUED MEDICATIONS: 1. Dulcolax 10 mg p.o. daily p.r.n. 2. Colace 100 mg p.o. b.i.d. p.r.n. 3. Enoxaparin 30 mg subcutaneous daily. 4. DuoNeb 3 mL nebulized q.4 hours. 5. Morphine 2 mg IV push q.2 hours p.r.n. 6. Meropenem 500 mg b.i.d. 7. Vancomycin. 8. Levaquin 750 mg IV daily. HISTORY OF PRESENT ILLNESS/HOSPITAL COURSE: This is a 72-year-old female with an extensive past medical history, who was recently discharged from the hospital on 01/18/2018 for CHF exacerbation and UTI. She presents this admission with shortness of breath, fever, chills, and vomiting x2 days. Chest x-ray in the ER was concerning for multifocal pneumonia, which would qualify the patient for HCAP. [facility] was [facility] with BiP[facility] and broad spectrum antibiotics of vancomycin, Levaquin, and meropenem started. After roughly 36 hours, the patient's respiratory status continued to decline and she was intubated on 02/02/2018. The patient continued on ventilator until 2017 when she was extubated. Chest x-rays showed a quickly resolving right- sided infiltrate. Due to its quick resolution, it is believed that her respiratory distress is due to cardiogenic pulmonary edema secondary to severe aortic stenosis rather than HCAP. However, she was continued on meropenem for a 7-day course due to risk factors. The patient has severe diastolic CHF that Cardiology was managing. She was started on Lasix 40 mg IV b.i.d. on 02/01/2018 and continued diuresis throughout her admission. The patient had a recent echo and did not need one repeated while inpatient. Cardiology recommended right and left heart catheterization in the outpatient setting to assess the severity of the aortic stenosis. The patient's BNP on admission was 1537. The patient's kidney function continued to decline as she was aggressively diuresed. She has underlying CKD stage 4. Nephrology was consulted for monitoring renal function to assess need for dialysis. The patient's BUN and creatinine eventually plateaued and she did not need temporary dialysis. Her creatinine was back to near baseline of 2.07 on the day of discharge. The patient has a history of right medial malleolar fracture in 11/2017 that was repaired per Orthopedic Surgery. Dr. Soriano was consulted while here for recommendations regarding cast removal. He evaluated the case and recommended that she see him in the outpatient setting for removal. The patient's diabetes was well controlled on moderate sliding scale insulin and a heart healthy and low sodium diet. Her blood pressure was well controlled while in-house. She only takes amlodipine in the outpatient setting , but it was held due to hypotension during admission. The patient has a chronic hyponatremia secondary to chronic SIADH. She required treatment with conivaptan during prior admission, but did not need such treatment during this admission. Her sodium was at 141 on the day of discharge and she was asymptomatic. The patient has a chronic stable macrocytic anemia that was at normal range upon admission. Hemoglobin was 8.3 on the day of discharge. The patient has urinary retention issue with incomplete bladder emptying that required chronic Eason catheter placement during last admission. The patient made clear urine with appropriate urine output during admission. Urology has recommended following up in the outpatient setting for voiding trial with potential removal at a later date. Ideally, the patient would be a candidate for in-and-out self-catheterization q.6 hours to prevent further UTI. The patient is chronically colonized with ESBL E. coli, it was asymptomatic during her admission. Dr. Delong was consulted for antibiotic management. He recommended continuing the meropenem throughout her hospital stay. The patient is an undocumented citizen and could not afford new medications despite need for escalation medical therapy. She is part of the [facility], that pays for three prescriptions per month, so she was sent home on the three prescriptions mentioned above. She will be following with Dr. Vigil in [address] Avery in 7-10 days. She needs SNF rehab but cannot be placed due to citizenship status. DISPOSITION: Guarded. DISCHARGE INSTRUCTIONS: 1. Location: Home. 2. Diet: Heart healthy, low sodium. 3. Activity: As tolerated. 4. Followup: Follow up with Dr. Vgiil in [address] Avery in 7-10 days. ANA
== END 2018-02-07 16:49 | disposition home or self-care (01) | DRG 208 ==
LOC: ERS 11:18 → CCU 12:30 → IMCU/EMU 14:32 → CCU 02-01 09:55
PROVIDERS: ADMIT Family Medicine; ATTEND Family Medicine
PROC: 5A09457 Assistance with Respiratory Ventilation, 24-96 Consecutive Hours, Continuous Positive Airway Pressure (ICD-10-PCS; principal; 2018-02-01)
PROC: 5A1945Z Respiratory Ventilation, 24-96 Consecutive Hours (ICD-10-PCS; 2018-02-02)
PROC: 0BH17EZ Insertion of Endotracheal Airway into Trachea, Via Natural or Artificial Opening (ICD-10-PCS; 2018-02-02)
DX: J96.01 Acute respiratory failure with hypoxia (principal); I50.33 Acute on chronic diastolic (congestive) heart failure; J18.9 Pneumonia, unspecified organism; E87.2 Acidosis; E22.2 Syndrome of inappropriate secretion of antidiuretic hormone; E11.22 Type 2 diabetes mellitus with diabetic chronic kidney disease; E11.65 Type 2 diabetes mellitus with hyperglycemia; I13.0 Hypertensive heart and chronic kidney disease with heart failure and stage 1 through stage 4 chronic kidney disease, or unspecified chronic kidney disease; N17.9 Acute kidney failure, unspecified; N18.4 Chronic kidney disease, stage 4 (severe); I35.0 Nonrheumatic aortic (valve) stenosis; J96.10 Chronic respiratory failure, unspecified whether with hypoxia or hypercapnia; D53.9 Nutritional anemia, unspecified; E87.6 Hypokalemia; Z96.0 Presence of urogenital implants; Y95 Nosocomial condition; R33.9 Retention of urine, unspecified; S82.201D Unspecified fracture of shaft of right tibia, subsequent encounter for closed fracture with routine healing; E66.9 Obesity, unspecified; Z68.24 Body mass index [BMI] 24.0-24.9, adult; L89.611 Pressure ulcer of right heel, stage 1; Z96.651 Presence of right artificial knee joint; Z96.649 Presence of unspecified artificial hip joint
CPT/HCPCS: 36415; 36416; 51702; 71045; 80048; 80053; 81003; 81015; 82553; 82805; 83605; 83690; 83880; 84484; 85025; 85046; 85060; 87040; 87077; 87086; 87186; 87804; 87899; 93005; 94002; 94003; 94640; 94660; 96361; 96365; 96367; 96375; 99292; A4216; G8978-GP-CN; G8979-GP-CL; G8987-GO-CL; G8988-GO-CJ; J0330; J1100; J1650; J1940; J1956; J2060; J2185; J2250; J2270; J2405; J2704; J3370; J3475; J7050; J7611; J7620

== ENCOUNTER 2018-05-20 17:08 | Inpatient (IN) | payer OTHER ==
[2018-05-20 18:04] LABS: #Basophils 0.1 thou/uL (0.0-0.2); #Eosinphils 0.3 thou/uL (0.0-0.7); #Lymphocytes 1.4 thou/uL (1.20-3.40); #Monocytes 1.2 thou/uL (0.11-0.59); #Neutrophils 6.2 thou/uL (1.40-6.50); %Basophils 1.5 % (0.0-1.0); %Eosinophils 2.9 % (0.0-10.0); %Lymphocytes 15.6 % (21.0-51.0); %Monocytes 12.6 % (0.0-10.0); %Neutrophils 67.4 % (42.0-75.0); Hemoglobin 9.3 g/dL (12.0-16.0); Mean Corpuscular Hemoglobin 32.6 pg (27.0-31.0); Mean Platelet Volume 5.7 fL (7.4-10.4); Platelet Count 351 thou/uL (130-400); RBC Distribution Width 12.8 % (11.5-14.5); Red Blood Cell (RBC) Count 2.84 mill/uL (4.20-5.40); White Blood Cell (WBC) Count 9.2 thou/uL (4.8-10.8)
[2018-05-20 18:24] LABS: ALT (SGPT) 11 U/L (8-55); AST (SGOT) 22 U/L (5-34); Albumin 3.1 g/dL (3.4-4.8); Alkaline Phosphatase 121 U/L (40-150); Anion Gap 15 mmol/L (10-20); BUN (Urea Nitrogen) 51 mg/dL (9.8-20.1); Bilirubin, Total 0.4 mg/dL (0.2-1.2); Calc. Creatinine Clearance 0 mL/min (70-130); Calcium 8.4 mg/dL (7.8-10.44); Carbon Dioxide 17 mmol/L (23-31); Chloride 97 mmol/L (98-107); Estimated GFR-MDRD 20; Globulin 3.7 g/dL (2.4-3.5); Glucose 161 mg/dL (80-115); Potassium 4.6 mmol/L (3.5-5.1); Protein, Total 6.8 g/dL (6.0-8.3); Sodium 124 mmol/L (136-145)
[2018-05-20] MEDS ORDERED: Sodium Chloride 0.9% 0 ML ONE (18:53)
[2018-05-20] MEDS ORDERED: Piperacillin/Tazobactam 3.375 GM VIAL ONE (18:53)
[2018-05-20] MEDS ORDERED: Piperacillin/Tazobactam 3.375 GM, Admixture Fee 1 EACH in Sodium Chloride 0.9% 100 ML IVPB ONE (19:00)
--- NOTE | 2018-05-20 20:00 | RAD ---
PORTABLE UPRIGHT FRONTAL CHEST RADIOGRAPH: Date: 05-20-18 Comparison: 02-07-18 History: Fever. FINDINGS: Heart and mediastinal contours are stable. There is a shoulder arthroplasty on the right. Mild blunti ng of the left costophrenic angle suggests pleural scar and/or small volume pleural fluid. Mild patch y opacity in the left base inferiorly may signify scar, volume loss, or mild infiltrate. No lobar con solidation or alveolar edema. IMPRESSION: Minimal pleural and parenchymal opacity in the inferior aspect of the left lung base. No lobar consol idation or alveolar edema. POS: [facility]
--- NOTE | 2018-05-20 20:06 | RAD ---
FRONTAL AND LATERAL RIGHT FEMUR: Date: 05-20-18 Comparison: Right hip radiographs 12-20-17. History: Swelling. Pain. Weakness. FINDINGS: There is a hip arthroplasty on the right. There is an intramedullary yossi extending into the mid shaft of the right femur. There is also a right knee arthroplasty present. Extensive lateral screw and apryl te fixation seen associated with the mid/distal right femoral shaft. There is extensive atherosclerot ic calcification within the right thigh. No displaced fracture or evidence of dislocation is seen. There is subtle lucency adjacent to the screw associated with the acetabular component on the right m edially, similar when compared to prior imaging, which could reflect loosening or infection. No acute displaced fracture or dislocation seen. IMPRESSION: Extensive chronic findings as described above. Subtle lucency is seen associated with the medial scre w of the right acetabular component as described above. POS: [facility]
[2018-05-20] MEDS ORDERED: Clindamycin/D5W 600 mg/50 ml Premix Bag ONE (20:21)
[2018-05-20 21:55] VITALS: BMI 25.7
[2018-05-20] MEDS ORDERED: Vancomycin HCl 1 GM in Premix Bag 1 BAG IVPB SCH (22:00)
[2018-05-20] MEDS ORDERED: HumaLOG 300 UNITS/3 ML VIAL SC PRN (22:30)
[2018-05-20] MEDS ORDERED: Sodium Chloride 0.9% 1,000 ML IV SCH (22:30)
[2018-05-20] MEDS ORDERED: Dextrose 50% Abboject 50 ML SYRINGE SLOW IVP PRN (22:30)
[2018-05-20] MEDS ORDERED: Ondansetron ODT 4 MG TAB PO PRN (22:30)
[2018-05-20] MEDS ORDERED: Dextrose 5% in Water 1,000 ML IV PRN (22:30)
--- NOTE | 2018-05-20 22:44 | PDOC.FPRHP ---
- History of Present Illness Chief Complaint: Right leg pain and wounds History of Present Illness: 72 yo F with PMHx DM, dCHF, HTN, CKD Stage IV and severe aortic stenosis with extensive history of RLE orthopedic surgery came to ED due to right leg pain and skin wounds for past four days. She was recently hospitalized at [facility] (05/10- 05/14) for UTI and discharged on ertapenem 500mg IV daily x10 days (started 05/15/18 ). Per family, patient was complaining of right leg pain and they noted new wounds forming in addition to swelling and redness around old surgical scar site. Patient denies any fevers, chills, nausea, vomiting, SOB or chest pain. She does endorse decreased appetite. At baseline she is limited to bedrest with minimal ambulation but since swelling and pain started has not ambulated at all. ED Course: In ED recevied Clinamycin 600mg x1 (20:00), Zosyn 3.375g (19:00), Vancomycin 1gm (20:00). Femur xray showed presence of plates in right femur and right knee. - Allergies/Adverse Reactions Allergies Allergy/AdvReac Type Severity Reaction Status Date / Time No Known Allergies Allergy Verified 05/20/18 21:58 - Home Medications Medication Instructions Recorded Confirmed Type Amlodipine [Norvasc] 10 mg PO DAILY 05/10/18 05/10/18 History Furosemide 20 mg PO BID 05/10/18 05/10/18 History Carvedilol [Carvedilol] 6.25 mg PO DAILY 05/21/18 History Cranberry Conc/Ascorbic Acid 05/21/18 History [Cranberry Urinary Comf Softgel] Lisinopril/Hydrochlorothiazide 05/21/18 History [Lisinopril-Hctz 20-25 mg Tab] Ondansetron HCl [Zofran] 05/21/18 History Tamsulosin HCl [Flomax] 0.4 mg PO DAILY 05/21/18 History - History PMHx: HTN, DM, CKD stage IV, Anemia, dCHF, chronic hyponatremia, urinary retention, severe aortic stenosis PSHx: Extensive RLE surgeries after femur fx including hip replacement, Right shoulder, Right knee FHx: DM (mom) Social:Denies tobacco, EtOH, drug use - Review of Systems General: denies: fever/chills Eyes: reports: other (denies eye discharge) ENT: denies: nasal congestion, rhinorrhea Respiratory: denies: cough, shortness of breath Cardiovascular: denies: chest pain Gastrointestinal: denies: nausea, vomiting, diarrhea, constipation Genitourinary: reports: dysuria Skin: reports: lesions (right lower extremity) Musculoskeletal: reports: pain, tenderness, swelling Neurological: denies: weakness - Vital signs BP: [155/61] HR: [78] RR: [18] Tmax: [98.4] Pox: [96]% on [RA] Wt: [63.82] - Physical Exam Constitutional: awake, alert and oriented (In mild distress from pain) HEENT: normocephalic and atraumatic, conjunctiva clear Chest: no-tender to palpation Heart: RRR, other (grade 4/6 systolic murmur that radiates to carotids BL) Lungs: no respiratory distress Abdomen: soft, non-tender -Musculoskeletal: L great toe surgically absent. RLE with marked edema, erythema lateral R hip ( borders marked), 2+ edema to knee, 1+ to hip, BL feet extended -Neurological: RLE strength limited 2/2 pain, LLE and BUE 5/5 strength, no facial droop or asymmetry Skin: other (Sacral ulcer, erythematous stage 1 Right buttock ulcer stage 2 2 weeping lesions on right anterior lower extremity Left and right heel ulcer stage 1 right medial malleolus ulcer b/l lower extremity pitting edema 1+ from foot to mid-calves at right lateral leg surgical scar the skin is intact but there is surrounding erythema, swelling, induration, tender to palpation, no crepitus or bullae noted, skin involved includes extensive portions of lateral thigh extending from around knee right upper extremity bruising from wrist to elbow pedal pulses present bilaterally) Psychiatric: normal mood and affect FMR H&P: Results - Labs Result Diagrams: 05/21/18 04:04 05/21/18 04:04 Lab results: WBC 9.2 thou/uL (4.8-10.8) 05/20/18 17:53 Hgb 9.3 g/dL (12.0-16.0) L 05/20/18 17:53 Hct 27.2 % (36.0-47.0) L 05/20/18 17:53 MCV 96.0 fL (78.0-98.0) 05/20/18 17:53 Plt Count 351 thou/uL (130-400) 05/20/18 17:53 Neutrophils % 67.4 % (42.0-75.0) 05/20/18 17:53 Sodium 124 mmol/L (136-145) L 05/20/18 17:53 Potassium 4.6 mmol/L (3.5-5.1) 05/20/18 17:53 Chloride 97 mmol/L (98-107) L 05/20/18 17:53 Carbon Dioxide 17 mmol/L (23-31) L 05/20/18 17:53 BUN 51 mg/dL (9.8-20.1) H 05/20/18 17:53 Creatinine 2.39 mg/dL (0.6-1.1) H 05/20/18 17:53 Glucose 161 mg/dL (80-115) H 05/20/18 17:53 Lactic Acid 1.4 mmol/L (0.5-2.2) 05/20/18 17:53 Calcium 8.4 mg/dL (7.8-10.44) 05/20/18 17:53 Total Bilirubin 0.4 mg/dL (0.2-1.2) 05/20/18 17:53 AST 22 U/L (5-34) 05/20/18 17:53 ALT 11 U/L (8-55) 05/20/18 17:53 Alkaline Phosphatase 121 U/L (40-150) 05/20/18 17:53 B-Natriuretic Peptide 1315.5 pg/mL (0-100) H 05/20/18 17:53 Serum Total Protein 6.8 g/dL (6.0-8.3) 05/20/18 17:53 Albumin 3.1 g/dL (3.4-4.8) L 05/20/18 17:53 - Radiology Interpretation Chest x-ray Status: image reviewed by me, report reviewed by me Other Status: image reviewed by me, report reviewed by me Additional comment: Right femur xray FMR H&P: A/P - Problem List (1) Cellulitis Current Visit: Yes Status: Acute Code(s): L03.90 - CELLULITIS, UNSPECIFIED Qualifiers: Site of cellulitis: extremity Laterality: right (2) Hypertension Current Visit: Yes Status: Chronic Code(s): I10 - ESSENTIAL (PRIMARY) HYPERTENSION (3) Hyponatremia Current Visit: No Status: Chronic Code(s): E87.1 - HYPO-OSMOLALITY AND HYPONATREMIA (4) Anemia of renal disease Current Visit: No Status: Chronic Code(s): D63.1 - ANEMIA IN CHRONIC KIDNEY DISEASE (5) CKD (chronic kidney disease) stage 4, GFR 15-29 ml/min Current Visit: No Status: Chronic Code(s): N18.4 - CHRONIC KIDNEY DISEASE, STAGE 4 (SEVERE) (6) Diabetes Current Visit: Yes Status: Acute Code(s): E11.9 - TYPE 2 DIABETES MELLITUS WITHOUT COMPLICATIONS (7) Aortic stenosis Current Visit: No Status: Chronic Code(s): I35.0 - NONRHEUMATIC AORTIC ( VALVE) STENOSIS Qualifiers: Cardiac valve disease etiology: etiology unspecified Qualified Code(s): I35.0 - Nonrheumatic aortic (valve) stenosis (8) Urinary retention with incomplete bladder emptying Current Visit: No Status: Chronic Code(s): R33.9 - RETENTION OF URINE, UNSPECIFIED (9) CHF (congestive heart failure) Current Visit: Yes Status: Chronic Code(s): I50.9 - HEART FAILURE, UNSPECIFIED - Plan 72 yo F with prior right femur surgery/hip/knee replacement presents with right extremity cellulitis that has failed outpatient treatment 1. Right extremity cellulitis -Admit to inpatient -Received Vanc 1gm at 20:00 in ED (05/20) -Will continue Vanc 1gm q24 hours for gram+ and MRSA coverage -Received Clindamycin 600mg in ED at 20:00 (05/20) -Plan to start Zosyn IV 2.25g q6hrs for pseudomonal and gram - coverage -Will continue Ertapenem IV 500mg q24hrs regimen as previously started on by Dr. Delong from last hospital discharge for UTI; will consult Dr. Delong in a.m. for further assistance with abx management -Will consult orthopedic surgery in a.m. for assistance in determining further imaging vs. surgical management -Most likely cellulitis, but due to h/o of RLE surgery and immobility will order RLE Doppler to r/o DVT 2. CKD stage 4 -At baseline based on prior labs -Will renally dose medications as appropriate 3. DM -Recent a1c 4.4, not on medications at home -Glucose 161 on admission -Started on mild sliding scale and bedside glucose checks in setting of acute infection 4. Hyponatremia, chronic -Alert and oriented x4 -Baseline Na typically 120s-low 130s -Will monitor here and give gentle fluids -Outpatient work-up recommended 5. Normocytic Anemia -Chronic -Will continue home ferrous sulfate and recommend further work-up outpatient 6. Urinary retention, chronic -Will continue home Tamsulosin 0.4 mg, po daily -Monitor I/O and bladder scan/straight cath PRN 7. HTN -Continue home Amlodipine 10mg po, daily -HCTZ-Lisinopril 20-25mg, po BID 8. Severe aortic stenosis -Asymptomatic at this time 9. dCHF -Home lasix DVT ppx: Lovenox 30mg SC GI ppx: Famotidine 20mg (home medication) FMR H&P: Upper Level - Pertinent history 72 yo HF with PMHx dCHF, DM, HTN, aortic stenosis, urinary retention, CKD stage 4 and recurrent difficult to treat infections here with RLE pain 2/2 cellulitis and concern for osteomyelitis - Pertinent findings Gen: awake, alert and oriented x3 HEENT: EOMI, conjunctiva non-injected CV: RRR, harsh 4/6 systolic murmur that radiates to carotids BL RESP: CTAB with diminished breath sounds in BL bases ABD: soft, nontender, nondistended, bowel sounds present, superficial bruising in LLQ Ext: RLE with 2+ pitting edema to knee, area of ulceration R heel, scattered ulcerations on odonnell and posterior calf. Large area of erythema on R hip, no area of fluctuance but exquisitely tender to palpation. RUE with diffuse bruising in forearm. BACK: Stage 1 sacral ulcer and excoriation on R buttock without surrounding erythema - Plan Date/Time: 05/20/182238 I, Denisse Mack MD, PGY-3, have evaluated this patient and agree with findings/ plan as outlined by advisory intern resident. Pertinent changes/additions are listed here. 1.R hip cellulitis with concern for underlying osteomyelitis: Will check ESR. Formal xray read pending. Will start on vanc and zosyn. Will consult orthopedic surgery and Dr. Delong in a.m. 2.MDR E. Coli UTI: On Ertapenem per Dr. Delong. Will consult him in the a.m. and add pseudomonal coverage as above. Patient can take home cranberry tablets. 3.T2DM: Well-controlled, recent a1c 4.4 on 05/12/18. ACHS accuchecks and mild SSI. Not on any home meds 4.HTN: Home amlodipine and lisinopril-hctz 5.dCHF: BNP lower than baseline and asymptomatic. Likely chronically elevated 2/ 2 CKD Stage IV. Recent ECHO in 12/2017 showed EF 60-65%. Home Lasix. 6.Severe aortic stenosis: Asymptomatic 7.Urinary retention: Monitor I/O. PRN straight cath and bladder scans. Home Flomax. 8.CKD Stage IV: Renally dose medications 9.Hyponatremia: Chronic. Acutely worsened likely 2/2 decreased PO intake. Gentle IV fluids as above and will continue to monitor with max correction 10 mmol/L in 24 hours. PPX: Lovenox and home famotidine Attending Addendum - Attending Addendum Date/Time: 05/20/182038 I personally evaluated the patient and discussed the management with Dr. Mack and Dr. Reeves I agree with the History, Examination, Assessment and Plan documented above with any addition or exceptions noted below. 72 yo female with past history of right ORIF of femur along with surgical site infection presents with cellulitis and possible abscess. Hardware still in place. Risk factors for MRSA and pseudomonas. Coverage for both started. Unsure if osteo involved to pelvis or leg. ESR pending. Sindi to be consulted in AM for antimicrobial coverage due to history of resistant pathogens. Currently undergoing treatment of ESBL E. coli UTI. Blood cultures negative that hospital stay. Repeated to make sure not bacteremic causing seeding. Not as likely due to cellulitic changes. Will sono indurated area along with rule out DVT. Patient to have close follow up. Multiple other medical problems complicating current issues as well. Swetha
[2018-05-20] MEDS: Lactated Ringer's 1,000 ML IV SCH (23:20)
[2018-05-21] MEDS: Piperacillin/Tazobactam 2.25 GM in Sodium Chloride 0.9% 100 ML IVPB SCH ×5 (01:41→20:45)
[2018-05-21 04:39] LABS: #Eosinphils 0.3 thou/uL (0.0-0.7); #Lymphocytes 0.9 thou/uL (1.20-3.40); #Monocytes 0.7 thou/uL (0.11-0.59); #Neutrophils 5.6 thou/uL (1.40-6.50); %Basophils 0.5 % (0.0-1.0); %Eosinophils 3.4 % (0.0-10.0); %Lymphocytes 11.5 % (21.0-51.0); %Monocytes 9.3 % (0.0-10.0); %Neutrophils 75.4 % (42.0-75.0); Hemoglobin 8.7 g/dL (12.0-16.0); Mean Corpuscular Hemoglobin 33.4 pg (27.0-31.0); Mean Corpuscular Volume 95.4 fL (78.0-98.0); Mean Platelet Volume 5.9 fL (7.4-10.4); Platelet Count 321 thou/uL (130-400); RBC Distribution Width 12.8 % (11.5-14.5); Red Blood Cell (RBC) Count 2.61 mill/uL (4.20-5.40); White Blood Cell (WBC) Count 7.5 thou/uL (4.8-10.8)
[2018-05-21 05:17] LABS: Anion Gap 14 mmol/L (10-20); BUN (Urea Nitrogen) 50 mg/dL (9.8-20.1); Calc. Creatinine Clearance 24 mL/min (70-130); Calcium 8.2 mg/dL (7.8-10.44); Carbon Dioxide 18 mmol/L (23-31); Chloride 100 mmol/L (98-107); Estimated GFR-MDRD 23; Glucose 104 mg/dL (80-115); Potassium 4.8 mmol/L (3.5-5.1); Sodium 127 mmol/L (136-145)
[2018-05-21] MEDS: HYDROcodone/Acetaminophen 5/325 mg Tablet PO PRN (05:21)
--- NOTE | 2018-05-21 06:26 | PDOC.FM ---
- Subjective Subjective: 72 yo female seen this AM. [employer] phone is used for communication. Patient states her pain is improved. She states that she has no longer had any urinary complaints. She denies n/v/d, fevers, chills. She does state that her leg gives her pain. She notes that the erythema and warmth have increased over the last 2 weeks. She denies any other complaints this morning. - Objective Vital Signs & Weight: Vital Signs (12 hours) Temp Pulse Resp BP BP Pulse Ox 05/21/18 05:31 98.2 F 84 18 117/64 92 L 05/20/18 23:00 97.9 F 81 18 95 05/20/18 20:55 97.9 F 81 18 137/80 137/80 95 Weight Weight 63.82 kg I&O: 05/19/18 05/20/18 05/21/18 06:59 06:59 06:59 Intake Total 1200 Balance 1200 Result Diagrams: 05/21/18 04:04 05/21/18 04:04 <Jarrett Paiz - Last Filed: 05/21/18 08:12> - Objective Vital Signs & Weight: Vital Signs (12 hours) Temp Pulse Resp BP Pulse Ox 05/21/18 11:39 98.0 F 78 18 98/59 L 96 05/21/18 08:00 98.2 F 83 20 95 05/21/18 07:41 98.2 F 83 20 111/61 95 05/21/18 05:31 98.2 F 84 18 117/64 92 L Weight Admit Weight 63.82 kg Weight 63.82 kg I&O: 05/20/18 05/21/18 05/22/18 06:59 06:59 06:59 Intake Total 1200 Balance 1200 Result Diagrams: 05/21/18 04:04 05/21/18 04:04 <Kd Balbuena - Last Filed: 05/21/18 12:01> Phys Exam - Physical Examination Constitutional: NAD HEENT: PERRLA, moist MMs Neck: no nodes Respiratory: no wheezing, clear to auscultation bilateral Cardiovascular: RRR 4/6 systolic murmur present Gastrointestinal: soft, non-tender, no distention, positive bowel sounds Musculoskeletal: pulses present, edema present 2+ bilaterally Neurological: non-focal, moves all 4 limbs Lymphatic: no nodes Psychiatric: normal affect, A&O x 3 Skin: no rash Deviation from normal: Erythema within outline markings over RLE/right hip region <Jarrett Paiz - Last Filed: 05/21/18 08:12> Dx/Plan (1) Cellulitis Code(s): L03.90 - CELLULITIS, UNSPECIFIED Status: Acute QualifierTitle: Site of cellulitis: extremity Laterality: right (2) History of femur fracture Code(s): Z87.81 - PERSONAL HISTORY OF (HEALED) TRAUMATIC FRACTURE Status: Acute (3) History of fracture of tibia Code(s): Z87.81 - PERSONAL HISTORY OF (HEALED) TRAUMATIC FRACTURE Status: Acute (4) CKD (chronic kidney disease) stage 4, GFR 15-29 ml/min Code(s): N18.4 - CHRONIC KIDNEY DISEASE, STAGE 4 (SEVERE) Status: Chronic (5) Diabetes Code(s): E11.9 - TYPE 2 DIABETES MELLITUS WITHOUT COMPLICATIONS Status: Acute (6) CHF (congestive heart failure) Code(s): I50.9 - HEART FAILURE, UNSPECIFIED Status: Chronic (7) Hypertension Code(s): I10 - ESSENTIAL (PRIMARY) HYPERTENSION Status: Chronic (8) UTI (urinary tract infection) Status: Acute (9) Hyponatremia Code(s): E87.1 - HYPO-OSMOLALITY AND HYPONATREMIA Status: Chronic (10) Aortic stenosis Code(s): I35.0 - NONRHEUMATIC AORTIC (VALVE) STENOSIS Status: Chronic QualifierTitle: Cardiac valve disease etiology: etiology unspecified Qualified Code(s): I35.0 - Nonrheumatic aortic (valve) stenosis (11) Urinary retention Code(s): R33.9 - RETENTION OF URINE, UNSPECIFIED Status: Acute - Plan Plan: 1. Right extremity cellulitis with extensive fracture repair on Right lower extremity - Received Vanc 1gm at 20:00 in ED (05/20) - Will continue Vanc 1gm q24 hours for gram+ and MRSA coverage - Received Clindamycin 600mg in ED at 20:00 (05/20) - Zosyn IV 2.25g q6hrs for pseudomonal and gram - coverage - Will continue Ertapenem IV 500mg q24hrs regimen as previously started on by Dr. Delong from last hospital discharge for UTI - Will consult orthopedic surgery in a.m. for assistance in determining further imaging vs. surgical management - Will await doppler results to rule out DVT 2. CKD stage 4 - At baseline based on prior labs - Will renally dose medications as appropriate 3. DM - Recent a1c 4.4, not on medications at home - Glucose 161 on admission - Started on mild sliding scale - accuchecks 4. Hyponatremia, chronic - Alert and oriented x4 - Baseline Na typically 120s-low 130s - Outpatient work-up recommended 5. Normocytic Anemia - Chronic - Will continue home ferrous sulfate and recommend further work-up outpatient 6. Urinary retention, chronic - Will continue home Tamsulosin 0.4 mg, po daily - Monitor I/O and bladder scan/straight cath PRN 7. HTN - Continue home Amlodipine 10mg po, daily - HCTZ-Lisinopril 20-25mg, po BID - BP at goal 8. Severe aortic stenosis - Asymptomatic at this time 9. dCHF - Home lasix Disposition: Stable, will await Ortho and ID recommendations. <Jarrett Paiz - Last Filed: 05/21/18 08:12> Attending Addendum - Attending Addendum Date/Time: 05/21/18 2288 I personally evaluated the patient and discussed the management with Dr. Paiz. I agree with the History, Examination, Assessment and Plan documented above with any addition or exceptions noted below. Patient admitted for cellulitis overlying a previous hip repair with instrumentation, and there is evidence of bone lucency versus destruction on XR. Ortho has been consulted and will evaluate to see if there is concern for deeper seeded infection. Continue Vanc and Ertapenem, of which she is continuing for her UTI that was started by ID. Dr. Delong has been consulted. Wound care is on board. Her other chronic medical problems are stable and will continue treatment as needed. <Kd Balbuena - Last Filed: 05/21/18 12:01>
[2018-05-21] MEDS: Famotidine 20 MG TAB PO SCH (09:18)
[2018-05-21] MEDS: Enoxaparin Sodium 30 MG/0.3 ML SYRINGE SC SCH (09:18)
[2018-05-21] MEDS: Lactated Ringer's 1,000 ML IV SCH ×2 (09:45→18:17)
--- NOTE | 2018-05-21 11:15 | ULT ---
VENOUS DUPLEX SONOGRAM RIGHT LOWER EXTREMITY: History: Right leg pain and edema. FINDINGS: The right common femoral vein and greater saphenous junction were evaluated along with the femoral, d eep femoral, popliteal, and posterior tibial veins. There is good color and spectral doppler flow, co mpression, and augmentation. At the right groin, lateral to the common femoral vasculature, a complex fluid collection with internal septation measures up to 4.5 cm length x 2.5 cm depth. Along the lateral aspect of the region of pain and swelling, a very large slightly complex fluid ezekiel ection is larger than able to be measured on sonogram, at least 12.0 cm in length. IMPRESSION: 1. No sonographic evidence of DVT right lower extremity. 2. Complex fluid collections at the lateral aspect of the right groin and right thigh. Clinical corre lation regarding other signs and symptoms of hematoma versus infection/abscess is required. If clinic ally necessary, MRI could further characterize and localize the fluid collections. POS: MACO
--- NOTE | 2018-05-21 12:56 | EKG ---
Test Reason : Blood Pressure : / mmHG Vent. Rate : 074 BPM Atrial Rate : 074 BPM P-R Int : 170 ms QRS Dur : 078 ms QT Int : 402 ms P-R-T Axes : 041 -15 037 degrees QTc Int : 446 ms Normal sinus rhythm Normal ECG Confirmed by LUZ VALENTINO ([id number]) on 05/21/2018 12:56:34 PM Referred By: VERNA Confirmed By:LUZ VALENTINO
--- NOTE | 2018-05-21 18:37 | MRI ---
MRI RIGHT HIP WITHOUT CONTRAST 05/21/18 INDICATION: Concern for redness and swelling of the right hip and infection. FINDINGS: There is a prominent subcutaneous fluid collection overlying the lateral aspect of the right hip kenneth uring 9.2 x 14.8 cm which may reflect a large hematoma as there is a fluid-fluid level within it. Alt ernatively an infection cannot be entirely excluded. Hematoma however, is favored. There is a small c omponent of fluid collection adjacent to the proximal femur measuring approximately 10.5 x 3 cm. ther e is susceptibility artifact from patient's right total hip prosthesis. There is extensive atrophy of the hip girdle musculature. There are enlarged lymph nodes within the right inguinal region as well as adjacent to the right external iliac chain. IMPRESSION: 1. Large proximal periosseous fluid collection adjacent to the lateral proximal right femur. Ad ditional large overlying subcutaneous fluid collection, lateral to the proximal right femur. There i s fluid-fluid level seen within this subcutaneous collection with layered material that is slightly m ore hyperdense seen on the T1 weighted images suspicious for changes of a large hematoma. Superimpose d infection cannot be excluded. 2. Likely reactive lymphadenopathy of the right inguinal region. 3. Extensive muscular atrophy of the right hip girdle musculature. POS: BH
--- NOTE | 2018-05-21 18:46 | CON ---
DATE OF CONSULTATION: 05/21/2018 CHIEF COMPLAINT: Right hip pain. HISTORY OF PRESENT ILLNESS: Ms. Manzo is here in the hospital for cellulitis of her right leg. She has a long complex history regarding her right leg. She has had multiple surgeries in [place] and formerly [facility] with Dr. Bedolla. She has had reconstruction of her hip with a tot al hip arthroplasty. She also appears to have a femoral plate for fracture and a total knee arthropl asty. She has chronic wounds of the lower extremity. She is in very poor health with multiple medic al problems including diabetes, congestive heart failure, hypertension, and chronic kidney disease, s evere aortic stenosis, and others. She is essentially bed bound and does not ambulate. She was admi tted to [facility] recently with a multidrug resistant bacterial urinary tract infection and sepsis. She was discharged on antibiotics through her dialysis. She presented again yesterday with worsening cellulitis of the right hip with increasing pain. Orthopedics was consulted for this find ing. She reports that she began having swelling and pain in the hip and worsening symptoms 4 days ag o. She denies fevers. She denies having infection in her hip or right lower extremity in the past, although full history is extensive and unavailable. PAST MEDICAL HISTORY: Hypertension, diabetes, chronic kidney disease, anemia, heart failure, hyponat remia, urinary retention, aortic stenosis. PAST SURGICAL HISTORY: Multiple right lower extremity surgeries including femur fracture fixation, t otal hip arthroplasty with revision, total knee arthroplasty and right shoulder surgery. FAMILY MEDICAL HISTORY: Diabetes. SOCIAL HISTORY: The patient denies tobacco, alcohol, or drug use. REVIEW OF SYSTEMS: Positive for right hip pain. PHYSICAL EXAMINATION: VITAL SIGNS: Temperature is 98.0, pulse is 78, respiratory rate is 18, oxygen saturation 96%, blood pressure 98/59. GENERAL: She is alert and oriented, in no apparent distress, sitting upright. HEENT: Normocephalic, atraumatic. RESPIRATORY: Breathing comfortably. ABDOMEN: Soft and nontender. MUSCULOSKELETAL: The patient's right lower extremity has erythema and warmth about her lateral hip a t her previous surgical site. There is some weeping and drainage. There is no obvious gross purulen ce. The incisions around her knee appear benign without any erythema. Motion of the hip causes knee and hip pain. She has an equinus contracture of the foot and does not appear to be ambulatory. She has atrophy of her musculature. IMAGES: An x-ray of the right femur reveals a constrained liner total hip arthroplasty with signific ant lucency around the acetabular cup. She has a plate along the lateral cortex of the femur consist ent with previous fracture fixation and a total knee arthroplasty. IMPRESSION: An elderly female with multiple severe medical problems in poor health with recent urina ry tract infection and now possibly a hematogenously seeded infection in the right total hip arthropl asty. She has overlying cellulitis. PLAN: At this point, I would like to obtain a CT scan of the patient's right hip to better evaluate for fluid collection or abscess. I think she likely has a deep infection. We will evaluate the CT s can and then proceed as needed. It is likely she will need an irrigation and debridement procedure o f her hip. This will be a very difficult infection to clear and she will likely need long-term chron ic suppressive therapy if she does infect or have an infection around her metallic implants. I will let Dr. Bedolla know she is in the hospital and she can continue care with him as an outpatient. She sh ould be n.p.o. at midnight. We will continue to have discussions with her along the way for treatmen t plan. She is on antibiotics for now.
[2018-05-21] MEDS: Vancomycin HCl 1 GM in Premix Bag 1 BAG IVPB SCH (21:56)
[2018-05-22] MEDS: HYDROcodone/Acetaminophen 5/325 mg Tablet PO PRN ×2 (00:15→04:33)
--- NOTE | 2018-05-22 01:28 | CON ---
DATE OF CONSULTATION: 05/21/2018 REASON FOR CONSULTATION: Right thigh inflammatory process. HISTORY OF PRESENT ILLNESS: A 72-year-old patient, whom I had seen just a few days ago, in the beginning of May, when she presented with a history of hypertension and type 2 diabetes, diastolic heart failure, renal insufficiency, and severe aortic stenosis. She had been recommended a heart catheterization, but this was postponed because of elevated creatinine. She also had an element of urinary retention with an ESBL E. coli. This time she developed worsening weakness, some dyspnea, and pain in the lower back region. She had some fever. The assessment then was type 2 diabetes, renal insufficiency, and a question of urinary retention. She was recommended treatment with meropenem, adjusted for renal function. Because of her renal function, meropenem was going to be administered once daily via peripheral IV access to try to avoid placement of a Calderón catheter. Yesterday, the nurse in the outpatient oncology infusion area noticed swelling of the lower extremities. She transferred the patient to the emergency room, and the patient was evaluated by Family Medicine Service and there was obvious swelling and redness around this previous femoral surgical scar site, right side, which was a new development. No headaches, some dyspnea, no cough, no chest pain, no abdominal pain. She still has some urinary output. No diarrhea. PAST MEDICAL HISTORY: Includes type 2 diabetes; hypertension; diastolic CHF, EF 50%-55%; aortic stenosis; severe renal insufficiency, stage 4-5; nephrolithiasis; fracture of right femur, which was repaired in [facility] by Dr. Bedolla; fracture in the right shoulder area. PAST SURGICAL HISTORY: Hip replacement, right shoulder replacement. ALLERGIES: None. SOCIAL HISTORY: Nonsmoker. FAMILY HISTORY: Type 2 diabetes. CURRENT MEDICATIONS: [place], dextrose, Pepcid, glucagon, insulin, lactated ringer's Zosyn, and vancomycin. PHYSICAL EXAMINATION: VITAL SIGNS: T-max 98.2, blood pressure 98/59, pulse 78, respirations 18, O2 sat 94%-96%. SKIN EXAM: Shows the area in the right leg, anterior aspect, with round, very shallow, benign-appearing ulcerations. There is an area of ulceration with necrotic eschar in the lateral aspect of the right distal forefoot, and this area of more prominent erythema and szymipgt-ya-efyxve tenderness in the right lateral thigh, extending for about 25 cm. The erythema is placed right around the previous surgical incision. There is no dehiscence or drainage noticeable. The patient has peripheral IV access. No Eason catheter. No lymphadenopathy. HEENT: Ocular movements conjugate. Oral cavity moist. NECK: Supple. LUNGS: Symmetric clear breath sounds. Soft aortic murmur about 2/6. HEART: Regular rate. ABDOMEN: Soft, not distended or tender. No ascites. No bladder distention. EXTREMITIES: Pulses are 1+ in dorsalis pedis. She cannot move the feet, particularly the right one. The right foot is limp. This is a chronic finding. NEUROLOGIC: Cognitive function appears to be intact. LABORATORY DATA: White cell count is 9.2 and now 7.5, hemoglobin 8.7, platelets 221 and creatinine 2.16, GFR 23 with normal liver profile. A lower extremity MRI has been completed. We do not have yet interpretation. I was able to look at the images. There appears to be a fluid collection that is causing this bulging and tenderness in the right thigh. We are waiting for the interpretation from the radiologist to see what is the connection of that fluid collection and if there is any underlying relationship to the fracture site and the hardware. Two sets of blood cultures thus far no growth. ASSESSMENT: 1. Severe aortic stenosis. 2. Type 2 diabetes. 3. Neurogenic bladder with ESBL Escherichia coli, some urinary retention, which had been treated with IV meropenem in the outpatient setting. 4. Renal insufficiency, stage 4. 5. Now inflammatory process in the right thigh with what appears to be a fluid collection, possible abscess, but still waiting on the interpretation by the radiologist. If that is confirmed, then I would recommend a percutaneous aspirate, maybe CT or ultrasound-guided and submission of the specimen for cell count, routine AFB and fungal cultures. If this area is closely associated with the underlying fracture and hardware, then may have to consider the possibility of osteomyelitis and infection of the hardware. In that case, she might need surgical exploration which would have to be performed by the original surgeon that performed the ORIF. ANA
[2018-05-22] MEDS: Piperacillin/Tazobactam 2.25 GM in Sodium Chloride 0.9% 100 ML IVPB SCH ×4 (01:56→20:22)
[2018-05-22] MEDS: Lactated Ringer's 1,000 ML IV SCH ×2 (05:03→16:29)
[2018-05-22 05:46] LABS: #Eosinphils 0.5 thou/uL (0.0-0.7); #Lymphocytes 1.7 thou/uL (1.20-3.40); #Monocytes 0.9 thou/uL (0.11-0.59); %Basophils 0.5 % (0.0-1.0); %Eosinophils 5.7 % (0.0-10.0); %Lymphocytes 20.9 % (21.0-51.0); %Monocytes 10.6 % (0.0-10.0); %Neutrophils 62.3 % (42.0-75.0); Hemoglobin 8.7 g/dL (12.0-16.0); Mean Corpuscular Hemoglobin 32.5 pg (27.0-31.0); Mean Corpuscular Volume 95.6 fL (78.0-98.0); Mean Platelet Volume 5.9 fL (7.4-10.4); Platelet Count 384 thou/uL (130-400); RBC Distribution Width 12.7 % (11.5-14.5); Red Blood Cell (RBC) Count 2.67 mill/uL (4.20-5.40)
[2018-05-22 05:56] LABS: Anion Gap 13 mmol/L (10-20); BUN (Urea Nitrogen) 45 mg/dL (9.8-20.1); Calc. Creatinine Clearance 23 mL/min (70-130); Calcium 8.3 mg/dL (7.8-10.44); Carbon Dioxide 20 mmol/L (23-31); Chloride 103 mmol/L (98-107); Estimated GFR-MDRD 21; Glucose 76 mg/dL (80-115); Potassium 4.8 mmol/L (3.5-5.1); Sodium 131 mmol/L (136-145)
--- NOTE | 2018-05-22 06:14 | PDOC.FM ---
- Subjective Subjective: 72 yo female seen this AM. [employer] phone used for communication. Patient states pain is improved. She denies fevers, chills, n/v/d. She is preparing for surgery today. She states no other complaints this morning. - Objective Vital Signs & Weight: Vital Signs (12 hours) Temp Pulse Resp BP Pulse Ox 05/21/18 20:00 98.4 F 82 16 95 05/21/18 19:33 98.4 F 82 16 127/71 95 Weight Admit Weight 63.82 kg Weight 63.82 kg I&O: 05/20/18 05/21/18 05/22/18 06:59 06:59 06:59 Intake Total 1200 840 Balance 1200 840 Result Diagrams: 05/22/18 04:42 05/22/18 04:42 <Jarrett Paiz - Last Filed: 05/22/18 08:38> - Objective Vital Signs & Weight: Vital Signs (12 hours) Temp Pulse Resp BP Pulse Ox 05/22/18 08:00 98.0 F 73 16 05/22/18 07:13 98.0 F 73 16 118/65 94 L Weight Admit Weight 63.82 kg Weight 63.82 kg I&O: 05/21/18 05/22/18 05/23/18 06:59 06:59 06:59 Intake Total 1200 1590 Balance 1200 1590 Result Diagrams: 05/22/18 04:42 05/22/18 04:42 <Kd Balbuena - Last Filed: 05/22/18 13:14> Phys Exam - Physical Examination Constitutional: NAD HEENT: PERRLA, moist MMs Neck: no nodes Respiratory: no wheezing, clear to auscultation bilateral Cardiovascular: RRR 4/6 systolic murmur noted c/w Aortic stenosis Gastrointestinal: soft, non-tender, no distention, positive bowel sounds Musculoskeletal: pulses present, edema present Neurological: non-focal Lymphatic: no nodes Psychiatric: normal affect Skin: no rash Deviation from normal: Erythema and induration surrounding old surgical scar on right hip and thig <Jarrett Paiz - Last Filed: 05/22/18 08:38> Dx/Plan (1) Infection/inflammation-internal ortho device Code(s): T84.7XXA - INFECT/INFLM REACT DUE TO OTH INT ORTH PROSTH DEV/GRFT, INIT Status: Acute (2) Cellulitis Code(s): L03.90 - CELLULITIS, UNSPECIFIED Status: Acute QualifierTitle: Site of cellulitis: extremity Laterality: right (3) History of femur fracture Code(s): Z87.81 - PERSONAL HISTORY OF (HEALED) TRAUMATIC FRACTURE Status: Acute (4) History of fracture of tibia Code(s): Z87.81 - PERSONAL HISTORY OF (HEALED) TRAUMATIC FRACTURE Status: Acute (5) CKD (chronic kidney disease) stage 4, GFR 15-29 ml/min Code(s): N18.4 - CHRONIC KIDNEY DISEASE, STAGE 4 (SEVERE) Status: Chronic (6) Diabetes Code(s): E11.9 - TYPE 2 DIABETES MELLITUS WITHOUT COMPLICATIONS Status: Chronic (7) CHF (congestive heart failure) Code(s): I50.9 - HEART FAILURE, UNSPECIFIED Status: Chronic (8) Hypertension Code(s): I10 - ESSENTIAL (PRIMARY) HYPERTENSION Status: Chronic (9) UTI (urinary tract infection) Status: Acute (10) Hyponatremia Code(s): E87.1 - HYPO-OSMOLALITY AND HYPONATREMIA Status: Chronic (11) Aortic stenosis Code(s): I35.0 - NONRHEUMATIC AORTIC (VALVE) STENOSIS Status: Chronic QualifierTitle: Cardiac valve disease etiology: etiology unspecified Qualified Code(s): I35.0 - Nonrheumatic aortic (valve) stenosis (12) Urinary retention Code(s): R33.9 - RETENTION OF URINE, UNSPECIFIED Status: Acute - Plan Plan: 1. Right extremity cellulitis with extensive fracture repair on Right lower extremity - Received Vanc 1gm at 20:00 in ED (05/20) - Will continue Vanc 1gm q24 hours for gram+ and MRSA coverage - Received Clindamycin 600mg in ED at 20:00 (05/20) - Zosyn IV 2.25g q6hrs for pseudomonal and gram - coverage - Ortho consulted, appreciate recs - MRI shows extensive fluid collection adjacent to femur - Scheduled for surgery today with Dr. Youngblood - Doppler negative for DVT 2. CKD stage 4 - At baseline based on prior labs - Will renally dose medications as appropriate 3. DM - Recent a1c 4.4, not on medications at home - Glucose 161 on admission - Started on mild sliding scale - accuchecks 4. Hyponatremia, chronic - Alert and oriented x4 - Baseline Na typically 120s-low 130s - Outpatient work-up recommended 5. Normocytic Anemia - Chronic - Will continue home ferrous sulfate and recommend further work-up outpatient 6. Urinary retention, chronic - Will continue home Tamsulosin 0.4 mg, po daily - Monitor I/O and bladder scan/straight cath PRN - Continue antibiotic coverage for resistant UTI 7. HTN - Continue home Amlodipine 10mg po, daily - HCTZ-Lisinopril 20-25mg, po BID - BP at goal 8. Severe aortic stenosis - Asymptomatic at this time 9. dCHF - Home lasix Disposition: Stable, will await results from surgery today. <Jarrett Paiz - Last Filed: 05/22/18 08:38> Attending Addendum - Attending Addendum Date/Time: 05/22/18 1313 I personally evaluated the patient and discussed the management with Dr. Paiz. I agree with the History, Examination, Assessment and Plan documented above with any addition or exceptions noted below. Patient pain controlled currently. U/S and MRI show large fluid collections near the femur and hip, going for I&D with Ortho today. Continue Vanc, Zosyn for cellulitis and treatment of previously diagnosed UTI. ID on board. Contact precautions due to presence of MDR organisms. <Kd Balbuena - Last Filed: 05/22/18 13:14>
[2018-05-22] MEDS: Enoxaparin Sodium 30 MG/0.3 ML SYRINGE SC SCH (08:00)
[2018-05-22] MEDS: Famotidine 20 MG TAB PO SCH (08:00)
[2018-05-22] MEDS ORDERED: Succinylcholine Chloride 20 MG/ML 10 ml SYRINGE FS ONE (14:35)
[2018-05-22] MEDS ORDERED: Ondansetron HCl/PF 4 MG/2 ML Vial ONE (14:35)
[2018-05-22] MEDS ORDERED: PHENYLEPHRINE-NS 100 MCG/ML 10 ML SYRINGE ONE (14:35)
[2018-05-22] MEDS ORDERED: PROPOFOL 200 MG/20 ML VIAL ONE (14:35)
[2018-05-22] MEDS ORDERED: Dexamethasone 20 MG/5 ML VIAL ONE (14:35)
[2018-05-22] MEDS ORDERED: ePHEDrine/0.9% NaCl/PF SYRINGE 50 mg/10 ml ONE (14:35)
[2018-05-22] MEDS ORDERED: Neomycin-Polymyxin 1 ML AMP ONE (15:36)
[2018-05-22] MEDS ORDERED: Tobramycin Sulfate 1.2 GM VIAL ONE (16:37)
[2018-05-22] MEDS ORDERED: Sodium Chloride 0.9% 0 ML ONE (16:51)
[2018-05-22] MEDS ORDERED: Sterile Water 0 ML ONE (16:52)
[2018-05-22] MEDS ORDERED: Promethazine HCl 25 MG/ML VIAL IM PRN (17:40)
[2018-05-22] MEDS ORDERED: Ondansetron HCl/PF 4 MG/2 ML Vial IVP PRN (17:40)
[2018-05-22] MEDS ORDERED: Promethazine HCl 25 MG/ML VIAL SLOW IVP PRN (17:40)
[2018-05-22] MEDS: Vancomycin HCl 1 GM in Premix Bag 1 BAG IVPB SCH (22:23)
--- NOTE | 2018-05-23 00:23 | OP ---
DATE OF PROCEDURE: 05/22/2018 PREOPERATIVE DIAGNOSIS: Right hip septic bursitis with possible septic periprosthetic arthritis. POSTOPERATIVE DIAGNOSIS: Right hip septic extrafascial bursitis, suspected organism E. coli. SURGEON: Manny Youngblood M.D. [employer] PRO: Tawanda Roberts PA-C ANESTHESIA: General via endotracheal tube. SPECIMENS: A 60 mL of serous yellow fluid with minimal purulence aspirated off right hip trochanteri c bursal region extrafascial in nature. DRAINS: Hemovac x1. COMPLICATIONS: None. INDICATIONS FOR SURGERY: Michelle is a 72-year-old white female who has had progressive swelling over th e right lateral thigh for the last 3-4 days. She was admitted by the Family Medicine Team and our se rvice was consulted for an inflammation and swelling. Patient has a significant history of renal ins ufficiency, diabetes type 2 and I believe a urinary tract infection, which is recurrent in nature fro m Escherichia coli. She has had significant past surgical history, which has been a revision right t otal hip arthroplasty with a periprosthetic fracture treated by open reduction internal fixation by Antonio Bedolla and I believe she has had revision right total knee as well. She has been stable for the las t 5 years as far as her orthopedic revisions and surgeries have gone and she has not had any problems . More recently, she developed some fevers, swelling in the right hip, was admitted to the hospital. Our service was consulted for this. PROCEDURE IN DETAIL: After informed consent was obtained in the preoperative holding area, the patie carlos enrique was taken to the operative suite where she received preoperative antibiotics. General anesthesia was induced. Endotracheal tube was placed and secured. Once adequate level of anesthesia was obtain ed, she was positioned appropriately in the left lateral decubitus position. The right lower extremi ty was then prepped and draped in usual sterile fashion. Prior to incision, a timeout was called and all members of surgical team agreed upon site, surgeon, and patient. Once this was completed, we pr oceeded first with an 18 gauge needle aspiration of the apex of the inflammatory area, which is larry cated directly over the patient's prior incisions. It was fluctuant to the touch and erythema surrou nding this. We will aspirate approximately 100 mL of serous purulent yellow fluid. After this was c ompleted, we then used a 10 blade to incise down through the skin. We also sharply dissected straigh t down to the cavity and Bovie electrocautery was used to control local bleeding. We further excised and opened the cavity for exploration and digital probing. The entire cavity was then copiously irr igated with pulsatile lavage normal saline. I was not able to find a tract leading through the subfa scial layer and apparently the iliotibial band appeared to be unmolested and intact. There was no dr montoya through this. To ensure, there was not deeper loculation, we then used a clean 18-gauge inch and half needle to aspirate down to the joint. We did not encounter any loculations or fluid accumul ations with this process. Therefore, we continued to copiously irrigate and probe the cavity and aga in finding no communication of the deeper structures. We then went ahead and placed a Hemovac drain along the periphery of the cavity, which measured approximately 15 x 20 cm in length and breath. Onc e the drain was placed, we then used a single layer closure of #1 PDS in a trauma stitch style; closu re with interrupted simple stitches in between with 0 PDS. Sterile dressing was applied. Procedure was terminated without any complication. The patient was extubated in the operative suite and taken to recovery room in stable condition. We will continue to follow her, primarily her ability to stand , walk and ambulate with or without pain will be certainly our next milestone, but at this point, the lesion appeared to be primarily extrafascial in nature. We will continue to follow.
[2018-05-23] MEDS: Lactated Ringer's 1,000 ML IV SCH (01:03)
[2018-05-23] MEDS: Piperacillin/Tazobactam 2.25 GM in Sodium Chloride 0.9% 100 ML IVPB SCH ×4 (02:42→21:05)
[2018-05-23 04:37] LABS: Anion Gap 14 mmol/L (10-20); BUN (Urea Nitrogen) 44 mg/dL (9.8-20.1); Calc. Creatinine Clearance 22 mL/min (70-130); Calcium 8.3 mg/dL (7.8-10.44); Carbon Dioxide 17 mmol/L (23-31); Chloride 105 mmol/L (98-107); Estimated GFR-MDRD 20; Glucose 272 mg/dL (80-115); Potassium 5.2 mmol/L (3.5-5.1); Sodium 131 mmol/L (136-145)
--- NOTE | 2018-05-23 06:32 | PDOC.FM ---
- Subjective Subjective: 72 yo female seen this AM. [employer] phone used during interview. Patient is up and eating breakfast at time of interview. She states pain is improved. She denies chest pain, sob, n/v/d, fevers, or chills. She states that her leg doesn' t have much pain and feels improved. No other complaints this morning. - Objective Vital Signs & Weight: Vital Signs (12 hours) Temp Pulse Resp BP Pulse Ox 05/23/18 05:17 97.9 F 92 16 130/71 100 05/23/18 03:01 94 117/58 L 96 05/23/18 00:48 98 F 94 16 119/65 96 05/23/18 00:25 93 115/66 96 05/22/18 23:25 95 117/55 L 05/22/18 21:25 93 118/62 96 05/22/18 20:05 97.9 F 96 16 121/65 97 05/22/18 20:00 97.9 F 96 16 97 05/22/18 19:55 96 134/66 98 05/22/18 19:25 92 126/65 95 Weight Admit Weight 63.82 kg Weight 63.82 kg I&O: 05/21/18 05/22/18 05/23/18 06:59 06:59 06:59 Intake Total 1200 1590 Balance 1200 1590 Result Diagrams: 05/23/18 03:42 05/23/18 03:42 <Jarrett Paiz - Last Filed: 05/23/18 08:41> - Objective Vital Signs & Weight: Vital Signs (12 hours) Temp Pulse Resp BP Pulse Ox 05/23/18 10:34 95 05/23/18 08:20 97.7 F 95 20 150/76 H 94 L 05/23/18 08:00 97.7 F 95 20 98 05/23/18 05:17 97.9 F 92 16 130/71 100 05/23/18 03:01 94 117/58 L 96 05/23/18 00:48 98 F 94 16 119/65 96 05/23/18 00:25 93 115/66 96 Weight Admit Weight 63.82 kg Weight 63.82 kg I&O: 05/22/18 05/23/18 05/24/18 06:59 06:59 06:59 Intake Total 1590 1590 Output Total 50 Balance 1590 1540 Result Diagrams: 05/23/18 03:42 05/23/18 03:42 <Kd Balbuena - Last Filed: 05/23/18 11:43> Phys Exam - Physical Examination Constitutional: NAD HEENT: moist MMs Neck: no nodes Respiratory: no wheezing, clear to auscultation bilateral Cardiovascular: RRR 4/6 murmur noted Gastrointestinal: soft, non-tender, no distention, positive bowel sounds Musculoskeletal: pulses present, edema present RLE > LLE. Drains in place at right hip. Erythema improved Neurological: non-focal Lymphatic: no nodes Psychiatric: normal affect, A&O x 3 Skin: no rash Deviation from normal: erythema improved around right thigh and hip <Jarrett Paiz - Last Filed: 05/23/18 08:41> Dx/Plan (1) Infection/inflammation-internal ortho device Code(s): T84.7XXA - INFECT/INFLM REACT DUE TO OTH INT ORTH PROSTH DEV/GRFT, INIT Status: Acute (2) Cellulitis Code(s): L03.90 - CELLULITIS, UNSPECIFIED Status: Acute QualifierTitle: Site of cellulitis: extremity Laterality: right (3) History of femur fracture Code(s): Z87.81 - PERSONAL HISTORY OF (HEALED) TRAUMATIC FRACTURE Status: Chronic (4) History of fracture of tibia Code(s): Z87.81 - PERSONAL HISTORY OF (HEALED) TRAUMATIC FRACTURE Status: Chronic (5) CKD (chronic kidney disease) stage 4, GFR 15-29 ml/min Code(s): N18.4 - CHRONIC KIDNEY DISEASE, STAGE 4 (SEVERE) Status: Chronic (6) Diabetes Code(s): E11.9 - TYPE 2 DIABETES MELLITUS WITHOUT COMPLICATIONS Status: Chronic (7) CHF (congestive heart failure) Code(s): I50.9 - HEART FAILURE, UNSPECIFIED Status: Chronic (8) Hypertension Code(s): I10 - ESSENTIAL (PRIMARY) HYPERTENSION Status: Chronic (9) UTI (urinary tract infection) Status: Acute (10) Hyponatremia Code(s): E87.1 - HYPO-OSMOLALITY AND HYPONATREMIA Status: Chronic (11) Aortic stenosis Code(s): I35.0 - NONRHEUMATIC AORTIC (VALVE) STENOSIS Status: Chronic QualifierTitle: Cardiac valve disease etiology: etiology unspecified Qualified Code(s): I35.0 - Nonrheumatic aortic (valve) stenosis (12) Urinary retention Code(s): R33.9 - RETENTION OF URINE, UNSPECIFIED Status: Chronic (13) Hyperkalemia Code(s): E87.5 - HYPERKALEMIA Status: Resolved - Plan Plan: 1. Right extremity cellulitis with subcutaneous fluid collection near orthopedic devices - Received Vanc 1gm at 20:00 in ED (05/20) - Will continue Vanc 1gm q24 hours for gram+ and MRSA coverage - Received Clindamycin 600mg in ED at 20:00 (05/20) - Zosyn IV 2.25g q6hrs for pseudomonal and gram - coverage - Ortho consulted, appreciate recs - MRI shows extensive fluid collection adjacent to femur - Dr. Youngblood drained fluid collection and irrigated area. No purulent material. - Cultures pending - Doppler negative for DVT - PT and OT ordered 2. CKD stage 4 - At baseline based on prior labs - Will renal dose medications as appropriate 3. DM - Recent a1c 4.4, not on medications at home - Started on mild sliding scale - accuchecks 4. Hyponatremia, chronic - Alert and oriented x4 - Baseline Na typically 120s-low 130s - Outpatient work-up recommended 5. Normocytic Anemia - Chronic - Will continue home ferrous sulfate and recommend further work-up outpatient 6. Urinary retention, chronic - Will continue home Tamsulosin 0.4 mg, po daily - Monitor I/O and bladder scan/straight cath PRN - Continue antibiotic coverage for resistant UTI 7. HTN - Continue home Amlodipine 10mg po, daily - HCTZ-Lisinopril 20-25mg, po BID - BP at goal 8. Severe aortic stenosis - Asymptomatic at this time 9. dCHF - Home lasix 10. Hyperkalemia - 5.2 this AM - Trend with repeat at 13:00 today - Will make management changes if increased again. Disposition: Stable, will await culture results. <Jarrett Paiz - Last Filed: 05/23/18 08:41> Attending Addendum - Attending Addendum Date/Time: 05/23/18 1142 I personally evaluated the patient and discussed the management with Dr. Paiz. I agree with the History, Examination, Assessment and Plan documented above with any addition or exceptions noted below. Patient here with RLE cellulitis, now s/p I&D by ortho for multiple fluid collections near her femur. She reports good pain control. Continue current abx regimen until cultures result. ID on case 2/2 history of multi drug resistant organisms. Her hyponatremia is improving, and other chronic lab abnmls associated with her chronic medical conditions are all stable. Continue therapy and await final recommendations on abx after cultures return. <Kd Balbuena - Last Filed: 05/23/18 11:43>
[2018-05-23] MEDS: HumaLOG 300 UNITS/3 ML VIAL SC PRN ×3 (07:05→16:48)
[2018-05-23 07:09] LABS: #Lymphocytes 0.3 thou/uL (1.20-3.40); #Neutrophils 7.8 thou/uL (1.40-6.50); %Basophils 0.1 % (0.0-1.0); %Eosinophils 0.1 % (0.0-10.0); %Monocytes 0.5 % (0.0-10.0); %Neutrophils 95.4 % (42.0-75.0); Hemoglobin 8.5 g/dL (12.0-16.0); Mean Corpuscular HGB CONC 32.5 g/dL (32.0-36.0); Mean Corpuscular Hemoglobin 31.9 pg (27.0-31.0); Mean Corpuscular Volume 97.9 fL (78.0-98.0); Mean Platelet Volume 6.1 fL (7.4-10.4); Platelet Count 406 thou/uL (130-400); RBC Distribution Width 12.9 % (11.5-14.5); Red Blood Cell (RBC) Count 2.66 mill/uL (4.20-5.40); White Blood Cell (WBC) Count 8.2 thou/uL (4.8-10.8)
[2018-05-23] MEDS: Famotidine 20 MG TAB PO SCH (08:29)
[2018-05-23] MEDS: Enoxaparin Sodium 30 MG/0.3 ML SYRINGE SC SCH (08:29)
[2018-05-23] MEDS: Lisinopril/Hydrochlorothiazide 20/25 mg Tablet PO SCH (10:34)
[2018-05-23] MEDS: Furosemide 40 MG TAB PO SCH ×2 (10:34→21:12)
[2018-05-23] MEDS: Amlodipine 10 MG TAB PO SCH (10:34)
[2018-05-23 13:23] LABS: Potassium 4.4 mmol/L (3.5-5.1)
[2018-05-23] MEDS: Vancomycin HCl 1 GM in Premix Bag 1 BAG IVPB SCH (20:14)
[2018-05-23] MEDS: Insulin Glargine 5 UNITS in Pre-Filled Syringe 1 EACH SC SCH (21:06)
[2018-05-24] MEDS: Piperacillin/Tazobactam 2.25 GM in Sodium Chloride 0.9% 100 ML IVPB SCH ×4 (02:19→19:43)
[2018-05-24 05:35] LABS: Anion Gap 13 mmol/L (10-20); BUN (Urea Nitrogen) 44 mg/dL (9.8-20.1); Calc. Creatinine Clearance 24 mL/min (70-130); Calcium 8.8 mg/dL (7.8-10.44); Carbon Dioxide 20 mmol/L (23-31); Chloride 105 mmol/L (98-107); Estimated GFR-MDRD 22; Glucose 167 mg/dL (80-115); Potassium 5.1 mmol/L (3.5-5.1); Sodium 133 mmol/L (136-145)
--- NOTE | 2018-05-24 06:13 | PDOC.FM ---
- Subjective Subjective: 72 yo female seen this AM. [employer]ilingual [employer] phone used. No fevers, pain is improved. No other complaints this morning. - Objective Vital Signs & Weight: Vital Signs (12 hours) Temp Pulse Resp BP Pulse Ox 05/23/18 20:00 98 F 92 18 95 05/23/18 19:49 98 F 92 18 126/68 95 Weight Admit Weight 63.82 kg Weight 63.82 kg I&O: 05/22/18 05/23/18 05/24/18 06:59 06:59 06:59 Intake Total 1590 2190 Output Total 50 Balance 1590 2140 Result Diagrams: 05/23/18 03:42 05/24/18 05:02 <Jarrett Paiz - Last Filed: 05/24/18 09:27> - Objective Vital Signs & Weight: Vital Signs (12 hours) Temp Pulse Resp BP BP Pulse Ox 05/24/18 10:56 91 122/71 05/24/18 10:54 91 122/71 05/24/18 07:55 98.0 F 91 16 122/71 91 L Weight Admit Weight 63.82 kg Weight 63.82 kg I&O: 05/23/18 05/24/18 05/25/18 06:59 06:59 06:59 Intake Total 2190 180 Output Total 50 Balance 2140 180 Result Diagrams: 05/23/18 03:42 05/24/18 05:02 <Kd Balbuena - Last Filed: 05/24/18 13:47> Phys Exam - Physical Examination Constitutional: NAD HEENT: PERRLA Neck: no nodes Respiratory: no wheezing, clear to auscultation bilateral Cardiovascular: RRR 4/6 murmur Gastrointestinal: soft, non-tender, no distention, positive bowel sounds Musculoskeletal: no edema, pulses present Neurological: non-focal, moves all 4 limbs Lymphatic: no nodes Psychiatric: normal affect, A&O x 3 Deviation from normal: Erythema and induration improved <Jarrett Paiz - Last Filed: 05/24/18 09:27> Dx/Plan (1) Infection/inflammation-internal ortho device Code(s): T84.7XXA - INFECT/INFLM REACT DUE TO OTH INT ORTH PROSTH DEV/GRFT, INIT Status: Acute (2) Cellulitis Code(s): L03.90 - CELLULITIS, UNSPECIFIED Status: Acute QualifierTitle: Site of cellulitis: extremity Laterality: right (3) History of femur fracture Code(s): Z87.81 - PERSONAL HISTORY OF (HEALED) TRAUMATIC FRACTURE Status: Chronic (4) History of fracture of tibia Code(s): Z87.81 - PERSONAL HISTORY OF (HEALED) TRAUMATIC FRACTURE Status: Chronic (5) CKD (chronic kidney disease) stage 4, GFR 15-29 ml/min Code(s): N18.4 - CHRONIC KIDNEY DISEASE, STAGE 4 (SEVERE) Status: Chronic (6) Diabetes Code(s): E11.9 - TYPE 2 DIABETES MELLITUS WITHOUT COMPLICATIONS Status: Chronic (7) CHF (congestive heart failure) Code(s): I50.9 - HEART FAILURE, UNSPECIFIED Status: Chronic (8) Hypertension Code(s): I10 - ESSENTIAL (PRIMARY) HYPERTENSION Status: Chronic (9) UTI (urinary tract infection) Status: Acute (10) Hyponatremia Code(s): E87.1 - HYPO-OSMOLALITY AND HYPONATREMIA Status: Chronic (11) Aortic stenosis Code(s): I35.0 - NONRHEUMATIC AORTIC (VALVE) STENOSIS Status: Chronic QualifierTitle: Cardiac valve disease etiology: etiology unspecified Qualified Code(s): I35.0 - Nonrheumatic aortic (valve) stenosis (12) Urinary retention Code(s): R33.9 - RETENTION OF URINE, UNSPECIFIED Status: Chronic (13) Hyperkalemia Code(s): E87.5 - HYPERKALEMIA Status: Resolved - Plan Plan: 1. Right extremity cellulitis with subcutaneous fluid collection near orthopedic devices - Received Vanc 1gm at 20:00 in ED (05/20) - Will continue Vanc 1gm q24 hours for gram+ and MRSA coverage - Vancomycin trough elevated, decrease dosing. - Received Clindamycin 600mg in ED at 20:00 (05/20) - Zosyn IV 2.25g q6hrs for pseudomonal and gram - coverage - Ortho consulted, appreciate recs - MRI shows extensive fluid collection adjacent to femur - Dr. Youngblood drained fluid collection and irrigated area. No purulent material. - Cultures pending - Doppler negative for DVT - PT and OT ordered 2. CKD stage 4 - At baseline based on prior labs - Will renal dose medications as appropriate 3. DM - Recent a1c 4.4, not on medications at home - Started on mild sliding scale - accuchecks - 5 u Lantus HS for better control 4. Hyponatremia, chronic - Alert and oriented x4 - Baseline Na typically 120s-low 130s - Outpatient work-up recommended 5. Normocytic Anemia - Chronic - Will continue home ferrous sulfate and recommend further work-up outpatient 6. Urinary retention, chronic - Will continue home Tamsulosin 0.4 mg, po daily - Monitor I/O and bladder scan/straight cath PRN - Continue antibiotic coverage for resistant UTI 7. HTN - Continue home Amlodipine 10mg po, daily - HCTZ-Lisinopril 20-25mg, po BID - BP at goal 8. Severe aortic stenosis - Asymptomatic at this time 9. dCHF - Home lasix 10. Hyperkalemia - 5.1 this AM - Insulin has decreased K. - Will make management changes if increased again. Disposition: Stable, will await culture results. <Jarrett Paiz - Last Filed: 05/24/18 09:27> Attending Addendum - Attending Addendum Date/Time: 05/24/18 0228 I personally evaluated the patient and discussed the management with Dr. Paiz. I agree with the History, Examination, Assessment and Plan documented above with any addition or exceptions noted below. Patient doing improved, pain well controlled. Labs stable. Holding Vancomycin due to elevated trough level. Awaiting culture results and decision on need for half-way antibiotic therapy. <Kd Balbuena - Last Filed: 05/24/18 13:47>
[2018-05-24] MEDS: Amlodipine 10 MG TAB PO SCH (10:54)
[2018-05-24] MEDS: Furosemide 40 MG TAB PO SCH ×2 (10:55→20:01)
[2018-05-24] MEDS: Lisinopril/Hydrochlorothiazide 20/25 mg Tablet PO SCH (10:56)
[2018-05-24] MEDS: Famotidine 20 MG TAB PO SCH (10:56)
[2018-05-24] MEDS: Enoxaparin Sodium 30 MG/0.3 ML SYRINGE SC SCH (10:57)
[2018-05-24] MEDS: HumaLOG 300 UNITS/3 ML VIAL SC PRN (11:15)
[2018-05-24 11:48] LABS: Vancomycin, Random 31.7 ug/mL (See Comment)
--- NOTE | 2018-05-24 19:33 | PRG ---
DATE OF SERVICE: 05/24/2018 SUBJECTIVE: Feeling better, less pain in the right thigh. The patient had I&D of the area. No dysp garett. No abdominal pain. OBJECTIVE: VITAL SIGNS: Normal temperature, blood pressure 120/70, pulse 91. GENERAL: Awake, alert, sitting by the bedside, appears in no distress. LUNGS: Symmetric air entry. HEART: S1, S2, regular rate. ABDOMEN: Soft. EXTREMITIES: Right leg with much less swollen, less erythema. LABORATORY DATA: White cell count 8.2, hemoglobin 8.5, platelets 406. Chemistry with a creatinine 2 .22, which is less on admission. Microbiology thus far with no growth in the sample submitted from t he thigh abscess. Gram stain showed moderate WBCs seen. ASSESSMENT AND DISCUSSION: Severe aortic stenosis, type 2 diabetes, neurogenic bladder with ESBL E. coli, previously treated renal insufficiency stage 4 and now inflammatory process right thigh at the site of a prior open reduction internal fixation. During the operative procedure, it appeared that c ollection was superficial to the fascia, but still there is a concern of deep involvement of the frac tured site. We will have to follow that up with imaging studies to verify that the bone does not hav e evidence of osteomyelitis in the future. In terms of antimicrobial therapy, I like to wait for the culture results. If they are negative, I would use probably something like doxycycline or oral mery cycline.
[2018-05-24] MEDS: Insulin Glargine 5 UNITS in Pre-Filled Syringe 1 EACH SC SCH (20:01)
[2018-05-24] MEDS: Vancomycin HCl 1 GM in Premix Bag 1 BAG IVPB SCH (22:05)
[2018-05-25] MEDS: Piperacillin/Tazobactam 2.25 GM in Sodium Chloride 0.9% 100 ML IVPB SCH ×4 (02:00→20:16)
[2018-05-25 05:22] LABS: Anion Gap 14 mmol/L (10-20); BUN (Urea Nitrogen) 54 mg/dL (9.8-20.1); Calc. Creatinine Clearance 23 mL/min (70-130); Calcium 8.5 mg/dL (7.8-10.44); Carbon Dioxide 20 mmol/L (23-31); Chloride 104 mmol/L (98-107); Estimated GFR-MDRD 22; Glucose 100 mg/dL (80-115); Potassium 4.8 mmol/L (3.5-5.1); Sodium 133 mmol/L (136-145)
--- NOTE | 2018-05-25 06:02 | PDOC.FM ---
- Subjective Subjective: Pt has no complaints. Reports pain is well controlled. Says she refused lantus yesterday because she was eating good food. - Objective MAR Reviewed: Yes Vital Signs & Weight: Vital Signs (12 hours) Temp Pulse Resp BP Pulse Ox 05/24/18 19:50 97.8 F 80 18 120/67 95 Weight Admit Weight 63.82 kg Weight 63.82 kg I&O: 05/23/18 05/24/18 05/25/18 06:59 06:59 06:59 Intake Total 2190 360 Output Total 50 Balance 2140 360 Result Diagrams: 05/23/18 03:42 05/25/18 04:35 Phys Exam - Physical Examination Constitutional: NAD Respiratory: clear to auscultation bilateral Cardiovascular: RRR 4/6 systolic murmur, aortic Gastrointestinal: soft, non-tender, positive bowel sounds R leg wrapped in bandage Psychiatric: normal affect Dx/Plan (1) Infection/inflammation-internal ortho device Code(s): T84.7XXA - INFECT/INFLM REACT DUE TO OTH INT ORTH PROSTH DEV/GRFT, INIT Status: Acute (2) Cellulitis Code(s): L03.90 - CELLULITIS, UNSPECIFIED Status: Acute Qualifiers: Site of cellulitis: extremity Laterality: right (3) CHF (congestive heart failure) Code(s): I50.9 - HEART FAILURE, UNSPECIFIED Status: Chronic (4) Diabetes Code(s): E11.9 - TYPE 2 DIABETES MELLITUS WITHOUT COMPLICATIONS Status: Chronic (5) History of femur fracture Code(s): Z87.81 - PERSONAL HISTORY OF (HEALED) TRAUMATIC FRACTURE Status: Chronic (6) History of fracture of tibia Code(s): Z87.81 - PERSONAL HISTORY OF (HEALED) TRAUMATIC FRACTURE Status: Chronic (7) Urinary retention Code(s): R33.9 - RETENTION OF URINE, UNSPECIFIED Status: Chronic (8) Aortic stenosis Code(s): I35.0 - NONRHEUMATIC AORTIC (VALVE) STENOSIS Status: Chronic Qualifiers: Cardiac valve disease etiology: etiology unspecified Qualified Code(s): I35.0 - Nonrheumatic aortic (valve) stenosis (9) CKD (chronic kidney disease) stage 4, GFR 15-29 ml/min Code(s): N18.4 - CHRONIC KIDNEY DISEASE, STAGE 4 (SEVERE) Status: Chronic (10) HTN (hypertension) Code(s): I10 - ESSENTIAL (PRIMARY) HYPERTENSION Status: Chronic Qualifiers: Hypertension type: unspecified Qualified Code(s): I10 - Essential (primary ) hypertension (11) Hyperkalemia Code(s): E87.5 - HYPERKALEMIA Status: Resolved (12) Hyponatremia Code(s): E87.1 - HYPO-OSMOLALITY AND HYPONATREMIA Status: Chronic - Plan Plan: 1. Right extremity cellulitis with subcutaneous fluid collection near orthopedic devices - Received Vanc 1gm at 20:00 in ED (05/20) - Will continue Vanc 1gm q24 hours for gram+ and MRSA coverage - Received Clindamycin 600mg in ED at 20:00 (05/20) - Zosyn IV 2.25g q6hrs for pseudomonal and gram - coverage - Ortho consulted, appreciate recs - MRI shows extensive fluid collection adjacent to femur - Dr. Youngblood drained fluid collection and irrigated area. No purulent material. - Cultures: thigh culture, no growth at 36 hrs, anaerobe pending. Thigh fluid broth pending. - Blood culture, no growth at 48hrs - Doppler negative for DVT - PT and OT ordered 2. CKD stage 4 - At baseline based on prior labs - Will renal dose medications as appropriate 3. DM - Recent a1c 4.4, not on medications at home - Started on mild sliding scale - accuchecks - 5 u Lantus HS for better control 4. Hyponatremia, chronic - Alert and oriented x4 - Baseline Na typically 120s-low 130s - Outpatient work-up recommended 5. Normocytic Anemia - Chronic - Will continue home ferrous sulfate and recommend further work-up outpatient 6. Urinary retention, chronic - Will continue home Tamsulosin 0.4 mg, po daily - Monitor I/O and bladder scan/straight cath PRN - Continue antibiotic coverage for resistant UTI 7. HTN - Continue home Amlodipine 10mg po, daily - HCTZ-Lisinopril 20-25mg, po BID - BP at goal 8. Severe aortic stenosis - Asymptomatic at this time 9. dCHF - Home lasix 10. Hyperkalemia - 4.8 this AM - Insulin has decreased K. - Will make management changes if increased again. Disposition: Stable, will await culture results.
[2018-05-25] MEDS: Lisinopril/Hydrochlorothiazide 20/25 mg Tablet PO SCH (08:42)
[2018-05-25] MEDS: Furosemide 40 MG TAB PO SCH ×2 (08:43→20:17)
[2018-05-25] MEDS: Famotidine 20 MG TAB PO SCH (08:43)
[2018-05-25] MEDS: Tamsulosin HCl 0.4 MG CAP PO SCH (08:43)
[2018-05-25] MEDS: Amlodipine 10 MG TAB PO SCH (08:43)
[2018-05-25] MEDS: Enoxaparin Sodium 30 MG/0.3 ML SYRINGE SC SCH (08:44)
[2018-05-25] MEDS: HYDROcodone/Acetaminophen 5/325 mg Tablet PO PRN (11:44)
[2018-05-25] MEDS: Insulin Glargine 5 UNITS in Pre-Filled Syringe 1 EACH SC SCH (20:17)
[2018-05-25 20:21] LABS: Vancomycin, Random 24.3 ug/mL (See Comment)
[2018-05-25] MEDS: Docusate 100 MG CAP PO PRN (20:27)
[2018-05-25] MEDS ORDERED: Vancomycin HCl 1 GM in Premix Bag 1 BAG IVPB SCH (21:00)
[2018-05-26] MEDS: Piperacillin/Tazobactam 2.25 GM in Sodium Chloride 0.9% 100 ML IVPB SCH ×4 (01:24→21:08)
[2018-05-26 04:57] LABS: Anion Gap 12 mmol/L (10-20); BUN (Urea Nitrogen) 53 mg/dL (9.8-20.1); Calc. Creatinine Clearance 22 mL/min (70-130); Calcium 8.3 mg/dL (7.8-10.44); Carbon Dioxide 21 mmol/L (23-31); Chloride 102 mmol/L (98-107); Estimated GFR-MDRD 20; Glucose 65 mg/dL (80-115); Potassium 4.4 mmol/L (3.5-5.1); Sodium 131 mmol/L (136-145)
--- NOTE | 2018-05-26 05:38 | PDOC.FM ---
- Subjective Subjective: Patient was resting comfortably in bed. She has no complaints. Denies any pain. - Objective MAR Reviewed: Yes Vital Signs & Weight: Vital Signs (12 hours) Temp Pulse Resp BP Pulse Ox 05/25/18 20:15 97.6 F 80 20 96 05/25/18 19:08 97.6 F 80 20 127/69 96 Weight Admit Weight 63.82 kg Weight 63.82 kg I&O: 05/24/18 05/25/18 05/26/18 06:59 06:59 06:59 Intake Total 2190 890 Output Total 50 40 Balance 2140 850 Result Diagrams: 05/23/18 03:42 05/26/18 04:33 Phys Exam - Physical Examination Constitutional: NAD Respiratory: no rales, clear to auscultation bilateral Cardiovascular: RRR aortic systolic murmur Gastrointestinal: soft, non-tender, positive bowel sounds Drains from R thigh Neurological: non-focal Dx/Plan (1) Infection/inflammation-internal ortho device Code(s): T84.7XXA - INFECT/INFLM REACT DUE TO OTH INT ORTH PROSTH DEV/GRFT, INIT Status: Acute (2) Cellulitis Code(s): L03.90 - CELLULITIS, UNSPECIFIED Status: Acute Qualifiers: Site of cellulitis: extremity Laterality: right (3) CHF (congestive heart failure) Code(s): I50.9 - HEART FAILURE, UNSPECIFIED Status: Chronic (4) Diabetes Code(s): E11.9 - TYPE 2 DIABETES MELLITUS WITHOUT COMPLICATIONS Status: Chronic (5) History of femur fracture Code(s): Z87.81 - PERSONAL HISTORY OF (HEALED) TRAUMATIC FRACTURE Status: Chronic (6) History of fracture of tibia Code(s): Z87.81 - PERSONAL HISTORY OF (HEALED) TRAUMATIC FRACTURE Status: Chronic (7) Urinary retention Code(s): R33.9 - RETENTION OF URINE, UNSPECIFIED Status: Chronic (8) Aortic stenosis Code(s): I35.0 - NONRHEUMATIC AORTIC (VALVE) STENOSIS Status: Chronic Qualifiers: Cardiac valve disease etiology: etiology unspecified Qualified Code(s): I35.0 - Nonrheumatic aortic (valve) stenosis (9) CKD (chronic kidney disease) stage 4, GFR 15-29 ml/min Code(s): N18.4 - CHRONIC KIDNEY DISEASE, STAGE 4 (SEVERE) Status: Chronic (10) HTN (hypertension) Code(s): I10 - ESSENTIAL (PRIMARY) HYPERTENSION Status: Chronic Qualifiers: Hypertension type: unspecified Qualified Code(s): I10 - Essential (primary ) hypertension (11) Hyponatremia Code(s): E87.1 - HYPO-OSMOLALITY AND HYPONATREMIA Status: Chronic - Plan Plan: 1. Right extremity cellulitis with subcutaneous fluid collection near orthopedic devices - Received Vanc 1gm at 20:00 in ED (05/20) - Will continue Vanc 1gm q24 hours for gram+ and MRSA coverage - Received Clindamycin 600mg in ED at 20:00 (05/20) - Zosyn IV 2.25g q6hrs for pseudomonal and gram - coverage - Ortho consulted, appreciate recs - MRI shows extensive fluid collection adjacent to femur - Dr. Youngblood drained fluid collection and irrigated area. No purulent material. - Wound culture: no growth at 36 hrs. - Blood culture, final no growth - Doppler negative for DVT - PT and OT ordered 2. CKD stage 4 - At baseline based on prior labs - Will renal dose medications as appropriate 3. DM - Recent a1c 4.4, not on medications at home - Started on mild sliding scale - accuchecks - 5 u Lantus HS for better control 4. Hyponatremia, chronic - Alert and oriented x4 - Baseline Na typically 120s-low 130s - Outpatient work-up recommended 5. Normocytic Anemia - Chronic - Will continue home ferrous sulfate and recommend further work-up outpatient 6. Urinary retention, chronic - Will continue home Tamsulosin 0.4 mg, po daily - Monitor I/O and bladder scan/straight cath PRN - Continue antibiotic coverage for resistant UTI 7. HTN - Continue home Amlodipine 10mg po, daily - HCTZ-Lisinopril 20-25mg, po BID - BP at goal 8. Severe aortic stenosis - Asymptomatic at this time 9. dCHF - Home lasix 10. Hyperkalemia, resolved - Will make management changes if increased again. Disposition: Stable, will await recommendations from consults for discharge.
[2018-05-26] MEDS ORDERED: Vancomycin HCl 1 GM in Premix Bag 1 BAG IVPB SCH (09:00)
[2018-05-26] MEDS: Amlodipine 10 MG TAB PO SCH (09:44)
[2018-05-26] MEDS: Lisinopril/Hydrochlorothiazide 20/25 mg Tablet PO SCH (09:45)
[2018-05-26] MEDS: Famotidine 20 MG TAB PO SCH (09:45)
[2018-05-26] MEDS: Tamsulosin HCl 0.4 MG CAP PO SCH (09:45)
[2018-05-26] MEDS: Furosemide 40 MG TAB PO SCH ×2 (09:45→21:08)
[2018-05-26] MEDS: Enoxaparin Sodium 30 MG/0.3 ML SYRINGE SC SCH (09:46)
--- NOTE | 2018-05-26 20:55 | ADD-PRG ---
ADDENDUM: DATE OF SERVICE: 05/25/2018 Please see the note done by Dr. Ortiz for which I concur. A 72-year-old female here for right hip cellulitis that was incised and drained I believe ye sterday, is now on vancomycin and Zosyn and, we are waiting on culture and sensitivity results for th is and we will keep her on long-term IV antibiotics. Infectious Disease is involved as well as ortho pedist who did the incision and drainage. We are just following along as far as managing diabetes. It looks like really well controlled.
--- NOTE | 2018-05-26 21:00 | ADD-PRG ---
DATE OF SERVICE: 05/26/2018 Please see the note from Dr. Manrique for which I agree. The patient was seen, evaluated, examined, and discussed with the residents by at bedside. The patie nt is doing fine. Cultures have been negative. We are, basically, just waiting on Infectious Diseas e to tell us how they want to proceed as far as antibiotics and then awaiting on Orthopedics to see h ow they want to proceed on, pulling the drain or not, but otherwise everything is stable. Diabetes i s stable. Electrolytes are stable and so still on vancomycin and Zosyn, but may be switched over to p.o. antibiotics based on the specialist's recommendations and then be able to go home.
[2018-05-26] MEDS: Insulin Glargine 5 UNITS in Pre-Filled Syringe 1 EACH SC SCH (21:08)
[2018-05-27] MEDS: Piperacillin/Tazobactam 2.25 GM in Sodium Chloride 0.9% 100 ML IVPB SCH ×3 (01:53→13:43)
[2018-05-27 04:56] LABS: Anion Gap 15 mmol/L (10-20); BUN (Urea Nitrogen) 65 mg/dL (9.8-20.1); Calc. Creatinine Clearance 22 mL/min (70-130); Calcium 8.7 mg/dL (7.8-10.44); Carbon Dioxide 21 mmol/L (23-31); Chloride 102 mmol/L (98-107); Estimated GFR-MDRD 20; Potassium 4.2 mmol/L (3.5-5.1); Sodium 134 mmol/L (136-145)
[2018-05-27 04:58] LABS: Glucose 59 mg/dL (80-115)
--- NOTE | 2018-05-27 05:48 | PDOC.FM ---
- Subjective Subjective: 72 yo F with right extremity cellulitis after failed outpatient therapy. Pt does not complain of pain this morning. Stable overnight. Drain has been removed. Possible discharge today pending recommendations from ID and Ortho. - Objective MAR Reviewed: Yes Vital Signs & Weight: Vital Signs (12 hours) Temp Pulse Resp BP Pulse Ox 05/26/18 20:00 98.0 F 83 16 123/72 97 Weight Admit Weight 63.82 kg Weight 63.82 kg I&O: 05/25/18 05/26/18 05/27/18 06:59 06:59 06:59 Intake Total 737 885 0088 Output Total 40 30 Balance 280 161 6236 Result Diagrams: 05/23/18 03:42 05/27/18 04:26 <Karena Londono - Last Filed: 05/27/18 16:43> - Objective Vital Signs & Weight: Vital Signs (12 hours) Temp Pulse Resp BP Pulse Ox 05/27/18 19:23 98.0 F 87 20 113/63 99 Weight Admit Weight 63.82 kg Weight 63.82 kg I&O: 05/26/18 05/27/18 05/28/18 06:59 06:59 06:59 Intake Total 650 2280 1710 Output Total 30 Balance 620 2280 1710 Result Diagrams: 05/23/18 03:42 05/27/18 04:26 <Lizette Contreras - Last Filed: 05/27/18 21:30> Phys Exam - Physical Examination Constitutional: NAD HEENT: PERRLA, moist MMs Neck: no nodes, supple Respiratory: no wheezing, no rales, clear to auscultation bilateral Cardiovascular: RRR 3/6 systolic murmur Gastrointestinal: soft, non-tender, no distention Musculoskeletal: no edema, pulses present Psychiatric: normal affect Skin: cap refill <2 seconds <Karena Londono - Last Filed: 05/27/18 16:43> Dx/Plan (1) Cellulitis Code(s): L03.90 - CELLULITIS, UNSPECIFIED Status: Acute QualifierTitle: Site of cellulitis: extremity Laterality: right (2) Infection/inflammation-internal ortho device Code(s): T84.7XXA - INFECT/INFLM REACT DUE TO OTH INT ORTH PROSTH DEV/GRFT, INIT Status: Acute (3) CHF (congestive heart failure) Code(s): I50.9 - HEART FAILURE, UNSPECIFIED Status: Chronic (4) Diabetes Code(s): E11.9 - TYPE 2 DIABETES MELLITUS WITHOUT COMPLICATIONS Status: Chronic (5) History of femur fracture Code(s): Z87.81 - PERSONAL HISTORY OF (HEALED) TRAUMATIC FRACTURE Status: Chronic (6) Hypertension Code(s): I10 - ESSENTIAL (PRIMARY) HYPERTENSION Status: Chronic (7) Urinary retention Code(s): R33.9 - RETENTION OF URINE, UNSPECIFIED Status: Chronic (8) Anemia of renal disease Code(s): D63.1 - ANEMIA IN CHRONIC KIDNEY DISEASE Status: Chronic (9) Aortic stenosis Code(s): I35.0 - NONRHEUMATIC AORTIC (VALVE) STENOSIS Status: Chronic QualifierTitle: Cardiac valve disease etiology: etiology unspecified Qualified Code(s): I35.0 - Nonrheumatic aortic (valve) stenosis (10) Hyponatremia Code(s): E87.1 - HYPO-OSMOLALITY AND HYPONATREMIA Status: Acute (11) Hyperkalemia Code(s): E87.5 - HYPERKALEMIA Status: Acute - Plan Plan: Plan: 1. Right extremity cellulitis with subcutaneous fluid collection near orthopedic devices - Received Vanc 1gm at 20:00 in ED (05/20) - Vanc 1gm q24 hours for gram+ and MRSA coverage - Received Clindamycin 600mg in ED at 20:00 (05/20) - Zosyn IV 2.25g q6hrs for pseudomonal and gram - coverage - Ortho consulted - MRI shows extensive fluid collection adjacent to femur - Dr. Youngblood drained fluid collection and irrigated area. No purulent material. - Wound culture: no growth at 5 days. - Blood culture, final no growth - Doppler negative for DVT - PT and OT - Ortho removed drain last night - ortho recommends patient follow up with them in 2 weeks, and training for family member on how to change dressing until then. - Sindi recommended may switch pt off Vanc and Zosyn to doxycycline or minocycline if no growth - Will touch base with him today - Sindi recs: minocycline and follow up outpt with Sindi within a week -minocycline 100 BID for 2 weeks 2. CKD stage 4 - At baseline based on prior labs - Will renal dose medications as appropriate 3. DM - Recent a1c 4.4, not on medications at home - Started on mild sliding scale - accuchecks - 5 u Lantus HS for better control 4. Hyponatremia, chronic - Alert and oriented x4 - Baseline Na typically 120s-low 130s - Outpatient work-up recommended 5. Normocytic Anemia - Chronic - Will continue home ferrous sulfate and recommend further work-up outpatient 6. Urinary retention, chronic - Will continue home Tamsulosin 0.4 mg, po daily - Monitor I/O and bladder scan/straight cath PRN - Continue antibiotic coverage for resistant UTI 7. HTN - Continue home Amlodipine 10mg po, daily - HCTZ-Lisinopril 20-25mg, po BID - BP at goal 8. Severe aortic stenosis - Asymptomatic at this time 9. dCHF - Home lasix 10. Hyperkalemia, resolved - Will make management changes if increased again. Code status: full code <Karena Londono - Last Filed: 05/27/18 16:43> Attending Addendum - Attending Addendum Date/Time: 05/27/182127 I personally evaluated the patient and discussed the management with Dr. Olivas I agree with the History, Examination, Assessment and Plan documented above with any addition or exceptions noted below- Patient without complaints. Denies any pain in right thigh. Afebrile VSS. A/P: 1) Cellulitis- s/p I&D of fluid collection- improved; change to po abx as per ID recommendations. Stable for discharge. Will plan for f/u with ID and ortho <Lizette Contreras - Last Filed: 05/27/18 21:30>
[2018-05-27] MEDS: Lisinopril/Hydrochlorothiazide 20/25 mg Tablet PO SCH (07:58)
[2018-05-27] MEDS: Enoxaparin Sodium 30 MG/0.3 ML SYRINGE SC SCH (07:59)
[2018-05-27] MEDS: Amlodipine 10 MG TAB PO SCH (07:59)
[2018-05-27] MEDS: Furosemide 40 MG TAB PO SCH (07:59)
[2018-05-27] MEDS: Famotidine 20 MG TAB PO SCH (07:59)
[2018-05-27] MEDS: Tamsulosin HCl 0.4 MG CAP PO SCH (08:00)
[2018-05-27] MEDS: Docusate 100 MG CAP PO PRN (13:43)
[2018-05-27] MEDS ORDERED: Bisacodyl 10 MG SUPP PR SCH (14:00)
--- NOTE | 2018-05-27 17:56 | PRG ---
DATE OF SERVICE: 05/27/2018 HISTORY: Ms. Manzo is complaining of an inability to have a bowel movement and she feels like it is stuck in the distal rectosigmoid area, not much pain in the right thigh. No respiratory symptoms, n o abdominal pain. She is afebrile and other vital signs are not remarkable. The right thigh wound s ite with stitches, but no drainage. The dressing is pretty dry. OBJECTIVE: LUNGS: Clear. HEART: S1, S2, regular rate. ABDOMEN: Soft. I did not do a rectal exam, but communicated the problem to the resident who was deb ing care of the patient. She probably needs a rectal examination to rule out fecal impaction. EXTREMITIES: Vascular supply of lower extremity is intact. LABORATORY DATA: White cell count 8.2, hemoglobin 8.5, platelets 406: Chemistry of sodium 134, crea tinine 2.4. Blood cultures from the sites of thigh fluid negative, both samples. ASSESSMENT AND DISCUSSION: History of aortic stenosis, type 2 diabetes, neurogenic bladder with exte nded-spectrum beta-lactamases Escherichia coli previously treated, who presents with an inflammatory process right thigh at a site of an open reduction internal fixation and hip joint replacement. The MRI demonstrates two different collections, one is closely located in relationship to the femur. The other one is just in the soft tissues. I believe the surgical procedure was restricted to the soft tissues since there was no evidence of facial penetration. There is still the possibility that there is a microscopic communication with the collection that sits around the bone and the patient may hav e a more complicated infectious process with even possibility of osteomyelitis. There was artifact f rom the hardware and more detailed look at the bone was not possible. Going forward, I would probabl y have her continue on minocycline orally. Follow up with me in the clinic as well as with the surge on that the ORIF and replacement by Dr. Bedolla at the [facility].
[2018-05-27 19:36] VITALS: BP 113/63; TEMP 98
== END 2018-05-27 20:25 | disposition home or self-care (01) | DRG 501 ==
LOC: ERS 17:08 → T4-B 19:05 → OBSVTOIN 19:05
PROVIDERS: ADMIT Student in an Organized Health Care Education/Training Program; ATTEND Student in an Organized Health Care Education/Training Program
PROC: 0M9 Bursae and Ligaments, Drainage (ICD-10-PCS; principal; 2018-05-22)
PROC: 0S993ZX Drainage of Right Hip Joint, Percutaneous Approach, Diagnostic (ICD-10-PCS; 2018-05-22)
DX: T84.7XXA Infection and inflammatory reaction due to other internal orthopedic prosthetic devices, implants and grafts, initial encounter (principal); L03.115 Cellulitis of right lower limb; E87.1 Hypo-osmolality and hyponatremia; N18.4 Chronic kidney disease, stage 4 (severe); I13.0 Hypertensive heart and chronic kidney disease with heart failure and stage 1 through stage 4 chronic kidney disease, or unspecified chronic kidney disease; N39.0 Urinary tract infection, site not specified; I50.32 Chronic diastolic (congestive) heart failure; L97.219 Non-pressure chronic ulcer of right calf with unspecified severity; L97.419 Non-pressure chronic ulcer of right heel and midfoot with unspecified severity; E87.5 Hyperkalemia; L98.419 Non-pressure chronic ulcer of buttock with unspecified severity; E11.621 Type 2 diabetes mellitus with foot ulcer; M70.71 Other bursitis of hip, right hip; D63.1 Anemia in chronic kidney disease; I35.0 Nonrheumatic aortic (valve) stenosis; N31.9 Neuromuscular dysfunction of bladder, unspecified; E11.22 Type 2 diabetes mellitus with diabetic chronic kidney disease; B96.20 Unspecified Escherichia coli [E. coli] as the cause of diseases classified elsewhere; Z16.12 Extended spectrum beta lactamase (ESBL) resistance; Z96.641 Presence of right artificial hip joint; Z96.651 Presence of right artificial knee joint; Y83.1 Surgical operation with implant of artificial internal device as the cause of abnormal reaction of the patient, or of later complication, without mention of misadventure at the time of the procedure
CPT/HCPCS: 36415; 36416; 71045; 80048; 80053; 80202; 83605; 83880; 85025; 85652; 87040; 87070; 87102; 87205; 87206; 93005; 93010; 96365; 96375; A4216; G8978-GP-CL; G8979-GP-CK; G8987-GO-CL; G8988-GO-CJ; J1100; J1650; J2405; J2543; J2704; J3260; J3370; J3490; J7050

== ENCOUNTER 2018-06-19 15:12 | Emergency (ER) | payer MEDICAID, OTHER ==
[2018-06-19] MEDS ORDERED: Acetaminophen 500 MG TAB ONE (15:47)
[2018-06-19 16:27] LABS: #Eosinphils 0.3 thou/uL (0.0-0.7); #Lymphocytes 1.7 thou/uL (1.20-3.40); #Monocytes 0.8 thou/uL (0.11-0.59); #Neutrophils 8.4 thou/uL (1.40-6.50); %Basophils 0.2 % (0.0-1.0); %Eosinophils 2.7 % (0.0-10.0); %Lymphocytes 14.9 % (21.0-51.0); %Monocytes 7.5 % (0.0-10.0); %Neutrophils 74.7 % (42.0-75.0); Hemoglobin 9.7 g/dL (12.0-16.0); Mean Corpuscular HGB CONC 34.5 g/dL (32.0-36.0); Mean Corpuscular Hemoglobin 32.8 pg (27.0-31.0); Mean Corpuscular Volume 95.1 fL (78.0-98.0); Mean Platelet Volume 6.5 fL (7.4-10.4); Platelet Count 201 thou/uL (130-400); Red Blood Cell (RBC) Count 2.96 mill/uL (4.20-5.40); White Blood Cell (WBC) Count 11.2 thou/uL (4.8-10.8)
[2018-06-19 16:49] LABS: ALT (SGPT) 33 U/L (8-55); AST (SGOT) 41 U/L (5-34); Albumin 3.5 g/dL (3.4-4.8); Alkaline Phosphatase 179 U/L (40-150); Anion Gap 16 mmol/L (10-20); BUN (Urea Nitrogen) 51 mg/dL (9.8-20.1); Bilirubin, Total 0.4 mg/dL (0.2-1.2); Calc. Creatinine Clearance 0 mL/min (70-130); Calcium 8.6 mg/dL (7.8-10.44); Carbon Dioxide 16 mmol/L (23-31); Chloride 100 mmol/L (98-107); Estimated GFR-MDRD 25; Globulin 3.8 g/dL (2.4-3.5); Glucose 128 mg/dL (80-115); Potassium 4.5 mmol/L (3.5-5.1); Protein, Total 7.3 g/dL (6.0-8.3); Sodium 127 mmol/L (136-145)
[2018-06-19 20:29] LABS: Bilirubin Negative (Negative); Blood, Urine Small (Negative); Clarity CLEAR (Clear); Glucose, Urine (Dipstick) Negative (Negative); Leukocyte Negative (Negative); Nitrite Negative (Negative); Protein, Urine (Dipstick) 100 mg/dL (Neg-Trace); Urobilinogen 0.2 mg/dL (0.2-1.0); pH, Urine 6.5 (5.0-9.0)
[2018-06-19 20:31] LABS: Bacteria/HPF None Seen HPF (None Seen); Hyaline Casts/LPF 0-3 HYALINE CAST LPF (0-3 Hyaline); Pathc Cast-AUWi Flag 0.43 (0-2.49); RBC/HPF 0-3 HPF (0-3); Squamous Epithelial 0-3 HPF (0-3); WBC/HPF None Seen HPF (0-3)
== END 2018-06-19 21:58 | disposition home or self-care (01) ==
LOC: ERS 15:12
DX: R50.9 Fever, unspecified (principal); S71.001A Unspecified open wound, right hip, initial encounter; E11.9 Type 2 diabetes mellitus without complications; I10 Essential (primary) hypertension; Z79.899 Other long term (current) drug therapy
CPT/HCPCS: 36415; 51701; 80053; 81003; 81015; 83605; 85025; 87040; 96360; 96361; A4353

== ENCOUNTER 2018-06-22 07:18 | Inpatient (IN) | payer MEDICAID, OTHER ==
[2018-06-22] MEDS ORDERED: Fentanyl 100 MCG/2 ML VIAL ONE (08:14)
[2018-06-22] MEDS ORDERED: Acetaminophen 325 MG TAB ONE (08:14)
[2018-06-22 09:02] LABS: ALT (SGPT) 30 U/L (8-55); AST (SGOT) 38 U/L (5-34); Alkaline Phosphatase 152 U/L (40-150); Anion Gap 11 mmol/L (10-20); BUN (Urea Nitrogen) 69 mg/dL (9.8-20.1); Bilirubin, Total 0.7 mg/dL (0.2-1.2); Calc. Creatinine Clearance 0 mL/min (70-130); Calcium 8.4 mg/dL (7.8-10.44); Carbon Dioxide 20 mmol/L (23-31); Chloride 97 mmol/L (98-107); Estimated GFR-MDRD 14; Globulin 3.4 g/dL (2.4-3.5); Glucose 155 mg/dL (80-115); Lipase 13 U/L (8-78); Potassium 4.9 mmol/L (3.5-5.1); Protein, Total 6.4 g/dL (6.0-8.3); Sodium 123 mmol/L (136-145)
[2018-06-22 09:18] LABS: Band 1 % (5-11); Burr Cells SLIGHT = 2-5 cells (100X) (0-1/hpf); Hemoglobin 8.6 g/dL (12.0-16.0); Hypochromia SLIGHT = 6-15 cells (100X) (0-5/hpf); Lymphocytes 7 % (21-51); MDiff Complete? YES; Mean Corpuscular Hemoglobin 33.1 pg (27.0-31.0); Mean Corpuscular Volume 97.3 fL (78.0-98.0); Mean Platelet Volume 6.7 fL (7.4-10.4); Monocytes 8 % (0-10); Neutrophil 84 % (42-75); PLT Morphology Comment Appears Adequate; Platelet Count 194 thou/uL (130-400); RBC Distribution Width 14.5 % (11.5-14.5); Red Blood Cell (RBC) Count 2.59 mill/uL (4.20-5.40); White Blood Cell (WBC) Count 21.9 thou/uL (4.8-10.8)
[2018-06-22] MEDS ORDERED: Piperacillin/Tazobactam 4.5 GM VIAL ONE (09:26)
[2018-06-22] MEDS ORDERED: Vancomycin HCl 750 MG in Sodium Chloride 0.9% 250 ML 250 ML IVPB SCH (09:45)
--- NOTE | 2018-06-22 09:48 | RAD ---
RIGHT HIP 2 VIEWS: HISTORY: Hip pain. FINDINGS: There has been prior prosthesis placed. Comparison is made to exam of 06/10/18. The prosthetic components show no significant interval change. No acute fracture identified. IMPRESSION: No acute interval change noted. POS: [facility]
--- NOTE | 2018-06-22 09:51 | RAD ---
PORTABLE CHEST: HISTORY: Fever. FINDINGS: Lungs are well aerated. There is hazy infiltrate in the right upper lung suggestive of early pneumon ia. Heart size upper normal and stable. IMPRESSION: Evidence of hazy right upper lung infiltrate. Followup recommended. CODE T POS: [facility]
[2018-06-22 10:26] LABS: Bilirubin Negative (Negative); Blood, Urine Negative (Negative); Clarity CLOUDY (Clear); Glucose, Urine (Dipstick) Negative (Negative); Leukocyte Negative (Negative); Nitrite Negative (Negative); Protein, Urine (Dipstick) 30 mg/dL (Neg-Trace); Specific Gravity, Urine 1.013 (1.002-1.036); Urobilinogen 0.2 mg/dL (0.2-1.0); pH, Urine 5.5 (5.0-9.0)
[2018-06-22 10:29] LABS: Bacteria/HPF None Seen HPF (None Seen); Hyaline Casts/LPF 7-10 HYALINE CAST LPF (0-3 Hyaline); Squamous Epithelial 0-3 HPF (0-3); WBC/HPF 0-3 HPF (0-3)
--- NOTE | 2018-06-22 10:44 | RAD ---
RIGHT KNEE 4 VIEWS: INDICATION: Pain. FINDINGS: There has been internal fixation of the mid to distal femur. There is a knee prosthesis in lace with intramedullary yossi as part of the tibial component. Numerous plate and screws transfix the mid and distal femur and there is intramedullary yossi in the mid to proximal femur which is incompletely image d. The fracture lines in the distal femoral diaphysis are again noted with slight deformity. However, when compared to the prior exam of 05/20/18, there has been no significant change in the appea jayshree of the distal femur or knee. No evidence of acute interval change. POS: [facility]
[2018-06-22] MEDS ORDERED: Prevnar 13-Val Conj/PF 0.5 ML SYRINGE IM ONE (12:30)
[2018-06-22] MEDS ORDERED: Ondansetron HCl/PF 4 MG/2 ML Vial IVP PRN (12:49)
[2018-06-22] MEDS ORDERED: Ondansetron ODT 4 MG TAB SL PRN (12:49)
[2018-06-22] MEDS ORDERED: Dextrose 5% in Water 1,000 ML IV PRN (12:52)
[2018-06-22] MEDS ORDERED: Dextrose 50% Abboject 50 ML SYRINGE SLOW IVP PRN (12:52)
[2018-06-22] MEDS ORDERED: Sodium Chloride 0.9% 1,000 ML IV SCH (13:00)
--- NOTE | 2018-06-22 14:10 | PDOC.EVN ---
Event Note - Event Note Event Note: Date/Time: 06/22/18 1400 I personally evaluated the patient and discussed the management with Dr. Freeman. I agree with the History, Examination, Assessment and Plan as discussed. No clinical signs of pneumonia such as cough, hypoxia or SOB. However her leg pain is significant and we suspect she has a hardware infection/ cellulitis. Will consult Dr Delong. Empiric Antibiotics started. H&P pending. Will review and sign when available.
[2018-06-22] MEDS ORDERED: Ondansetron ODT 4 MG TAB PO PRN (16:57)
[2018-06-22] MEDS: HumaLOG 300 UNITS/3 ML VIAL SC PRN (17:36)
[2018-06-22] MEDS: Carvedilol 3.125 MG TAB PO SCH (17:39)
[2018-06-22] MEDS ORDERED: Piperacillin/Tazobactam 3.375 GM in Sodium Chloride 0.9% 100 ML IVPB SCH (19:38)
[2018-06-22 20:24] VITALS: BMI 28.3
--- NOTE | 2018-06-22 21:05 | HP-2 ---
CODE STATUS: FULL. PRIMARY CARE PHYSICIAN: Poli Vigil M.D. ATTENDING: Lior Simpson M.D. RESIDENT: Francis Freeman M.D. HISTORIAN: Patient and family. SPECIALIST: Dr. Bedolla, Orthopedic Surgery at [facility]. CHIEF COMPLAINT: Wound VAC complications. HISTORY OF PRESENT ILLNESS: A 72-year-old female with several chronic severe medical conditions who was recently admitted for a right septic hip infection. Patient was discharged 2 days ago and now presents for similar complaints. She was sent home with a juanpablo wound VAC and oral minocycline therapy and told to follow up with orthopedic surgeon and wound care. Since discharge, she has been running low grade fevers, and has been complaining of right leg pain. The patient initially presented to the ER because her wound VAC became disconnected , would not work. A wound VAC was reconnected in the ER where she was found to have leukocytosis and fever with worsening right lower extremity pain. She notes the pain over the right hip extends all of the way down to the right foot. Denies swelling, redness or loss of sensation. Patient denies nausea, vomiting, diarrhea, shortness of breath, cough or increased sputum production. In the ER, the patient received vancomycin 50 mg/kg, Zosyn 4.5 grams, 1.6 liters of normal saline, fentanyl 25 mcg and Tylenol 650 mg. PAST MEDICAL HISTORY: 1. Severe aortic stenosis. 2. Diabetes mellitus type 2. 3. Neurogenic bladder with recent history of ESBL Escherichia coli bacteremia. 4. Chronic kidney disease stage 4. 5. Right hip extra fascial septic bursitis. 6. Hypertension. 7. Diastolic congestive heart failure. 8. Normocytic anemia. 9. Chronic hyponatremia secondary to syndrome of inappropriate antidiuretic hormone secretion. PAST SURGICAL HISTORY: 1. Orthopedic right shoulder. 2. Right knee replacement. 3. Femur fracture status post open reduction internal fixation with intramedullary yossi and screws. 4. Total right hip replacement. ALLERGIES: No known drug allergies. CURRENT MEDICATIONS: 1. Amlodipine 10 mg daily. 2. B complex vitamin C 1 tab daily. 3. Carvedilol 3.125 mg b.i.d. 4. Pepcid 20 mg daily. 5. Ferrous sulfate 20 mg daily. 6. Hydralazine 25 mg t.i.d. 7. Hydrochlorothiazide 25 mg b.i.d. 8. Minocycline 100 mg b.i.d. 9. Tamsulosin 0.4 mg b.i.d. FAMILY HISTORY: Significant for diabetes mellitus in her mother. SOCIAL HISTORY: The patient denies tobacco, alcohol, or drug use. REVIEW OF SYSTEMS: The patient endorses fever, but denies fatigue or weight changes. Eyes: Denies eye pain. ENT: Denies nasal congestion, denies sore throat. Respirations: Denies cough, denies shortness of breath. Cardiovascular: Denies chest pain. Denies palpitations. Gastrointestinal: Denies nausea, vomiting, diarrhea. Genitourinary: Denies dysuria but does endorse decreased frequency in urination. Skin: Denies itching, rashes. Musculoskeletal: Endorses exquisite tenderness over entire right lower extremity. Neurologic: Denies weakness or numbness. Psychiatric: Denies anxiety. Denies depression. PHYSICAL EXAMINATION: VITAL SIGNS: Blood pressure 133/45, pulse 73, respirations 16, temperature 97.5 , pulse ox 99% room air. Current weight 54 kilograms. GENERAL: Alert, oriented x3, no acute distress, obese. EYES: Extraocular movements are intact. ENT: Nasal mucosa within normal limits, but mucous membranes appeared dry. NECK: Supple, with no lymphadenopathy. CARDIOVASCULAR: Shows regular rate and rhythm with a 3/6 holosystolic murmur. RESPIRATORY: Normal effort, no retractions. ABDOMEN: Soft, nontender to palpation. No masses or distention felt. EXTREMITIES: Show a wound VAC over the right lateral hip with extreme tenderness to palpation over the entire right leg. Pedal pulses are intact. Legs appear warm to the touch. NEUROLOGIC: She has no focal deficits. PSYCHIATRIC: Appropriate. LABORATORY DATA: White blood cell count of 22, 84% neutrophils, 1% bands, hemoglobin is 8.6, hematocrit 25, MCV is 97, and platelets 194. Sodium 123, potassium 4.9, chloride 97, bicarbonate 20, BUN 69, creatinine 3.24, glucose 155 , AST 38, ALT 30, alkaline phosphatase 152, calcium 8.4, total protein 6.4, albumin 3.0, total bilirubin 0.7, lactic acid 1.3, lipase 13. UA showed a specific gravity 1.013, negative for blood, protein significant 30, negative for leukocyte esterase, negative for nitrites, negative for ketones, negative for glucose, 4-6 red blood cells, 0-3 white blood cells and no bacteria. IMAGING: Chest x-ray showed possible hazy right upper lobe infiltrate. Right hip x-ray shows no changes since 06/10/2018. Right knee x-ray shows no change since 05/20/2018. ASSESSMENT AND PLAN: A 72-year-old female who presented with right lower extremity pain accompanied by leukocytosis and fever. 1. Right lower extremity cellulitis with suspected extension into hardware. The patient was seen by Dr. Bedolla yesterday in the outpatient setting and given the options of either a total hip arthroplasty revision with 6 weeks of IV antibiotics or amputation/disarticulation of the hip. With the patient's worsening white count and pain, there was concern for an overlying infection is now subfascial. We will order MRI without contrast to evaluate. We will continue vancomycin and Zosyn after speaking with Infectious Disease. Dr. Delong will be seeing the patient and advising once we have MRI and culture results. 2. Acute kidney injury. The patient's creatinine on 06/19/2018 was 1.95, so we will gently hydrate at 110 mL per hour. The patient volume status is tenuous. She has history of cardiogenic/pulmonary edema that required intubation earlier this year. We will also renally dose vancomycin and avoid nephrotoxic agents. 3. Normocytic anemia, appears at her baseline compared to previous visits. She is otherwise symptomatic. 4. Hyponatremia secondary to syndrome of inappropriate antidiuretic hormone. She is also at her baseline, does not require further workup. If it worsens, we will fluid restrict. 5. Hypertension, well controlled at this time. Continue home medications. 6. Diabetes mellitus, diet controlled but we will cover with sliding scale if needed. 7. Urinary retention. We will monitor urine output and assess need for in and out caths. This has been a problem in the past. DISPOSITION AND LENGTH OF STAY: 2+ days. Symptomatic medications will be provided. History and physical examinations as well as management were discussed with Dr. Lior Simpson. I saw adn evaluated the pateitn on 06/22/[address] Freeman. I agree with the assessment and plan as documented. [facility]
[2018-06-22] MEDS: Piperacillin/Tazobactam 2.25 GM in Sodium Chloride 0.9% 100 ML IVPB SCH (21:26)
[2018-06-22] MEDS: Hydrochlorothiazide 25 MG TAB PO SCH (21:28)
[2018-06-22] MEDS: Tamsulosin HCl 0.4 MG CAP PO SCH (21:28)
[2018-06-22] MEDS: Heparin 5,000 UNITS/ML VIAL SC SCH (21:28)
[2018-06-22] MEDS: hydrALAZINE 25 MG TAB PO SCH (21:28)
[2018-06-23] MEDS: Acetaminophen 325 MG TAB PO PRN ×3 (04:15→23:46)
[2018-06-23] MEDS: Piperacillin/Tazobactam 2.25 GM in Sodium Chloride 0.9% 100 ML IVPB SCH ×3 (04:15→20:27)
[2018-06-23 05:55] LABS: Anion Gap 13 mmol/L (10-20); BUN (Urea Nitrogen) 70 mg/dL (9.8-20.1); Calc. Creatinine Clearance 15 mL/min (70-130); Calcium 7.6 mg/dL (7.8-10.44); Carbon Dioxide 16 mmol/L (23-31); Chloride 104 mmol/L (98-107); Estimated GFR-MDRD 13; Glucose 79 mg/dL (80-115); Sodium 128 mmol/L (136-145)
[2018-06-23 07:08] LABS: Band 6 % (5-11); Hemoglobin 7.2 g/dL (12.0-16.0); Hypochromia SLIGHT = 6-15 cells (100X) (0-5/hpf); Lymphocytes 14 % (21-51); MDiff Complete? YES; Mean Corpuscular HGB CONC 34.2 g/dL (32.0-36.0); Mean Corpuscular Volume 96.7 fL (78.0-98.0); Mean Platelet Volume 6.8 fL (7.4-10.4); Monocytes 8 % (0-10); Neutrophil 72 % (42-75); PLT Morphology Comment Appears Adequate; Platelet Count 179 thou/uL (130-400); RBC Distribution Width 14.7 % (11.5-14.5); Red Blood Cell (RBC) Count 2.19 mill/uL (4.20-5.40); White Blood Cell (WBC) Count 17.9 thou/uL (4.8-10.8)
[2018-06-23] MEDS: Atorvastatin Calcium 40 MG TAB PO SCH (09:12)
[2018-06-23] MEDS: Heparin 5,000 UNITS/ML VIAL SC SCH ×2 (09:13→20:28)
[2018-06-23] MEDS: Tamsulosin HCl 0.4 MG CAP PO SCH ×2 (09:13→20:25)
[2018-06-23] MEDS: Carvedilol 3.125 MG TAB PO SCH ×2 (09:14→16:40)
[2018-06-23 09:41] LABS: Vancomycin, Random 23.5 ug/mL (See Comment)
[2018-06-23] MEDS: Amlodipine 10 MG TAB PO SCH (10:59)
[2018-06-23] MEDS: [UNRECOGNIZED DRUG - OTHER] PO SCH (11:00)
[2018-06-23] MEDS: B COMPLEX WITH VITAMIN C PO SCH (11:00)
[2018-06-23] MEDS: hydrALAZINE 25 MG TAB PO SCH ×3 (11:00→20:25)
[2018-06-23] MEDS: Hydrochlorothiazide 25 MG TAB PO SCH (11:01)
--- NOTE | 2018-06-23 12:10 | RAD ---
PORTABLE CHEST 1 VIEW: DATE: 06/23/18. TIME: 8:50 a.m. HISTORY: Pulmonary edema. FINDINGS: Comparison is made with the exam of previous day. The heart size is normal. The lungs are expanded without focal areas of consolidation, pneumothorax, or pleural effusions. No evidence of heide pulmonary edema. There are postop changes of a right hu meral head prosthesis again seen. POS: [facility]
--- NOTE | 2018-06-23 12:22 | PDOC.FM ---
- Subjective Subjective: This morning had long conversation with patient regarding treatment option going forward 1. ampuation 2. replace hardware, may not be able to replace hardware and end up with flaccid leg 3. try continuing IV Abx, prognosis does not seem favorable 4. Hospice care, targeting pain Lack of great options is setting in for family. They will consider these things. - Objective MAR Reviewed: Yes Vital Signs & Weight: Vital Signs (12 hours) Temp Pulse Resp BP BP Pulse Ox 06/23/18 11:00 59 L 119/60 06/23/18 10:59 59 L 113/66 06/23/18 10:58 98.7 F 59 L 18 119/60 98 06/23/18 08:00 99.4 F 74 16 96 06/23/18 07:59 99.4 F 74 16 113/61 96 06/23/18 05:10 99.1 F 06/23/18 04:00 100.3 F H 78 18 97/51 L 94 L Weight Weight 63.503 kg I&O: 06/22/18 06/23/18 06/24/18 06:59 06:59 06:59 Intake Total 1060 Balance 1060 Result Diagrams: 06/23/18 05:23 06/23/18 05:23 <Elgin Londono - Last Filed: 06/23/18 12:20> - Objective Vital Signs & Weight: Vital Signs (12 hours) Temp Pulse Resp BP BP Pulse Ox 06/23/18 11:00 59 L 119/60 06/23/18 10:59 59 L 113/66 06/23/18 10:58 98.7 F 59 L 18 119/60 98 06/23/18 08:00 99.4 F 74 16 96 06/23/18 07:59 99.4 F 74 16 113/61 96 06/23/18 05:10 99.1 F 06/23/18 04:00 100.3 F H 78 18 97/51 L 94 L Weight Weight 63.503 kg I&O: 06/22/18 06/23/18 06/24/18 06:59 06:59 06:59 Intake Total 1060 Balance 1060 Result Diagrams: 06/23/18 05:23 06/23/18 05:23 <Lior Simpson - Last Filed: 06/23/18 13:28> Phys Exam - Physical Examination Constitutional: NAD HEENT: PERRLA, moist MMs Neck: no nodes Respiratory: no wheezing, clear to auscultation bilateral Cardiovascular: no significant murmur 3/6 systolic murmur Gastrointestinal: soft, non-tender, no distention, positive bowel sounds wound vac in place at right hip, pain throughout r leg to palpation Neurological: non-focal, moves all 4 limbs Psychiatric: A&O x 3 <Elgin Londono - Last Filed: 06/23/18 12:20> Dx/Plan (1) Acute on chronic diastolic (congestive) heart failure Code(s): I50.33 - ACUTE ON CHRONIC DIASTOLIC (CONGESTIVE) HEART FAILURE Status : Acute (2) Bacteremia Code(s): R78.81 - BACTEREMIA Status: Acute (3) Infected hardware in right leg Code(s): T84.7XXA - INFECT/INFLM REACT DUE TO OTH INT ORTH PROSTH DEV/GRFT, INIT Status: Acute (4) Aortic stenosis Code(s): I35.0 - NONRHEUMATIC AORTIC (VALVE) STENOSIS Status: Chronic Qualifiers: Cardiac valve disease etiology: etiology unspecified Qualified Code(s): I35.0 - Nonrheumatic aortic (valve) stenosis (5) CKD (chronic kidney disease) stage 4, GFR 15-29 ml/min Code(s): N18.4 - CHRONIC KIDNEY DISEASE, STAGE 4 (SEVERE) Status: Chronic (6) DM2 (diabetes mellitus, type 2) Status: Chronic (7) Hyponatremia Code(s): E87.1 - HYPO-OSMOLALITY AND HYPONATREMIA Status: Chronic - Plan Plan: # R Lower extremity infected hardware - 05/21 MRI showed suspicion for infection of R hip replacement - Wound vac in place over the rt hip - BC grew out pseudomonas - Orthopedist Dr. Arevalo saw her outpatient on 06/21 - options given: revision of hip with 6 wks of abx or hardware replacement - paged Dr. Arevalo's answering service at [phone] on 06/23, have not heard back will update - may need to page once again on Sunday to discuss utility of repeat MRI and prognosis for patient - On Vanc, Zosyn, Levoquin (double pseudomonal coverage) - Dr. Delong consulted, appreciate assistence - No MRI pending last MRI done on 05/21, will defer to Dr. 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 Londono. I agree with the History, Examination, Assessment and Plan documented above with any addition or exceptions noted below. <Lior Simpson - Last Filed: 06/23/18 13:28>
[2018-06-23] MEDS ORDERED: Sodium Bicarbonate 150 MEQ in Dextrose 5% in Water 1,000 ML IV SCH (14:15)
--- NOTE | 2018-06-23 14:37 | PRG ---
DATE OF SERVICE: 06/23/2018 SUBJECTIVE: Patient was seen and examined at bedside and overnight events noted. Patient denies any shortness of breath or chest pain or palpitation. No history of nausea or vomitin g or diarrhea or fever or chills or cramps. OBJECTIVE: GENERAL: This is a well-built female, in no apparent distress. VITAL SIGNS: Temperature 98.7, pulse 59, respiratory rate 18, blood pressure 119/60. HEENT: Atraumatic, normocephalic. Oral mucosa is moist. NECK: Supple. CARDIOVASCULAR: S1 and S2 heard. Rate and rhythm regular. RESPIRATORY: Clear to auscultation. GASTROINTESTINAL: Abdomen is soft. MUSCULOSKELETAL: No tenderness. No edema. DERMATOLOGIC: No skin rash. NEUROLOGIC: Alert and awake and oriented x3. No focal neurologic deficits. Moving all the extremit ies. PSYCHIATRIC: Mood and affect normal. LABORATORY DATA: Potassium is 5.0, sodium is 128, BUN 70, creatinine is 3.5. ASSESSMENT AND PLAN: 1. Acute kidney injury. Renal function is getting worse, most likely from sepsis and infected hardw are. Follow with primary team. 2. Hyponatremia, better. 3. Hyperkalemia. We will limit potassium. 4. Metabolic acidosis getting worse. We will add bicarbonate drip. 5. Edema, controlled. 6. Hypocalcemia. 7. Anemia, seems to be chronic. 8. Renal function getting worse. No acute indication for dialysis. Limit potassium in the diet. W e will start bicarbonate drip and stop hydrochlorothiazide. Renal dose all the medications Heparin d ose . We will continue to follow. Continue close monitoring.
--- NOTE | 2018-06-23 19:10 | CON ---
DATE OF CONSULTATION: 06/23/2018 REASON FOR CONSULTATION: Right hip pain, fever. HISTORY OF PRESENT ILLNESS: A 72-year-old known to us from prior admissions with a history of hypert ension, type 2 diabetes and CHF and renal insufficiency with severe aortic stenosis and prior ESBL UT I as well as right hip fracture with right hip replacement done at [place] a few months ago lea gates has had complications in the operative site. The most recent one was a development of a fluid col lection in the thigh area right below the implant. During the surgical procedure, it did not appear that the collection penetrated the facial plane. The area was I&D'd and closed. In the office, the patient had a followup which showed the lack of healing/closure of the wound and she was admitted aga in a few days ago and the impression was that the cultures have been negative. We still could not ru le out a complication at the right hip site. She was continued on negative pressure dressing and dis charged, but now she presents with worsening pain in the right hip area radiating towards the knee as sociated with fever, general malaise. No headaches, no sore throat, odynophagia, dysphagia, no vomit ing, no dyspnea or chest pain, no abdominal pain, no genitourinary symptoms. She was given broad spe ctrum coverage, IV fluids and admitted and MRI is pending. PAST MEDICAL HISTORY: Severe aortic stenosis, type 2 diabetes, hypertension, right hip fracture with right hip replacement this year at [place], fracture of right shoulder area, renal insuffici ency and CHF. ALLERGIES: None. SOCIAL HISTORY: Nonsmoker. FAMILY HISTORY: Type 2 diabetes. CURRENT MEDICATIONS: Tylenol, Norvasc, Lipitor, Coreg, dextrose, glucagon, heparin, Apresoline, hydr ochlorothiazide, levofloxacin, piperacillin and vancomycin. PHYSICAL EXAMINATION: VITAL SIGNS: T-max 100.3, blood pressure 119/60, pulse 59, respiratory rate 18. SKIN: Shows the negative pressure dressing in the right hip region. No erythema noted. Hyperpigmen tation in the right lower extremity, peripheral IV access and she is voiding spontaneously. No lymph adenopathy. HEENT: Ocular movements conjugate. Oral cavity moist. Numerous teeth in place with some decay. NECK: Supple. No jugular vein distention. LUNGS: With symmetric clear breath sounds. HEART: S1, S2 with a loud 3-4/6 systolic murmur at the heart base both aortic and pulmonic area radi ating to the neck. No S3. ABDOMEN: Soft, not distended, no bladder distention. EXTREMITIES: Marked pain on mobilization of the right hip. The right lower extremity is inverted an d the slight movement of the right lower extremity elicits severe pain. The left lower extremity is painless and without inflammatory changes. Pulses are 1+ in dorsalis pedis. She is able to move toe s. The upper extremity strength is preserved. She is awake, oriented. LABORATORY DATA: White cell count 21,000 and now 17.9, hemoglobin 8.6, platelets 184 with 84% neutro phils. Sodium 123, creatinine 3.24 and 3.57. Previous baseline was around 1.97 just a few days ago. Alkaline phosphatase 152, AST 38, albumin 3.0. Urinalysis with 0-3 wbc's. Microbiology with 1 out of 2 sets of blood cultures with Pseudomonas aeruginosa. Urine culture no growth at 24 hours. IMAGING: Chest x-ray with a normal heart size, expanded lungs, but no areas of focal consolidation, no effusion. The knee and hip x-rays did not show any displacement. No acute fracture. The MRI of the right lower extremity, hip area pending. ASSESSMENT AND DISCUSSION: 1. Advanced renal insufficiency stage 4, severe aortic stenosis, previous urinary tract infection wi th extended-spectrum beta-lactamase Escherichia coli. The right hip complications following a fractu re and right hip replacement with development of a right thigh fluid collection which was drained wit h lack of proper healing. 2. Recrudescence of fever with worsening pain on the right hip area and the Pseudomonas aeruginosa b acteremia. DISCUSSION: Differential diagnosis includes infection of the right hip prosthesis osteomyelitis as t he more likely scenario here. We will see what the MRI shows. May need a needle, CT guided or ultra sound guided aspirate of the area for cultures. Pending on findings may require surgical interventio n and the removal of the implant. Other possibilities such as urinary tract infection, respiratory a nother intraabdominal inflammatory process are unlikely. Discontinue vancomycin. Continue remainder of antimicrobials until susceptibilities are available.
[2018-06-24] MEDS: Piperacillin/Tazobactam 2.25 GM in Sodium Chloride 0.9% 100 ML IVPB SCH ×3 (04:44→21:01)
[2018-06-24 05:36] LABS: Anion Gap 14 mmol/L (10-20); BUN (Urea Nitrogen) 69 mg/dL (9.8-20.1); Calc. Creatinine Clearance 15 mL/min (70-130); Calcium 7.5 mg/dL (7.8-10.44); Carbon Dioxide 19 mmol/L (23-31); Chloride 99 mmol/L (98-107); Estimated GFR-MDRD 13; Glucose 116 mg/dL (80-115); Potassium 4.5 mmol/L (3.5-5.1); Sodium 127 mmol/L (136-145)
[2018-06-24 05:56] LABS: Band 14 % (5-11); Eosinophils 4 % (0-10); Hemoglobin 7.1 g/dL (12.0-16.0); Lymphocytes 7 % (21-51); MDiff Complete? YES; Mean Corpuscular Hemoglobin 32.2 pg (27.0-31.0); Mean Corpuscular Volume 94.8 fL (78.0-98.0); Monocytes 3 % (0-10); Neutrophil 72 % (42-75); PLT Morphology Comment Appears Adequate; Platelet Count 190 thou/uL (130-400); RBC Distribution Width 14.6 % (11.5-14.5); Red Blood Cell (RBC) Count 2.21 mill/uL (4.20-5.40); White Blood Cell (WBC) Count 14.9 thou/uL (4.8-10.8)
--- NOTE | 2018-06-24 08:09 | PDOC.FM ---
- Subjective Subjective: Sitting up in bed this morning. Not complaining of pain. Confused as to whether or not she need an amputation. Obtained white shoe examiner phone and discussed possible right hip hardware infection. Discussed recommendation of an MRI for the patient to further evaluate. Pt understood. - Objective MAR Reviewed: Yes Vital Signs & Weight: Vital Signs (12 hours) Temp Pulse Resp BP BP Pulse Ox 06/24/18 04:58 99.4 F 62 18 146/72 H 98 06/24/18 00:00 99.3 F 18 96 06/23/18 20:25 62 129/74 Weight Weight 63.503 kg I&O: 06/23/18 06/24/18 06/25/18 06:59 06:59 06:59 Intake Total 1060 1052 Balance 1060 1052 Result Diagrams: 06/24/18 04:39 06/24/18 04:39 <Allison Cano - Last Filed: 06/24/18 12:10> - Objective Vital Signs & Weight: Vital Signs (12 hours) Temp Pulse Resp BP BP Pulse Ox 06/24/18 08:32 71 136/61 06/24/18 08:31 71 06/24/18 08:25 98.7 F 71 18 136/61 93 L 06/24/18 08:00 98.7 F 71 18 93 L 06/24/18 04:58 99.4 F 62 18 146/72 H 98 Weight Admit Weight 63.503 kg Weight 63.503 kg I&O: 06/23/18 06/24/18 06/25/18 06:59 06:59 06:59 Intake Total 1060 1052 400 Output Total 300 Balance 1060 1052 100 Result Diagrams: 06/24/18 04:39 06/24/18 04:39 <Lior Simpson - Last Filed: 06/24/18 14:19> Phys Exam - Physical Examination Constitutional: NAD HEENT: PERRLA, moist MMs Respiratory: no wheezing, no rales, no rhonchi, clear to auscultation bilateral Cardiovascular: RRR, no significant murmur Gastrointestinal: soft, non-tender, no distention Musculoskeletal: no edema, pulses present Neurological: non-focal, normal sensation <Allison Cano - Last Filed: 06/24/18 12:10> Dx/Plan (1) Acute on chronic diastolic (congestive) heart failure Code(s): I50.33 - ACUTE ON CHRONIC DIASTOLIC (CONGESTIVE) HEART FAILURE Status : Acute (2) Cellulitis Code(s): L03.90 - CELLULITIS, UNSPECIFIED Status: Acute Qualifiers: Site of cellulitis: extremity Laterality: right (3) Infection/inflammation-internal ortho device Code(s): T84.7XXA - INFECT/INFLM REACT DUE TO OTH INT ORTH PROSTH DEV/GRFT, INIT Status: Acute (4) CKD (chronic kidney disease) stage 4, GFR 15-29 ml/min Code(s): N18.4 - CHRONIC KIDNEY DISEASE, STAGE 4 (SEVERE) Status: Chronic (5) DM2 (diabetes mellitus, type 2) Status: Chronic (6) Hypertension Code(s): I10 - ESSENTIAL (PRIMARY) HYPERTENSION Status: Chronic - Plan Plan: # pseudomonas bacteremia- -Pt on zosyn and levaquin; vanc dc'd per recs by dr. delong # Probable R Lower extremity infected hardware - Wound vac in place over the rt hip - BC grew out pseudomonas - Orthopedist Dr. Arevalo saw her outpatient on 06/21 - options given: revision of hip with 6 wks of abx or hardware replacement - paged Dr. Arevalo's answering service at 1145 on 06/23, have not heard back will update - may need to page once again on Sunday to discuss utility of repeat MRI and prognosis for patient - On Zosyn, Levoquin (double pseudomonal coverage) - Dr. 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 Tony. I agree with the History, Examination, Assessment and Plan documented above with any addition or exceptions noted below. <Lior Simpson - Last Filed: 06/24/18 14:19>
[2018-06-24] MEDS: Amlodipine 10 MG TAB PO SCH (08:31)
[2018-06-24] MEDS: Heparin 5,000 UNITS/ML VIAL SC SCH ×2 (08:32→21:02)
[2018-06-24] MEDS: Carvedilol 3.125 MG TAB PO SCH ×2 (08:32→16:23)
[2018-06-24] MEDS: Atorvastatin Calcium 40 MG TAB PO SCH (08:32)
[2018-06-24] MEDS: hydrALAZINE 25 MG TAB PO SCH ×3 (08:32→21:01)
[2018-06-24] MEDS: Tamsulosin HCl 0.4 MG CAP PO SCH ×2 (08:32→21:02)
--- NOTE | 2018-06-24 08:50 | PRG-2 ---
DATE OF SERVICE: 06/23/2018 Greater than 45 minutes was spent discussing outlook with patient and 2 sets of family members today. Discussed lack of excellent options for patient going forward. The four options going forward appe ared to be: 1. Amputation. 2. Attempt replacement of hip replacement. 3. Continue IV antibiotics, pending Dr. Delong' recommendations. 4. Hospice care. The patient is adamant that she does not want to have a leg amputation. Discussed possibility of daphney lure of any of the other options to prevent infection from overtaking her body secondary to poor circ ulation. The patient is in understanding that her prognosis is indeed grave. She and the family are considering whether or not they want to continue aggressive care or whether they would like to trans ition to a hospice care situation. At this moment, the family and the patient are quite undecided. Multiple of the family members do confirm on teach back method that they understand the options in fr ont of them. We will continue to revisit this discussion on patient in order to assure that we are c aring for her as she would want.
[2018-06-24 09:34] LABS: Vancomycin, Random 23.6 ug/mL (See Comment)
[2018-06-24] MEDS ORDERED: Vancomycin HCl 500 MG in Sodium Chloride 0.9% 100 ML IVPB SCH (10:00)
--- NOTE | 2018-06-24 10:29 | CON ---
DATE OF CONSULTATION: 06/22/2018 CONSULTING PHYSICIAN: Lior Simpson M.D. REASON FOR CONSULTATION: Acute kidney injury. REASON FOR ADMISSION: Wound VAC . HISTORY OF PRESENT ILLNESS: This is a 72-year-old female with history of type 2 diabetes, hypertensi on, E. coli, and sepsis, came to the hospital with wound VAC complication and is being admitted. The patient is Wolof speaking only and complained of a few episodes of vomiting yesterday. No fever. No chest pain reported today. No diarrhea. No issued of abdominal pain. She complains of hip pain and leg pain. PAST MEDICAL HISTORY: Positive for type 2 diabetes, hypertension, hyperlipidemia, anemia, iron defic iency. PAST SURGICAL HISTORY: Right hip surgery, right knee surgery, left great toe surgery. HOME MEDICATIONS: Atorvastatin, cranberry, tamsulosin, Zofran, amlodipine, Tums, iron, minocycline, carvedilol and hydralazine. ALLERGIES: No known drug allergies. SOCIAL HISTORY: No smoking, alcohol, or illicit drug abuse. FAMILY HISTORY: No history of kidney disease. REVIEW OF SYSTEMS: The following complete review of systems was negative, unless otherwise mentioned in the HPI or below: Constitutional: Weight loss or gain, ability to conduct usual activities. Sk in: Rash, itching. Eyes: Double vision, pain. ENT/Mouth: Nose bleeding, neck stiffness, pain, te nderness. Cardiovascular: Palpitations, dyspnea on exertion, orthopnea. Respiratory: Shortness of breath, wheezing, cough, hemoptysis, fever or night sweats. Gastrointestinal: Poor appetite, abdom inal pain, heartburn, nausea, vomiting, constipation, or diarrhea. Genitourinary: Urgency, frequenc y, dysuria, nocturia. Musculoskeletal: Pain, swelling. Neurologic/Psychiatric: Anxiety, depressio n. Allergy/Immunologic: Skin rash, bleeding tendency. PHYSICAL EXAMINATION: GENERAL: This is an elderly female, in no apparent distress. VITAL SIGNS: Temperature 100.6, pulse 60, respiratory rate 18, blood pressure 110/43. HEENT: Atraumatic, normocephalic. Oral mucosa is moist. NECK: Supple, no masses. CARDIOVASCULAR: S1, S2 heard. Rate and rhythm regular. RESPIRATORY: Clear. GASTROINTESTINAL: Abdomen is soft. MUSCULOSKELETAL: No tenderness, no edema. DERMATOLOGIC: No skin rash. NEUROLOGIC: Alert and awake. PSYCHIATRIC: Normal mood and affect. LABORATORY DATA: Hemoglobin is 8.6, WBC 21.9. Potassium 4.9, sodium is 123, BUN is 69, creatinine i s 3.24. ASSESSMENT AND PLAN: 1. Acute kidney injury on chronic kidney disease. Agree with hydration and supportive care. Contin ue sepsis care and continue empiric antibiotics, follow up cultures. 2. Hyponatremia. Continue IV fluids. 3. Metabolic acidosis, lactic acid level is normal. Continue IV fluids. 4. Hypoalbuminemia, moderate. 5. Edema, controlled. 6. Hypertension, stable. 7. Anemia seems to be chronic. 8. Leukocytosis. 9. Agree with IV fluids, broad spectrum antibiotics. Monitor vancomycin level. We will follow. Thank you for the consult.
[2018-06-24] MEDS ORDERED: Vancomycin HCl 1 GM in Sodium Chloride 0.9% 250 ML 300 ML IVPB ONE (10:30)
[2018-06-24] MEDS: [UNRECOGNIZED DRUG - OTHER] PO SCH (11:22)
[2018-06-24] MEDS: B COMPLEX WITH VITAMIN C PO SCH (11:22)
--- NOTE | 2018-06-24 12:39 | PRG ---
DATE OF SERVICE: 06/24/2018 SUBJECTIVE: A 72-year-old female being seen for acute kidney injury. The patient denies any nausea, vomiting, chest pain. PHYSICAL EXAMINATION: GENERAL: Patient is awake, alert. VITAL SIGNS: Afebrile, pulse 71, breathing 16, blood pressure 136/61. HEAD/NECK: Normocephalic. Atraumatic. EYES: EOMI. No deformity. EARS: Clear. No ulcers. NOSE: Intact. No lesions. MOUTH: Clear. No discharge. THROAT: Clear. No exudate. LUNGS: Clear. No crackles. CARDIAC: S1, S2. No rub. ABDOMEN: Benign. BS+. GENITALIA/RECTUM: Eason absent. BACK/EXTREMITIES: Edema 0+ Ulcer- NEUROLOGICAL: Alert and motor intact. SKIN: Rash- Bruise- LYMPHATICS: Edema- Ulcer- LABORATORY DATA: Show potassium 4.5, creatinine 3.5. ASSESSMENT AND PLAN: 1. CKD stage 5, no urgent indication for dialysis. 2. Hyperkalemia, improved. 3. Metabolic acidosis, stable. If renal function does not improve or becomes hyperkalemic, will apryl n dialysis. Overall, prognosis is poor.
[2018-06-24] MEDS: Acetaminophen 325 MG TAB PO PRN (13:53)
--- NOTE | 2018-06-24 14:06 | MRI ---
MRI RIGHT HIP PERFORMED WITHOUT CONTRAST ENHANCEMENT: HISTORY: Complaining of right hip and leg pain. History of incision and drainage with wound VAC. COMPARISON: Plain film examination of 06/22/2018 and MRI study from 05/21/2018. FINDINGS: Postoperative changes of the right hip are again demonstrated. Along the lateral margin of the proxi mal right femur is a persistent fluid collection, measuring approximately 13 cm in length and approxi mately 2.2 cm in diameter. This was fairly similar to the previous examination. The more superficial fluid collection, which was noted on the prior examination, has been drained. T here is a defect within the soft tissue related to this. There is extensive muscle atrophy involving the right hip region. There are some edema changes withi n the proximal thigh musculature. No other fluid collections are identified. IMPRESSION: 1. Persistent fluid collection along the lateral aspect of the proximal right femur. This was seen on the previous examination and is directly adjacent to the hardware. I cannot exclude this as an in fected collection. The more superficial collection, seen on the previous examination, has been drain ed. 2. Extensive muscle atrophy, also with some edema change within the proximal thigh musculature and a dductor muscles. POS: [facility]
[2018-06-24] MEDS: HumaLOG 300 UNITS/3 ML VIAL SC PRN (16:20)
--- NOTE | 2018-06-24 17:32 | PQF ---
CLINICAL DOCUMENTATION IMPROVEMENT CLARIFICATION FORM: ICD-10 Updated PLEASE DO AN ADDENDUM TO THE PROGRESS NOTE WITH ANY DOCUMENTATION UPDATES OR ADDITIONS AND CARRY THROUGH TO DC SUMMARY. THANK YOU. DATE: 06/24/18; 06/25/18 ATTN: Dr. Cano/ Attending Dr. Simpson Please exercise your independent, professional judgment in responding to the clarification form. Clinical indicators are provided on the bottom of this form for your review Please check appropriate box(es): [ x ] Sepsis due to: _x__cellulitis and probable right hip arthroplasty infection Due to: [ ] Device (please specify) [ ] Implant [ ] Severe sepsis with acute organ dysfunction of: [ ] Localized infection without sepsis [ ] Other diagnosis [ ] Unable to determine In addition, please specify: Present on Admission (POA): [ x ] Yes [ ] No [ ] Unable to determine For continuity of documentation, please document condition throughout progress notes and discharge summary. Thank You. CLINICAL INDICATORS - SIGNS / SYMPTOMS / LABS ID CONSULT: T-MAX 100.3 WHITE CELL COUNT 21,000 RECRUDESCENCE OF FEVER W/ WORSENING PAIN ON THE R HIP AREA & THE PSEUDOMONAS AERUGINOSA BACTEREMIA RENAL PN 06/23: LUIS. RENAL FUNCTION GETTING WORSE, MOST LIKELY FROM SEPSIS & INFECTED HARDWARE. PN 06/24: PSEUDOMONAS BACTEREMIA. LUIS RISKS: H&P 06/22: RECENTLY ADMITTED FOR A R SEPTIC HIP INFECTION. HX DM 2, CKD 4 TREATMENT: ID CONSULT CPOE 06/22: ZOSYN 2.25 GM IV CPOE 06/23: LEVAQUIN 500MG IV Thank you, Sue (This form is maintained as a part of the permanent medical record) 2015 [employer] All Rights Reserved Sue Lee RN, BSN [email or web address] Office: [phone] [facility]
--- NOTE | 2018-06-24 19:08 | PRG ---
DATE OF SERVICE: 06/24/2018 SUBJECTIVE: Feeling about the same. She had the MRI and results are discussed below. Having some l oose stool. PHYSICAL EXAMIANTION: VITAL SIGNS: Vital signs have normalized. Temperature is normal. GENERAL: Awake, alert, oriented. No shortness of breath or chest pain. No abdominal pain, diarrhea . EXTREMITIES: Right lower extremity is extremely tender on range of motion. LUNGS: Clear. HEART: S1, S2, regular rate. ABDOMEN: Soft. LABORATORY DATA: White cell count 14.9, hemoglobin 7.1, platelets 190, 14% bands and creatinine 3.44 , which is about the same as previously. Microbiology with P. aeruginosa in one set of blood culture s and the lower extremity MRI demonstrated persistent fluid collection along the lateral aspect of th e proximal femur measuring 13 cm x 2.2 cm. Some edema changes. This appears to be adjacent to the h ardware. ASSESSMENT AND DISCUSSION: Stage 4 renal insufficiency, severe aortic stenosis and right hip fractu re with ORIF and now what appears to have Pseudomonas aeruginosa infection of the deep site. The pat ient will need a surgical I&D of the site, may even need removal of hardware if possible. After that , she will need protracted antimicrobial therapy targeted towards the organisms isolated from the ruben p site plus Pseudomonas aeruginosa.
--- NOTE | 2018-06-24 22:31 | CON ---
DATE OF CONSULTATION: 06/24/2018 REQUESTING PHYSICIAN: Dr. Poli Vigil. BRIEF HISTORY OF PRESENT ILLNESS: The patient is a 72-year-old female who [facility] with increasing complaints of right hip pain and a rising white blood cell count. S he has a long history of right hip problems with total hip replacement and subsequent revision by Dr. Bedolla at the [facility]. She was recently admitted to [place] for a hip infec tion and was felt to be superficial. However, now returns with increasing pain despite being on anti biotics. Repeat MRI has shown a fluid collection around her total hip arthroplasty and as such ortho pedic consultation requested. PAST MEDICAL HISTORY: Remarkable for aortic stenosis, diabetes, neurogenic bladder, stage IV renal d isease, hypertension, congestive heart failure, history of anemia. PAST SURGICAL HISTORY: Includes right shoulder replacement, right knee replacement, right total hip arthroplasty as well as past history of femur fracture. MEDICATIONS: I will refer you to the history and physical. ALLERGIES: None known. REVIEW OF SYSTEMS: The patient denies fevers, but has had some sweats and chills. Does have a histo ry of shortness of breath with exertion, but denies chest pain. Denies numbness or tingling in the l ower extremity. PHYSICAL EXAMINATION: VITAL SIGNS: Temperature 98.4, heart rate of 62, respiratory rate of 18, and blood pressure 103/44. HEENT: Atraumatic, normocephalic. HEART: Shows a regular rate and rhythm with a systolic murmur. LUNGS: Clear to auscultation with unlabored breathing. ABDOMEN: Nontender. EXTREMITIES: Remarkable for a right lateral thigh wound with wound VAC in place. There was found to be tenderness to palpation over the right lateral thigh extending down towards the knee, although I did not appreciate any erythema following this path. She is able to wiggle her toes and ankle. LABORATORY DATA: On admission, she had a white count of 22 with the most recent white blood cell cou nt of 14.9 with hematocrit of 21, and 190,000 platelets. Repeat MRI shows loculated fluid collection around the total hip arthroplasty with now an absent fluid collection in the subcutaneous tissue sin ce the wound VAC had been placed. ASSESSMENT: A 72-year-old lady with extensive history of infection of this hip, now with increasing white count and increasing pain. PLAN: At this time, we will take patient back to the operating room for repeat irrigation and debrid ement of superficial wound and incision and drainage of the deep wound fluid collection. I have disc ussed with family risks and benefits of this procedure. They appear to understand and do wish to pro ceed. Consent will be obtained for surgery tomorrow.
[2018-06-25 04:52] LABS: Anion Gap 16 mmol/L (10-20); BUN (Urea Nitrogen) 71 mg/dL (9.8-20.1); Calc. Creatinine Clearance 15 mL/min (70-130); Calcium 7.9 mg/dL (7.8-10.44); Carbon Dioxide 17 mmol/L (23-31); Chloride 98 mmol/L (98-107); Estimated GFR-MDRD 13; Glucose 86 mg/dL (80-115); Potassium 4.5 mmol/L (3.5-5.1); Sodium 126 mmol/L (136-145)
[2018-06-25] MEDS: Piperacillin/Tazobactam 2.25 GM in Sodium Chloride 0.9% 100 ML IVPB SCH ×4 (04:53→23:07)
[2018-06-25 05:15] LABS: Band 13 % (5-11); Hemoglobin 7.1 g/dL (12.0-16.0); Hypochromia SLIGHT = 6-15 cells (100X) (0-5/hpf); Lymphocytes 2 % (21-51); MDiff Complete? YES; Mean Corpuscular HGB CONC 35.2 g/dL (32.0-36.0); Mean Corpuscular Hemoglobin 33.4 pg (27.0-31.0); Mean Platelet Volume 7.2 fL (7.4-10.4); Monocytes 7 % (0-10); Neutrophil 78 % (42-75); PLT Morphology Comment Appears Adequate; Platelet Count 196 thou/uL (130-400); RBC Distribution Width 14.6 % (11.5-14.5); Red Blood Cell (RBC) Count 2.13 mill/uL (4.20-5.40); White Blood Cell (WBC) Count 14.1 thou/uL (4.8-10.8)
[2018-06-25] MEDS: Carvedilol 3.125 MG TAB PO SCH ×2 (05:56→17:54)
[2018-06-25] MEDS: Heparin 5,000 UNITS/ML VIAL SC SCH ×2 (07:11→21:59)
--- NOTE | 2018-06-25 08:34 | PDOC.FM ---
- Subjective Subjective: Complains of mild pain in right hip. Zissimos plans for wash out today. No acute complaints overnight. - Objective MAR Reviewed: Yes Vital Signs & Weight: Vital Signs (12 hours) Temp Pulse Resp BP BP Pulse Ox 06/25/18 07:03 98.6 F 67 18 137/69 98 06/24/18 21:01 62 103/44 L Weight Admit Weight 63.503 kg Weight 63.503 kg I&O: 06/24/18 06/25/18 06/26/18 06:59 06:59 06:59 Intake Total 1052 600 Output Total 650 Balance 1052 -50 Result Diagrams: 06/25/18 03:18 06/25/18 03:17 <Allison Cano - Last Filed: 06/25/18 10:36> - Objective Vital Signs & Weight: Vital Signs (12 hours) Temp Pulse Resp BP Pulse Ox 06/25/18 10:59 99.2 F 66 16 134/64 97 06/25/18 08:00 98.6 F 67 18 06/25/18 07:03 98.6 F 67 18 137/69 98 Weight Admit Weight 63.503 kg Weight 63.503 kg I&O: 06/24/18 06/25/18 06/26/18 06:59 06:59 06:59 Intake Total 1052 600 Output Total 650 Balance 1052 -50 Result Diagrams: 06/25/18 03:18 06/25/18 03:17 <Lior Simpson - Last Filed: 06/25/18 12:19> Phys Exam - Physical Examination Constitutional: NAD HEENT: PERRLA, moist MMs Respiratory: no wheezing, no rales, no rhonchi, clear to auscultation bilateral Cardiovascular: RRR, no significant murmur Gastrointestinal: soft, non-tender Musculoskeletal: no edema Neurological: non-focal Skin: no rash <Allison Cano - Last Filed: 06/25/18 10:36> Dx/Plan (1) Acute on chronic diastolic (congestive) heart failure Code(s): I50.33 - ACUTE ON CHRONIC DIASTOLIC (CONGESTIVE) HEART FAILURE Status : Acute (2) Cellulitis Code(s): L03.90 - CELLULITIS, UNSPECIFIED Status: Acute Qualifiers: Site of cellulitis: extremity Laterality: right (3) Infection/inflammation-internal ortho device Code(s): T84.7XXA - INFECT/INFLM REACT DUE TO OTH INT ORTH PROSTH DEV/GRFT, INIT Status: Acute (4) CKD (chronic kidney disease) stage 4, GFR 15-29 ml/min Code(s): N18.4 - CHRONIC KIDNEY DISEASE, STAGE 4 (SEVERE) Status: Chronic (5) DM2 (diabetes mellitus, type 2) Status: Chronic (6) Hypertension Code(s): I10 - ESSENTIAL (PRIMARY) HYPERTENSION Status: Chronic (7) LUIS (acute kidney injury) Code(s): N17.9 - ACUTE KIDNEY FAILURE, UNSPECIFIED Status: Acute (8) Acute on chronic kidney failure Code(s): N17.9 - ACUTE KIDNEY FAILURE, UNSPECIFIED; N18.9 - CHRONIC KIDNEY DISEASE, UNSPECIFIED Status: Acute Qualifiers: Chronic kidney disease stage: stage 4 (severe) - Plan Plan: 72 yo female with pmhx of recent right hip arthroplasty presents with right hip pain, admitted for right hip cellulitis and concern for hip arthroplasty infection, found to have pseudomonas bacteremia. # Pseudomonas bacteremia- -Pt on zosyn and levaquin; vanc dc'd per recs by Dr. Delong # Right hip cellulitis with concern for right hip arthroplasty infction - Wound vac in place over the rt hip - BC grew out pseudomonas - MRI without contrast (poor kidney function) showed a fluid collection near right femur and adjacent to the right hip arthroplasty - On Zosyn, Levoquin (double pseudomonal coverage) - Dr. Delong consulted, appreciate assistance - Dr. Soriano consulted, appreciate recommendation-plans for washout today # LUIS - Cr 3.57, up from 1.95 on 06/19 - urine sodium and cr pending - hyponatremia (129) # Normocytic anemia - hgb 8.6 # Hyponatremia- - chronically low 2/2 SIADH vs CKD stage 4 # DM - SSI Code: full Diet: renal, diabetic Dispo: >2 days <Allison Cano - Last Filed: 06/25/18 10:36> Attending Addendum - Attending Addendum Date/Time: 06/25/18 1212 I personally evaluated the patient and discussed the management with Dr. Tony. I agree with the History, Examination, Assessment and Plan documented above with any addition or exceptions noted below. We appreciate Dr. Delong' and Dr Singh's care. Washout planned today. <Lior Simpson - Last Filed: 06/25/18 12:19>
[2018-06-25] MEDS: Tamsulosin HCl 0.4 MG CAP PO SCH ×2 (08:49→21:54)
[2018-06-25] MEDS: hydrALAZINE 25 MG TAB PO SCH ×3 (08:49→21:54)
[2018-06-25] MEDS: Amlodipine 10 MG TAB PO SCH (08:49)
[2018-06-25] MEDS: Atorvastatin Calcium 40 MG TAB PO SCH (08:49)
--- NOTE | 2018-06-25 09:02 | PRG ---
DATE OF SERVICE: 06/25/2018 SUBJECTIVE: This is a 72-year-old female being seen for acute kidney injury. The patient denies any nausea, vomiting, or chest pain. PHYSICAL EXAMINATION: GENERAL: Patient is awake, alert. VITAL SIGNS: Afebrile, pulse 69, breathing at 16, blood pressure is 137/69. HEAD/NECK: Normocephalic. Atraumatic. EYES: EOMI. No deformity. EARS: Clear. No ulcers. NOSE: Intact. No lesions. MOUTH: Clear. No discharge. THROAT: Clear. No exudate. LUNGS: Clear. No crackles. CARDIAC: S1, S2. No rub. ABDOMEN: Benign. BS+. GENITALIA/RECTUM: Eason absent. BACK/EXTREMITIES: Edema 0+ Ulcer-. NEUROLOGICAL: Alert and motor intact. SKIN: Rash- Bruise- LYMPHATICS: Edema- Ulcer-. LABORATORY DATA: Show hemoglobin 7.1, creatinine 3.45. ASSESSMENT AND PLAN: 1. Chronic kidney disease stage 5, stable. 2. Hypertension, stable. 3. Acute kidney injury. No indication for dialysis. 4. Anemia. We would recommend transfusion. 5. Hypernatremia. We would recommend fluid restriction of 2000 mL.
[2018-06-25] MEDS: [UNRECOGNIZED DRUG - OTHER] PO SCH (10:13)
[2018-06-25] MEDS: B COMPLEX WITH VITAMIN C PO SCH (10:13)
[2018-06-25] MEDS ORDERED: Sodium Chloride 0.9% 10 ML ONE (15:13)
[2018-06-25] MEDS ORDERED: PROPOFOL 200 MG/20 ML VIAL ONE (15:16)
[2018-06-25] MEDS ORDERED: ePHEDrine/0.9% NaCl/PF SYRINGE 50 mg/10 ml ONE (15:16)
[2018-06-25] MEDS ORDERED: Glycopyrrolate 0.2 MG/ML 5 ML SYRINGE ONE (15:16)
[2018-06-25] MEDS ORDERED: PHENYLEPHRINE-NS 100 MCG/ML 10 ML SYRINGE ONE (15:16)
[2018-06-25] MEDS ORDERED: Lidocaine 1% PF 5 ML VIAL ONE (15:16)
[2018-06-25] MEDS ORDERED: Fentanyl 100 MCG/2 ML VIAL ONE (15:38)
[2018-06-25] MEDS ORDERED: Ketamine 50 MG/ML VIAL ONE (15:55)
[2018-06-25] MEDS ORDERED: Promethazine HCl 25 MG/ML VIAL IM PRN (17:01)
[2018-06-25] MEDS ORDERED: Ondansetron HCl/PF 4 MG/2 ML Vial IVP PRN (17:01)
[2018-06-25] MEDS ORDERED: Promethazine HCl 25 MG/ML VIAL SLOW IVP PRN (17:01)
--- NOTE | 2018-06-25 17:47 | OP ---
DATE OF SURGERY: 06/25/2018 PREOPERATIVE DIAGNOSIS: Infected right total hip arthroplasty. POSTOPERATIVE DIAGNOSIS: Infected right total hip arthroplasty. SURGICAL PROCEDURE: Incision and drainage of right hip. ANESTHESIA: General. SURGEON: Álvaro Soriano M.D. SHOP TAILOR: Zahra Darnell PA-C ESTIMATED BLOOD LOSS: 100 mL IMPLANTS: None. DRAINS: None. SPECIMEN: Aspirate and swab sent for cell count, Gram stain, culture and sensitivity. COMPLICATIONS: Infected total hip arthroplasty performed by Dr. Vinay Bedolla. INDICATIONS: The patient is a 72-year-old lady with a long history of right hip problems with prior hip replacement and subsequent revision all performed by Dr. Bedolla. The patient eventually ended up [facility] with an infected hip. She is now status post irrigation and debridement for a superficial infection, however, returns to the hospital now with increasing pain and an MRI showing a deep fluid collection as such. The patient is now taken to the operating room for incision and drai nage of the right hip joint. I have discussed with patient and her family, risks and benefits of the surgery, they appear to understand and wish to proceed. PROCEDURE IN DETAIL: The patient was brought to the operating room and a timeout performed followed by induction of general anesthesia. Next, patient was positioned in the left lateral decubitus posit ion and a sterile prep and drape was performed of the right hip. This done after removal of the woun d VAC from her previous surgery. Using the same skin incision, the tensor fascia and fascia julian was visualized at the base of this open wound. This was incised in line with the skin and then blunt di ssection carried down with basically the whole proximal femur being absent from her prior surgeries. A thin membrane was then resected and at this point seropurulent material came up from the hip consi stent with infection. At this point, the total hip replacement could clearly be visualized. There w as epithelialization of the fluid cavity. We did not encounter any foreign bodies or loose bodies. Suture material was removed as was encountered and then the wound was irrigated with 5 liters of norm al saline. At the completion, this was packed with a saline soaked Kerlix roll and 4 x 4 ABD, and ta pe dressing. The patient was then transferred to recovery room in stable condition. There were no c omplications and the patient will have a wound VAC applied tomorrow with Wound Care team.
[2018-06-25 17:51] LABS: BF Color Pink; Body Fluid Source SYNOVIAL FLUID; Clarity Cloudy/Turbid (Clear); RBC Count-Automated 161000 /cumm; Tube # EDTA; WBC Background Count 0.01; WBC/NonHematic-Auto 77500 /cumm
[2018-06-25 19:27] LABS: BF Segmented Neutrophils 81 %; Cell Count Non Hematic 16 %; Lymphocytes 3 %
[2018-06-26] MEDS: Piperacillin/Tazobactam 2.25 GM in Sodium Chloride 0.9% 100 ML IVPB SCH ×2 (05:51→14:15)
[2018-06-26 06:33] LABS: Hemoglobin 9.8 g/dL (12.0-16.0); Mean Corpuscular HGB CONC 34.4 g/dL (32.0-36.0); Mean Corpuscular Hemoglobin 32.7 pg (27.0-31.0); Mean Corpuscular Volume 95.2 fL (78.0-98.0); Mean Platelet Volume 6.7 fL (7.4-10.4); Platelet Count 233 thou/uL (130-400); RBC Distribution Width 14.3 % (11.5-14.5); Red Blood Cell (RBC) Count 2.99 mill/uL (4.20-5.40); White Blood Cell (WBC) Count 15.4 thou/uL (4.8-10.8)
[2018-06-26 06:44] LABS: Anion Gap 18 mmol/L (10-20); BUN (Urea Nitrogen) 68 mg/dL (9.8-20.1); Calc. Creatinine Clearance 15 mL/min (70-130); Calcium 7.8 mg/dL (7.8-10.44); Carbon Dioxide 14 mmol/L (23-31); Chloride 101 mmol/L (98-107); Estimated GFR-MDRD 13; Potassium 4.6 mmol/L (3.5-5.1); Sodium 128 mmol/L (136-145)
[2018-06-26 06:45] LABS: Glucose 42 mg/dL (80-115)
[2018-06-26 06:52] LABS: Band 31 % (5-11); Eosinophils 1 % (0-10); Lymphocytes 11 % (21-51); MDiff Complete? YES; Monocytes 5 % (0-10); Neutrophil 52 % (42-75); PLT Morphology Comment Appears Adequate
[2018-06-26] MEDS: Acetaminophen 325 MG TAB PO PRN ×2 (08:23→14:20)
[2018-06-26] MEDS: Atorvastatin Calcium 40 MG TAB PO SCH (08:24)
[2018-06-26] MEDS: Tamsulosin HCl 0.4 MG CAP PO SCH ×2 (08:24→20:09)
[2018-06-26] MEDS: hydrALAZINE 25 MG TAB PO SCH ×3 (08:24→20:10)
[2018-06-26] MEDS: Carvedilol 3.125 MG TAB PO SCH ×2 (08:25→17:46)
[2018-06-26] MEDS: Amlodipine 10 MG TAB PO SCH (08:25)
--- NOTE | 2018-06-26 09:09 | PDOC.FM ---
- Subjective Subjective: States pain is controlled. Feels well. Tolerating PO. Washout showed seropurulent fluid. Cultures pending. S/p transfusion prbcs x1. Asymptomatic. - Objective MAR Reviewed: Yes Vital Signs & Weight: Vital Signs (12 hours) Temp Pulse Pulse Resp BP BP BP 06/26/18 07:06 97.9 F 75 16 145/75 H 06/26/18 04:16 97.7 F 71 18 136/53 L 06/25/18 23:57 97.9 F 67 18 111/63 06/25/18 22:09 98.0 F 69 18 130/56 L 06/25/18 21:54 69 130/56 L Pulse Ox 06/26/18 07:06 96 06/26/18 04:16 98 06/25/18 23:57 99 06/25/18 22:09 99 06/25/18 21:54 Weight Admit Weight 63.503 kg Weight 63.503 kg I&O: 06/25/18 06/26/18 06/27/18 06:59 06:59 06:59 Intake Total 600 1140 Output Total 650 0 Balance -50 1140 Result Diagrams: 06/26/18 04:42 06/26/18 04:42 <Allison Cano - Last Filed: 06/26/18 12:44> - Objective Vital Signs & Weight: Vital Signs (12 hours) Temp Pulse Resp BP Pulse Ox 06/26/18 16:08 98.1 F 66 16 143/72 H 98 06/26/18 10:47 97.9 F 71 16 146/79 H 97 06/26/18 08:00 97.9 F 75 16 06/26/18 07:06 97.9 F 75 16 145/75 H 96 Weight Admit Weight 63.503 kg Weight 63.503 kg I&O: 06/25/18 06/26/18 06/27/18 06:59 06:59 06:59 Intake Total 600 1140 750 Output Total 650 0 Balance -50 1140 750 Result Diagrams: 06/26/18 04:42 06/26/18 04:42 <Lior Simpson - Last Filed: 06/26/18 17:16> Phys Exam - Physical Examination Constitutional: NAD HEENT: PERRLA, moist MMs Respiratory: no wheezing, no rales, clear to auscultation bilateral 4/6 systolic ejection murmur Gastrointestinal: soft, non-tender, no distention Musculoskeletal: no edema, pulses present Psychiatric: normal affect, A&O x 3 Skin: no rash, cap refill <2 seconds <Allison Cano - Last Filed: 06/26/18 12:44> Dx/Plan (1) Acute on chronic diastolic (congestive) heart failure Code(s): I50.33 - ACUTE ON CHRONIC DIASTOLIC (CONGESTIVE) HEART FAILURE Status : Acute (2) Cellulitis Code(s): L03.90 - CELLULITIS, UNSPECIFIED Status: Acute Qualifiers: Site of cellulitis: extremity Laterality: right (3) Infection/inflammation-internal ortho device Code(s): T84.7XXA - INFECT/INFLM REACT DUE TO OTH INT ORTH PROSTH DEV/GRFT, INIT Status: Acute (4) CKD (chronic kidney disease) stage 4, GFR 15-29 ml/min Code(s): N18.4 - CHRONIC KIDNEY DISEASE, STAGE 4 (SEVERE) Status: Chronic (5) DM2 (diabetes mellitus, type 2) Status: Chronic (6) Hypertension Code(s): I10 - ESSENTIAL (PRIMARY) HYPERTENSION Status: Chronic (7) LUIS (acute kidney injury) Code(s): N17.9 - ACUTE KIDNEY FAILURE, UNSPECIFIED Status: Acute (8) Acute on chronic kidney failure Code(s): N17.9 - ACUTE KIDNEY FAILURE, UNSPECIFIED; N18.9 - CHRONIC KIDNEY DISEASE, UNSPECIFIED Status: Acute Qualifiers: Chronic kidney disease stage: stage 4 (severe) - Plan Plan: 72 yo female with pmhx of recent right hip arthroplasty presents with right hip pain, admitted for right hip cellulitis and concern for hip arthroplasty infection, found to have pseudomonas bacteremia. # Pseudomonas bacteremia- -Pt on zosyn and levaquin; vanc dc'd per recs by Dr. Delong # Right hip cellulitis with concern for right hip arthroplasty infction - BC grew out pseudomonas - MRI without contrast (poor kidney function) showed a fluid collection near right femur and adjacent to the right hip arthroplasty - On Zosyn, Levoquin (double pseudomonal coverage) - pt s/p washout yesterday with cultures pending - Remains afebrile - Will discuss plan with Ortho and ID. -consulted palliative to assist with goals of care # CKD stage 5 - Will start bicarb 325mg TID # Normocytic anemia - s/p 1 unit prbcs. hb 9.8 # Hyponatremia- - chronically low 2/2 SIADH vs CKD stage 4 # DM - SSI Code: full Diet: renal, diabetic Dispo: >2 days <Allison Cano - Last Filed: 06/26/18 12:44> Attending Addendum - Attending Addendum Date/Time: 06/26/18 2972 I personally evaluated the patient and discussed the management with Dr. Monzon. I agree with the History, Examination, Assessment and Plan documented above with any addition or exceptions noted below. <Lior Simpson - Last Filed: 06/26/18 17:16>
[2018-06-26] MEDS: [UNRECOGNIZED DRUG - OTHER] PO SCH (09:36)
[2018-06-26] MEDS: B COMPLEX WITH VITAMIN C PO SCH (09:36)
[2018-06-26] MEDS: Heparin 5,000 UNITS/ML VIAL SC SCH ×2 (09:43→20:10)
--- NOTE | 2018-06-26 10:41 | PRG ---
DATE OF SERVICE: 06/26/2018 SUBJECTIVE: A 72-year-old female being seen for acute kidney injury. The patient denies any nausea, vomiting or chest pain. PHYSICAL EXAMINATION: GENERAL: Patient is awake, alert. VITAL SIGNS: Afebrile, pulse 75, breathing 16, blood pressure 136/53. HEAD/NECK: Normocephalic. Atraumatic. EYES: EOMI. No deformity. EARS: Clear. No ulcers. NOSE: Intact. No lesions. MOUTH: Clear. No discharge. THROAT: Clear. No exudate. LUNGS: Clear. No crackles. CARDIAC: S1, S2. No rub. ABDOMEN: Benign. BS+. GENITALIA/RECTUM: Eason absent. BACK/EXTREMITIES: Edema 0+ Ulcer- NEUROLOGICAL: Alert and motor intact. SKIN: Rash- Bruise- LYMPHATICS: Edema- Ulcer- LABORATORY DATA: Show hemoglobin 9.8, bicarbonate 14. ASSESSMENT AND PLAN: 1. Chronic kidney disease stage 5. No urgent indication for dialysis. 2. Hyperkalemia, stable. 3. Metabolic acidosis. I would recommend starting sodium bicarbonate 325 t.i.d. We will follow loree al function closely. Prognosis is poor.
[2018-06-26] MEDS: Sodium Bicarbonate Tab 325 MG TAB PO SCH ×2 (14:15→20:10)
[2018-06-26] MEDS: Cefepime 1 GM in Sodium Chloride 0.9% 100 ML IVPB SCH (17:46)
--- NOTE | 2018-06-26 18:56 | PRG ---
DATE OF SERVICE: 06/26/2018 SUBJECTIVE: Ms. Jennings had a washout by Dr. Soriano, he found evidence to suggest clear cut infection of the right hip joint replacement. Because of the perioperative risk, He decided to terminate procedure and not remove the implant. Right now, she is awake and mild pain at the site. No headaches. No shortness of breath or abdominal pain, no joint symptoms. PHYSICAL EXAMINATION: VITAL SIGNS: T-max 97.9, blood pressure 140/72, pulse 66. LUNGS: Clear. HEART: S1, S2 with a harsh 3-4/6 systolic aortic murmur as noted previously. ABDOMEN: Soft, not distended. Right operative site in the hip area. LABORATORY DATA: White cell count 15.4, hemoglobin 9.8, platelets 233 with 52% neutrophils, 31% bands. Creatinine 3.42, which is fairly stable. Microbiology was still pending from the hip surgery today. Previous culture with P. aeruginosa with crouch susceptible phenotype. ASSESSMENT AND DISCUSSION: Stage 4 renal insufficiency, severe aortic stenosis and previous right hip fracture with open reduction and internal fixation and right hip implant now with Pseudomonas aeruginosa infection of the right hip demonstrated after I&D of the site. The patient to continue on IV treatment with cefepime or Zosyn for protracted period of time sometime longer at the end of July. After that transition to oral Cipro for suppressive therapy. If we cannot arrange IV therapy, then we can try oral Levaquin or ciprofloxacin indefinitely adjusted for her renal function. MTDD
[2018-06-27 05:29] LABS: Anion Gap 17 mmol/L (10-20); BUN (Urea Nitrogen) 67 mg/dL (9.8-20.1); Calc. Creatinine Clearance 15 mL/min (70-130); Calcium 7.6 mg/dL (7.8-10.44); Carbon Dioxide 16 mmol/L (23-31); Chloride 102 mmol/L (98-107); Estimated GFR-MDRD 13; Glucose 92 mg/dL (80-115); Potassium 4.6 mmol/L (3.5-5.1); Sodium 130 mmol/L (136-145)
[2018-06-27 06:10] LABS: Band 10 % (5-11); Eosinophils 3 % (0-10); Hemoglobin 9.6 g/dL (12.0-16.0); Lymphocytes 8 % (21-51); MDiff Complete? YES; Mean Corpuscular HGB CONC 34.1 g/dL (32.0-36.0); Mean Corpuscular Hemoglobin 32.2 pg (27.0-31.0); Mean Corpuscular Volume 94.2 fL (78.0-98.0); Mean Platelet Volume 6.5 fL (7.4-10.4); Monocytes 4 % (0-10); Neutrophil 75 % (42-75); Platelet Count 240 thou/uL (130-400); RBC Distribution Width 14.4 % (11.5-14.5); Red Blood Cell (RBC) Count 2.98 mill/uL (4.20-5.40); White Blood Cell (WBC) Count 12.4 thou/uL (4.8-10.8)
[2018-06-27] MEDS: Amlodipine 10 MG TAB PO SCH (09:14)
[2018-06-27] MEDS: Tamsulosin HCl 0.4 MG CAP PO SCH ×2 (09:14→20:11)
[2018-06-27] MEDS: Sodium Bicarbonate Tab 325 MG TAB PO SCH ×3 (09:14→20:11)
[2018-06-27] MEDS: Heparin 5,000 UNITS/ML VIAL SC SCH ×2 (09:15→20:11)
[2018-06-27] MEDS: hydrALAZINE 25 MG TAB PO SCH ×3 (09:15→20:11)
[2018-06-27] MEDS: Atorvastatin Calcium 40 MG TAB PO SCH (09:15)
[2018-06-27] MEDS: Carvedilol 3.125 MG TAB PO SCH ×2 (09:15→17:57)
--- NOTE | 2018-06-27 10:29 | PRG ---
DATE OF SERVICE: 06/27/2018 SUBJECTIVE: This is a 72-year-old female being seen for CKD stage 5. Patient denies any nausea, vom iting or chest pain per nursing history. PHYSICAL EXAMINATION: GENERAL: Patient is resting. VITAL SIGNS: Afebrile, pulse 72, breathing 16, blood pressure 149/56. OBJECTIVE: See above. Awake, alert, in no acute distress. GENERAL APPEARANCE AND MENTAL STATUS: Fair. HEAD/NECK: Normocephalic. Atraumatic. EYES: EOMI. No deformity. EARS: Clear. No ulcers. NOSE: Intact. No lesions. MOUTH: Clear. No discharge. THROAT: Clear. No exudate. LUNGS: Clear. No crackles. CARDIAC: S1, S2. No rub. ABDOMEN: Benign. BS+. GENITALIA/RECTUM: Eason absent. BACK/EXTREMITIES: Edema 0+ Ulcer- NEUROLOGICAL: Alert and motor intact. SKIN: Rash- Bruise- LYMPHATICS: Edema- Ulcer- LABORATORY: Hemoglobin 9.6, creatinine is 3.4. ASSESSMENT AND RECOMMENDATIONS: 1. Chronic kidney disease stage 5, stable. 2. Hypertension, stable. 3. Anemia, stable. I will sign off on this patient. Please reconsult as needed.
[2018-06-27] MEDS: B COMPLEX WITH VITAMIN C PO SCH (10:57)
[2018-06-27] MEDS: [UNRECOGNIZED DRUG - OTHER] PO SCH (10:57)
--- NOTE | 2018-06-27 13:26 | PDOC.FM ---
- Subjective Subjective: Discussed with patient the option of getting IV abx vs hospice. Pt leaning towards wanting iv abx. Denies pain in hip today. Resting in bed comfortably. - Objective Vital Signs & Weight: Vital Signs (12 hours) Temp Pulse Resp BP BP Pulse Ox 06/27/18 11:00 98.0 F 73 16 154/69 H 97 06/27/18 09:15 72 149/56 H 06/27/18 09:14 72 149/56 H 06/27/18 08:00 97.7 F 72 16 98 06/27/18 07:33 97.7 F 72 16 149/56 H 98 06/27/18 04:13 97.4 F L 74 16 161/69 H 98 Weight Admit Weight 63.503 kg Weight 63.503 kg I&O: 06/26/18 06/27/18 06/28/18 06:59 06:59 06:59 Intake Total 1140 870 Output Total 0 Balance 1140 870 Result Diagrams: 06/27/18 04:15 06/27/18 04:15 <Allison Cano - Last Filed: 06/27/18 13:24> - Objective Vital Signs & Weight: Vital Signs (12 hours) Temp Pulse Resp BP BP Pulse Ox 06/28/18 08:19 77 160/73 H 06/28/18 08:18 77 160/73 H 06/28/18 08:00 98.5 F 77 18 97 06/28/18 07:39 98.5 F 77 18 160/73 H 97 Weight Admit Weight 63.503 kg Weight 63.503 kg I&O: 06/27/18 06/28/18 06/29/18 06:59 06:59 06:59 Intake Total 870 480 Balance 870 480 Result Diagrams: 06/28/18 04:00 06/28/18 04:00 <Lior Simpson - Last Filed: 06/28/18 10:38> Phys Exam - Physical Examination Constitutional: NAD HEENT: PERRLA, moist MMs Respiratory: no wheezing, no rales, no rhonchi, clear to auscultation bilateral Cardiovascular: RRR, no significant murmur Gastrointestinal: soft, non-tender wound vac over right hip Psychiatric: normal affect, A&O x 3 Skin: no rash <Allison Cano - Last Filed: 06/27/18 13:24> Dx/Plan (1) Acute on chronic diastolic (congestive) heart failure Code(s): I50.33 - ACUTE ON CHRONIC DIASTOLIC (CONGESTIVE) HEART FAILURE Status : Acute (2) Cellulitis Code(s): L03.90 - CELLULITIS, UNSPECIFIED Status: Acute Qualifiers: Site of cellulitis: extremity Laterality: right (3) Infection/inflammation-internal ortho device Code(s): T84.7XXA - INFECT/INFLM REACT DUE TO OTH INT ORTH PROSTH DEV/GRFT, INIT Status: Acute (4) CKD (chronic kidney disease) stage 4, GFR 15-29 ml/min Code(s): N18.4 - CHRONIC KIDNEY DISEASE, STAGE 4 (SEVERE) Status: Chronic (5) DM2 (diabetes mellitus, type 2) Status: Chronic (6) Hypertension Code(s): I10 - ESSENTIAL (PRIMARY) HYPERTENSION Status: Chronic (7) LUIS (acute kidney injury) Code(s): N17.9 - ACUTE KIDNEY FAILURE, UNSPECIFIED Status: Acute (8) Acute on chronic kidney failure Code(s): N17.9 - ACUTE KIDNEY FAILURE, UNSPECIFIED; N18.9 - CHRONIC KIDNEY DISEASE, UNSPECIFIED Status: Acute Qualifiers: Chronic kidney disease stage: stage 4 (severe) - Plan Plan: 72 yo female with pmhx of recent right hip arthroplasty presents with right hip pain, admitted for right hip cellulitis and concern for hip arthroplasty infection, found to have pseudomonas bacteremia. # Pseudomonas bacteremia- -Pt on zosyn and levaquin; vanc dc'd per recs by Dr. Delong -Transition to once daily IV abx # Right hip cellulitis with concern for right hip arthroplasty infction - BC grew out pseudomonas - MRI without contrast (poor kidney function) showed a fluid collection near right femur and adjacent to the right hip arthroplasty - On Zosyn, Levoquin (double pseudomonal coverage). - Pt received PICC line and since unfunded will need IV abx dosed once daily - Palliative care talked with pt and pt wanted recommendations from Dr. Delong # CKD stage 5 - Will continue bicarb 325mg TID # Normocytic anemia - s/p 1 unit prbcs. hb 9.8 # Hyponatremia- - chronically low 2/2 SIADH vs CKD stage 5 # DM - SSI Code: full Diet: renal, diabetic Dispo: possibly today to home <Allison Cano - Last Filed: 06/27/18 13:24>
--- NOTE | 2018-06-27 15:41 | SPC ---
PICC PLACEMENT ULTRASOUND GUIDED VENOUS ACCESS: (Peripherally Inserted Central Catheter) 06/27/2018 HISTORY: A 72-year-old female with a right hip infection and septicemia, requiring long-term IV antibiotics. TECHNIQUE: Catheter caliber: 5 [place] Catheter trim length: 42 cm Catheter lumen number: Double Catheter tip location: Superior vena cava/right atrial junction Vein accessed: Cephalic (the basilic vein was demonstrated to be thrombosed on initial ultrasound evaluation). Signed, informed consent was obtained. A tourniquet was applied at the proximal aspect of the arm. The arm was prepared and draped in the usual sterile fashion. A 25 gauge needle was used to apply bu ffered lidocaine superficially. The vein was punctured with a 21 gauge micropuncture needle under ul trasound guidance. A 0.018 inch guide wire was advanced through the micropuncture needle and into th e vein. Under fluoroscopic guidance, the guide wire was advanced to the right atrium. The PICC (per ipherally inserted central catheter) was flushed and trimmed to the appropriate length. The skin pun cture hole was widened with a blade. The micropuncture needle was exchanged over the guide wire for a 5 [place]ian peel-away dilator sheath. The dilator was exchanged over the guide wire for the PICC, whi ch was then further advanced under fluoroscopy. The sheath and guide wire were removed. The PICC wa s flushed again and secured in place at the arm. The patient tolerated the procedure well. There wa s no complication. IMPRESSION: Successful placement of PICC (peripherally inserted central catheter). halle [] POS: [facility]
[2018-06-27] MEDS: Cefepime 1 GM in Sodium Chloride 0.9% 100 ML IVPB SCH (17:56)
[2018-06-27] MEDS ORDERED: traMADol HCl 50 MG TAB PO PRN (18:36)
[2018-06-28 04:45] LABS: #Eosinphils 0.3 thou/uL (0.0-0.7); #Lymphocytes 1.7 thou/uL (1.20-3.40); #Neutrophils 8.1 thou/uL (1.40-6.50); %Basophils 0.1 % (0.0-1.0); %Lymphocytes 15.4 % (21.0-51.0); %Monocytes 8.6 % (0.0-10.0); %Neutrophils 72.9 % (42.0-75.0); Hemoglobin 9.5 g/dL (12.0-16.0); Mean Corpuscular HGB CONC 34.8 g/dL (32.0-36.0); Mean Corpuscular Hemoglobin 32.9 pg (27.0-31.0); Mean Corpuscular Volume 94.7 fL (78.0-98.0); Mean Platelet Volume 6.4 fL (7.4-10.4); Platelet Count 253 thou/uL (130-400); RBC Distribution Width 14.4 % (11.5-14.5); Red Blood Cell (RBC) Count 2.87 mill/uL (4.20-5.40); White Blood Cell (WBC) Count 11.1 thou/uL (4.8-10.8)
[2018-06-28 05:02] LABS: Anion Gap 15 mmol/L (10-20); BUN (Urea Nitrogen) 60 mg/dL (9.8-20.1); Calc. Creatinine Clearance 17 mL/min (70-130); Calcium 7.7 mg/dL (7.8-10.44); Carbon Dioxide 16 mmol/L (23-31); Chloride 103 mmol/L (98-107); Estimated GFR-MDRD 15; Glucose 86 mg/dL (80-115); Potassium 4.4 mmol/L (3.5-5.1); Sodium 130 mmol/L (136-145)
--- NOTE | 2018-06-28 07:18 | PDOC.FM ---
- Subjective Subjective: Slept well overnight. Endorses mild hip pain. Approved for discharge on cefepime q24h IV per Dr. Sindi kyle and had wound vac approved from prior appointment. Needs wound care follow-up Sunday. Pt has follow-up with Dr. Bedolla next week. If she is unable to make that appointment, discussed that patient should follow-up with Dr. Soriano in 2-3 weeks. - Objective MAR Reviewed: Yes Vital Signs & Weight: Vital Signs (12 hours) Temp Pulse Resp BP BP Pulse Ox 06/27/18 20:11 70 147/69 H 06/27/18 20:00 97.5 F L 70 16 97 06/27/18 19:41 97.5 F L 70 16 147/69 H 97 Weight Admit Weight 63.503 kg Weight 63.503 kg I&O: 06/27/18 06/28/18 06/29/18 06:59 06:59 06:59 Intake Total 870 480 Balance 870 480 Result Diagrams: 06/28/18 04:00 06/28/18 04:00 <Allison Cano - Last Filed: 06/28/18 10:37> - Objective Vital Signs & Weight: Vital Signs (12 hours) Temp Pulse Resp BP BP Pulse Ox 06/28/18 08:19 77 160/73 H 06/28/18 08:18 77 160/73 H 06/28/18 08:00 98.5 F 77 18 97 06/28/18 07:39 98.5 F 77 18 160/73 H 97 Weight Admit Weight 63.503 kg Weight 63.503 kg I&O: 06/27/18 06/28/18 06/29/18 06:59 06:59 06:59 Intake Total 870 480 Balance 870 480 Result Diagrams: 06/28/18 04:00 06/28/18 04:00 <Lior Simpson - Last Filed: 06/28/18 12:34> Phys Exam - Physical Examination Constitutional: NAD Respiratory: no wheezing, no rales, no rhonchi, clear to auscultation bilateral Cardiovascular: RRR, no significant murmur Gastrointestinal: soft, non-tender, no distention Musculoskeletal: no edema, pulses present wound vac in place on right hip Neurological: non-focal Lymphatic: no nodes Psychiatric: A&O x 3 Skin: no rash <JeromeAllison - Last Filed: 06/28/18 10:37> Dx/Plan (1) Acute on chronic diastolic (congestive) heart failure Code(s): I50.33 - ACUTE ON CHRONIC DIASTOLIC (CONGESTIVE) HEART FAILURE Status : Acute (2) Cellulitis Code(s): L03.90 - CELLULITIS, UNSPECIFIED Status: Acute Qualifiers: Site of cellulitis: extremity Laterality: right (3) Infection/inflammation-internal ortho device Code(s): T84.7XXA - INFECT/INFLM REACT DUE TO OTH INT ORTH PROSTH DEV/GRFT, INIT Status: Acute (4) CKD (chronic kidney disease) stage 4, GFR 15-29 ml/min Code(s): N18.4 - CHRONIC KIDNEY DISEASE, STAGE 4 (SEVERE) Status: Chronic (5) DM2 (diabetes mellitus, type 2) Status: Chronic (6) Hypertension Code(s): I10 - ESSENTIAL (PRIMARY) HYPERTENSION Status: Chronic (7) LUIS (acute kidney injury) Code(s): N17.9 - ACUTE KIDNEY FAILURE, UNSPECIFIED Status: Acute (8) Acute on chronic kidney failure Code(s): N17.9 - ACUTE KIDNEY FAILURE, UNSPECIFIED; N18.9 - CHRONIC KIDNEY DISEASE, UNSPECIFIED Status: Acute Qualifiers: Chronic kidney disease stage: stage 4 (severe) - Plan Plan: 72 yo female with pmhx of recent right hip arthroplasty presents with right hip pain, admitted for right hip cellulitis and concern for hip arthroplasty infection, found to have pseudomonas bacteremia. # Pseudomonas bacteremia- -Pt on zosyn and levaquin; vanc dc'd per recs by Dr. Delong -Transition to once daily IV abx # Right hip cellulitis # Right hip arthroplasty infection - Pt received PICC line and since unfunded will need IV abx dosed once daily - cefepime q24h IV ordered by Dr. Delong - pt has wound vac already approved with wound care; needs follow-up on Sunday - pt has apt with Dr. Bedolla, if she is unable to make this apt, instructed patient to follow-up with Dr. Soriano in 2-3 weeks. # CKD stage 5 - Will continue bicarb 325mg TID # Normocytic anemia - s/p 1 unit prbcs. hb 9.8; stable H/H: 9.5/27.2 # Hyponatremia- - chronically low 2/2 SIADH vs CKD stage 5 # DM - SSI Code: full Diet: renal, diabetic Dispo: possibly today to home <Allison Cano - Last Filed: 06/28/18 10:37> Attending Addendum - Attending Addendum Date/Time: 06/28/18 2145 I personally evaluated the patient and discussed the management with Dr. Monzon. I agree with the History, Examination, Assessment and Plan documented above with any addition or exceptions noted below. <Lior Simpson - Last Filed: 06/28/18 12:34>
[2018-06-28 07:40] VITALS: TEMP 98.5
[2018-06-28] MEDS: B COMPLEX WITH VITAMIN C PO SCH (08:14)
[2018-06-28] MEDS: [UNRECOGNIZED DRUG - OTHER] PO SCH (08:14)
[2018-06-28] MEDS: hydrALAZINE 25 MG TAB PO SCH ×2 (08:18→15:13)
[2018-06-28] MEDS: Sodium Bicarbonate Tab 325 MG TAB PO SCH ×2 (08:18→15:13)
[2018-06-28] MEDS: Heparin 5,000 UNITS/ML VIAL SC SCH (08:19)
[2018-06-28] MEDS: Amlodipine 10 MG TAB PO SCH (08:19)
[2018-06-28] MEDS: Carvedilol 3.125 MG TAB PO SCH (08:19)
[2018-06-28] MEDS: Tamsulosin HCl 0.4 MG CAP PO SCH (08:19)
[2018-06-28] MEDS: Atorvastatin Calcium 40 MG TAB PO SCH (08:19)
[2018-06-28] MEDS ORDERED: Heparin 1,000 UNITS/ML VIAL ONE (08:38)
[2018-06-28] MEDS ORDERED: Polyethylene Glycol 3350 17 GM Packet PO PRN (12:26)
--- NOTE | 2018-06-28 12:31 | PRG ---
DATE OF SERVICE: 06/28/2018 The patient is status quo being readied for discharge planning. PHYSICAL EXAMINATION: VITAL SIGNS: Normal. LUNGS: Clear. HEART: S1, S2, regular rate. ABDOMEN: Soft. EXTREMITIES: Still quite marked pain in the right hip location. LABORATORY DATA: White cell count down to 11.1. Chemistry with a creatinine of 3.11, which is stabl e, if not improved. Microbiology from the sites of the surgical intervention by Dr. Soriano with pe nding cultures, no growth at 48 hours. The Gram stain did not show any organisms. The acid-fast sta in did not show any organisms in the concentrated specimen. ASSESSMENT AND DISCUSSION: Stage IV renal insufficiency, severe aortic stenosis, previous right hip fracture with open reduction internal fixation and right hip implant and then Pseudomonas aeruginosa infection with involvement of the right hip status post I&D with retention of the implant due to the perceived risk of removal of the implant in terms of her underlying cardiac diagnosis and the possibi lity of complications during removal of the implant. The patient to be continued on IV antimicrobial therapy with cefepime until the end of July, and then transitioned to oral Cipro indefinitely f or suppressive therapy.
[2018-06-28 15:13] VITALS: BP 137/77
[2018-07-01 10:14] LABS: Fungus Stain Final report (.)
[2018-07-02 10:24] LABS: Fungus Stain Final report (.)
== END 2018-06-28 16:40 | disposition home or self-care (01) | DRG 480 ==
LOC: ERS 07:18 → T4-A 11:44
PROVIDERS: ADMIT Family Medicine; ATTEND Family Medicine
PROC: 0S990ZZ Drainage of Right Hip Joint, Open Approach (ICD-10-PCS; principal; 2018-06-25)
PROC: 02HV33Z Insertion of Infusion Device into Superior Vena Cava, Percutaneous Approach (ICD-10-PCS; 2018-06-27)
DX: T84.51XA Infection and inflammatory reaction due to internal right hip prosthesis, initial encounter (principal); I50.33 Acute on chronic diastolic (congestive) heart failure; A41.52 Sepsis due to Pseudomonas; N17.9 Acute kidney failure, unspecified; E22.2 Syndrome of inappropriate secretion of antidiuretic hormone; E87.2 Acidosis; I13.2 Hypertensive heart and chronic kidney disease with heart failure and with stage 5 chronic kidney disease, or end stage renal disease; N18.5 Chronic kidney disease, stage 5; E87.5 Hyperkalemia; Z48.01 Encounter for change or removal of surgical wound dressing; E88.09 Other disorders of plasma-protein metabolism, not elsewhere classified; I35.0 Nonrheumatic aortic (valve) stenosis; D50.9 Iron deficiency anemia, unspecified; N31.9 Neuromuscular dysfunction of bladder, unspecified; E11.22 Type 2 diabetes mellitus with diabetic chronic kidney disease; E78.5 Hyperlipidemia, unspecified; Y83.1 Surgical operation with implant of artificial internal device as the cause of abnormal reaction of the patient, or of later complication, without mention of misadventure at the time of the procedure
CPT/HCPCS: 36415; 36416; 36430; 36569; 51701; 71045; 80048; 80053; 80202; 81003; 81015; 83605; 83690; 85025; 85060; 85652; 86850; 86900; 86901; 87040; 87070; 87077; 87086; 87102; 87116; 87149; 87186; 87205; 87206; 89051; 96361; 96365; 96367; 96375; A4216; A4353; C1751; J0692; J1644; J1956; J2001; J2543; J2704; J3010; J3370; J7050; J7070; P9016; Q0162

== ENCOUNTER 2018-06-25 09:01 | Outpatient (CLI) | payer MEDICAID ==
--- NOTE | 2018-06-20 19:04 | PRG ---
DATE OF SERVICE: 06/20/2018 SUBJECTIVE: Michelle is a 72-year-old female, who [facility] for a VAC c hange. I was called down to clinic by the wound care staff to evaluate her. She has been running so me low grade fever and her ability to get ambulate and get around has been getting a little bit worse and she does not walk at all anymore, it is my understanding. On exam, temperature, she has a low g rade fever of 100.7. I noticed that in chart review, she was seen in the emergency room yesterday chavo levy and I believe she had a white blood cell count of 11.2. She was treated and discharged from e emergency room. She [facility] today for a VAC change. I believe she has an ap pointment with Dr. Bedolla tomorrow morning for clinic examination regarding her revision of right hip a rthroplasty with also fracture, hardware noted. Her hip joint itself did not appear to be involved w ith doing in her last I&D, and cultures have never organism or isolate. Therefore, we treated her conservatively with vacuum and tried diligently capsule or below the IT band. The patient will see Dr. Bedolla tomorrow and I would imagine he will have discussion with the patient whether to at tempt explantation or not. PHYSICAL EXAMINATION: She lies in a position on the left side. She is conversive and Lao. Alert, oriented and grossly nonfocal. Her wound appears quite clean and serous, but again it is sl owly closing down peripherally. Internal and external rotation of the hip is mildly provocative for discomfort. IMPRESSION: 1. Right hip, suprafascial seroma at 3 weeks status post I&D with wound VAC treatment. 2. Prosthetic hip pain. PLAN: Culture is being negative and her last C-reactive protein was 1.7 and a white count of 11 yest erday does not suggest evidence of severe infection. The patient will see Dr. Bedolla tomorrow and I am sure discuss whether or not to proceed with a [place] or otherwise explantation. At this point, we will defer to his judgment.
[~2018-06-25 09:01] MED LIST: Sodium Chloride 0.9% 15 ML NEB ONE
== END 2018-06-25 09:02 | disposition home or self-care (01) ==
LOC: WCC 09:01
PROVIDERS: ATTEND Family Medicine
DX: S71.001D Unspecified open wound, right hip, subsequent encounter (principal); M25.551 Pain in right hip; Z96.641 Presence of right artificial hip joint
CPT/HCPCS: 36416; A4218

== ENCOUNTER 2018-07-01 09:21 | Outpatient (CLI) | payer MEDICAID, OTHER | END 2018-07-01 09:22 | disposition home or self-care (01) | LOC: WCC 09:21 | PROVIDERS: ATTEND Family Medicine | DX: T81.89XD Other complications of procedures, not elsewhere classified, subsequent encounter (principal) | CPT/HCPCS: 99211; G0463 ==

== ENCOUNTER 2018-07-08 09:51 | Outpatient (CLI) | payer MEDICAID ==
--- NOTE | 2018-07-08 11:33 | HP ---
DATE OF SERVICE: 07/08/2018 HISTORY OF PRESENT ILLNESS: Ms. Michelle Araiza is a very pleasant 72-year-old who presents to the Wound Center for evaluation of a right hip wound subsequent to incision and drainage of the ri ght hip for treatment of an infected right total hip arthroplasty. The patient underwent the precedi ng procedure on 06/25/[address] Álvaro Soriano. Negative pressure therapy was initiated subseque nt to surgery, and upon discharge from [facility], the patient was referred to the Wound Center for assistance with dressing changes of the wound VAC. During the patient's hospit al stay, Ms. Jovany Jennings was seen in consultation by Dr. Nilo Delong of Infectious Diseases. The patient is receiving IV antibiotics under the direction of Infectious Diseases which will molly nue apparently until the end of July. As per ID, the patient will be transitioned to oral cipro floxacin indefinitely for suppressive therapy. PAST MEDICAL HISTORY: 1. Diabetes mellitus. 2. Hypertension. 3. Chronic kidney disease. 4. Aortic stenosis. 5. Anemia. 6. Congestive heart failure, diastolic. 7. Urinary retention. 8. Nephrolithiasis. 9. Secondary hyperparathyroidism. PAST SURGICAL HISTORY: 1. Right eye surgery. 2. Right shoulder replacement. 3. Right knee replacement. 4. Right total hip arthroplasty. 5. Surgery for femur fracture. MEDICATIONS: 1. Amlodipine. 2. Flomax. 3. Coreg. 4. Apresoline. 5. HCTZ. 6. Lipitor. 7. Cranberry/ascorbic acid complex. ALLERGIES: No known diagnosed allergies. SOCIAL HISTORY: Negative for tobacco use. FAMILY HISTORY: Significant for diabetes mellitus. PHYSICAL EXAMINATION: VITAL SIGNS: Temperature 98.1, pulse 76, respirations 16, blood pressure 144/64, Accu-Chek 128. GENERAL: A 72-year-old female lying on table in examination room in no acute distress. HEENT: Normocephalic, atraumatic. NECK: No nuchal rigidity. CHEST: Clear to auscultation. CARDIOVASCULAR: Regular rate and rhythm. ABDOMEN: Soft. EXTREMITIES: A wound of the right hip is present which measures approximately 8.2 x 3.0 cm. The dep th of the wound is approximately 4.1 cm. Granulation tissue is present within the wound margins. No purulent drainage is associated with the wound. Slight erythema of the skin surrounding the wound i s present. No maceration of the skin of the periwound is noted. NEUROLOGIC: Grossly nonfocal. ASSESSMENT AND PLAN: 1. Right hip wound as described above. Negative pressure therapy will be continued with dressing ch anges of the wound VAC 2 times per week here in the Wound Center. The wound VAC will be continued at settings of 125 mmHg, continuous. As stated above, the patient is receiving IV antibiotics as per Antonio Delong of Infectious Diseases. The patient will be seen by Orthopedic Surgery in 1 week. I will see the patient again in 2 weeks. 2. Diabetes mellitus. The patient's Accu-Chek in clinic today is 128. The patient has been told th at for optimal wound healing, her blood glucoses should remain below 150. 3. Hypertension. 4. Chronic kidney disease. 5. Aortic stenosis. 6. Anemia. 7. Congestive heart failure, diastolic. 8. Urinary retention. 9. Nephrolithiasis. 10. Secondary hyperparathyroidism.
== END 2018-07-08 09:52 | disposition home or self-care (01) ==
LOC: WCC 09:51
PROVIDERS: ATTEND Family Medicine
DX: T81.89XD Other complications of procedures, not elsewhere classified, subsequent encounter (principal); I13.0 Hypertensive heart and chronic kidney disease with heart failure and stage 1 through stage 4 chronic kidney disease, or unspecified chronic kidney disease; E11.22 Type 2 diabetes mellitus with diabetic chronic kidney disease; I50.30 Unspecified diastolic (congestive) heart failure; N18.9 Chronic kidney disease, unspecified; D63.1 Anemia in chronic kidney disease; I35.0 Nonrheumatic aortic (valve) stenosis; R33.9 Retention of urine, unspecified; N20.0 Calculus of kidney; N25.81 Secondary hyperparathyroidism of renal origin
CPT/HCPCS: 36416

== ENCOUNTER 2018-07-16 12:49 | Outpatient (CLI) | payer MEDICAID, OTHER | END 2018-07-16 12:50 | disposition home or self-care (01) | LOC: WCC 12:49 | PROVIDERS: ATTEND Family Medicine | DX: T81.89XD Other complications of procedures, not elsewhere classified, subsequent encounter (principal) | CPT/HCPCS: 36416 ==

== ENCOUNTER 2018-07-18 13:03 | Outpatient (CLI) | payer MEDICAID, OTHER | END 2018-07-18 13:04 | disposition home or self-care (01) | LOC: WCC 13:03 | PROVIDERS: ATTEND Family Medicine | DX: T81.89XD Other complications of procedures, not elsewhere classified, subsequent encounter (principal) | CPT/HCPCS: 36416; 97605 ==

== ENCOUNTER 2018-07-22 10:38 | Outpatient (CLI) | payer MEDICAID ==
--- NOTE | 2018-07-22 12:00 | PRG ---
DATE OF SERVICE: 07/22/2018 HISTORY: Ms. Michelle Araiza is a very pleasant 72-year-old who presents to the Wound Center for evaluation of a right hip wound subsequent to incision and drainage of the right hip for treatme nt of an infected right total hip arthroplasty. The patient underwent the preceding procedure on by Dr. Álvaro Soriano. Negative pressure therapy was initiated subsequent to surgery, and upon discharge from [facility], the patient was referred to the Wound Center f or assistance with dressing changes of the wound VAC. During the patient's hospital stay, Ms. Jovany Araiza was seen in consultation by Dr. Nilo Delong of Infectious Diseases. The patient is re ceiving IV antibiotics under the direction of Infectious Diseases, which will continue apparently unt il the end of July. As per ID, the patient will be transitioned to oral ciprofloxacin indefinit jennifer for suppressive therapy. PHYSICAL EXAMINATION: VITAL SIGNS: Temperature 97.8, pulse 71, respirations 18, blood pressure 115/47. Accu-Chek 127. EXTREMITIES: A wound of the right hip is present, which measures approximately 8.0 x 2.0 cm. The di mensions of the wound at the time of the patient's visit on 07/08/2018 were approximately 8.2 x 3.0 c m. Granulation tissue is present within the wound margins. No purulent drainage is associated with the wound. Slight erythema of the skin surrounding the wound is present and appears to be secondary to irritation of the skin from the drape applied with the wound VAC. No maceration of the skin of th e periwound is noted. ASSESSMENT AND PLAN: 1. Right hip wound as described above. Negative pressure therapy will be continued with dressing ch anges of the wound VAC 2 times per week here in the Wound Center. The wound VAC will be continued at settings of 125 mmHg, continuous. As stated above, the patient is receiving IV antibiotics as per Antonio Delong of Infectious Diseases. The patient will be seen by Orthopedic Surgery tomorrow. I will see the patient again in 2 weeks. 2. Diabetes mellitus. The patient's Accu-Chek in clinic today is 127. The patient has been reminde d that for optimal wound healing, her blood glucoses should remain below 150. 3. Hypertension. 4. Chronic kidney disease. 5. Aortic stenosis. 6. Anemia. 7. Congestive heart failure, diastolic. 8. Urinary retention. 9. Nephrolithiasis. 10. Secondary hyperparathyroidism.
[2018-07-22] MEDS ORDERED: Sodium Chloride 0.9% 15 ML NEB ONE (14:57)
== END 2018-07-22 10:39 | disposition home or self-care (01) ==
LOC: WCC 10:38
PROVIDERS: ATTEND Family Medicine
DX: T81.89XD Other complications of procedures, not elsewhere classified, subsequent encounter (principal); E11.22 Type 2 diabetes mellitus with diabetic chronic kidney disease; I13.0 Hypertensive heart and chronic kidney disease with heart failure and stage 1 through stage 4 chronic kidney disease, or unspecified chronic kidney disease; N18.9 Chronic kidney disease, unspecified; D63.1 Anemia in chronic kidney disease; I50.30 Unspecified diastolic (congestive) heart failure; R33.9 Retention of urine, unspecified; N20.0 Calculus of kidney; I35.0 Nonrheumatic aortic (valve) stenosis; N25.81 Secondary hyperparathyroidism of renal origin; Z96.641 Presence of right artificial hip joint
CPT/HCPCS: 36416; A4218

== ENCOUNTER 2018-07-25 10:32 | Outpatient (CLI) | payer MEDICAID, OTHER ==
[2018-07-25] MEDS ORDERED: Sodium Chloride 0.9% 15 ML NEB ONE (11:11)
[2018-07-25] MEDS ORDERED: Lidocaine 4% Topical Sol 50 ML BOT ONE ×2 (11:11)
== END 2018-07-25 10:33 | disposition home or self-care (01) ==
LOC: WCC 10:32
PROVIDERS: ATTEND Family Medicine
DX: T81.89XD Other complications of procedures, not elsewhere classified, subsequent encounter (principal)
CPT/HCPCS: 36416; 97605; A4218; J2001

== ENCOUNTER 2018-07-29 09:27 | Outpatient (CLI) | payer MEDICAID, OTHER ==
[2018-07-29] MEDS ORDERED: Sodium Chloride 0.9% 15 ML NEB ONE (15:45)
== END 2018-07-29 09:28 | disposition home or self-care (01) ==
LOC: WCC 09:27
PROVIDERS: ATTEND Family Medicine
DX: T81.89XD Other complications of procedures, not elsewhere classified, subsequent encounter (principal)
CPT/HCPCS: 36416; 97606; A4218

== ENCOUNTER 2018-08-01 14:46 | Outpatient (CLI) | payer MEDICAID, OTHER ==
[2018-08-01] MEDS ORDERED: Sodium Chloride 0.9% 15 ML NEB ONE (20:05)
== END 2018-08-01 14:47 | disposition home or self-care (01) ==
LOC: WCC 14:46
PROVIDERS: ATTEND Family Medicine
DX: T81.89XD Other complications of procedures, not elsewhere classified, subsequent encounter (principal)
CPT/HCPCS: 97605; A4218

== ENCOUNTER → 2018-08-02 | Day surgery (SDC) | payer MEDICAID, OTHER ==
[~2018-08-02] MED LIST changes: +Heparin 1,000 UNITS/ML VIAL ONE; -Sodium Chloride 0.9% 15 ML NEB ONE
--- NOTE | 2018-08-02 13:47 | SPC ---
RIGHT UPPER EXTREMITY PICC LINE PLACEMENT WITH ULTRASOUND GUIDANCE: HISTORY: Infection. IV antibiotics required. COMPARISON: None. EXPOSURE: 0.3 minutes, 1118 mGy*^cm2. FINDINGS: Technically successful right upper extremity PICC line placement with ultrasound guidance. Dual-lume n 5 Czech catheter terminates in the right atrium. Both lumen flush and aspirate without difficulty . Trim length is 34 cm. TECHNIQUE: Consent was obtained to perform a right upper extremity PICC line with ultrasound guidance. The [facility] arm was prepped and draped in a sterile fashion. 1% Lidocaine, buffered with sodium bicarbonate, w as used for local anesthesia. Under sonographic guidance, micropuncture was used to cannulate the ba silic vein. A 0.018 guidewire was advanced through the needle to the level of the superior vena cava . The wire was advanced under fluoroscopy into the inferior vena cava to document venous access. Th e wire was subsequently pulled back to the right atrium. The tract was dilated. Dual-lumen 5 Czech catheter was advanced over the wire. The wire was removed. Both lumen flush and aspirate without d ifficulty. Trim length is 34 cm. IMPRESSION: Successful right upper extremity PICC line placement with ultrasound guidance. POS: [facility]
== END ==
LOC: SPEC 09:12
PROVIDERS: ATTEND Internal Medicine Infectious Disease
PROC: B244ZZZ Ultrasonography of Right Heart (ICD-10-PCS; principal; 2018-08-02)
PROC: 02H633Z Insertion of Infusion Device into Right Atrium, Percutaneous Approach (ICD-10-PCS; principal; 2018-08-02)
DX: T84.7XXA Infection and inflammatory reaction due to other internal orthopedic prosthetic devices, implants and grafts, initial encounter (principal)
CPT/HCPCS: 36569; 96365; A4216; C1751; J0692; J1644; J7050

== ENCOUNTER 2018-08-23 16:22 | Emergency (ER) | payer MEDICAID, SELFPAY ==
[2018-08-23 17:50] LABS: #Eosinphils 3.1 thou/uL (0.0-0.7); #Lymphocytes 1.4 thou/uL (1.20-3.40); #Monocytes 0.7 thou/uL (0.11-0.59); #Neutrophils 9.5 thou/uL (1.40-6.50); %Basophils 0.2 % (0.0-1.0); %Lymphocytes 9.8 % (21.0-51.0); %Monocytes 4.5 % (0.0-10.0); %Neutrophils 64.5 % (42.0-75.0); Hemoglobin 9.2 g/dL (12.0-16.0); Mean Corpuscular HGB CONC 32.5 g/dL (32.0-36.0); Mean Corpuscular Hemoglobin 31.5 pg (27.0-31.0); Mean Platelet Volume 6.7 fL (7.4-10.4); Platelet Count 220 thou/uL (130-400); RBC Distribution Width 16.9 % (11.5-14.5); Red Blood Cell (RBC) Count 2.92 mill/uL (4.20-5.40); White Blood Cell (WBC) Count 14.7 thou/uL (4.8-10.8)
[2018-08-23 18:06] LABS: Lactic Acid 1.8 mmol/L (0.5-2.2)
[2018-08-23 18:10] LABS: ALT (SGPT) 22 U/L (8-55); AST (SGOT) 21 U/L (5-34); Albumin 2.2 g/dL (3.4-4.8); Alkaline Phosphatase 126 U/L (40-150); Anion Gap 12 mmol/L (10-20); BUN (Urea Nitrogen) 38 mg/dL (9.8-20.1); Bilirubin, Total 1.2 mg/dL (0.2-1.2); Calc. Creatinine Clearance 0 mL/min (70-130); Calcium 8.3 mg/dL (7.8-10.44); Carbon Dioxide 16 mmol/L (23-31); Chloride 102 mmol/L (98-107); Estimated GFR-MDRD 24; Globulin 2.1 g/dL (2.4-3.5); Glucose 245 mg/dL (83-110); Potassium 3.9 mmol/L (3.5-5.1); Protein, Total 4.3 g/dL (6.0-8.3); Sodium 126 mmol/L (136-145)
== END 2018-08-23 20:24 | disposition home or self-care (01) ==
LOC: ERS 16:22
DX: I82.90 Acute embolism and thrombosis of unspecified vein (principal); M79.89 Other specified soft tissue disorders; E11.9 Type 2 diabetes mellitus without complications; I10 Essential (primary) hypertension; Z79.899 Other long term (current) drug therapy
CPT/HCPCS: 83605; 85379; 87040; J1642

== ENCOUNTER 2018-08-25 16:10 | Emergency (ER) | payer SELFPAY ==
[2018-08-25] MEDS ORDERED: Cefepime 1 GM VIAL ONE (17:18)
[2018-08-25 17:43] LABS: Hemoglobin 9.7 g/dL (12.0-16.0); Mean Corpuscular HGB CONC 32.2 g/dL (32.0-36.0); Mean Corpuscular Hemoglobin 31.1 pg (27.0-31.0); Mean Corpuscular Volume 96.6 fL (78.0-98.0); Mean Platelet Volume 7.1 fL (7.4-10.4); Platelet Count 184 thou/uL (130-400); RBC Distribution Width 17.2 % (11.5-14.5); Red Blood Cell (RBC) Count 3.13 mill/uL (4.20-5.40); White Blood Cell (WBC) Count 12.2 thou/uL (4.8-10.8)
[2018-08-25 18:04] LABS: Acanthocytes SLIGHT = 1-5 cells (100X) (None Seen); Anisocytosis SLIGHT = 6-15 cells (100X) (0-5/hpf); Band 4 % (5-11); Eosinophils 20 % (0-10); Lymphocytes 2 % (21-51); MDiff Complete? YES; Monocytes 1 % (0-10); Neutrophil 73 % (42-75); PLT Morphology Comment Appears Adequate; Polychromasia SLIGHT = 2-3 cells (100X) (0-2/hpf)
--- NOTE | 2018-08-25 18:04 | RAD ---
CHEST ONE VIEW: Comparison: 06-23-18 FINDINGS: Heart size is within normal limits. There are atherosclerotic changes of the aorta. The lungs are bar ar of infiltrates. A right humeral prosthesis is present. IMPRESSION: No active intrathoracic disease. POS: [facility]
[2018-08-25 18:07] LABS: AST (SGOT) 21 U/L (5-34); Bilirubin, Total 1.3 mg/dL (0.2-1.2); Calcium 8.9 mg/dL (7.8-10.44); Chloride 100 mmol/L (98-107); Potassium 4.2 mmol/L (3.5-5.1); Sodium 125 mmol/L (136-145)
[2018-08-25 18:17] LABS: Albumin 2.5 g/dL (3.4-4.8); Alkaline Phosphatase 84 U/L (40-150); Anion Gap 16 mmol/L (10-20); BUN (Urea Nitrogen) 47 mg/dL (9.8-20.1); Calc. Creatinine Clearance 0 mL/min (70-130); Carbon Dioxide 13 mmol/L (23-31); Estimated GFR-MDRD 23; Globulin 2.5 g/dL (2.4-3.5); Glucose 211 mg/dL (83-110)
--- NOTE | 2018-08-25 18:45 | HP ---
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 She is followed by Dr. Soriano. She is receiving infusions in [facility]. She has a PICC line, left arm. The patient was sent to the emergency room by Oncology, stating that she needed Calderón catheter for infusion. Dr. Delong had told the infusion center that they could use th e PICC line. She was sent to the emergency room for a Calderón. The patient has an appointment with Wound Care for her dressing change tomorrow, Sunday. I was called by my emergency room physician marty choudhury that the patient needs a Calderón catheter for intravenous antibiotic treatment for cellulitis of arms and interrogation of the medical record revealed that she instead had a Pseudomonas prosthetic hip infection. I then was told that the PICC line does not work. I personally aspirated each port a nd had aspirated of blood and flushed. The PICC line has not been secured by the infusion center and has partially come out, but is in enough to be functional. It was secured by nursing. She will rec eive her intravenous antibiotics in the emergency room that were to be given at the infusion center. The patient is arranged n.p.o. after midnight to come in at 0900 hours Sunday morning to have a Hick man catheter placed and the PICC line removed as an outpatient. ALLERGIES: None. TOBACCO: None. ALCOHOL: None. MEDICATIONS: Tramadol, hydralazine, Flomax, Zofran, hydrochlorothiazide, ferrous sulfate, cefepime I V in infusion center, Coreg, atorvastatin, amlodipine. PAST SURGICAL HISTORY: Eye surgery, retinal surgery 2017, Dr. Hernandez; 05/22/2018, right hip septic ___ __ bursitis, incision and drainage, washout; 06/25/2018, Dr. Soriano infected total hip arthroplasty , incision and drainage of right hip, culture Pseudomonas. The patient is Nepali speaking only. PAST SURGICAL HISTORY: In addition, right eye surgery, shoulder replacement, knee replacement, total hip replacement surgery for femur fracture. PAST MEDICAL HISTORY: Diabetes mellitus; hypertension; chronic kidney disease; aortic stenosis, rosaura re, will need a cardiac catheterization in the future, followed by Cardiology; anemia; congestive hea rt failure; urinary retention; nephrolithiasis secondary to hyperparathyroidism. PHYSICAL EXAMINATION: VITAL SIGNS: Heart rate 74, blood pressure 140/81. HEAD, EARS, EYES, NOSE, AND THROAT: Unremarkable. LUNGS: Clear to auscultation. CARDIAC: Regular rate and rhythm without murmur or gallop. ABDOMEN: Soft, nontender. EXTREMITIES: Left arm PICC line functions well. Aspirated of blood and flushed with heparinized lora ine solution and secured as it was loose. ASSESSMENT AND PLAN: We will need to remove her PICC line and place a Calderón catheter. Risks and b enefits explained, she consents.
--- NOTE | 2018-08-28 14:10 | EKG ---
Test Reason : Blood Pressure : / mmHG Vent. Rate : 071 BPM Atrial Rate : 071 BPM P-R Int : 164 ms QRS Dur : 070 ms QT Int : 402 ms P-R-T Axes : 045 -20 015 degrees QTc Int : 436 ms Normal sinus rhythm Inferior infarct , age undetermined Abnormal ECG Confirmed by KANA WATERMAN DO ([id number]), state editor JASMIN EDWARDS ([id number]) on 08/28/2018 2:09:54 PM Referred By: Confirmed By:KANA WATERMAN DO
== END 2018-08-25 19:20 | disposition home or self-care (01) ==
LOC: ERS 16:10
DX: T82.898A Other specified complication of vascular prosthetic devices, implants and grafts, initial encounter (principal); E11.9 Type 2 diabetes mellitus without complications; I10 Essential (primary) hypertension; Z79.899 Other long term (current) drug therapy; Z79.891 Long term (current) use of opiate analgesic
CPT/HCPCS: 36415; 71045; 80053; 85025; 87040; 93005; 96365; J0692; J1642

== ENCOUNTER 2018-08-26 09:00 | Day surgery (SDC) | payer OTHER, SELFPAY ==
[2018-08-26] MEDS ORDERED: Cefepime 2 GM in Sodium Chloride 0.9% 100 ML IVPB SCH (09:45)
[2018-08-26] MEDS ORDERED: Bupivacaine HCl 0.5%/Epinephrine 1:200,000/PF 30 ml Vial ONE (10:44)
[2018-08-26] MEDS ORDERED: Lidocaine 2% PF Inj 2 ML VIAL ONE (10:44)
[2018-08-26] MEDS ORDERED: Midazolam HCl 2 mg/2 ml Vial ONE (10:48)
[2018-08-26] MEDS ORDERED: Fentanyl 100 MCG/2 ML VIAL ONE (10:48)
[2018-08-26] MEDS ORDERED: PHENYLEPHRINE-NS 100 MCG/ML 10 ML SYRINGE ONE ×2 (11:36→17:02)
--- NOTE | 2018-08-26 12:40 | OP ---
DATE OF PROCEDURE: 08/26/2018 PREOPERATIVE DIAGNOSIS: Dysfunctional PICC line, Pseudomonas right hip. POSTOPERATIVE DIAGNOSIS: Dysfunctional PICC line, Pseudomonas right hip. PROCEDURE: Right subclavian vein Calderón catheter dual lumen. SURGEON: Dr. Stiles. FLUOROSCOPY USED: Intravenous sedation with local, 0.5% Marcaine with epinephrine, 30 mL, mixed with 2% Xylocaine, 10 mL. DESCRIPTION OF PROCEDURE: The patient was taken to the operating room where under intravenous sedati on, neck and chest prepared with ChloraPrep, draped in routine fashion. Local anesthetic infiltrated into skin and subcutaneous tissue about the operative site. Trocar catheter cannulated the subclavi an vein infraclavicular approach to right and good return of venous blood obtained. J wire threaded under fluoroscopic visualization and stab incision made at the J-wire entrance site. Dilator and pul l-away sheath placed over the J-wire in superior vena cava and dilator and J-wire removed. Catheter placed with pull-away sheath. After skin access site and pull-away sheath removed. Catheter s ecured with a Biopatch and two 3-0 Prolene sutures. Fluoroscopic images revealed good line of placem ent. Sterile dressings applied. Each port aspirated blood and flushed with heparinized saline solut ion.
--- NOTE | 2018-08-26 14:25 | RAD ---
PORTABLE CHEST: Date: 08/26/18 HISTORY: Line placement. COMPARISON: 08/25/18 study. FINDINGS: There has been interval placement of a right-sided central line. The catheter tip overlies the superi or vena cava/right atrium junction. No signs of pneumothorax. No other interval change. IMPRESSION: Placement of right-sided central line. No signs of pneumothorax. POS: [facility]
[2018-08-26] MEDS ORDERED: ePHEDrine/0.9% NaCl/PF SYRINGE 50 mg/10 ml ONE (17:02)
[2018-08-26] MEDS ORDERED: Lidocaine 1% PF 5 ML VIAL ONE (17:02)
== END 2018-08-26 13:56 | disposition home or self-care (01) ==
LOC: SDC 09:00
PROVIDERS: ATTEND Specialist
PROC: 05H533Z Insertion of Infusion Device into Right Subclavian Vein, Percutaneous Approach (ICD-10-PCS; principal; 2018-08-26)
DX: T82.524A Displacement of infusion catheter, initial encounter (principal); T84.51XA Infection and inflammatory reaction due to internal right hip prosthesis, initial encounter; B96.5 Pseudomonas (aeruginosa) (mallei) (pseudomallei) as the cause of diseases classified elsewhere; I13.0 Hypertensive heart and chronic kidney disease with heart failure and stage 1 through stage 4 chronic kidney disease, or unspecified chronic kidney disease; E11.22 Type 2 diabetes mellitus with diabetic chronic kidney disease; N18.9 Chronic kidney disease, unspecified; I50.9 Heart failure, unspecified; D63.1 Anemia in chronic kidney disease; I35.0 Nonrheumatic aortic (valve) stenosis; Z96.611 Presence of right artificial shoulder joint; Z96.651 Presence of right artificial knee joint; Z79.2 Long term (current) use of antibiotics; Z79.899 Other long term (current) drug therapy
CPT/HCPCS: 71045; C1751; C1769; J0670; J0692; J1642; J2001; J2250; J3010; J7050

== ENCOUNTER 2018-08-30 14:28 | Inpatient (IN) | payer OTHER ==
[2018-08-30] MEDS ORDERED: Morphine 4 MG/ML VIAL ONE (17:06)
[2018-08-30 17:33] LABS: ALT (SGPT) 22 U/L (8-55); AST (SGOT) 28 U/L (5-34); Albumin 2.4 g/dL (3.4-4.8); Alkaline Phosphatase 124 U/L (40-150); Anion Gap 16 mmol/L (10-20); BUN (Urea Nitrogen) 64 mg/dL (9.8-20.1); Bilirubin, Total 1.3 mg/dL (0.2-1.2); CK (CPK) 51 U/L (29-168); Calc. Creatinine Clearance 0 mL/min (70-130); Carbon Dioxide 15 mmol/L (23-31); Chloride 109 mmol/L (98-107); Estimated GFR-MDRD 18; Globulin 2.6 g/dL (2.4-3.5); Magnesium 1.2 mg/dL (1.6-2.6); Potassium 5.7 mmol/L (3.5-5.1); Sodium 134 mmol/L (136-145)
[2018-08-30 17:34] LABS: Anisocytosis SLIGHT = 6-15 cells (100X) (0-5/hpf); Band 43 % (5-11); Burr Cells SLIGHT = 2-5 cells (100X) (0-1/hpf); Dohle Bodies SLIGHT; Eosinophils 4 % (0-10); Hemoglobin 9.2 g/dL (12.0-16.0); Lymphocytes 6 % (21-51); MDiff Complete? YES; Mean Corpuscular HGB CONC 32.1 g/dL (32.0-36.0); Mean Corpuscular Hemoglobin 31.3 pg (27.0-31.0); Mean Corpuscular Volume 97.3 fL (78.0-98.0); Mean Platelet Volume 7.3 fL (7.4-10.4); Monocytes 3 % (0-10); Neutrophil 43 % (42-75); Ovalocytes SLIGHT = 2-5 cells (100X) (0-1/hpf); PLT Morphology Comment Appears Adequate; Platelet Count 228 thou/uL (130-400); Poikilocytosis SLIGHT = 6-15 cells (100X) (0-5/hpf); Polychromasia SLIGHT = 2-3 cells (100X) (0-2/hpf); Red Blood Cell (RBC) Count 2.95 mill/uL (4.20-5.40); Schistocytes SLIGHT = 2-5 cells (100X) (0-1/hpf); Toxic Granulation SLIGHT; White Blood Cell (WBC) Count 13.4 thou/uL (4.8-10.8)
[2018-08-30 17:37] LABS: Glucose 46 mg/dL (83-110)
[2018-08-30 17:39] LABS: CKMB 3.7 ng/mL (0-6.6); Troponin I Less than 0.010 ng/mL (< 0.028)
[2018-08-30] MEDS ORDERED: Dextrose 50% Abboject 50 ML SYRINGE ONE (17:43)
[2018-08-30] MEDS ORDERED: Magnesium 2 GM/50 ML BAG (IN WATER) ONE (19:07)
--- NOTE | 2018-08-30 19:36 | CT ---
CT OF THE ABDOMEN AND PELVIS WITHOUT IV CONTRAST: 08/30/18 INDICATION: History of right lower quadrant and right upper quadrant abdominal pain for three days. COMPARISON: Exam is compared to prior dated 01/16/18. FINDINGS: There is stable cholelithiasis. There is some mild left basilar atelectasis. Unopacified liver is unremarkable. The unopacified pancreas and adrenal glands are unremarkable. Unopacified spleen is unremarkable. The re are bilateral renal vascular calcifications. There is severe vascular calcifications involving the abdominal and pelvic vasculature. There is moderate amount of retained stool within the colon. There is moderate distention of the blad marito. There has been interval enlargement of the fluid collection surrounding the right hip joint now measuring approximately 10.6 x 11.7 cm. This is surrounding the right femoral prosthesis and antibiot ic spacer. No acute osseous abnormality is evident. There are bilateral pars defects at L5. There is diffuse osteopenia. IMPRESSION: 1. Interval enlargement of the periarticular soft tissue fluid collection that appears to commun icate with the external skin surface. This is concerning for postoperative fluid collection versus pe riarticular abscess. The patient has a large antibiotic spacer involving the right femoral prosthesis . 2. Anasarca. 3. Cholelithiasis. 4. Moderate amount of retained stool within the colon. 5. Moderate amount of retained urine within the bladder. POS: [facility]
[2018-08-30 19:42] LABS: Bilirubin Negative (Negative); Blood, Urine Small (Negative); Clarity CLEAR (Clear); Glucose, Urine (Dipstick) Negative (Negative); Leukocyte Trace (Negative); Nitrite Negative (Negative); Protein, Urine (Dipstick) 100 mg/dL (Neg-Trace); Specific Gravity, Urine 1.012 (1.002-1.036); Urobilinogen 0.2 mg/dL (0.2-1.0); pH, Urine 6.5 (5.0-9.0)
--- NOTE | 2018-08-30 19:43 | ULT ---
RIGHT LOWER EXTREMITY DOPPLER VENOUS ULTRASOUND: 08/30/18 INDICATION: Painful right leg with skin sore to touch. TECHNIQUE: Lino scale, color doppler and vascular duplex with spectral analysis was performed of the deep venous structures of the right lower extremity. Common femoral vein, superficial femoral vein, popliteal ve in, posterior tibial vein, proximal greater saphenous and profunda veins were assessed. FINDINGS: Normal compression, flow, and augmentation seen within the deep venous structures of the right lower extremity. There is subcutaneous edema involving the foreleg soft tissues. There are mildly prominent lymph nodes seen within the right inguinal region. IMPRESSION: 1. No acute DVT demonstrated within the right lower extremity. 2. Mildly prominent right inguinal lymph nodes. 3. Subcutaneous edema in the right lower extremity. POS: [facility]
[2018-08-30 19:45] LABS: Bacteria/HPF Rare-Few HPF (None Seen); Hyaline Casts/LPF 0-3 HYALINE CAST LPF (0-3 Hyaline); Pathc Cast-AUWi Flag 1.01 (0-2.49); RBC/HPF 0-3 HPF (0-3); Squamous Epithelial 0-3 HPF (0-3); WBC/HPF 0-3 HPF (0-3)
[2018-08-30] MEDS ORDERED: diphenhydrAMINE 50 MG/ML VIAL ONE (20:45)
[2018-08-30] MEDS ORDERED: Cefepime 2 GM VIAL ONE (20:47)
[2018-08-30] MEDS ORDERED: Sodium Bicarb 50 MEQ/50 ML Abboject 8.4% SYRINGE ONE (21:07)
[2018-08-30] MEDS ORDERED: Lactated Ringer's 1,000 ML IV SCH (23:45)
[2018-08-31] MEDS ORDERED: Dextrose 50% Abboject 50 ML SYRINGE ONE (02:13)
[2018-08-31 02:56] LABS: Bilirubin Negative (Negative); Blood, Urine Small (Negative); Clarity CLEAR (Clear); Glucose, Urine (Dipstick) Negative (Negative); Leukocyte Negative (Negative); Nitrite Negative (Negative); Protein, Urine (Dipstick) 100 mg/dL (Neg-Trace); Specific Gravity, Urine 1.012 (1.002-1.036); Urobilinogen 0.2 mg/dL (0.2-1.0); pH, Urine 6.5 (5.0-9.0)
[2018-08-31 02:58] LABS: Bacteria/HPF 2+ HPF (None Seen); Hyaline Casts/LPF 4-6 HYALINE CAST LPF (0-3 Hyaline); Pathc Cast-AUWi Flag 1.01 (0-2.49); RBC/HPF 0-3 HPF (0-3); Squamous Epithelial 0-3 HPF (0-3); WBC/HPF 0-3 HPF (0-3)
[2018-08-31 03:15] LABS: Renal Epithelial None Seen HPF (0-3); Transitional Epithelial NONE SEEN HPF (0-3)
[2018-08-31 05:04] LABS: ALT (SGPT) 19 U/L (8-55); AST (SGOT) 21 U/L (5-34); Alkaline Phosphatase 99 U/L (40-150); Anion Gap 11 mmol/L (10-20); BUN (Urea Nitrogen) 64 mg/dL (9.8-20.1); Bilirubin, Total 1.1 mg/dL (0.2-1.2); Calc. Creatinine Clearance 0 mL/min (70-130); Calcium 8.3 mg/dL (7.8-10.44); Carbon Dioxide 18 mmol/L (23-31); Chloride 112 mmol/L (98-107); Estimated GFR-MDRD 18; Globulin 2.1 g/dL (2.4-3.5); Glucose 106 mg/dL (83-110); Protein, Total 4.1 g/dL (6.0-8.3); Sodium 136 mmol/L (136-145)
[2018-08-31] MEDS ORDERED: Dextrose 5% in Water 1,000 ML IV PRN (05:30)
[2018-08-31] MEDS ORDERED: Dextrose 50% Abboject 50 ML SYRINGE SLOW IVP PRN (05:30)
[2018-08-31] MEDS ORDERED: Acetaminophen 325 MG TAB PO PRN (05:30)
[2018-08-31] MEDS ORDERED: HumaLOG 300 UNITS/3 ML VIAL SC PRN (05:34)
--- NOTE | 2018-08-31 05:44 | PDOC.FPRHP ---
- History of Present Illness Chief Complaint: abdominal and right hip pain History of Present Illness: Mrs. Pitt is a very ill 73 yo mongolian speaking female with an extensive pmhx and frequent hospitalizations for a persistent right hip infection who presents with diffuse abdominal pain, right hip pain, and bilateral arm swelling and redness. She went to the [facility] yesterday for evaluation and was sent home because "her doctor wasn't there." She was started on vanc this morning in addition to cefepime for unclear reasons, however after further evaluation, she was found to have a right periarticular abscess where her arthroplastic joint used to be, and we suspect was started on vanc for this reason. She complains of severe pain from the right hip wound. - Allergies/Adverse Reactions Allergies Allergy/AdvReac Type Severity Reaction Status Date / Time No Known Allergies Allergy Verified 08/31/18 03:33 - Home Medications Medication Instructions Recorded Confirmed Type Amlodipine [Norvasc] 10 mg PO DAILY 05/10/18 06/22/18 History B-Complex with Vitamin C [Super B 1 tablet PO DAILY 05/21/18 06/22/18 History Complex-Vitamin C] Cranberry Conc/Ascorbic Acid 1 capsule PO DAILY 05/21/18 06/22/18 History [Cranberry Urinary Comf Softgel] Ondansetron HCl [Zofran] 1 tablet PO Q6HR PRN 05/21/18 06/22/18 History Tamsulosin HCl [Flomax] 0.4 mg PO BID 05/21/18 06/22/18 History Carvedilol [Coreg] 3.125 mg PO BID-WM 30 Days #60 tab 06/17/18 06/22/18 Rx Ferrous Sulfate 300 mg PO DAILY udcup 06/17/18 06/22/18 Rx Hydrochlorothiazide 25 mg PO BID 30 Days #60 tab 06/17/18 06/22/18 Rx hydrALAZINE [Apresoline] 25 mg PO TID 30 Days #90 tab 06/17/18 06/22/18 Rx Atorvastatin Calcium [Lipitor] 40 mg PO DAILY 06/22/18 06/22/18 History Cefepime [Maxipime] 1 gm IVPB Q24HR vial 06/27/18 Rx Sodium Bicarbonate [Bicarbonate, 325 mg PO TID #42 tab 06/27/18 Rx Sodium] traMADol HCl [Ultram] 50 mg PO Q12H PRN #30 tablet MDD 06/28/18 Rx 200mg - History PMHx: PSHx: FHx: Social: - Review of Systems General: denies: fever/chills, weight/appetite/sleep changes ENT: denies: nasal congestion Respiratory: denies: cough, congestion, shortness of breath Cardiovascular: reports: edema. denies: chest pain Gastrointestinal: reports: abdominal pain. denies: nausea, vomiting, diarrhea Genitourinary: denies: dysuria Skin: reports: rashes Musculoskeletal: reports: pain, swelling Neurological: denies: numbness, syncope Psychological: denies: anxiety, depression - Vital signs BP: 131/55 HR: 92 RR: 20 Tmax: 97.4 Pox: 100% on RA Wt: - Physical Exam Constitutional: NAD, other (confused; not able to answer questions) HEENT: normocephalic and atraumatic, other (dry mm) Neck: trachea midline, no thyromegaly Chest: other (picc line with pus) Heart: RRR, other (4/6 systolic ejection murmur) Lungs: CTAB, no respiratory distress, no wheezing Abdomen: soft, other (tender to palpation diffusely) Musculoskeletal: other (right hip wound with light brown colored pus draining upon squeezing the site; ttp as well; diffuse erythema of arms b/l with swelling in all four extremities) Skin: other (diffuse erythema of arms bilaterally) Psychiatric: other (confused; unable to answer questions) FMR H&P: Results - Labs Result Diagrams: 08/31/18 03:49 08/31/18 03:50 Lab results: WBC 13.4 thou/uL (4.8-10.8) H 08/30/18 17:00 Hgb 9.2 g/dL (12.0-16.0) L 08/30/18 17:00 Hct 28.7 % (36.0-47.0) L 08/30/18 17:00 MCV 97.3 fL (78.0-98.0) 08/30/18 17:00 Plt Count 228 thou/uL (130-400) 08/30/18 17:00 Band Neuts % (Manual) 43 % (5-11) H 08/30/18 17:00 Sodium 136 mmol/L (136-145) 08/31/18 03:50 Potassium 5.0 mmol/L (3.5-5.1) 08/31/18 03:50 Chloride 112 mmol/L (98-107) H 08/31/18 03:50 Carbon Dioxide 18 mmol/L (23-31) L 08/31/18 03:50 BUN 64 mg/dL (9.8-20.1) H 08/31/18 03:50 Creatinine 2.58 mg/dL (0.6-1.1) H 08/31/18 03:50 Glucose 106 mg/dL (83-110) 08/31/18 03:50 Calcium 8.3 mg/dL (7.8-10.44) 08/31/18 03:50 Total Bilirubin 1.1 mg/dL (0.2-1.2) 08/31/18 03:50 AST 21 U/L (5-34) 08/31/18 03:50 ALT 19 U/L (8-55) 08/31/18 03:50 Alkaline Phosphatase 99 U/L (40-150) 08/31/18 03:50 Creatine Kinase 51 U/L (29-168) 08/30/18 17:00 CK-MB (CK-2) 3.7 ng/mL (0-6.6) 08/30/18 17:00 Serum Total Protein 4.1 g/dL (6.0-8.3) L 08/31/18 03:50 Albumin 2.0 g/dL (3.4-4.8) L 08/31/18 03:50 Urine Ketones Negative mg/dL (Negative) 08/31/18 02:00 Urine Blood Small (Negative) H 08/31/18 02:00 Urine Nitrite Negative (Negative) 08/31/18 02:00 Ur Leukocyte Esterase Negative (Negative) 08/31/18 02:00 Urine RBC 0-3 HPF (0-3) 08/31/18 02:00 Urine WBC 0-3 HPF (0-3) 08/31/18 02:00 Ur Squamous Epith Cells 0-3 HPF (0-3) 08/31/18 02:00 Urine Bacteria 2+ HPF (None Seen) H 08/31/18 02:00 - Radiology Interpretation CT scan - abdomen Status: report reviewed by me (periarticular abscess vs post op fluid collection ) FMR H&P: A/P - Problem List (1) Sepsis Current Visit: Yes Status: Acute Code(s): A41.9 - SEPSIS, UNSPECIFIED ORGANISM (2) Postoperative wound infection of right hip Current Visit: Yes Status: Acute Code(s): T81.49XA - INFECTION FOLLOWING A PROCEDURE, OTHER SURGICAL SITE, INIT (3) Hyperkalemia Current Visit: No Status: Acute Code(s): E87.5 - HYPERKALEMIA (4) Acute on chronic kidney failure Current Visit: No Status: Acute Code(s): N17.9 - ACUTE KIDNEY FAILURE, UNSPECIFIED; N18.9 - CHRONIC KIDNEY DISEASE, UNSPECIFIED Qualifiers: Chronic kidney disease stage: stage 4 (severe) (5) Anemia of renal disease Current Visit: No Status: Chronic Code(s): D63.1 - ANEMIA IN CHRONIC KIDNEY DISEASE (6) Aortic stenosis Current Visit: No Status: Chronic Code(s): I35.0 - NONRHEUMATIC AORTIC ( VALVE) STENOSIS Qualifiers: Cardiac valve disease etiology: etiology unspecified Qualified Code(s): I35.0 - Nonrheumatic aortic (valve) stenosis (7) CHF (congestive heart failure) Current Visit: No Status: Chronic Code(s): I50.9 - HEART FAILURE, UNSPECIFIED (8) CKD (chronic kidney disease) stage 4, GFR 15-29 ml/min Current Visit: No Status: Chronic Code(s): N18.4 - CHRONIC KIDNEY DISEASE, STAGE 4 (SEVERE) (9) Hypertension Current Visit: No Status: Chronic Code(s): I10 - ESSENTIAL (PRIMARY) HYPERTENSION (10) Urinary retention Current Visit: No Status: Chronic Code(s): R33.9 - RETENTION OF URINE, UNSPECIFIED - Plan 73 yo female with an extensive pmhx presents with hyperkalemia: #Sepsis 2/2 right hip periarticular abscess vs post op fluid collection -rule out infected picc line -CXR-rule out pneumonia -evidenced by abdominal CT -continued abx of cefepime and vanc, however slowed rate of vanc as pt may have red new syndrome -will consult Dr. Delong and ortho in the am for recommendations -started LR @ 100ml/hr -blood cultures, right hip and picc line culture -repeat cbc, cmp -ua and culture ordered -PT/OT/case management consult -wound care consult -palliative care consult #Hyperkalemia -found in the ER -will repeat CMP in am and hold meds contributing to hyperkalemia #Right hip postoperative fluid collection vs abscess -evidenced by abdominal CT -see above #picc line infection, suspected -cultured line -consider IR consult or wound care consult for replacement/management #Urinary retention -bladder scan qshift -if greater than 500cc, straight catheter #CHF -edema b/l upper and lower extremities, clear lungs -ordered BNP to assess for exacerbation, clinically is volume overloaded -restarted home medications #Anemia of chronic Disease -stable #CKD -stage 4 -monitor via CMP, continued sodium bicarb, consider nephro consult #HTN -restart home meds #Type 2 diabetes -pt had an episode of hypoglycemia, now resolved s/p 2 amps of d50 -ACHS accuchecks -restart home meds Code: Fulle code, consult palliative care Disposition: poor FMR H&P: Upper Level - Plan Date/Time: 08/31/18 8949 I, [], have evaluated this patient and agree with findings/plan as outlined by internet marketing strategist resident. Pertinent changes/additions are listed here. Attending Addendum - Attending Addendum Date/Time: 08/31/18 4540 I personally evaluated the patient and discussed the management with Dr. Julian I agree with the History, Examination, Assessment and Plan documented above with any addition or exceptions noted below.I examined this patient with the residents and 20 ml heide purulent d/c expressed from right hip wound and patient with exfoliative rash questionable drug reaction CT suggest fliud collection right hip s/p hardware removal and antibiotic prothesis. Will need help from ID and Orthopedics.
[2018-08-31] MEDS ORDERED: Cefepime 1 GM VIAL IVPB SCH (05:45)
[2018-08-31] MEDS ORDERED: Lactated Ringer's 1,000 ML IV SCH ×2 (05:45)
[2018-08-31 05:48] LABS: #Basophils 0.1 thou/uL (0.0-0.2); #Eosinphils 0.9 thou/uL (0.0-0.7); #Lymphocytes 1.8 thou/uL (1.20-3.40); #Monocytes 1.1 thou/uL (0.11-0.59); #Neutrophils 8.3 thou/uL (1.40-6.50); %Basophils 0.4 % (0.0-1.0); %Eosinophils 7.3 % (0.0-10.0); %Lymphocytes 15.1 % (21.0-51.0); %Monocytes 8.7 % (0.0-10.0); %Neutrophils 68.5 % (42.0-75.0); Hemoglobin 8.1 g/dL (12.0-16.0); Mean Corpuscular HGB CONC 32.2 g/dL (32.0-36.0); Mean Corpuscular Hemoglobin 32.1 pg (27.0-31.0); Mean Corpuscular Volume 99.7 fL (78.0-98.0); Mean Platelet Volume 7.4 fL (7.4-10.4); Platelet Count 211 thou/uL (130-400); RBC Distribution Width 18.5 % (11.5-14.5); Red Blood Cell (RBC) Count 2.52 mill/uL (4.20-5.40); White Blood Cell (WBC) Count 12.1 thou/uL (4.8-10.8)
--- NOTE | 2018-08-31 06:11 | PDOC.FM ---
Addendum entered and electronically signed by Karena Londono MD 08/31/18 09:57: Addendum: Concern for infected Central line, not picc line. Original Note: - Subjective Subjective: Pt itching over her whole body, and uncomfortable this AM, pain from right hip. - Objective Vital Signs & Weight: Vital Signs (12 hours) Temp Pulse Resp BP Pulse Ox 08/31/18 04:00 97.7 F 90 20 109/58 L 95 08/31/18 00:00 97.4 F L 89 20 120/40 L 100 08/30/18 23:30 100 08/30/18 23:15 97.4 F L 92 20 131/55 L 100 I&O: 08/29/18 08/30/18 08/31/18 06:59 06:59 06:59 Output Total 900 Balance -900 Result Diagrams: 08/31/18 03:49 08/31/18 03:50 <Karena Londono - Last Filed: 08/31/18 08:38> - Objective Vital Signs & Weight: Vital Signs (12 hours) Temp Pulse Resp BP BP BP Pulse Ox 08/31/18 11:41 98 F 68 18 96/50 L 100 08/31/18 09:41 93 135/83 08/31/18 08:00 100 08/31/18 07:23 97.6 F 93 18 135/83 100 08/31/18 04:00 97.7 F 90 20 109/58 L 95 Weight Weight 59.148 kg I&O: 08/30/18 08/31/18 09/01/18 06:59 06:59 06:59 Output Total 900 Balance -900 Result Diagrams: 08/31/18 03:49 08/31/18 03:50 <Wander Friend - Last Filed: 08/31/18 13:30> Phys Exam - Physical Examination Itching, crying on exam, distressed HEENT: oral pharynx no lesions dry MMM Neck: no nodes, supple Respiratory: no wheezing, clear to auscultation bilateral Cardiovascular: RRR, no significant murmur Gastrointestinal: soft, non-tender, positive bowel sounds Musculoskeletal: edema present swelling in arms, legs Neurological: moves all 4 limbs Deviation from normal: Oriented to self, not place or time. Deviation from normal: Dry peeling rash over entire body, Very erythematous arms. Scratching <Karena Londono - Last Filed: 08/31/18 08:38> Dx/Plan (1) Postoperative wound infection of right hip Code(s): T81.49XA - INFECTION FOLLOWING A PROCEDURE, OTHER SURGICAL SITE, INIT Status: Acute (2) Sepsis Code(s): A41.9 - SEPSIS, UNSPECIFIED ORGANISM Status: Acute (3) Acute on chronic diastolic (congestive) heart failure Code(s): I50.33 - ACUTE ON CHRONIC DIASTOLIC (CONGESTIVE) HEART FAILURE Status : Acute (4) Hyperkalemia Code(s): E87.5 - HYPERKALEMIA Status: Acute (5) Anemia of renal disease Code(s): D63.1 - ANEMIA IN CHRONIC KIDNEY DISEASE Status: Chronic (6) CHF (congestive heart failure) Code(s): I50.9 - HEART FAILURE, UNSPECIFIED Status: Chronic (7) CKD (chronic kidney disease) stage 4, GFR 15-29 ml/min Code(s): N18.4 - CHRONIC KIDNEY DISEASE, STAGE 4 (SEVERE) Status: Chronic (8) DM2 (diabetes mellitus, type 2) Status: Chronic (9) Hypertension Code(s): I10 - ESSENTIAL (PRIMARY) HYPERTENSION Status: Chronic (10) Urinary retention Code(s): R33.9 - RETENTION OF URINE, UNSPECIFIED Status: Chronic - Plan Plan: 73 yo F admitted for hyperkalemia with concern for sepsis 2/2 to infection Sepsis 2/2 Intra-articular infection vs picc line infection -Pt already on Vanc and cefepime -Pulse >90, WC 13.4 on presentation, R 20 -CT abd/pelv: enlargement periarticular soft tissue fluid collection Rt hip communicating with skin. Concern for postop collection vs periarticular abscess -Picc line appears infected, wound cultures pending -LA pending, blood cultures pending -UA neg, U cx pending -Consult Dr. Diamond today -Consult Ortho -IV LR @ 100, will discontinue -XR hip 2V pending -Consult palliative care #Right hip postoperative fluid collection vs abscess -evidenced by abdominal CT -see above #picc line infection, suspected -cultured line -consider IR consult or wound care consult for replacement/management Concern for DVT -D dimer elevated -RLE doppler neg for DVT, shows subcutaneous edema over foreleg Allergic reaction vs anthony syndrome -Patient states this has been going on >5 days -Concern for Red man syndrome -Will consult Dr. Diamond, appreciate recommendations -Vanc dosing slowed Hyperkalemia -K on admission 5.7, resolved to 5.0 Urinary retention -Bladder scans qshift -Monitor I/Os CKD -stage 4 -monitor via CMP, continued sodium bicarb, consider nephro consult HTN -restart home meds Type 2 diabetes -pt had an episode of hypoglycemia, now resolved s/p 2 amps of d50 -ACHS accuchecks -restart home meds CHF -edema b/l upper and lower extremities, clear lungs -ordered BNP to assess for exacerbation, clinically is volume overloaded -restarted home medications Code status: full for now, will readdress today DVT ppx: heparin Dispo: poor <Karena Londono - Last Filed: 08/31/18 08:38> (1) Sepsis Code(s): A41.9 - SEPSIS, UNSPECIFIED ORGANISM Status: Acute (2) Postoperative wound infection of right hip Code(s): T81.49XA - INFECTION FOLLOWING A PROCEDURE, OTHER SURGICAL SITE, INIT Status: Acute (3) Hyperkalemia Code(s): E87.5 - HYPERKALEMIA Status: Acute (4) Acute on chronic kidney failure Code(s): N17.9 - ACUTE KIDNEY FAILURE, UNSPECIFIED; N18.9 - CHRONIC KIDNEY DISEASE, UNSPECIFIED Status: Acute Qualifiers: Chronic kidney disease stage: stage 4 (severe) (5) Anemia of renal disease Code(s): D63.1 - ANEMIA IN CHRONIC KIDNEY DISEASE Status: Chronic (6) Aortic stenosis Code(s): I35.0 - NONRHEUMATIC AORTIC (VALVE) STENOSIS Status: Chronic Qualifiers: Cardiac valve disease etiology: etiology unspecified Qualified Code(s): I35.0 - Nonrheumatic aortic (valve) stenosis (7) CHF (congestive heart failure) Code(s): I50.9 - HEART FAILURE, UNSPECIFIED Status: Chronic (8) CKD (chronic kidney disease) stage 4, GFR 15-29 ml/min Code(s): N18.4 - CHRONIC KIDNEY DISEASE, STAGE 4 (SEVERE) Status: Chronic (9) Hypertension Code(s): I10 - ESSENTIAL (PRIMARY) HYPERTENSION Status: Chronic (10) Urinary retention Code(s): R33.9 - RETENTION OF URINE, UNSPECIFIED Status: Chronic <Wander Friend - Last Filed: 08/31/18 13:30> Attending Addendum - Attending Addendum Date/Time: 08/31/18 6941 I personally evaluated the patient and discussed the management with Dr. Londono I agree with the History, Examination, Assessment and Plan documented above with any addition or exceptions noted below. Appreciate ID and Orthopedic recommendations. <Wander Friend - Last Filed: 08/31/18 13:30>
[2018-08-31 07:24] LABS: Lactic Acid 1.3 mmol/L (0.5-2.2)
[2018-08-31] MEDS ORDERED: Amlodipine 10 MG TAB PO SCH (09:00)
[2018-08-31] MEDS: Carvedilol 3.125 MG TAB PO SCH ×2 (09:41→17:04)
[2018-08-31] MEDS: Sodium Bicarbonate Tab 325 MG TAB PO SCH ×3 (09:42→21:00)
[2018-08-31] MEDS: Atorvastatin Calcium 40 MG TAB PO SCH (09:42)
[2018-08-31] MEDS: Heparin 5,000 UNITS/ML VIAL SC SCH ×3 (09:42→21:00)
[2018-08-31] MEDS: Magnesium Chloride 64 MG TAB PO SCH ×2 (09:42→21:00)
[2018-08-31] MEDS: Hydrochlorothiazide 25 MG TAB PO SCH ×2 (09:42→21:00)
[2018-08-31] MEDS: traMADol HCl 50 MG TAB PO PRN ×2 (09:59→21:02)
--- NOTE | 2018-08-31 11:37 | PDOC.EVN ---
Event Note - Event Note Event Note: Spoke with Dr. Bedolla regarding discharge from R hip Dr. Bedolla states this is serosanguinous fluid He states "there is nothing else to be done, tell the family there is nothing else to be done." "There is no more surgeries to be done." States he is out of town and will see them outpatient, states he will not see them inpatient
[2018-08-31] MEDS: Morphine 2 MG/ML SYRINGE SLOW IVP PRN (12:49)
--- NOTE | 2018-08-31 13:23 | RAD ---
RIGHT HIP 2 VIEWS: COMPARISON: 06/22/2018. HISTORY: Recent surgery. Sepsis. FINDINGS: Based on images provided, there has been replacement of a right hip arthroplasty. There appears to b e heterotopic bone formation, antibiotic implant seeds present. There is some perihardware lucency i nvolving the stem of the component in the femur. Side plate with screws and cerclage wires are noted . There are vascular calcifications. IMPRESSION: Possible complication/loosening involving a right hip prosthesis. POS: [facility]
--- NOTE | 2018-08-31 13:25 | RAD ---
CHEST 1 VIEW: COMPARISON: 08/26/2018. HISTORY: Sepsis. FINDINGS: Stable catheter projecting over the right hemithorax. Stable right humeral arthroplasty. Atheroscle rosis of the aorta is noted. Normal cardiac silhouette. Lungs and pleural spaces are clear. No pne umothorax. IMPRESSION: No significant interval change. No acute cardiopulmonary process. POS: [facility]
[2018-08-31 14:28] VITALS: BMI 26.3
[2018-08-31] MEDS: diphenhydrAMINE 25 MG CAP PO PRN (16:58)
[2018-08-31] MEDS ORDERED: Dextrose 5%-Lactated Ringers 1,000 ML IV SCH (18:00)
--- NOTE | 2018-08-31 19:10 | CON ---
DATE OF CONSULTATION: 08/31/2018 REASON FOR CONSULTATION: Recrudescence of inflammatory process right hip and concern with possible hypersensitivity reaction to administer antimicrobials. HISTORY OF PRESENT ILLNESS: A 73-year-old well known to us from multiple prior visits, both here as well as [facility]. She has a history of hypertension, type 2 diabetes, CHF and severe aortic stenosis, and prior hip fractures who has had numerous interventions which have failed. The last one was removal of arthroplasty following development of refractory infection and placemen t of a spacer. The cultures that have been obtained from the sites were reviewed again and in 7, she had a methicillin-resistant Staphylococcus epidermides and on the same date, she had Enterobac ter cloacae, which was sensitive to cefepime and quinolones as well as meropenem and in 01/2017, she had an E. coli which was an ESBL organism. The patient has had protracted treatment in the latest ev ent, she was treated hear at [facility] in June. At that time, she had an I&D procedure by Dr. Soriano and she had a Pseudomonas aeruginosa retrieved from blood cultures. The organism wa s susceptible to various antimicrobials including quinolones. The patient continued to be treated wi th antimicrobials has had some complications related to the PICC line that was inserted at [facility]. This was removed and a Calderón catheter placed recently. Now, she presented w ith diffuse body myalgias, general malaise, worsening drainage in the right hip site and is admitted at this time. Dr. Bedolla has been contacted and he declined to accept the patient in transfer and carmelo mmended that she be sent to his office instead. She currently is awake. She appears in some distres s from marked pain in the right hip. There is profuse drainage from the site and she has this diffus e exfoliative eruption mostly in the upper extremities, but some in the face as well. She has no hea daches, no visual symptoms, sore throat, odynophagia, dysphagia, no cough, no chest pain, no abdomina l pain or diarrhea. No genitourinary symptoms. PAST MEDICAL HISTORY: Severe aortic stenosis, type 2 diabetes, hypertension, right hip fracture with replacement and then complications noted above which culminated in the removal of the implant recent ly, a PICC line was placed by surgeon in [facility]. She also has rheumatoid art hritis and chronic renal insufficiency with a GFR around 18-20. SOCIAL HISTORY: Nonsmoker, lives with family in the area. FAMILY HISTORY: Type 2 diabetes. CURRENT MEDICATIONS: Include cefepime, vancomycin, IV fluids, hydrochlorothiazide, Coreg, Lipitor, N orvasc. PHYSICAL EXAMINATION: VITAL SIGNS: T-max 97.6, blood pressure 96/50, pulse 68, respirations 18, O2 sat 100. SKIN: Shows diffuse exfoliation of the skin. There is some erythema in the upper extremities, but l ess than I had noted before. There is some erythema around the facial area. The oral cavity does no t have any lesions. NECK: Supple. LUNGS: With symmetric air entry. HEART: S1, S2 with a harsh 3/6 murmur at the aortic area. No S3. Regular rate. ABDOMEN: Soft, not distended. Right hip is markedly tender which this is a new development. There is profuse drainage of a dark yellow fluid from the mid-section of the previous incision. She does n ot have a Eason catheter and has an accessed right Calderón catheter. There is kind of a light grayis h green exudate around the exit site of the Calderón catheter in the subclavian location right side. EXTREMITIES: She cannot move her feet because of chronic ankylosis and weakness of muscles and decon ditioning. She keeps her feet extended the ankle site has lost function of the lower extremities bec ause of that. She has quite a bit of pain on mobilization of the right ankle and has tenderness at r ight heel pad. Pulses are 1+ in dorsalis pedis noted. No knee effusions are noted. NEUROLOGIC: She is awake, oriented, follows commands. LABORATORY DATA: White cell count 13.4 and 12.1, hemoglobin 9.2, MCV 97, platelets 228, 43% bands. Sodium 136, creatinine 2.58. Liver profile normal. Albumin 2.0, globulin 2.1. Urinalysis with fair ly unremarkable findings except for proteinuria at 100. Microbiology or have a pending urine culture . The cultures have been reviewed above. The last hip cultures from 06/25/2018 which showed the Pse udomonas aeruginosa and thus the most recent hip culture. IMAGING PROCEDURES: We have a chest x-ray from this admission which shows no interval change, the ca theter in the right hemithorax, stable right humeral arthroplasty and there is a hip x-ray with heter otopic bone formation and antibiotic implant seeds and there is still hardware lucency in the stem of the component of the femur. There is still side plate with screws and cerclage wires noted. There is an abdomen and pelvis CT from yesterday with periarticular soft tissue fluid collection appears to communicate with external skin surface concerning for an abscess and a large antibiotic spacer invol tomás in the right femoral prosthesis. ASSESSMENT: Rheumatoid arthritis, chronic renal insufficiency stage 4, aortic stenosis and chronic c omplications in the right hip fracture which led to replacement which got infected a couple times and now she has a spacer in place. Looks like she still has some elements of hardware in place as well. At this point, there is also evidence to suggest hypersensitivity reaction to either vancomycin or cefepime. We will switch her to meropenem. Discontinue cefepime and vancomycin. Adjust meropenem d ose for renal function and the patient will need surgical intervention and removal of all the foreign bodies from the right hip. I think at this point she would need resection of the site and leaving i t without any functional joint. This will have to be carried out here in the hospital, most likely. She does have a number of other issues, but I think proceed with this process is reversible at least in the face of the localized nature of the infection. Regarding the right Calderón sites, there is s ome concern with the exudate present at the site and continue local management, submit blood cultures .
[2018-08-31] MEDS ORDERED: Cefepime 1 GM in Sodium Chloride 0.9% 100 ML IVPB SCH (20:00)
[2018-08-31] MEDS ORDERED: Vancomycin HCl 750 MG in Sodium Chloride 0.9% 250 ML 250 ML IVPB SCH (21:00)
[2018-09-01] MEDS: Meropenem 500 MG in Sodium Chloride 0.9% 100 ML IVPB SCH ×2 (02:23→08:35)
[2018-09-01 04:14] LABS: #Lymphocytes 1.8 thou/uL (1.20-3.40); #Monocytes 0.7 thou/uL (0.11-0.59); #Neutrophils 6.6 thou/uL (1.40-6.50); %Basophils 0.4 % (0.0-1.0); %Eosinophils 9.7 % (0.0-10.0); %Lymphocytes 17.8 % (21.0-51.0); %Monocytes 6.5 % (0.0-10.0); %Neutrophils 65.5 % (42.0-75.0); Hemoglobin 7.8 g/dL (12.0-16.0); Mean Corpuscular HGB CONC 32.2 g/dL (32.0-36.0); Mean Corpuscular Volume 99.4 fL (78.0-98.0); Mean Platelet Volume 7.3 fL (7.4-10.4); Platelet Count 190 thou/uL (130-400); RBC Distribution Width 18.4 % (11.5-14.5); Red Blood Cell (RBC) Count 2.42 mill/uL (4.20-5.40); White Blood Cell (WBC) Count 10.1 thou/uL (4.8-10.8)
[2018-09-01 04:31] LABS: ALT (SGPT) 17 U/L (8-55); AST (SGOT) 21 U/L (5-34); Albumin 1.9 g/dL (3.4-4.8); Alkaline Phosphatase 102 U/L (40-150); Anion Gap 12 mmol/L (10-20); BUN (Urea Nitrogen) 63 mg/dL (9.8-20.1); Calc. Creatinine Clearance 18 mL/min (70-130); Calcium 8.1 mg/dL (7.8-10.44); Carbon Dioxide 17 mmol/L (23-31); Chloride 115 mmol/L (98-107); Estimated GFR-MDRD 17; Globulin 2.1 g/dL (2.4-3.5); Glucose 84 mg/dL (83-110); Potassium 5.2 mmol/L (3.5-5.1); Sodium 139 mmol/L (136-145)
[2018-09-01] MEDS: diphenhydrAMINE 25 MG CAP PO PRN (06:08)
--- NOTE | 2018-09-01 06:30 | PDOC.FM ---
Addendum entered and electronically signed by Karena Londono MD 09/01/18 10:12: Rt hip skin overlying wound is erythematous and hot to the touch. Nursing states they have changed the dressing 4x/day and drainage is soaking through the pad. Central line covering has been changed 3 times, still has purulent drainage. Original Note: - Subjective Subjective: Patient itching and scratching this AM, not eating much yesterday. Transitioned to cefepime yesterday. Some low blood pressures overnight. - Objective Vital Signs & Weight: Vital Signs (12 hours) Temp Pulse Resp BP BP Pulse Ox 09/01/18 00:00 97.4 F L 81 16 91/45 L 97 08/31/18 21:00 97.6 F 70 14 85/38 L 96 08/31/18 20:14 94/42 L 08/31/18 20:00 96 Weight Admit Weight 59.148 kg Weight 59.148 kg I&O: 08/30/18 08/31/18 09/01/18 06:59 06:59 06:59 Intake Total 700 Output Total 900 Balance -900 700 Result Diagrams: 09/01/18 03:40 09/01/18 03:40 <Karena Londono - Last Filed: 09/01/18 07:56> - Objective Vital Signs & Weight: Vital Signs (12 hours) Temp Pulse Pulse Resp BP BP Pulse Ox 09/01/18 12:51 94 20 85/34 L 09/01/18 10:36 94 18 84/56 L 92 L 09/01/18 08:52 79 79/49 L 09/01/18 08:11 97.8 F 79 20 119/66 96 Weight Admit Weight 59.148 kg Weight 59.148 kg I&O: 08/31/18 09/01/18 09/02/18 06:59 06:59 06:59 Intake Total 940 Output Total 900 900 Balance -900 40 Result Diagrams: 09/01/18 03:40 09/01/18 03:40 <Wander Friend - Last Filed: 09/01/18 13:56> Phys Exam - Physical Examination Scratching and itching Respiratory: no wheezing, clear to auscultation bilateral 2/6 harsh systolic murmur Gastrointestinal: soft, non-tender, positive bowel sounds pitting Edema in legs bilat, swelling in arms same Deviation from normal: Diffuse peeling scaling rash over whole body. -: Erythematous arms bilat and face, mildly improved from yesterday <RoshansoumyaKarena - Last Filed: 09/01/18 07:56> Dx/Plan (1) Postoperative wound infection of right hip Code(s): T81.49XA - INFECTION FOLLOWING A PROCEDURE, OTHER SURGICAL SITE, INIT Status: Acute (2) Sepsis Code(s): A41.9 - SEPSIS, UNSPECIFIED ORGANISM Status: Acute (3) Acute on chronic diastolic (congestive) heart failure Code(s): I50.33 - ACUTE ON CHRONIC DIASTOLIC (CONGESTIVE) HEART FAILURE Status : Acute (4) Hyperkalemia Code(s): E87.5 - HYPERKALEMIA Status: Acute (5) Anemia of renal disease Code(s): D63.1 - ANEMIA IN CHRONIC KIDNEY DISEASE Status: Chronic (6) CHF (congestive heart failure) Code(s): I50.9 - HEART FAILURE, UNSPECIFIED Status: Chronic (7) CKD (chronic kidney disease) stage 4, GFR 15-29 ml/min Code(s): N18.4 - CHRONIC KIDNEY DISEASE, STAGE 4 (SEVERE) Status: Chronic (8) DM2 (diabetes mellitus, type 2) Status: Chronic (9) Hypertension Code(s): I10 - ESSENTIAL (PRIMARY) HYPERTENSION Status: Chronic (10) Urinary retention Code(s): R33.9 - RETENTION OF URINE, UNSPECIFIED Status: Chronic - Plan Plan: 73 yo F admitted for hyperkalemia with concern for sepsis 2/2 to infection Sepsis 2/2 Intra-articular infection vs central line infection -Pulse >90, WC 13.4 on presentation, R 20 -CT abd/pelv: enlargement periarticular soft tissue fluid collection Rt hip communicating with skin. Concern for postop collection vs periarticular abscess -Picc line appears infected, wound cultures pending -LA pending, blood cultures pending -UA neg, U cx pending -Consult Dr. Diamond today -Switch from Vanc and cefepime to meropenem, as there is concern for allergic reaction -Consult Ortho -Dr. Bedolla will see on Sunday, Dr. Youngblood/Lalo will see over this weekend -XR Rt hip: Pt does have hardware in Rt hip joint currently which will need removal -Consult palliative care -Pt code status change to DNR -family and patient considering hospice but would like to know what can be done about her infection/hip before deciding Hypotension -Held BP meds today and tomorrow (may restart tomorrow if BP improve) -Bolus with D5 LR 500ml this AM -Monitor BP Right hip postoperative fluid collection vs abscess -evidenced by abdominal CT -see above Central line infection, suspected -cultures pending -consider IR consult or wound care consult for replacement/management Concern for DVT -D dimer elevated -RLE doppler neg for DVT, shows subcutaneous edema over foreleg Allergic reaction vs anthony syndrome -Patient states this has been going on >5 days -Concern for Red man syndrome -Will consult Dr. Diamond, appreciate recommendations -Transitioned to cefepime Hyperkalemia -K on admission 5.7, resolved to 5.0. - 5.2 this AM, consider furosemide dose once BP improvied Urinary retention -Bladder scans qshift -Monitor I/Os CKD -stage 4 -monitor via CMP, continued sodium bicarb, consider nephro consult HTN -held for hypotension Type 2 diabetes -pt had an episode of hypoglycemia, now resolved s/p 2 amps of d50 -ACHS accuchecks -restart home meds CHF -edema b/l upper and lower extremities, clear lungs -ordered BNP to assess for exacerbation, clinically is volume overloaded -restarted home medications -Systolic murmur this AM, consider echo if not done recently Code status: full for now, will readdress today DVT ppx: heparin Dispo: poor <Karena Londono - Last Filed: 09/01/18 07:56> (1) Sepsis Code(s): A41.9 - SEPSIS, UNSPECIFIED ORGANISM Status: Acute (2) Postoperative wound infection of right hip Code(s): T81.49XA - INFECTION FOLLOWING A PROCEDURE, OTHER SURGICAL SITE, INIT Status: Acute (3) Hyperkalemia Code(s): E87.5 - HYPERKALEMIA Status: Acute (4) Acute on chronic kidney failure Code(s): N17.9 - ACUTE KIDNEY FAILURE, UNSPECIFIED; N18.9 - CHRONIC KIDNEY DISEASE, UNSPECIFIED Status: Acute Qualifiers: Chronic kidney disease stage: stage 4 (severe) (5) Anemia of renal disease Code(s): D63.1 - ANEMIA IN CHRONIC KIDNEY DISEASE Status: Chronic (6) Aortic stenosis Code(s): I35.0 - NONRHEUMATIC AORTIC (VALVE) STENOSIS Status: Chronic Qualifiers: Cardiac valve disease etiology: etiology unspecified Qualified Code(s): I35.0 - Nonrheumatic aortic (valve) stenosis (7) CHF (congestive heart failure) Code(s): I50.9 - HEART FAILURE, UNSPECIFIED Status: Chronic (8) CKD (chronic kidney disease) stage 4, GFR 15-29 ml/min Code(s): N18.4 - CHRONIC KIDNEY DISEASE, STAGE 4 (SEVERE) Status: Chronic (9) Hypertension Code(s): I10 - ESSENTIAL (PRIMARY) HYPERTENSION Status: Chronic (10) Urinary retention Code(s): R33.9 - RETENTION OF URINE, UNSPECIFIED Status: Chronic <Wander Friend - Last Filed: 09/01/18 13:56> Attending Addendum - Attending Addendum Date/Time: 09/01/18 0572 I personally evaluated the patient and discussed the management with Dr. Christ Londono I agree with the History, Examination, Assessment and Plan documented above with any addition or exceptions noted below. Patient doing poorly right hip swollen warm and tender to touch with erythema with continued drainage, PCC line with drainage requiring frequent dressing changes, significant RYAN murmur consider endocarditis. Patient poorly responsive and now hypotensive. Patient DNR and concern with overwhelming sepsis with refractory treatment to date. Palliative care and hospice reasonable alternatives discussed with family and agree to meeting with Hospice for option continued aggressive care futile in my opinion <Wander Friend - Last Filed: 09/01/18 13:56>
[2018-09-01] MEDS: Magnesium Chloride 64 MG TAB PO SCH (08:35)
[2018-09-01] MEDS: Sodium Bicarbonate Tab 325 MG TAB PO SCH ×2 (08:35→14:08)
[2018-09-01] MEDS: Atorvastatin Calcium 40 MG TAB PO SCH (08:35)
[2018-09-01] MEDS: Heparin 5,000 UNITS/ML VIAL SC SCH ×2 (08:35→14:08)
--- NOTE | 2018-09-01 08:35 | EKG ---
Test Reason : GENERALIZED PAIN Blood Pressure : / mmHG Vent. Rate : 093 BPM Atrial Rate : 093 BPM P-R Int : 134 ms QRS Dur : 068 ms QT Int : 358 ms P-R-T Axes : 048 -20 022 degrees QTc Int : 445 ms Normal sinus rhythm /Baseline artifact. Anterior infarct , age undetermined /Poor R wave progression. Abnormal ECG Confirmed by JAMIL CARTAGENA ([id number]) on 09/01/2018 8:35:35 AM Referred By: Confirmed By:JAMIL CARTAGENA
[2018-09-01] MEDS: Morphine 2 MG/ML SYRINGE SLOW IVP PRN (08:36)
[2018-09-01] MEDS ORDERED: D5 LR 500 ML IV SCH (10:45)
--- NOTE | 2018-09-01 14:06 | PDOC.EVN ---
Event Note - Event Note Event Note: Patient with persistent low BP this AM, not responding, not eating Patient was made DNR yetserday after discussion with palliative care team Discussed case with 10+ family memnbers including who is MPOA at bedside yesterday Family is not interested in further surgeries at this time, they are not interested in starting pressors Family states they would be intersted in talking to hospice care team Family did want to wait for 2 more sons to arrive to make final decision. Had discussed case with Dr. Delong, states this is reasonable if family does not want to peruse pressors, further measures <Elgin Londono - Last Filed: 09/01/18 14:06> Attending Addendum - Attending Addendum Date/Time: 09/01/18 8330 I was present with Dr Londono when consulted with patient and family through Hospital health information technologist( to interpret SSO family) and understand they asking for and desire no heroic measures. <Wander Friend - Last Filed: 09/01/18 17:04>
[2018-09-01 19:06] VITALS: BP 94/62; TEMP 98.3
--- NOTE | 2018-09-01 21:47 | CON ---
DATE OF CONSULTATION: 09/01/2018 CHIEF COMPLAINT: Right hip drainage. HISTORY OF PRESENT ILLNESS: Ms. Jovany Jennings is a 73-year-old female who was admitted last nig for multiple medical problems including acute renal failure and dehydration. She has a long and c omplex history regarding her right leg. I have seen her in the past for her right hip. She has had a history of hip arthroplasty with multiple revision surgeries as well as fracture surgeries on the r ight femur. Most of her surgeries have been done with Dr. Bedolla at [facility]. I performed an irrigation and debridement of her hip several months ago for infection. Since that kanchan e, she has had multiple other surgeries including resection of her hip arthroplasty and now 3 weeks a go had a cement spacer placed. She has been on intravenous antibiotics. She just had a long [facility] course at [facility]. She presented to [facility] yesterd ay with a rash, failure to thrive, dehydration among other problems. She was [facility]. She has ongoing drainage from her right hip. PAST MEDICAL HISTORY: Severe aortic stenosis, diabetes, hypertension, chronic renal failure, and rig ht hip infection as per HPI. PAST SURGICAL HISTORY: Includes many surgeries to the right hip and right leg with most recent surge ry as per HPI including hip resection with antibiotic spacer placement. SOCIAL HISTORY: The patient lives with multiple family members. She denies tobacco, alcohol, or echo g use. REVIEW OF SYSTEMS: Positive for pain in her feet bilaterally as well as right hip pain. IMAGES: X-rays of the right hip reveal a cement spacer, which is intact. There has been no dislocat ion or change in position or alignment. There is no retained metal proximally at the hip. PHYSICAL EXAMINATION: VITAL SIGNS: Temperature is 97.0, pulse is 94, respiratory rate 18, oxygen saturation 92%, blood pre ssure is 84/56. GENERAL: Patient is lying supine. She is not answering questions. She does not respond to commands . Her family answers questions for her at the bedside. She is fairly somnolent. RESPIRATORY: She is breathing comfortably. CARDIOVASCULAR: Pulses are very weakly palpable. MUSCULOSKELETAL: The patient's right hip has some cloudy drainage from the wound. There is minimal surrounding erythema. She has pain with hip motion as well as light motion. She has edema of the bi lateral feet and ankles. She is not able to follow commands for flexion or extension of the foot or toes. She has a shortened right leg. LABORATORY AND X-RAY FINDINGS: White blood cell count is 10.1, hemoglobin is 7.8, hematocrit is 24.1 . IMPRESSION: A 73-year-old female with multiple severe medical problems and chronically infected righ t hip status post resection of arthroplasty recently with antibiotic spacer. PLAN: At this point, patient seems to be worsening systemically. She has had bouts of pancreatitis, worsening of renal disease. She has end-stage aortic stenosis as well as the complications regardin g her hip. She had multiple irrigation and debridement procedures with the hip metal has been remove d and antibiotics spacer has been placed recently. I see no benefit to putting her through more surg freida and this would likely only result in further complications. I think Wound Care would be the best option for her at this point. Family agrees. They are going to pursue likely Palliative Care at th is point. The patient has multiple life-threatening conditions. We will be available if she did nee d further Orthopedic treatment, but I would not foresee this in the near future. The patient will fo llow up with Dr. Bedolla as an outpatient if she is able to leave the hospital.
== END 2018-09-01 20:00 | disposition hospice, inpatient (51) | DRG 314 ==
LOC: ERS 14:28 → T4-B 22:58 → OBSVTOIN 22:58
PROVIDERS: ADMIT Family Medicine; ATTEND Family Medicine
DX: T80.211A Bloodstream infection due to central venous catheter, initial encounter (principal); A41.9 Sepsis, unspecified organism; I50.33 Acute on chronic diastolic (congestive) heart failure; T81.41XA Infection following a procedure, superficial incisional surgical site, initial encounter; N17.9 Acute kidney failure, unspecified; N18.4 Chronic kidney disease, stage 4 (severe); I13.0 Hypertensive heart and chronic kidney disease with heart failure and stage 1 through stage 4 chronic kidney disease, or unspecified chronic kidney disease; E86.0 Dehydration; I35.0 Nonrheumatic aortic (valve) stenosis; E11.22 Type 2 diabetes mellitus with diabetic chronic kidney disease; R62.51 Failure to thrive (child); Z66 Do not resuscitate; Z83.3 Family history of diabetes mellitus; M06.9 Rheumatoid arthritis, unspecified; E87.5 Hyperkalemia; D63.1 Anemia in chronic kidney disease; R33.9 Retention of urine, unspecified
CPT/HCPCS: 36415; 36416; 51701; 71045; 74176; 80053; 81001; 81003; 81015; 82553; 83605; 83735; 83880; 84484; 85025; 85379; 87040; 87070; 87077; 87086; 87186; 87205; 93005; 96361; 96365; 96367; 96375; 99212; A4353; G0463; G8978-GP-CN; G8979-GP-CN; G8980-GP-CN; G8996-GN-CN; G8997-GN-CN; J0692; J1200; J1644; J2185; J2270; J3370; J7050